=== PATIENT | female | born 1950 | race Caucasian/White ===

== ENCOUNTER 2018-05-20 07:05 | Inpatient (IN) | payer MEDICARE, BC ==
[2018-05-20] MEDS ORDERED: fentaNYL* 50 MCG/ML 2 ML VIAL (100 MCG VIAL) IV SLOW PU ONE (07:23)
[2018-05-20] MEDS ORDERED: fentaNYL* 50 MCG/ML 2 ML VIAL (100 MCG VIAL) ONE (07:25)
--- NOTE | 2018-05-20 07:26 | ED ---
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 20 minutes ago. Patient states that she was moving from her wheelchair to the toilet when her left leg crumbled under her and she fell down striking the right hip on her toilet. Patient states that she couldnt get up afterwards and whenever she exerted herself to lift her body, she could feel the bones crackle. Eventually, she felt her right hip shift and felt pain down to her knee. Currently, the pain is centered around her right hip, although her left hip is still weak and pt has pain in her left knee (which has a TKR) and her left lower leg (which has plate and screws). The pain is rated 10/10 in severity. Symptoms aggravated by nothing. Symptoms alleviated by nothing. The patient treated the pain with fentanyl 200mcg IV PRODUCT MANAGEMENT MANAGER by EMS. Patient additionally reports lower left extremity swelling. Pt is followed by Dr. Jennings for oncology, and Dr. Encarnacion for her chronic pain. Pt is a full code. Verbal order for additional fentanyl 200mcgs IV given to BROOKS Jeffrey, upon admission to ED, to address pt's severe pain, as I am called to the phone to speak with a physician from [facility] regarding another critical pt in the ED. BROOKS Jeffrey gave verbal confirmation of the order for fentanyl 200mcg IV and entered it as a verbal order from Dr. Mota and administered it after usual RN confirmations of narcotic medication. Pt's Dr. Conor Ramachandran, anesthesiologist, remains at patient's bedside continuously. Pt's home medications noted, including xarelto, medical marijuana, and high dose narcotics. Pt gives permission to access her port for all IV access. Pt and deny syncope or seizure as the cause of the fall and state it was true mechanical fall. Pt denies head or neck or back injury with the fall, and denies head, neck and back pain. Pt had bloodwork done yesterday by oncology. Pt has had a few day prodrome of not eating well. Home Medications Medication Instructions Recorded Confirmed Type ALPRAZolam TAB* [Xanax TAB*] 0.5 mg PO Q4HR PRN 03/21/12 12/21/17 History Nitroglycerin [Nitrostat] 0.4 mg SL SEE INSTRUCTIONS PRN 03/21/12 12/21/17 History levETIRAcetam TAB* [Keppra TAB*] 1,000 mg PO BEDTIME 03/21/12 12/21/17 History levETIRAcetam TAB* [Keppra TAB*] 500 mg PO QAM 03/21/12 12/21/17 History B-Complex Vitamins [Vitamin B 1 tab PO QAM 10/05/13 12/21/17 History Complex] Fluoxetine HCl [Prozac] 40 mg PO TID 10/05/13 12/21/17 History Melatonin 10 - 15 mg PO BEDTIME PRN 10/05/13 12/21/17 History Meloxicam [Mobic] 7.5 mg PO BID 10/05/13 12/21/17 History Esomeprazole Magnesium [Nexium] 40 mg PO QAM 11/05/13 12/21/17 History Dronabinol [Marinol] 5 tab PO TID 01/24/15 12/21/17 History Oxycodone HCl [Oxycontin 60 mg] 120 mg PO TID 01/24/15 12/21/17 History Tizanidine HCl 4 mg PO QPM 01/24/15 12/21/17 History Alpha Lipoic Acid 300 mg PO DAILY 12/20/17 12/21/17 History Denosumab* [Xgeva*] 120 mg SUBCUT SEE INSTRUCTIONS 12/20/17 12/21/17 History Furosemide TAB* [Lasix TAB*] 20 mg PO DAILY 12/20/17 12/21/17 History Medical Marijuana 0.5 ml PO TID 12/20/17 History Multivit with Calcium,Iron,Min 1 each PO DAILY 12/20/17 12/21/17 History [Multiple Vitamins For Women] Ondansetron HCl [Zofran] 8 mg PO DAILY 12/20/17 12/21/17 History Oxycodone HCl [Roxybond] 2 tab PO TID 12/20/17 12/21/17 History Oxyfast 2 ml PO DAILY 12/20/17 History Prochlorperazine TAB* [Compazine 10 mg PO Q6H PRN 12/20/17 12/21/17 History Tab*] Vitamin D TAB* 12,000 units PO DAILY 12/20/17 12/21/17 History l-Theanine 100 mg PO DAILY 12/20/17 12/21/17 History predniSONE TAB* [Deltasone 20 MG 20 mg PO DAILY PRN 12/20/17 12/21/17 History TAB*] - History of Current Complaint Chief Complaint: EDHipPelvisInjury Stated Complaint: FALL/HIP INJURY Time Seen by Provider: 05/20/18 07:10 Hx Obtained From: Patient, Family/Tortilla Maker - , anesthesiologist, EMS - EMS provider, Denisse, administered Fenanyl 200mcg IV enroute. I signed medical control for that narcotic. Mechanism Of Injury: Blunt Trauma, Fall From A Standing Position Onset of Pain: Immediate Onset/Duration: Minutes Severity Initially: Severe Severity Currently: Severe Pain Intensity: 10 Pain Scale Used: 0-10 Numeric Timing: Constant Location: Is Discrete @ - right hip and left hip and left lower extremity Character Of Pain: Sharp Associated Signs And Symptoms: Positive: Swelling - left lower extremity swelling, Knee Pain - left Aggravating Factor(s): Movement Alleviating Factor(s): Nothing - no relief with 200mcgs fentanyl IV enroute Able to Bear Weight: No - Allergies/Home Medications Allergies/Adverse Reactions: Allergies Allergy/AdvReac Type Severity Reaction Status Date / Time iodine Allergy Mild Rash Verified 05/20/18 12:30 Adhesive Tape Allergy Unknown Verified 05/20/18 12:30 Reaction Details ampicillin Allergy Unknown Verified 05/20/18 12:30 Reaction Details azithromycin Allergy Unknown Verified 05/20/18 12:30 Reaction Details carbamazepine [From Tegretol] Allergy Unknown Verified 05/20/18 12:30 Reaction Details cefuroxime [From Ceftin] Allergy Unknown Verified 05/20/18 12:30 Reaction Details celecoxib [From Celebrex] Allergy Unknown Verified 05/20/18 12:30 Reaction Details cisapride Allergy Headache Verified 05/20/18 12:30 cyclobenzaprine Allergy Shakes Verified 05/20/18 12:30 divalproex sodium Allergy Altered Verified 05/20/18 12:30 [From Depakote] Mental Status egg Allergy Rash Verified 05/20/18 12:30 Egg Derived Allergy Rash Verified 05/20/18 12:30 estrogens, conjugated Allergy Unknown Verified 05/20/18 12:30 [From Premarin] Reaction Details gabapentin Allergy Altered Verified 05/20/18 12:30 Mental Status Gadolinium-Containing Allergy Hives Verified 05/20/18 12:30 Contrast Medi hydromorphone Allergy Hallucinati Verified 05/20/18 12:30 ons latex Allergy Blisters Verified 05/20/18 12:30 meperidine Allergy Hallucinati Verified 05/20/18 12:30 ons metronidazole Allergy Unknown Verified 05/20/18 12:30 Reaction Details NSAIDS (Non-Steroidal Allergy Rash Verified 05/20/18 12:30 Anti-Inflamma ofloxacin [From Floxin] Allergy Unknown Verified 05/20/18 12:30 Reaction Details propoxyphene Allergy Rash And Verified 05/20/18 12:30 Itching valproic acid Allergy Altered Verified 05/20/18 12:30 Mental Status warfarin Allergy Unknown Verified 05/20/18 12:30 Reaction Details FEMARA Allergy Severe Hives Uncoded 05/20/18 12:31 ISOTOPE FOR PET SCAN Allergy Severe LIPS Uncoded 05/20/18 12:31 SWELLED PHENOBARBITAL Allergy Severe N/V/D Uncoded 05/20/18 12:31 Bee Venom Allergy Swelling Uncoded 05/20/18 12:31 Of Face,Lips,& Throat chicken allergy Allergy Rash Uncoded 05/20/18 12:31 Demerol HCL Allergy Hallucinati Uncoded 05/20/18 12:31 ons DUST Allergy Difficulty Uncoded 05/20/18 12:31 Breathing/Wheezing feathers Allergy asthma Uncoded 05/20/18 12:31 attack Sulfa Antibiotics Allergy Swelling Uncoded 05/20/18 12:31 Of Face,Lips,& Throat Home Medications: Home Medications Oxycodone HCl [Oxycontin] 120 mg PO TID 05/20/18 [History Confirmed 05/20/18] Xarelto 10 mg PO DAILY 05/20/18 [History Confirmed 05/20/18] PMH/Surg Hx/FS Hx/Imm Hx Previously Healthy: No - chronic pain due to Stage IV metastatic breast CA Endocrine/Hematology History: Reports: Hx Thyroid Disease - MULTI NODULAR GOITER Denies: Hx Diabetes Cardiovascular History: Reports: Hx Angina, Hx Deep Vein Thrombosis, Hx Syncope , Other Cardiovascular Problems/Disorders Denies: Hx Hypertension, Hx Pacemaker/ICD, Hx Rheumatic Fever, Hx Valvular Heart Disease Respiratory History: Reports: Hx Asthma, Hx Sleep Apnea - NO CPAP, on O2 2L at night Denies: Hx Pulmonary Embolism GI History: Reports: Hx Gastroesophageal Reflux Disease, Hx Hiatal Hernia, Hx Ulcer History: Denies: Hx Renal Disease Musculoskeletal History: Reports: Hx Arthritis, Hx Bursitis - WRIST HIP SHOULDER , Hx Scoliosis, Other Musculoskeletal History - Breast CA, metastatic to bone; FIBROMYALGIA; LEFT ARM AND LEG LYMPHEDEMA Sensory History: Reports: Hx Cataracts - BILAT, Hx Contacts or Glasses, Hx Glaucoma - LEFT Denies: Hx Hearing Aid, Hx Hearing Problem Opthamlomology History: Reports: Hx Cataracts - BILAT, Hx Contacts or Glasses, Hx Glaucoma - LEFT Neurological History: Reports: Hx Headaches, Hx Nerve Disease - NEUROPATHY, Hx Seizures, Other Neuro Impairments/Disorders - [employer] shunt Psychiatric History: Reports: Hx Anxiety, Hx Depression Denies: Hx Panic Disorder - Cancer History Cancer Type, Location and Year: BREAST CA AND SECONDARY MALIGNANT NEOPLASM OF BONE Hx Chemotherapy: Yes Hx Radiation Therapy: Yes - Surgical History Surgery Procedure, Year, and Place: MULTIPLE SHUNTS- PROGRAMMABLE ( DO AT HOSP..HAS TO BE CHECK PRE & POST MRI UNDER ARTEMIO W/ DR ENGEL) , NECK FUSION, LEFT KNEE REPLACEMENT , RIGHT HIP REPLACEMENT. LT LEG- FX REPAIR- W/ PLATE. THUMB - FX - SCREW. POWER PORT Hx Anesthesia Reactions: No Infectious Disease History: Yes Infectious Disease History: Reports: Hx of Known/Suspected MRSA - in port, Hx Shingles Denies: Hx Hepatitis, Hx Known/Suspected VRE, Traveled Outside the [place] in Last 30 Days - Family History Known Family History: Positive: Cardiac Disease, Other - Father - prostate cancer - Social History Lives: With Family Alcohol Use: None Hx Substance Use: Yes Substance Use Type: Reports: Marijuana - medical, Prescribed Hx Tobacco Use: No Smoking Status (MU): Never Smoked Tobacco Review of Systems Negative: Fever Cardiovascular: Negative Respiratory: Negative Gastrointestinal: Negative Positive: frequency Positive: Other - right hip pain, left lower extremity pain swelling Positive: Other - redness and shiny skin left lower leg greater than right, no open lesions Neurological: Other - severe pain Psychological: Normal All Other Systems Reviewed And Are Negative: Yes Physical Exam - Summary Physical Exam Summary: Appearance: Chronically ill-appearing, severe pain distress, well-nourished, pt has legs curled in position, and cries out in pain whenever touched Skin: Warm, color reflects adequate perfusion, dry Head: Normal Head/Face inspection, atraumatic Eyes: Conjunctiva clear ENT: Normal inspection Neck: Supple, no nodes, no JVD, no bony tenderness Respiratory: Lungs clear, normal breath sounds, no respiratory distress, no chest wall pain or ecchymosis Cardio: RRR, No murmur, pulses normal, brisk capillary refill Abdomen: Soft, nontender, nondistended Bowel sounds: Present Musculoskeletal: Left lower extremity edema, unable to move lower extremities due to severe pain, tenderness left lower leg and foot, right hip, bilateral knee replacement scars Psychological: Normal, cries out in severe pain with any touch or movement Neuro: Alert O x 3, muscle tone normal, no focal deficit noted, speech clear and coherent, facial symmetry. Triage Information Reviewed: Yes Vital Signs On Initial Exam: Initial Vitals Temp Pulse Resp BP Pulse Ox 99.5 F 76 36 141/84 99 05/20/18 07:16 05/20/18 07:16 05/20/18 07:16 05/20/18 07:16 05/20/18 07:16 Vital Signs Reviewed: Yes Diagnostics - Vital Signs Vital Signs Temp Pulse Resp BP Pulse Ox 05/20/18 07:16 99.5 F 76 36 141/84 99 - Laboratory Result Diagrams: 05/21/18 05:30 05/21/18 05:30 Lab Statement: Any lab studies that have been ordered have been reviewed, and results considered in the medical decision making process. - Radiology Knee XR Radiology Interpretation Completed By: Radiologist Summary of Radiographic Findings: Knee XR reveals, per radiologist, IMPRESSION: No fracture of the left knee is noted. ED physician has reviewed this radiology report. Hip XR Radiology Interpretation Completed By: Radiologist Summary of Radiographic Findings: Hip XR reveals, per radiologist, IMPRESSION: Right hip replacement in satisfactory position. Lytic lesion in the proximal lesser trochanter is unchanged. No fracture is identified. ED physician has reviewed this radiology report. Lower Extremity XR Radiology Interpretation Completed By: Radiologist Summary of Radiographic Findings: Lower Extremity XR reveals, per radiologist, IMPRESSION: Moderately comminuted Fracture of the midshaft of the tibia and proximal fibula at the superior margin of the sideplate. This is consistent with a stress riser fracture with medial and posterior displacement. ED physician has reviewed this radiology report. Ankle XR Radiology Interpretation Completed By: Radiologist Summary of Radiographic Findings: Ankle XR reveals, per radiologist, IMPRESSION : Prior internal fixation without recent fracture although soft tissue swelling is noted. ED physician has reviewed this radiology report. Foot XR Radiology Interpretation Completed By: Radiologist Summary of Radiographic Findings: Foot XR reveals, per radiologist, IMPRESSION: No fracture of the left foot is noted. ED physician has reviewed this radiology report. - CT CT Lower Extremity CT Interpretation Completed By: Radiologist Summary of CT Findings: Lower Extremity CT reveals, per radiologist, IMPRESSION : Fracture of the tibia just superior to the existing plate and screws of the tibia. There is lateral displacement approximately 1 shafts width. The fracture is mildly comminuted. Fracture of the proximal fibula with lateral displacement approximately 1 shafts width is also present. ED physician has reviewed this radiology report and has reviewed it in person and discussed it with Dr. Miller. No talus fracture noted by Dr. Miller. - EKG 1112 Cardiac Rate: Bradycardia EKG Rhythm: Sinus Bradycardia - 55 ST Segment: Non-Specific Ectopy: None EKG Comparison: No Significant Change Summary of EKG Findings: An EKG, taken 1112, reveals Sinus Bradycardia (55 BPM) , normal LUIS E CT, normal QTC, left axis, nonspecific ST changes, no ectopy, no significant change since 05/09/15 Re-Evaluation - Re-Evaluation First Eval Re-Evaluation Time: 08:53 Change: Unchanged Comment: Patient continues to have pain and more morphine has been given. Second Eval Re-Evaluation Time: 10:35 Change: Improved Comment: Midazolam was given to pt for muscle relaxant, in doses equivalent to her usual daily xanax at home. Discussion with Dr. Singh prior to administration of benzodiazepine, who agrees that this is not moderate or deep sedation for this patient, as she is on these medications chronically and doses are consistent with her usual medication. , anesthesiologist also remains at bedside. O2 is in place and pt is monitored. Nurse Wojciech RN and I am present with Dr. Ferris at the bedside to assist in monitoring the pt during reduction of the fracture and application of the knee immobilizer and boot, which are chosen rather than posterior splint to allow for frequent skin checks. Skin remains intact. Pain is improved but still severe after reduction by Dr. Ferris. Left dorsalis pedis pulse remains intact and is marked with an "x ". 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 Bloodwork Obtained. Urinalysis Obtained. In the ED course the patient was given fentanyl 200mcg, morphine, Zofran, midazolam. Pt was in severe pain, and Dr. Singh was consulted by phone regarding narcotic and benzodiazepine administration to address pt's severe pain. Pt had plain films showing fractures in left lower leg between the TKR and the tibial plate and possible talus fracture of the foot. No hip or pelvis fractures were identifed on plain films. Pt was not able to localize pain will due to severe pain. CT of pt's lower extremity confirmed the fractures in the left lower leg , and CT reviewed in person with Dr. Miller did not confirm a fracture in the talus, although he could see the lucency on the plain radiograph. The left lower leg fracture was reduced by Dr. Ferris with me at the bedside and assisting in addition to RN, Wojciech, and placed in knee immobilizer and boot. The pt is hemodynamically stable, alert and oriented x3. We had discussed patient care with Dr. Ferris, who knows patient personally and recently saw pt in the office, and she agreed to come see patient in the ED, as Dr. Chatterjee was in the OR (implementation project manager). We discussed patient care with [place] and Dr. Jennings (oncology), and oncology accepted pt on their service with orthopedics consulting. Pt's pain, breast cancer will need to be managed and xarelto DC'd prior to definitive orthopedica management. , anesthesiologist, remained at pt's bedside during ED care. The patient is agreeable with this plan. - Diagnoses Differential Diagnosis/HQI/PQRI: Positive: Dislocation, Fracture (Closed) Provider Diagnoses: Fractured tibia and fibula, Metastatic breast cancer, Anticoagulant long-term use - Physician Notifications Discussed Care Of Patient With: Lita Ferris Time Discussed With Above Provider: 09:32 - Dr. Ferris agrees to see pt,known to her. Dr. Chatterjee, implementation project manager, is in the OR. Instructed by Provider To: Admit As Inpatient - We discussed patient care with Dr. Jennings and [place] [facility] (oncology) at 1030, they accepted pt on the oncology service with orthopedics consulting. The patient is agreeable with this plan. Discharge - Sign-Out/Discharge Documenting (check all that apply): Patient Departure - Discharge Plan Condition: Stable Disposition: ADMITTED TO [facility] - Billing Disposition and Condition Condition: STABLE Disposition: Admitted to [facility] - Attestation Statements Document Initiated by Smileyibe: Yes Documenting Scribe: Fabian Canas Provider For Whom Aleida is Documenting (Include Credential): [place] Mota MD Scribe Attestation: Fabian Simms, scribed for [place] Mota MD on 05/21/18 at 1405. Scribe Documentation Reviewed: Yes Provider Attestation: The documentation as recorded by the Fabian pettit accurately reflects the service I personally performed and the decisions made by , [place] Mota MD Status of Scribe Document: Viewed Consult Consult: [id number] Singh, anesthesia implementation project manager, who knows pt. Discussed dosing of pain medications. OK'd for additional pain meds after fentanyl 200mcg x1 in EMS and fentanyl 200mcg on arrival, and versed 1mg IV. Dr. Singh states that this pt will not go into deep sedation with additional narcotic or benzodiazepine medications. Will give morphine 4mg now and medicate according to patient's pain scale and need for procedures.
[2018-05-20] MEDS ORDERED: Midazolam* 1 MG/ML 2 ML VIAL (2 MG) IV SLOW PU ONE (07:33)
[2018-05-20] MEDS ORDERED: Morphine VIAL* 4 MG/ML VIAL (1 ml vial) IV ONE ×4 (08:02→12:21)
--- OUTSIDE RECORDS SUMMARY | 2018-05-20 08:04 | XMS REPORT | Continuity of Care Document ---
:1950 External Reference #:[id number] Author Name Ravi Encarnacion DO, MPH Address [address] [place] [address], [address] [place] [address] Care Team Providers Name Role Phone Isak Jennings M.D. Care Team Information Supervisor Shipping Unavailable Bhaskar Mathur M.D. Primary Care Physician Unavailable Payers Type Date Identification Numbers Payment Provider Subscriber Effective: 2018 Policy Number: [id number] [place]ran PayID: [id number] [address] [place] [address] Expires: 2018 Policy Number: [id number] [place] Ramachandran PayID: [id number] 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 Tobacco Use Start: Unknown Never Smoked Cigarettes ETOH Use Denies alcohol use Tobacco Use Start: Unknown Patient has never smoked Smoking Status Reviewed: 05/10/18 Patient has never smoked Allergies, Adverse Reactions, Alerts Date Description Reaction Status Severity Comments 01/02/2014 Warfarin Active 01/02/2014 Coumadin Active 01/02/2014 Premarin Active 01/02/2014 Depakote Active 01/02/2014 Darvon Active 01/02/2014 Neurontin Active 01/02/2014 Demerol Active 01/02/2014 Ampicillin Active 01/02/2014 Celebrex Active 01/02/2014 Azithromycin Active 01/02/2014 Floxin Active 01/02/2014 Tegretol Active 01/02/2014 Ceftin Active 01/02/2014 Metronidazole Active 01/02/2014 Elavil Active 01/02/2014 Phenobarbital Active Medications Medication Date Status Form Strength Qnty SIG Indications Ordering Provider Xanax 03/18 Active Tablets 0.5mg 120ta si by Encarnacion bs mouth Ravi, every 6 DO, MPH hours as directed fill generic please. Oxycontin 01/20 Active Tab ER 12H 60mg 180ta take 1-2 Abuse-Det bs tablet by Ravi, mouth DO, MPH every 8-12 hours. as directed chronic pain. fill generic if available please. Oxycodone HCL 07/30 Active Tablets 15mg 240ta si-2 by bs mouth Ravi, every 4 to DO, MPH 6 hours as directed chronic pain patient. fill generic please Zanaflex 04/30 Active Tablets 4mg 30tab si/2-1 s by mouth Ravi, every DO, MPH night as directed chronic pain patient Ritalin 01/15 Active Tablets 5mg 30tab si by s mouth Ravi, daily as DO, MPH directed fill generic please. Oxycodone HCL 01/02 Active Concentrate 100mg/5ML 60ml sig: 1/4-1/2ml Ravi, sl by DO, MPH mouth every 4 to 6 hours as directed chronic pain patient fill generic Multi Active Tablets Unknown Vitamin/Minerals /0000 Full Spectrum Melatonin CR Active Tablets ER 10mg 1 PO Daily Unknown /0000 B Complex Active Tablets 60tab si po Unknown /0000 s qd ud medically necessary Vitamin D Active Capsules 2000Unit Unknown /0000 Zinc Active Tablets 100mg Unknown /0000 Iron Active Tablets 325(65Fe) 2 PO Daily Unknown /0000 mg Move Free Active Capsules 400-60-2. Unknown /0000 5mg Keppra Active Tablets 500mg 3 po daily Unknown / Meloxicam Active Tablets 15mg 120ta 2 by mouth Unknown /0000 bs every day as directed Prozac Active Capsules 40mg 60cap si po Unknown /0000 s qday Nexium Active Capsules DR 40mg 30cap si po Unknown /0000 s qd ud Trazodone HCL Active Tablets 150mg 15tab si po q Unknown /0000 s pm ud Ondansetron HCL Active Tablets 4mg 1-2 q 4-6 Unknown /0000 hrs prn Dulera Active Aerosol 200-5mcg/ Unknown /0000 Act Emetrol Active Solution 1.87-1.87 Unknown /0000 -21.5 Ventolin HFA Active Aerosol 108(90Bas e) mcg/Act Levocetirizine Active Tablets 5mg 30tab sig: take Unknown Dihydrochloride / s 1 po daily Lasix Active Tablets 20mg 1 by mouth Unknown 0000 every morning every day or every other day will confimr. Xarelto Active Tablets 10mg 1 by mouth Unknown /0000 daily Lyrica 09/01 Hx Capsules 25mg 30cap si by Encarnacion s mouth Ravi, - every day DO, MPH 09/01 directed chronic pain patient. dose decrease. Lyrica 08/05 Hx Capsules 25mg 60cap si by Encarnacion s mouth Ravi, - every 8 to DO, MPH 11 12 hours as directed chronic pain patient. fill generic Prednisone 03/16 Hx Tablets 20mg 10tab take one Encarnacion s by mouth Ravi, - every 12 DO, MPH 10/19 hours for five days Ud chronic pain patient. Lyrica 06/26 Hx Capsules 25mg 90cap si by Encarnacion s mouth Ravi, - every 8 DO, MPH 04/13 hours as directed chronic pain patient Xanax 07/30 Hx Tablets 0.5mg 180ta si by Shashank, bs mouth Ravi, - every 4-6 DO, MPH 11/24 hours by mouth every day as directed dosage change Oxycontin 01/02 Hx T12a 80mg 180un si-2 by Shashank, its mouth Ravi, - q4-6hrs as DO, MPH 01/20 directed chronic pain patient Oxycodone HCL 01/02 Hx Tablets 15mg 360ta si-2 by Shashank, /2013 gema mouth Ravi, - every 6 to DO, MPH 07/30 8 hours directed as needed chronic pain patient code d two month scripts Ritalin Hx Tablets 5mg 90tab si-2 Unknown /0000 s po - 01/15 Levothyroxine Hx Tablets 25mcg 1 po qd Unknown Sodium /0000 - 05/10 Arimidex Hx Tablets 1mg 1 po daily Unknown /0000 - 05/10 Marinol Hx Capsules 5mg 1 po q Unknown /0000 6hrs prn - 05/10 Flexeril Hx Tablets 10mg 30tab si po Unknown /0000 s qid ud - 05/10 chronic pain patient Lunesta Hx Tablets 3mg 30tab si po Unknown /0000 s qhs ud - 05/10 chronic pain patient Fondaparinux Hx Solution 7.5mg/0.6 1 Unknown Sodium /0000 ML Injection - Every Day 08/05 Ibrance Hx Capsules 125mg Qday Unknown /0000 - 08/05 Abraxane Hx Suspension 100mg Unknown /0000 Rec - 05/10 Xeloda Hx Tablets 500mg 2 PO Q12H Unknown /0000 - 11/16 Immunizations Description No Information Available Vital Signs Date Vital Result Comment 05/10/2018 11:39am BP Systolic 122 mmHg BP Diastolic 74 mmHg Heart Rate 76 /min Respiratory Rate 20 /min Height 70 inches 5'10" Weight 168.00 lb Pain Level 8 Pain at this time. Pain Level With Medicine 7 on average with meds Pain Level Without Medicine 10 02/01 without meds BMI (Body Mass Index) 24.1 kg/m2 04/13/2018 10:47am BP Systolic 124 mmHg BP Diastolic 74 mmHg Heart Rate 72 /min Respiratory Rate 20 /min Height 70 inches 5'10" Weight 168.00 lb Pain Level 7 Pain at this time. Pain Level With Medicine 6 on average with meds Pain Level Without Medicine 10 02/01 without meds BMI (Body Mass Index) 24.1 kg/m2 03/14/2018 11:25am BP Systolic 116 mmHg BP Diastolic 70 mmHg Heart Rate 68 /min Respiratory Rate 18 /min Height 70 inches 5'10" Weight 168.00 lb Pain Level 8 Pain at this time. Pain Level With Medicine 7 on average with meds Pain Level Without Medicine 10 02/01 without meds BMI (Body Mass Index) 24.1 kg/m2 02/10/2018 11:21am BP Systolic 116 mmHg BP Diastolic 70 mmHg Heart Rate 76 /min Respiratory Rate 20 /min Height 70 inches 5'10" Weight 165.00 lb Pain Level 8 Pain at this time. Pain Level With Medicine 7 on average with meds Pain Level Without Medicine 10 02/01 without meds BMI (Body Mass Index) 23.7 kg/m2 01/11/2018 10:58am BP Systolic 136 mmHg BP Diastolic 86 mmHg Heart Rate 88 /min Respiratory Rate 20 /min doing well today Height 70 inches 5'10" Weight 168.00 lb Pain Level 9 Pain at this time. Pain Level With Medicine 8 on average with meds Pain Level Without Medicine 10 02/01 without meds BMI (Body Mass Index) 24.1 kg/m2 12/13/2017 10:51am BP Systolic 118 mmHg BP Diastolic 74 mmHg Heart Rate 72 /min Respiratory Rate 20 /min Height 70 inches 5'10" Weight 169.00 lb Pain Level 8 Pain at this time. Pain Level With Medicine 7 on average with meds Pain Level Without Medicine 10 02/01 without meds BMI (Body Mass Index) 24.2 kg/m2 11/16/2017 11:43am BP Systolic 120 mmHg BP Diastolic 70 mmHg Heart Rate 74 /min Respiratory Rate 20 /min Height 70 inches 5'10" Weight 160.00 lb Pain Level 7 Pain at this time. Pain Level With Medicine 6 on average with meds Pain Level Without Medicine 10 02/01 without meds BMI (Body Mass Index) 23.0 kg/m2 10/17/2017 11:41am BP Systolic 120 mmHg BP Diastolic 74 mmHg Heart Rate 76 /min Respiratory Rate 20 /min Height 70 inches 5'10" Weight 150.00 lb Pain Level 8 Pain at this time. Pain Level With Medicine 7 on average with meds Pain Level Without Medicine 10 02/01 without meds BMI (Body Mass Index) 21.5 kg/m2 09/15/2017 10:33am BP Systolic 120 mmHg BP Diastolic 74 mmHg Heart Rate 76 /min Respiratory Rate 20 /min Height 70 inches 5'10" Weight 150.00 lb Pain Level 8 Pain at this time. Pain Level With Medicine 7 on average with meds Pain Level Without Medicine 10 02/01 without meds BMI (Body Mass Index) 21.5 kg/m2 08/17/2017 11:22am BP Systolic 128 mmHg BP Diastolic 86 mmHg Heart Rate 84 /min Respiratory Rate 20 /min Height 70 inches 5'10" Weight 150.00 lb Pain Level 9 Pain at this time. Pain Level With Medicine 8 on average with meds Pain Level Without Medicine 10 02/01 without meds BMI (Body Mass Index) 21.5 kg/m2 07/19/2017 10:18am BP Systolic 118 mmHg BP Diastolic 72 mmHg Heart Rate 74 /min Respiratory Rate 20 /min Height 70 inches 5'10" Weight 153.00 lb Pain Level 5 Pain at this time. Pain Level With Medicine 5 on average with meds Pain Level Without Medicine 10 02/01 without meds BMI (Body Mass Index) 22.0 kg/m2 06/15/2017 11:00am BP Systolic 120 mmHg BP Diastolic 74 mmHg Heart Rate 72 /min Respiratory Rate 20 /min Height 70 inches 5'10" Weight 155.00 lb Pain Level 7 Pain at this time. Pain Level With Medicine 5 on average with meds Pain Level Without Medicine 10 02/01 without meds BMI (Body Mass Index) 22.2 kg/m2 05/17/2017 10:55am BP Systolic 118 mmHg BP Diastolic 68 mmHg Heart Rate 72 /min Respiratory Rate 20 /min Height 70 inches 5'10" Weight 153.00 lb Pain Level 8 Pain at this time. Pain Level With Medicine 7 on average with meds Pain Level Without Medicine 10 02/01 without meds BMI (Body Mass Index) 22.0 kg/m2 04/12/2017 11:34am BP Systolic 128 mmHg BP Diastolic 76 mmHg Heart Rate 74 /min Respiratory Rate 20 /min Height 70 inches 5'10" Weight 167.00 lb Pain Level 7 Pain at this time. Pain Level With Medicine 6 on average with meds Pain Level Without Medicine 10 02/01 without meds BMI (Body Mass Index) 24.0 kg/m2 03/16/2017 11:18am BP Systolic 120 mmHg BP Diastolic 72 mmHg Heart Rate 74 /min Respiratory Rate 20 /min Height 70 inches 5'10" Weight 166.00 lb Pain Level 7 Pain at this time. Pain Level With Medicine 7 on average with meds Pain Level Without Medicine 10 02/01 without meds BMI (Body Mass Index) 23.8 kg/m2 02/14/2017 11:18am BP Systolic 122 mmHg BP Diastolic 74 mmHg Heart Rate 76 /min Respiratory Rate 20 /min Height 70 inches 5'10" Weight 168.00 lb Pain Level 8 Pain at this time. Pain Level With Medicine 7 on average with meds Pain Level Without Medicine 10 02/01 without meds BMI (Body Mass Index) 24.1 kg/m2 01/13/2017 11:21am BP Systolic 120 mmHg BP Diastolic 70 mmHg Heart Rate 68 /min Respiratory Rate 20 /min Height 70 inches 5'10" Weight 171.00 lb Pain Level 9 Pain at this time. Pain Level With Medicine 8 on average with meds Pain Level Without Medicine 10 02/01 without meds BMI (Body Mass Index) 24.5 kg/m2 12/16/2016 11:33am BP Systolic 120 mmHg BP Diastolic 76 mmHg Heart Rate 74 /min Respiratory Rate 18 /min Height 70 inches 5'10" Weight 172.00 lb Pain Level 8 Pain at this time. Pain Level With Medicine 7 on average with meds Pain Level Without Medicine 10 02/01 without meds BMI (Body Mass Index) 24.7 kg/m2 11/17/2016 11:20am BP Systolic 118 mmHg BP Diastolic 80 mmHg Heart Rate 76 /min Respiratory Rate 16 /min Height 70 inches 5'10" Pain Level 9 9/10, Pain at this time. Pain Level With Medicine 9 9, on average with meds Pain Level Without Medicine 10 02/01 without meds 11/01/2016 11:45am BP Systolic 126 mmHg BP Diastolic 78 mmHg Heart Rate 74 /min Respiratory Rate 20 /min Height 70 inches 5'10" Weight 175.00 lb Pain Level 9 Pain at this time. Pain Level With Medicine 8 on average with meds Pain Level Without Medicine 10 02/01 without meds BMI (Body Mass Index) 25.1 kg/m2 09/28/2016 11:39am BP Systolic 128 mmHg BP Diastolic 78 mmHg Heart Rate 72 /min Respiratory Rate 16 /min Height 70 inches 5'10" Pain Level 8 8/10, Pain at this time. Pain Level With Medicine 6 6/10, on average with meds Pain Level Without Medicine 10 10 without meds 09/01/2016 10:58am BP Systolic 120 mmHg BP Diastolic 74 mmHg Heart Rate 68 /min Respiratory Rate 20 /min Height 70 inches 5'10" Weight 172.00 lb Pain Level 9 Pain at this time. Pain Level With Medicine 8 on average with meds Pain Level Without Medicine 10 02/01 without meds BMI (Body Mass Index) 24.7 kg/m2 08/05/2016 11:42am BP Systolic 122 mmHg BP Diastolic 76 mmHg Heart Rate 70 /min Respiratory Rate 16 /min Height 70 inches 5'10" Weight 175.00 lb Pain Level 9 9/10, Pain at this time. Pain Level With Medicine 6 6/10, on average with meds Pain Level Without Medicine 10 02/01 without meds BMI (Body Mass Index) 25.1 kg/m2 07/14/2016 11:25am BP Systolic 118 mmHg BP Diastolic 72 mmHg Heart Rate 76 /min Respiratory Rate 16 /min Height 70 inches 5'10" Pain Level 6 6/10, Pain at this time. Pain Level With Medicine 6 6/10, on average with meds Pain Level Without Medicine 10 02/01 without meds 06/14/2016 11:28am BP Systolic 116 mmHg BP Diastolic 74 mmHg Heart Rate 76 /min Respiratory Rate 20 /min Height 70 inches 5'10" Weight 174.00 lb Pain Level 7 Pain at this time. Pain Level With Medicine 7 on average with meds Pain Level Without Medicine 10 02/01 without meds BMI (Body Mass Index) 25.0 kg/m2 05/13/2016 11:30am BP Systolic 122 mmHg BP Diastolic 78 mmHg Heart Rate 80 /min Respiratory Rate 20 /min Height 70 inches 5'10" Weight 174.00 lb Pain Level 9 Pain at this time. Pain Level With Medicine 7 on average with meds Pain Level Without Medicine 10 02/01 without meds BMI (Body Mass Index) 25.0 kg/m2 04/15/2016 11:41am BP Systolic 116 mmHg BP Diastolic 72 mmHg Heart Rate 72 /min Respiratory Rate 20 /min Height 70 inches 5'10" Weight 173.00 lb Pain Level 9 9/10, Pain at this time. Pain Level With Medicine 7 7/10, on average with meds Pain Level Without Medicine 10 02/01 without meds BMI (Body Mass Index) 24.8 kg/m2 03/16/2016 11:43am BP Systolic 128 mmHg BP Diastolic 80 mmHg Heart Rate 72 /min Respiratory Rate 18 /min Height 70 inches 5'10" Weight 166.00 lb Pain Level 9 01/02, Pain at this time. Pain Level With Medicine 8 8, on average with meds Pain Level Without Medicine 10 02/01 without meds BMI (Body Mass Index) 23.8 kg/m2 02/16/2016 11:26am BP Systolic 132 mmHg BP Diastolic 80 mmHg Heart Rate 70 /min Respiratory Rate 18 /min Height 70 inches 5'10" Weight 166.00 lb Pain Level 9 01/02, Pain at this time. Pain Level With Medicine 8 12/02, on average with meds Pain Level Without Medicine 10 02/01 without meds BMI (Body Mass Index) 23.8 kg/m2 12/24/2015 10:55am BP Systolic 128 mmHg BP Diastolic 76 mmHg Heart Rate 74 /min Respiratory Rate 20 /min Height 70 inches 5'10" Weight 166.00 lb Pain Level 8 Pain at this time. Pain Level With Medicine 7 on average with meds Pain Level Without Medicine 10 02/01 without meds BMI (Body Mass Index) 23.8 kg/m2 11/24/2015 10:49am BP Systolic 130 mmHg BP Diastolic 76 mmHg Heart Rate 74 /min Respiratory Rate 18 /min Height 70 inches 5'10" Weight 166.00 lb Pain Level 9 Pain at this time. Pain Level With Medicine 7 on average with meds Pain Level Without Medicine 10 02/01 without meds BMI (Body Mass Index) 23.8 kg/m2 10/24/2015 11:37am BP Systolic 128 mmHg BP Diastolic 76 mmHg Heart Rate 74 /min Respiratory Rate 18 /min Height 70 inches 5'10" Weight 166.00 lb Pain Level 8 Pain at this time. Pain Level With Medicine 6 on average with meds Pain Level Without Medicine 10 02/01 without meds BMI (Body Mass Index) 23.8 kg/m2 09/24/2015 11:15am BP Systolic 120 mmHg BP Diastolic 76 mmHg Heart Rate 74 /min Respiratory Rate 18 /min Height 70 inches 5'10" Weight 166.00 lb Pain Level 7 Pain at this time. Pain Level With Medicine 6 on average with meds Pain Level Without Medicine 10 02/01 without meds BMI (Body Mass Index) 23.8 kg/m2 08/27/2015 11:26am BP Systolic 128 mmHg BP Diastolic 76 mmHg Heart Rate 74 /min Respiratory Rate 20 /min Height 70 inches 5'10" Weight 166.00 lb Pain Level 8 Pain at this time. Pain Level With Medicine 7 on average with meds Pain Level Without Medicine 10 02/01 without meds BMI (Body Mass Index) 23.8 kg/m2 07/23/2015 11:25am BP Systolic 118 mmHg BP Diastolic 74 mmHg Heart Rate 76 /min Respiratory Rate 18 /min Height 70 inches 5'10" Weight 162.00 lb Pain Level 9 Pain at this time. Pain Level With Medicine 8 on average with meds Pain Level Without Medicine 10 02/01 without meds BMI (Body Mass Index) 23.2 kg/m2 06/27/2015 11:23am BP Systolic 142 mmHg BP Diastolic 86 mmHg Heart Rate 80 /min Respiratory Rate 20 /min Height 70 inches 5'10" Weight 162.00 lb Pain Level 9 Pain at this time. Pain Level With Medicine 9 on average with meds Pain Level Without Medicine 10 02/01 without meds BMI (Body Mass Index) 23.2 kg/m2 05/28/2015 11:45am BP Systolic 120 mmHg BP Diastolic 72 mmHg Heart Rate 68 /min Respiratory Rate 18 /min Height 70 inches 5'10" Weight 168.00 lb Pain Level 9 9/10, Pain at this time. Pain Level With Medicine 8 8/10, on average with meds Pain Level Without Medicine 10 02/01 without meds BMI (Body Mass Index) 24.1 kg/m2 04/15/2015 11:18am BP Systolic 124 mmHg BP Diastolic 78 mmHg Heart Rate 74 /min Respiratory Rate 20 /min Height 70 inches 5'10" Weight 184.00 lb Pain Level 8 Pain at this time. Pain Level With Medicine 7 on average with meds Pain Level Without Medicine 10 02/01 without meds BMI (Body Mass Index) 26.4 kg/m2 03/18/2015 11:24am BP Systolic 122 mmHg BP Diastolic 74 mmHg Heart Rate 72 /min Respiratory Rate 2018 /min Height 70 inches 5'10" Weight 184.00 lb Pain Level 7 Pain at this time. Pain Level With Medicine 6 on average with meds Pain Level Without Medicine 10 02/01 without meds BMI (Body Mass Index) 26.4 kg/m2 02/19/2015 11:13am BP Systolic 126 mmHg BP Diastolic 74 mmHg Heart Rate 80 /min Respiratory Rate 20 /min Height 70 inches 5'10" Weight 184.00 lb Pain Level 5 Pain at this time. Pain Level With Medicine 5 on average with meds Pain Level Without Medicine 10 02/01 without meds BMI (Body Mass Index) 26.4 kg/m2 01/20/2015 11:38am BP Systolic 128 mmHg BP Diastolic 72 mmHg Heart Rate 70 /min Respiratory Rate 18 /min Height 70 inches 5'10" Weight 182.00 lb Pain Level 9 01/02, Pain at this time. Pain Level With Medicine 2 10, on average with meds Pain Level Without Medicine 10 02/01 without meds BMI (Body Mass Index) 26.1 kg/m2 12/20/2014 10:32am BP Systolic 138 mmHg BP Diastolic 86 mmHg Heart Rate 80 /min Respiratory Rate 18 /min Height 70 inches 5'10" Weight 182.00 lb Pain Level 9 01/02, Pain at this time. Pain Level With Medicine 9 01/02, on average with meds Pain Level Without Medicine 10 02/01 without meds BMI (Body Mass Index) 26.1 kg/m2 11/15/2014 11:10am BP Systolic 128 mmHg BP Diastolic 76 mmHg Heart Rate 74 /min Respiratory Rate 20 /min Height 70 inches 5'10" Weight 182.00 lb Pain Level 9 Pain at this time. Pain Level With Medicine 8 on average with meds Pain Level Without Medicine 10 02/01 without meds BMI (Body Mass Index) 26.1 kg/m2 10/23/2014 11:10am BP Systolic 118 mmHg BP Diastolic 74 mmHg Heart Rate 76 /min Respiratory Rate 18 /min Height 70 inches 5'10" Weight 178.00 lb Pain Level 10 Pain at this time. Pain Level With Medicine 9 on average with meds Pain Level Without Medicine 10 02/01 without meds BMI (Body Mass Index) 25.5 kg/m2 09/25/2014 11:01am BP Systolic 128 mmHg BP Diastolic 84 mmHg Heart Rate 76 /min Respiratory Rate 18 /min Height 70 inches 5'10" Weight 171.00 lb Pain Level 7 Pain at this time. Pain Level With Medicine 6 on average with meds Pain Level Without Medicine 10 02/01 without meds BMI (Body Mass Index) 24.5 kg/m2 08/14/2014 11:31am BP Systolic 138 mmHg BP Diastolic 84 mmHg Heart Rate 80 /min Respiratory Rate 20 /min Height 70 inches 5'10" Weight 172.00 lb Pain Level 9 Pain at this time. Pain Level With Medicine 9 on average with meds Pain Level Without Medicine 10 02/01 without meds BMI (Body Mass Index) 24.7 kg/m2 07/30/2014 10:59am BP Systolic 132 mmHg BP Diastolic 80 mmHg Heart Rate 84 /min Respiratory Rate 20 /min Height 70 inches 5'10" Weight 173.00 lb Pain Level 8 Pain at this time. Pain Level With Medicine 6 on average with meds Pain Level Without Medicine 10 02/01 without meds BMI (Body Mass Index) 24.8 kg/m2 05/28/2014 10:42am BP Systolic 122 mmHg BP Diastolic 76 mmHg Heart Rate 74 /min Respiratory Rate 20 /min Height 70 inches 5'10" Weight 172.00 lb Pain Level 9 Pain at this time. Pain Level With Medicine 8 on average with meds Pain Level Without Medicine 10 02/01 without meds BMI (Body Mass Index) 24.7 kg/m2 04/30/2014 10:43am BP Systolic 128 mmHg BP Diastolic 78 mmHg Heart Rate 74 /min Respiratory Rate 18 /min Height 70 inches 5'10" Weight 175.00 lb Pain Level 7 Pain at this time. Pain Level With Medicine 6 on average with meds Pain Level Without Medicine 10 02/01 without meds BMI (Body Mass Index) 25.1 kg/m2 04/02/2014 10:17am BP Systolic 128 mmHg BP Diastolic 74 mmHg Heart Rate 76 /min Respiratory Rate 20 /min Height 70 inches 5'10" Weight 173.00 lb Pain Level 9+ Pain at this time. Pain Level With Medicine 8 on average with meds Pain Level Without Medicine 10 02/01 without meds BMI (Body Mass Index) 24.8 kg/m2 02/28/2014 11:18am BP Systolic 120 mmHg BP Diastolic 74 mmHg Heart Rate 80 /min Respiratory Rate 18 /min Height 70 inches 5'10" Weight 175.00 lb Pain Level 8 8/, Pain at this time. Pain Level With Medicine 5 5-12/02, on average with meds Pain Level Without Medicine 10 02/01 without meds BMI (Body Mass Index) 25.1 kg/m2 01/29/2014 10:17am BP Systolic 122 mmHg BP Diastolic 76 mmHg Heart Rate 80 /min Respiratory Rate 18 /min Height 70 inches 5'10" Weight 170.00 lb Pain Level 9 9/10, Pain at this time. Pain Level With Medicine 5 5/10, on average with meds Pain Level Without Medicine 10 02/01 without meds BMI (Body Mass Index) 24.4 kg/m2 01/02/2014 9:45am BP Systolic 112 mmHg BP Diastolic 70 mmHg Heart Rate 64 /min Respiratory Rate 18 /min Height 70 inches 5'10" Weight 172.00 lb Pain Level 8 12/02, Pain at this time. Pain Level Without Medicine 10 10, 02/01 without meds BMI (Body Mass Index) 24.7 kg/m2 Results Test Date Facility Test Result H/L Range Note Laboratory test 02/17/2016 [facility] Point of Care 132 mg/dL High 74-106 [address] [address] [phone] 1 Historiography Teacher: [id number] WONG PARRISH Procedures Date Code Description Status 02/10/2018 81195 Therapeutic, Prophylactic Or Diagnostic Injection Subq/Im Completed 01/11/2018 72855 Therapeutic, Prophylactic Or Diagnostic Injection Subq/Im Completed 12/13/2017 63082 Therapeutic, Prophylactic Or Diagnostic Injection Subq/Im Completed 11/16/2017 90623 Therapeutic, Prophylactic Or Diagnostic Injection Subq/Im Completed 10/17/2017 [id number] Therapeutic, Prophylactic Or Diagnostic Injection Subq/Im Completed 04/12/2017 21797 Therapeutic, Prophylactic Or Diagnostic Injection Subq/Im Completed 02/14/2017 06828 Therapeutic, Prophylactic Or Diagnostic Injection Subq/Im Completed 12/16/2016 61389 Therapeutic, Prophylactic Or Diagnostic Injection Subq/Im Completed 11/17/2016 [id number] Therapeutic, Prophylactic Or Diagnostic Injection Subq/Im Completed 09/28/2016 29029 Therapeutic, Prophylactic Or Diagnostic Injection Subq/Im Completed 09/01/2016 [id number] Therapeutic, Prophylactic Or Diagnostic Injection Subq/Im Completed 07/14/2016 02377 Therapeutic, Prophylactic Or Diagnostic Injection Subq/Im Completed 06/14/2016 13550 Therapeutic, Prophylactic Or Diagnostic Injection Subq/Im Completed 04/15/2016 87050 Therapeutic, Prophylactic Or Diagnostic Injection Subq/Im Completed 03/16/2016 01526 Therapeutic, Prophylactic Or Diagnostic Injection Subq/Im Completed 02/16/2016 21668 Therapeutic, Prophylactic Or Diagnostic Injection Subq/Im Completed 12/24/2015 61276 Therapeutic, Prophylactic Or Diagnostic Injection Subq/Im Completed 11/24/2015 84435 Therapeutic, Prophylactic Or Diagnostic Injection Subq/Im Completed 06/27/2015 52496 Therapeutic, Prophylactic Or Diagnostic Injection Subq/Im Completed 05/28/2015 33988 Therapeutic, Prophylactic Or Diagnostic Injection Subq/Im Completed 04/15/2015 35198 Therapeutic, Prophylactic Or Diagnostic Injection Subq/Im Completed 03/18/2015 37472 Therapeutic, Prophylactic Or Diagnostic Injection Subq/Im Completed 02/19/2015 04751 Therapeutic, Prophylactic Or Diagnostic Injection Subq/Im Completed 10/23/2014 21447 Test Autonomic Nervous System, Sudomotor Completed Encounters Type Date Location Provider Dx Diagnosis Office Visit 04/13/2018 Main Office as Of Ravi Encarnacion DO 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 11:15a 05/26/13 MPH pain (acute) (chronic) M25.551 Pain in right hip M25.552 Pain in left hip M79.18 Myalgia, other site Z71.89 Other specified counseling 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 Office Visit 03/14/2018 10:45a Main Office as Ravi Encarnacion 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 Of 05/26/13 DO, MPH pain (acute) (chronic) M25.551 Pain in right hip M25.552 Pain in left hip M79.18 Myalgia, other site 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 Z71.89 Other specified counseling Office Visit 02/10/2018 11:15a Main Office as Ravi Encarnacion 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 Of 05/26/13 DO, MPH pain (acute) (chronic) M25.551 Pain in right hip M25.552 Pain in left hip M79.18 Myalgia, other site Z71.89 Other specified counseling 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 R53.83 Other fatigue Office Visit 01/11/2018 11:00a Main Office as Ravi Encarnacion 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 Of 05/26/13 DO, MPH pain (acute) (chronic) M25.551 Pain in right hip M25.552 Pain in left hip M79.605 Pain in left leg M79.1 Myalgia R53.83 Other fatigue Z71.89 Other specified counseling 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 Office Visit 12/13/2017 10:45a Main Office as Ravi Encarnacion 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 Of 05/26/13 DO, MPH pain (acute) (chronic) M79.605 Pain in left leg M25.552 Pain in left hip M25.551 Pain in right hip M79.1 Myalgia R53.83 Other fatigue Z79.891 senior care (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 Office Visit 11/16/2017 11:45a Main Office as Ravi Encarnacion 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 Of 05/26/13 DO, MPH pain (acute) (chronic) M79.604 Pain in right leg M79.605 Pain in left leg M25.552 Pain in left hip M25.551 Pain in right hip R53.83 Other fatigue Z71.89 Other specified counseling Z79.891 senior care (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 Office Visit 10/17/2017 11:30a Main Office as Ravi Encarnacion 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 Of 05/26/13 DO, MPH pain (acute) (chronic) M25.551 Pain in right hip M25.552 Pain in left hip M79.605 Pain in left leg M79.604 Pain in right leg M79.1 Myalgia R53.83 Other fatigue Z79.891 senior care (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 Office Visit 09/15/2017 10:45a Main Office as Ravi Encarnacion 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 Of 05/26/13 DO, MPH pain (acute) (chronic) M25.561 Pain in right knee M25.562 Pain in left knee M25.551 Pain in right hip M25.552 Pain in left hip M79.605 Pain in left leg M79.604 Pain in right leg M79.1 Myalgia 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 Office Visit 08/17/2017 11:15a Main Office as Ravi Encarnacion G89.Xiao Neoplasm related Of 05/26/13 DO, MPH pain (acute) (chronic) M79.604 Pain in right leg M79.605 Pain in left leg M25.552 Pain in left hip M25.551 Pain in right hip M25.562 Pain in left knee M25.561 Pain in right knee M79.1 Myalgia Z79.891 senior care (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 Office Visit 07/19/2017 10:15a Main Office as Ravi Encarnacion G89.Xiao Neoplasm related Of 05/26/13 DO, MPH pain (acute) (chronic) M79.1 Myalgia M25.561 Pain in right knee M25.562 Pain in left knee M25.551 Pain in right hip M25.552 Pain in left hip M79.605 Pain in left leg M79.604 Pain in right leg Office Visit 06/15/2017 10:45a Main Office as Ravi Encarnacion G89.Xiao Neoplasm related Of 05/26/13 DO, MPH pain (acute) (chronic) M79.1 Myalgia M25.552 Pain in left hip M25.551 Pain in right hip M25.562 Pain in left knee M25.561 Pain in right knee Z79.891 senior care (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 Office Visit 05/17/2017 11:00a Main Office as Ravi Encarnacion G89.Xiao Neoplasm related Of 05/26/13 DO, MPH pain (acute) (chronic) M79.1 Myalgia M25.551 Pain in right hip M25.552 Pain in left hip 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 M25.561 Pain in right knee M25.562 Pain in left knee Office Visit 04/12/2017 11:15a Main Office as Ravi Encarnacion G89.Xiao Neoplasm related Of 05/26/13 DO, MPH pain (acute) (chronic) M79.1 Myalgia M79.604 Pain in right leg M79.605 Pain in left leg M25.561 Pain in right knee M25.551 Pain in right hip M25.552 Pain in left hip R53.83 Other fatigue Z79.891 senior care (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 Office Visit 03/16/2017 11:15a Main Office as Ravi Encarnacion 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 Of 05/26/13 DO, MPH pain (acute) (chronic) M79.1 Myalgia M25.551 Pain in right hip M25.552 Pain in left hip M25.561 Pain in right knee M79.605 Pain in left leg M79.604 Pain in right leg R00.0 Tachycardia, unspecified 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561 Pain in right knee M79.605 Pain in left leg Z79.891 senior care (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 Office Visit 12/16/2016 11:30a Main Office as Ravi Encarnacion 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 Of 05/26/13 DO, MPH pain (acute) (chronic) M25.552 Pain in left hip M25.551 Pain in right hip M25.561 Pain in right knee M79.604 Pain in right leg M79.605 Pain in left leg M79.1 Myalgia R53.83 Other fatigue 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 Office Visit 11/17/2016 11:15a Main Office as Manasa Lindo 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 Of 2/05/08 MFT pain (acute) (chronic) M25.551 Pain in right hip M25.552 Pain in left hip M25.561 Pain in right knee M25.50 Pain in unspecified joint M79.605 Pain in left leg M79.604 Pain in right leg F41.9 Anxiety disorder, unspecified G47.8 Other sleep disorders Z71.89 Other specified counseling R53.83 Other fatigue 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 Office Visit 11/01/2016 11:30a Main Office as Manasa Lindo 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 Of 05/26/13 MFT pain (acute) (chronic) M25.50 Pain in unspecified joint M25.552 Pain in left hip M25.551 Pain in right hip 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 Office Visit 09/28/2016 11:45a Main Office as Manasa Lindo G89.Xiao Neoplasm related Of 05/26/13 MFT pain (acute) (chronic) M25.50 Pain in unspecified joint F41.9 Anxiety disorder, unspecified R53.83 Other fatigue Z71.89 Other specified counseling M25.551 Pain in right hip M25.552 Pain in left hip Office Visit 09/01/2016 11:15a Main Office as Manasa Lindo G89.Xiao Neoplasm related Of 2/05/08 MFT pain (acute) (chronic) M25.50 Pain in unspecified joint F41.9 Anxiety disorder, unspecified Z71.89 Other specified counseling R53.83 Other fatigue Office Visit 08/05/2016 11:30a Main Office as Manasa Lindo G89.Xiao Neoplasm related Of 2/05/08 MFT pain (acute) (chronic) F41.9 Anxiety disorder, unspecified M25.50 Pain in unspecified joint Z71.89 Other specified counseling Z79.891 senior care (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 Office Visit 07/14/2016 11:45a Main Office as Manasa Lindo 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 Of 05/26/13 MFT pain (acute) (chronic) M25.50 Pain in unspecified joint F41.9 Anxiety disorder, unspecified R53.83 Other fatigue Z71.89 Other specified counseling M79.1 Myalgia 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 Office Visit 06/14/2016 11:15a Main Office as Ravi Encarnacion G89.Xiao Neoplasm related Of 05/26/13 DO, MPH pain (acute) (chronic) F41.9 Anxiety disorder, unspecified M25.50 Pain in unspecified joint R53.83 Other fatigue G47.8 Other sleep disorders M79.1 Myalgia R29.6 Repeated falls Z79.891 senior care (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 Office Visit 05/13/2016 11:30a Main Office as Manasa Lindo G89.Xiao Neoplasm related Of 05/26/13 MFT pain (acute) (chronic) F41.9 Anxiety disorder, unspecified M25.50 Pain in unspecified joint Z71.89 Other specified counseling Office Visit 04/15/2016 11:30a Main Office as Manasa Lindo G89.Xiao Neoplasm related Of 05/26/13 MFT pain (acute) (chronic) M25.50 Pain in unspecified joint F41.9 Anxiety disorder, unspecified R53.83 Other fatigue Z79.891 senior care (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 Office Visit 03/16/2016 11:15a Main Office as Manasa Lindo G89.Xiao Neoplasm related Of 05/26/13 MFT pain (acute) (chronic) M79.604 Pain in right leg M25.50 Pain in unspecified joint F41.9 Anxiety disorder, unspecified R53.83 Other fatigue Z71.89 Other specified counseling Office Visit 02/16/2016 11:45a Main Office as Manasa Lindo G89.Xiao Neoplasm related Of 05/26/13 MFT pain (acute) (chronic) F41.9 Anxiety disorder, unspecified G47.8 Other sleep disorders M79.604 Pain in right leg M25.50 Pain in unspecified joint R53.83 Other fatigue Z71.89 Other specified counseling 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 Office Visit 12/24/2015 11:00a Main Office as Ravi Encarnacion 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 Of 05/26/13 DO, MPH pain (acute) (chronic) M79.604 Pain in right leg M25.50 Pain in unspecified joint G47.8 Other sleep disorders F41.9 Anxiety disorder, unspecified R53.83 Other fatigue Office Visit 11/24/2015 10:30a Main Office as Ravi Enacrnacion 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 Of 05/26/13 DO, MPH pain (acute) (chronic) M79.604 Pain in right leg M25.50 Pain in unspecified joint M79.1 Myalgia R29.6 Repeated falls F41.9 Anxiety disorder, unspecified G47.8 Other sleep disorders R53.83 Other fatigue 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.891 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 care (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 Office Visit 10/24/2015 11:15a Main Office as Ravi Encarnacion 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 Of 05/26/13 DO, MPH pain (acute) (chronic) M79.1 Myalgia M79.604 Pain in right leg F41.9 Anxiety disorder, unspecified M25.50 Pain in unspecified joint G47.8 Other sleep disorders R29.6 Repeated falls Z79.891 senior care (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 Office Visit 09/24/2015 11:00a Main Office as Ravi Encarnacion Z79.891 senior care Of 05/26/13 DO, MPH (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) M79.1 Myalgia M79.604 Pain in right leg F41.9 Anxiety disorder, unspecified M25.50 Pain in unspecified joint G47.8 Other sleep disorders R29.6 Repeated falls 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 Office Visit 08/27/2015 11:15a Main Office as Ravi Encarnacion Z79.891 senior care Of 05/26/13 DO, MPH (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) M79.1 Myalgia M79.604 Pain in right leg F41.9 Anxiety disorder, unspecified 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 Office Visit 07/23/2015 11:15a Main Office as Ravi Encarnacion 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 Of 05/26/13 DO, MPH (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) M79.1 Myalgia M79.604 Pain in right leg F41.9 Anxiety disorder, unspecified M25.50 Pain in unspecified joint 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 Office Visit 06/27/2015 11:15a Main Office as Ravi Encarnacion Z79.891 senior care Of 05/26/13 DO, MPH (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) M79.1 Myalgia M79.604 Pain in right leg Z79.891 senior care (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 R53.83 Other fatigue Office Visit 05/28/2015 11:15a Main Office as Ravi Encarnacion 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 Of 05/26/13 DO, MPH pain (acute) (chronic) M79.1 Myalgia M79.604 Pain in right leg F41.9 Anxiety disorder, unspecified R53.83 Other fatigue Z13.89 Encounter for screening for other disorder Office Visit 04/15/2015 11:00a Main Office as Ravi Encarnacion 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 Of 05/26/13 DO, MPH pain (acute) (chronic) M79.1 Myalgia M79.604 Pain in right leg F41.9 Anxiety disorder, unspecified R53.83 Other fatigue Office Visit 03/18/2015 11:15a Main Office as Ravi Encarnacion 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 Of 05/26/13 DO, MPH pain (acute) (chronic) M79.1 Myalgia F41.9 Anxiety disorder, unspecified G47.8 Other sleep disorders M79.604 Pain in right leg R53.83 Other fatigue Office Visit 02/19/2015 11:15a Main Office as Ravi Encarnacion 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 Of 05/26/13 DO, MPH (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) M79.1 Myalgia F41.9 Anxiety disorder, unspecified G47.8 Other sleep disorders M79.604 Pain in right leg R53.83 Other fatigue 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 Office Visit 01/20/2015 11:15a Main Office as Ravi Encarnacion, 338.3 Neoplasm Related Of 05/26/13 DO, MPH Pain (Acute) (Chronic) 719.49 Pain Joint Multiple Sites 729.1 Myalgia & Myositis Unspec 300.00 Anxiety State Unspec V65.42 Counseling On Substance Use & Abuse Office Visit 12/20/2014 10:30a Main Office as Ravi Encarnacion, 338.3 Neoplasm Related Of 05/26/13 DO, MPH Pain (Acute) (Chronic) 719.49 Pain Joint Multiple Sites 729.1 Myalgia & Myositis Unspec 300.00 Anxiety State Unspec 780.59 Sleep Disturbances Other 729.5 Pain In Limb V65.43 Counseling On Injury Prevention V58.69 Medications Director Hris (Current) Use Encounter Office Visit 11/15/2014 11:00a Main Office as Ravi Encarnacion, 338.3 Neoplasm Related Of 05/26/13 DO, MPH Pain (Acute) (Chronic) 719.49 Pain Joint Multiple Sites 729.1 Myalgia & Myositis Unspec 300.00 Anxiety State Unspec 780.59 Sleep Disturbances Other 719.45 Pain Joint Pelvic Region & Thigh 729.5 Pain In Limb Office Visit 10/23/2014 11:00a Main Office as Ravi Encarnacion, 338.3 Neoplasm Related Of 05/26/13 DO, MPH Pain (Acute) (Chronic) 719.49 Pain Joint Multiple Sites 729.1 Myalgia & Myositis Unspec 337.9 Autonomic Nervous System Disorder Unspec Office Visit 09/25/2014 11:00a Main Office as Ravi Encarnacion, 338.3 Neoplasm Related Of 05/26/13 DO, MPH Pain (Acute) (Chronic) 729.1 Myalgia & Myositis Unspec 719.49 Pain Joint Multiple Sites 300.00 Anxiety State Unspec 780.59 Sleep Disturbances Other 719.45 Pain Joint Pelvic Region & Thigh V65.43 Counseling On Injury Prevention Office Visit 08/14/2014 11:15a Main Office as Ravi Encarnacion, 338.3 Neoplasm Related Of 05/26/13 DO, MPH Pain (Acute) (Chronic) 719.49 Pain Joint Multiple Sites 729.1 Myalgia & Myositis Unspec 300.00 Anxiety State Unspec 780.59 Sleep Disturbances Other Office Visit 07/30/2014 10:30a Main Office as Ravi Encarnacion, 338.3 Neoplasm Related Of 05/26/13 DO, MPH Pain (Acute) (Chronic) 719.49 Pain Joint Multiple Sites 729.1 Myalgia & Myositis Unspec 780.59 Sleep Disturbances Other 300.00 Anxiety State Unspec 719.45 Pain Joint Pelvic Region & Thigh V65.43 Counseling On Injury Prevention V65.3 Dietary Surveillance & Counseling Office Visit 05/28/2014 10:30a Main Office as Ravi Encarnacion, 338.3 Neoplasm Related Of 05/26/13 DO, MPH Pain (Acute) (Chronic) 719.49 Pain Joint Multiple Sites 729.1 Myalgia & Myositis Unspec 780.59 Sleep Disturbances Other 300.00 Anxiety State Unspec Office Visit 04/30/2014 10:30a Main Office as Ravi Encarnacion, 338.3 Neoplasm Related Of 05/26/13 DO, MPH Pain (Acute) (Chronic) 729.1 Myalgia & Myositis Unspec 719.49 Pain Joint Multiple Sites 780.59 Sleep Disturbances Other 300.00 Anxiety State Unspec Office Visit 04/02/2014 10:00a Main Office as Ravi Encarnacion, 338.3 Neoplasm Related Of 05/26/13 DO, MPH Pain (Acute) (Chronic) 729.1 Myalgia & Myositis Unspec 719.49 Pain Joint Multiple Sites 780.59 Sleep Disturbances Other 300.00 Anxiety State Unspec Office Visit 02/28/2014 10:30a Main Office as Ravi Encarnacion, 338.3 Neoplasm Related Of 05/26/13 DO, MPH Pain (Acute) (Chronic) 729.1 Myalgia & Myositis Unspec 719.49 Pain Joint Multiple Sites 780.59 Sleep Disturbances Other Office Visit 01/29/2014 10:00a Main Office as Ravi Encarnacion, 338.3 Neoplasm Related Of 05/26/13 DO, MPH Pain (Acute) (Chronic) 729.1 Myalgia & Myositis Unspec 719.49 Pain Joint Multiple Sites V65.3 Dietary Surveillance & Counseling Office Visit 01/15/2014 9:45a Main Office as Ravi Encarnacion, 338.3 Neoplasm Related Of 05/26/13 DO, MPH Pain (Acute) (Chronic) 729.1 Myalgia & Myositis Unspec 719.49 Pain Joint Multiple Sites V65.43 Counseling On Injury Prevention Office Visit 01/02/2014 9:00a Main Office as Ravi Encarnacion, 338.3 Neoplasm Related Of 05/26/13 DO, MPH Pain (Acute) (Chronic) 729.1 Myalgia & Myositis Unspec 719.49 Pain Joint Multiple Sites 719.45 Pain Joint Pelvic Region & Thigh V65.3 Dietary Surveillance & Counseling V58.83 Encounter For Therapeutic Drug Monitoring Plan of Treatment Future Appointment(s):06/13/2018 10:45 am - Ravi Encarnacion DO MPH at Main Office as Of 05/26/1400 - Ravi Encarnacion DO, MPH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)Comments:Chronic. Symptoms and complaints discussed and reviewed today. No significant changes in physical findings. Continue current medical pain management.M25.551 Pain in right hipComments:Chronic. Symptoms and complaints discussed and reviewed today. No significant changes in physical findings. Continue current medical pain management.M25.552 Pain in left hipComments:Chronic. Symptoms and complaints discussed and reviewed today. No significant changes in physical findings. Continue current medical pain management.M79.18 Myalgia, other siteComments:Chronic. Symptoms and complaints discussed and reviewed today.No changes in physical findings. Patient is stable and comfortable when current medical therapy is rendered.Z79.891 senior care ( 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New Labs:Urine Drug Screen, Ordered: Comments:Urine drug screen sample taken today to monitor opiate use and to monitor use of illicit substances.Will discuss results at next appointment.The following tests were ordered:6 AM, AMPH, MARY ELLEN, LELA, BUP, CARIS, COCM, COT, ETG , FENT, MCSHSG, OPI, OXY, PCP, TAPEN, XTSY, ZOLP. ~I_A urine drug test ( UDT) was ordered for this patient and collected on site today. Creatinine has been ordered as well for specimen validity, not for kidney function. Preliminary UDT results are not final and should not be used to determine patient care or plan of treatment. Initially a qualitative immunoassay screen will be done. Any inconsistent or positive findings will be further tested with a more comprehensive quantitative confirmation LCMS study. It is part of the treatment process of prescribing controlled substances and is considered standard of care.~i_AllComments:All above symptoms and complaints discussed as well as diagnoses reviewed.Continue trial of opioid pain management - note changes below; injection therapy, osteopathic manipulation (OMT), PT / modalities, and consults as needed to manage chronic pain.Side effects discussed ; anticipatory guidance given. Patient clearly understands and agrees with all medical treatments and suggestions. 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 Activity as toleratedContinue with PCP
--- OUTSIDE RECORDS SUMMARY | 2018-05-20 08:04 | XMS REPORT | Continuity of Care Document ---
:1950 External Reference #:[id number] Author Name Yocasta Calvert Care Team Providers Name Role Phone Bhaskar Mathur MD Primary Care Physician Unavailable Payers Type Date Identification Numbers Payment Provider Subscriber Policy Number: [id number] Medicare Maria Killian PayID: [id number] [address] [place] [address] Effective: 2013 Policy Number: [id number] [employer] Conor Mabry PayID: [id number] [address] [address] Effective: 2012 Policy Number: [id number] [employer] Maria Killian Expires: 2013 PayID: [id number] [address] [address] Effective: 2005 Policy Number: [id number] [employer] [place] Conor Mabry Expires: 2012 Group Name: [facility] [address] PayID: [id number] [address] Advance Directives Description No Information Available Problems Date Description Provider Status Onset: 10/15/2014 Disorder of bursa of shoulder Steven Costello M.D. Active region Onset: 11/12/2014 Arthralgia of the lower leg Steven Costello M.D. Active Onset: 01/06/2015 Enthesopathy of hip region Lita Ferris M.D. Active Onset: 01/06/2015 C/O - a back symptom Lita Ferris M.D. Active Onset: 01/29/2015 Arthralgia of the pelvic region Lita Ferris M.D. Active and thigh Onset: 03/31/2015 Trochanteric bursitis Lita Ferris M.D. Active Onset: 07/07/2015 Localized, primary osteoarthritis Lita eFrris M.D. Active Onset: 10/07/2015 Disturbance in sleep behavior Bel Zaidi MD Active Onset: 10/07/2015 Malignant neoplasm of female Bel Zaidi MD Active breast Onset: 10/28/2015 Obstructive sleep apnea syndrome Bel Zaidi MD Active Onset: 06/09/2016 Central sleep apnea syndrome Aida Powell DNP, RN, Active [employer] Family History Date Family Member(s) Problem(s) Comments General breast cancer General thrombophlebitis General alzheimers General heart disease Father Prostate Cancer Father due to Prostate Cancer () Father Heart Disease Father Clotting Disorder Mother Alive And Well Siblings 2 Siblings 2 1-[place] Social History Type Date Description Comments Sex Unknown Marital Status Lives With Occupation Disabled Tobacco Use Start: Unknown Never Smoked Cigarettes Smoking Status Reviewed: 05/01/18 Never Smoked Cigarettes ETOH Use Denies alcohol use Tobacco Use Start: Unknown Patient has never smoked Recreational Drug Use Denies Drug Use Recreational Drug Use Denies Drug Use Medical marijuana Exercise Type/Frequency Does not exercise Unable to exercise due to health condition Allergies, Adverse Reactions, Alerts Date Description Reaction Status Severity Comments 08/02/2013 Multiple NSAIDS Active 08/02/2013 Warfarin Active 08/02/2013 Premarin Active 08/02/2013 Depakote Active 08/02/2013 Darvon Active 08/02/2013 Neurontin Active 08/02/2013 Demerol Active 08/02/2013 Ampicillin Active 08/02/2013 Celebrex Active 08/02/2013 Celebrex Active 08/02/2013 Azithromycin Active 08/02/2013 Floxin Active 08/02/2013 Floxin Active 08/02/2013 Tegretol Active 08/02/2013 Ceftin Active 08/02/2013 Metronidazole Active 08/02/2013 Phenobarbital Active 02/01/2017 Bee Pollen Active 02/01/2017 Honey Bee Active Venom Protein 02/01/2017 Bee Products Contact dermatitis Active 02/01/2017 Chicken Allergenic Urticaria, Joint Active Any chicken Extract pain, diarrhaea products 02/01/2017 Eggs Or Egg-Derived Urticaria Active Mild Products 08/26/2017 Adhesive Active 12/09/2017 Latex skin irritation Active Medications Medication Date Status Form Strength Qnty SIG Indications Ordering Provider Xarelto 03/02 Active Tablets 20mg 30tab 1 by mouth Qutayb s every day Bill Penny M.D. Nitrostat 12/09 Active Tablets Sub 0.4mg 25tab one sl q5min yb s up to 3 S. doses as kathryn Penny M.D. Mobic 06/22 Active Tablets 7.5mg 60tab 1 po bid billy Curry M.D. Vitamin B Active 1 by mouth Unknown Complex /0000 daily Keppra Active Tablets As directed Unknown /0000 500 MG Am, 1,000 MG PM Marinol Active 5mg As Directed Unknown /0000 3x per day Melatonin Active Tablets 10-15 MG po Unknown /0000 once daily hs Multi-Vitamins Active 1 by mouth Unknown /Iron /0000 daily Oxycodone HCL Active Tablet 15mg 2 tablets by Unknown /0000 mouth 3 times a day Prozac Active 40mg 1 by mouth Unknown /0000 tid Vitamin D High Active [id number] by mouth Unknown Potency /0000 s daily Xgeva Active every 8-12 Unknown /0000 weeks injection Oxycontin Active Tab ER 12H 60mg 2 tablet by Unknown /0000 Abuse-Det mouth t.i.d Nexium Active Capsules DR 40mg 30cap 1 by mouth Unknown /0000 s every day Xanax Active Tablets 0.5mg 4 tablets Unknown /0000 prn Oxyfast Active 2 ml daily Unknown /0000 Prednisone Active Tablets 20mg prn Unknown /0000 Medical Active Liquid 0.5 ml four Unknown Marijuana /0000 times daily Furosemide Active Tablets 20mg 1 by mouth Unknown /0000 every day prn Alpha Lipoic Active Capsules 300mg daily Unknown Acid /0000 L-Theanine Active Capsules 100mg one po daily Unknown /0000 Tizanidine HCL 00 Active Capsules 4mg 1 tab daily Unknown / Compazine 0000 Active Tablets 10mg 1 tab by Unknown /0000 mouth every 6 hours as needed for nausea Zofran 00 Active Tablets 8mg take 1 by Unknown /0000 mouth every 6 hours as needed for nausea Capecitabine Active Tablets 150mg Unknown / Eliquis 12/09 Hx Tablets 5mg 42tab 1 by mouth Qutaybeh s twice a day Bill Penny, 03/02 M.D. 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 Brace /2015 s ambulation Nathan Ferris Knee - prn M.Venkat 12/08 Augmentin 03/18 Hx Tablets 875-125mg 20tab one by mouth Yvonne /2014 s every 12 Rodriguez-You - hours for Melissa campos 09/16 ten Anastrozole / Hx 1mg Unknown / - 09/21 Aspirin 0000 Hx 325mg 1 tab po Unknown /0000 daily - 12/08 Coq10 00/00 Hx Unknown / - 11/30 Flexeril 00 Hx 10mg as needed - 02/01 Nitroglycerin Hx 30 as needed / - 12/09 Omeprazole 00 Hx 20mg Unknown / - 11/30 Oxycodone HCL 00/ Hx 15mg Unknown / - 11/30 Ritalin 00/00 Hx 5mg 1 tablet by Unknown /0000 mouth daily - 12/08 Xanax 00/00 Hx 2mg Unknown / - 02/06 Trazodone HCL 0000 Hx Tablets 150mg 30tab 1 by mouth Unknown /0000 s every night - at bedtime 02/06 Zofran Hx Tablets 4mg 60tab 1 every 6 Unknown /0000 s hours as - needed 02/06 Augmentin 00/00 Hx 875 Unknown / - 02/26 Zithromax Hx Unknown - 02/26 Lyrica Hx Capsule 10mg 1 or 2 capsules by - mouth daily 12/08 Meloxicam Hx Tablets 15mg once daily Unknown with food - 02/01 Abraxane Hx Suspension 100mg daily for 3 Rec weeks and 1 - week off 02/01 Xeloda Hx Tablets 2 per day - 12/08 Medications Administered in Office Medication Date Status Form Strength Qnty SIG Indications Ordering Provider Depomedrol Administered Injection Lita 40MG 019 Melissa Ferris Depomedrol Administered Injection Lita 40MG 016 Melissa Ferris Depomedrol Administered Injection Lita 80MG 015 Melissa Ferris Depomedrol Administered Injection Lita 80MG 015 Melissa Ferris Depomedrol Administered Injection Steven Young, 80MG 015 Oswlad.DMargareth Depomedrol Administered Injection Steven Young, 80MG 015 MtDMargareth Depomedrol Administered Injection Steven Young, 80MG 015 MtDMragareth Depomedrol Administered Injection Yessy 80MG 014 ELIZABETH Osman Depomedrol Administered Injection Conor 80MG 014 Melissa Terrazas Depomedrol Administered Injection Ayana 80MG 013 Melissa Curry Immunizations Description No Information Available Vital Signs Date Vital Result Comment 05/01/2018 8:34am Height 73 inches 6'1" Weight 174.00 lb BP Systolic 119 mmHg BP Diastolic 72 mmHg Respiratory Rate 17 /min Pain Level 9 BMI (Body Mass Index) 23.0 kg/m2 03/02/2018 12:59pm Height 73 inches 6'1" Heart Rate 62 /min BP Systolic Sitting 112 mmHg rue lg cuff BP Diastolic Sitting 62 mmHg rue lg cuff Respiratory Rate 16 /min Ejection Fraction 50% 01/09/2018 echo 12/09/2017 10:31am Height 73 inches 6'1" Weight 169.00 lb Patient Reports Heart Rate 78 /min BP Systolic Sitting 124 mmHg Rue Reg Cuff BP Diastolic Sitting 68 mmHg Rue Reg Cuff BMI (Body Mass Index) 22.3 kg/m2 Ejection Fraction 50-55% ECHO 05/15/15 08/26/2017 11:15am Height 73 inches 6'1" Weight 150.00 lb Heart Rate 64 /min BP Systolic Sitting 102 mmHg BP Diastolic Sitting 64 mmHg Respiratory Rate 14 /min O2 % BldC Oximetry 98 % BMI (Body Mass Index) 19.8 kg/m2 04/01/2017 10:45am Height 73 inches 6'1" Weight 168.00 lb no shoes or clothes per pt Heart Rate 60 /min BP Systolic Sitting 118 mmHg Rue reg cuff BP Diastolic Sitting 62 mmHg Rue reg cuff Respiratory Rate 16 /min O2 % BldC Oximetry 97 % BMI (Body Mass Index) 22.2 kg/m2 02/01/2017 11:09am Height 73 inches 6'1" Weight 163.00 lb per pt Heart Rate 62 /min BP Systolic Sitting 110 mmHg Rue reg cuff BP Diastolic Sitting 68 mmHg Rue reg cuff Respiratory Rate 18 /min O2 % BldC Oximetry 96 % On Ra BMI (Body Mass Index) 21.5 kg/m2 12/14/2016 11:27am Height 73 inches 6'1" Weight 161.00 lb per pt Heart Rate 80 /min BP Systolic Sitting 88 mmHg Ra reg cuff BP Diastolic Sitting 46 mmHg Ra reg cuff O2 % BldC Oximetry 97 % room air BMI (Body Mass Index) 21.2 kg/m2 09/22/2016 1:36pm Height 73 inches 6'1" Weight 176.00 lb per pt Heart Rate 69 /min BP Systolic Sitting 128 mmHg Ra reg cuff BP Diastolic Sitting 80 mmHg Ra reg cuff O2 % BldC Oximetry 94 % room air BMI (Body Mass Index) 23.2 kg/m2 08/11/2016 1:52pm Height 73 inches 6'1" Weight 175.00 lb Heart Rate 76 /min BP Systolic Sitting 108 mmHg BP Diastolic Sitting 72 mmHg Respiratory Rate 16 /min Pain Level 8 O2 % BldC Oximetry 96 % BMI (Body Mass Index) 23.1 kg/m2 06/09/2016 11:40am Height 74 inches 6'2" Weight 172.00 lb Heart Rate 70 /min BP Systolic 114 mmHg BP Diastolic 72 mmHg Respiratory Rate 14 /min O2 % BldC Oximetry 92 % BMI (Body Mass Index) 22.1 kg/m2 04/07/2016 11:17am Weight 174.00 lb Heart Rate 92 /min BP Systolic 130 mmHg BP Diastolic 70 mmHg Respiratory Rate 14 /min O2 % BldC Oximetry 95 % 02/18/2016 11:57am Heart Rate 84 /min BP Systolic 132 mmHg BP Diastolic 80 mmHg Respiratory Rate 14 /min O2 % BldC Oximetry 98 % 02/02/2016 1:04pm Heart Rate 74 /min BP Systolic 137 mmHg BP Diastolic 82 mmHg Pain Level 9 01/30/2016 12:03pm Height 73 inches 6'1" Heart Rate 88 /min Respiratory Rate 20 /min 01/07/2016 12:54pm Heart Rate 76 /min BP Systolic Sitting 126 mmHg BP Diastolic Sitting 82 mmHg Respiratory Rate 16 /min O2 % BldC Oximetry 97 % 12/03/2015 11:50am Heart Rate 74 /min BP Systolic 122 mmHg BP Diastolic 84 mmHg Respiratory Rate 14 /min O2 % BldC Oximetry 95 % 10/28/2015 11:53am Heart Rate 83 /min BP Systolic Sitting 122 mmHg BP Diastolic Sitting 72 mmHg Respiratory Rate 18 /min O2 % BldC Oximetry 97 % 10/07/2015 11:47am Height 73 inches 6'1" Weight 165.00 lb Heart Rate 95 /min BP Systolic 118 mmHg BP Diastolic 72 mmHg Respiratory Rate 14 /min O2 % BldC Oximetry 95 % BMI (Body Mass Index) 21.8 kg/m2 Neck Circumference in inches 14 10/06/2015 11:36am Height 73 inches 6'1" Weight 165.00 lb Pain Level 10 BMI (Body Mass Index) 21.8 kg/m2 07/07/2015 12:59pm Height 73 inches 6'1" Weight 165.00 lb Pain Level 10 BMI (Body Mass Index) 21.8 kg/m2 05/09/2015 2:16pm Height 73 inches 6'1" Weight 167.00 lb Pain Level 10 BMI (Body Mass Index) 22.0 kg/m2 03/31/2015 11:43am Height 73 inches 6'1" Weight 167.00 lb Pain Level 10 BMI (Body Mass Index) 22.0 kg/m2 01/29/2015 3:17pm Height 73 inches 6'1" Weight 167.00 lb Pain Level 9 BMI (Body Mass Index) 22.0 kg/m2 01/06/2015 9:45am Height 73 inches 6'1" Weight 167.00 lb Heart Rate 80 /min BP Systolic Sitting 118 mmHg BP Diastolic Sitting 81 mmHg Pain Level 7 BMI (Body Mass Index) 22.0 kg/m2 11/12/2014 1:19pm Height 73 inches 6'1" Weight 167.00 lb Pain Level 5 up to a 10 at times BMI (Body Mass Index) 22.0 kg/m2 10/21/2014 8:10am Height 73 inches 6'1" Weight 167.00 lb Pain Level 9 BMI (Body Mass Index) 22.0 kg/m2 10/15/2014 2:23pm Height 73 inches 6'1" Weight 167.00 lb Pain Level 10 BMI (Body Mass Index) 22.0 kg/m2 09/19/2014 3:28pm Height 73 inches 6'1" Weight 167.00 lb Pain Level 7 various 5-8 BMI (Body Mass Index) 22.0 kg/m2 09/05/2014 1:14pm Height 73 inches 6'1" Weight 175.00 lb Pain Level 10 BMI (Body Mass Index) 23.1 kg/m2 06/27/2014 11:03am Height 73 inches 6'1" Weight 175.00 lb Pain Level 10 BMI (Body Mass Index) 23.1 kg/m2 05/16/2014 10:42am Height 73 inches 6'1" Weight 175.00 lb Pain Level 10 BMI (Body Mass Index) 23.1 kg/m2 03/20/2014 9:51am Height 73 inches 6'1" Heart Rate 104 /min BP Systolic 135 mmHg BP Diastolic 103 mmHg 03/18/2014 11:41am Height 73 inches 6'1" Heart Rate 88 /min BP Systolic 128 mmHg BP Diastolic 82 mmHg 03/14/2014 1:37pm Height 73 inches 6'1" Heart Rate 83 /min BP Systolic 126 mmHg BP Diastolic 80 mmHg 02/27/2014 1:55pm Height 73 inches 6'1" Weight 175.00 lb Heart Rate 85 /min BP Systolic 126 mmHg BP Diastolic 73 mmHg BMI (Body Mass Index) 23.1 kg/m2 02/18/2014 9:51am Height 72 inches 6'0" Heart Rate 76 /min BP Systolic 122 mmHg BP Systolic Sitting 75 mmHg 02/07/2014 11:34am Height 72 inches 6'0" Heart Rate 78 /min BP Systolic 114 mmHg BP Diastolic 70 mmHg 12/20/2013 10:42am Height 72 inches 6'0" Heart Rate 75 /min BP Systolic 114 mmHg BP Diastolic 66 mmHg 12/12/2013 1:55pm Height 72 inches 6'0" Heart Rate 79 /min BP Systolic 137 mmHg BP Diastolic 73 mmHg 11/30/2013 11:28am Height 72 inches 6'0" Weight 171.00 lb Heart Rate 64 /min BP Systolic Sitting 122 mmHg BP Diastolic Sitting 70 mmHg Pain Level 10 head BMI (Body Mass Index) 23.2 kg/m2 11/06/2013 11:26am Height 72 inches 6'0" Heart Rate 86 /min BP Systolic 106 mmHg BP Diastolic 75 mmHg 10/16/2013 1:55pm Height 72 inches 6'0" Weight 183.00 lb Heart Rate 80 /min BMI (Body Mass Index) 24.8 kg/m2 10/02/2013 11:23am Height 72 inches 6'0" Weight 183.00 lb Heart Rate 92 /min BMI (Body Mass Index) 24.8 kg/m2 09/21/2013 1:40pm Height 72 inches 6'0" Weight 183.00 lb Body Temperature 98.4 F BMI (Body Mass Index) 24.8 kg/m2 09/20/2013 1:39pm Height 72 inches 6'0" Weight 183.00 lb BMI (Body Mass Index) 24.8 kg/m2 09/13/2013 2:02pm Height 72 inches 6'0" Weight 183.00 lb Body Temperature 98.1 F Pain Level 8 BMI (Body Mass Index) 24.8 kg/m2 08/28/2013 11:27am Height 72 inches 6'0" Weight 183.00 lb Heart Rate 72 /min BMI (Body Mass Index) 24.8 kg/m2 08/02/2013 2:37pm Height 72 inches 6'0" Weight 183.00 lb Heart Rate 68 /min BP Systolic 131 mmHg BP Diastolic 78 mmHg BMI (Body Mass Index) 24.8 kg/m2 07/13/2013 9:19am Height 72 inches 6'0" Weight 183.00 lb Heart Rate 90 /min BP Systolic 103 mmHg BP Diastolic 67 mmHg BMI (Body Mass Index) 24.8 kg/m2 Results Test Date Facility Test Result H/L Range Note Order 01/03/2018 [facility] 24 hour <pending> [address] [place] [address] [place] [address] monitor [phone] Surgical 03/01/2014 [facility] S RUN DATE: [address] <[place] [address] NOTE> [phone] Laboratory test 12/20/2013 [facility] C Reactive 1.61 mg/L N < 5.00 [address] [place] [address] [phone] Oncology CBC 12/20/2013 [facility] White Blood 4.9 10^3/uL N 4.8-10.8 Auto Diff [address] [place] [address] [phone] Red Blood Count 4.64 10^6/uL N 4.0-5.4 Hemoglobin 13.3 g/dL N 12.0-16.0 Hematocrit 42 % N 35-47 Mean Corpuscular Volume 91 fL N 80-97 Mean Corpuscular Hemoglobin 29 pg N 27-31 Mean Corpuscular HGB Conc 32 g/dL N 31-36 Red Cell Distribution Width 14 % N 10.5-15 Platelet Count 185 10^3/uL N 150-450 Mean Platelet Volume 7 um3 Low 7.4-10.4 Abs Neutrophils 3.4 10^3/uL N 1.5-7.7 Abs Lymphocytes 1.0 10^3/uL N 1.0-4.8 Abs Monocytes 0.3 10^3/uL N 0-0.8 Abs Eosinophils 0.1 10^3/uL N 0-0.6 Abs Basophils 0.1 10^3/uL N 0-0.2 Granulocyte % 68.7 % N 38-83 Lymphocyte % 20.7 % Low 25-47 Monocyte % 6.9 % N 1-9 Eosinophil % 2.2 % N 0-6 Basophil % 1.5 % N 0-2 Laboratory test 12/20/2013 [facility] Erythrocyte Sed 15 mm/Hr N 0-[address] [place] [address] [phone] CBC With 03/08/2009 [facility] White Blood 5.7 CUMM 4.8-10.8 Electronic Diff [address] [place] [address] [phone] Red Cell Count 3.74 CUMM Low 4.2-5.4 Hemoglobin 11.9 g/dL Low 12.0-16.0 Hematocrit 36 % 35-47 Mean Corpuscular Volume 95 um3 79-97 Mean Corpuscular Hemoglob 32 pg High 27-31 Mean Corpuscular HGB Cone 33 g/dL 32-36 Redcell Distribution WDTH 13 % 10.5-15 Platelet Count 142 CUMM Low 150-450 Mean Platelet Volume 8.1 um3 7.4-10.4 Gran % 65.4 % 38-83 Lymph % 22.7 % Low 25-47 Mononuclear % 11.3 % High 1-9 Eosinophil % 0.1 % 0-6 Basophil % 0.5 % 0-2 Abs Lymphs 1.3 1.0-4.8 Abs Mononuclear 0.6 0-0.8 Absolute Neutrophil Count 3.8 1.5-7.7 Abs Eosinophils 0 0-0.6 Abs Basophils 0 0-0.2 Basic Metabolic Panel 03/08/2009 [facility] Sodium 141 mmol/L 135-[address] [place] [address] [phone] Potassium 4.2 mmol/L 3.5-5.0 Chloride 103 mmol/L 101-111 Co2 (Carbon Dioxide) 32.0 mmol/L 22-32 Anion Gap 6.0 mmol/L 2-11 3 Glucose 101 mg/dL High 70-100 4 BUN 9 mg/dL 6-24 Creatinine 0.60 mg/dL 0.50-1.40 One Over Creatinine 1.60 BUN/Creatinine Ratio 15.0 8-20 Calcium 8.3 mg/dL 8.1-9.9 5 eGFR Non- 109.5 > 60 eGFR 132.5 > 60 6 Surgical 03/07/2009 [facility] Surgical [address] Pathology <SEE NOTE> [place] [address] [phone] CBC With 02/27/2009 [facility] White Blood 5.0 CUMM 4.8- 8 Electronic Diff [address] Count 10.8 [place] [address] [phone] Red Cell Count 4.35 CUMM 4.2-5.4 Hemoglobin 13.8 g/dL 12.0-16.0 Hematocrit 41 % 35-47 Mean Corpuscular Volume 94 um3 79-97 Mean Corpuscular Hemoglob 32 pg High 27-31 Mean Corpuscular HGB Cone 34 g/dL 32-36 Redcell Distribution WDTH 13 % 10.5-15 Platelet Count 178 CUMM 150-450 Mean Platelet Volume 7.6 um3 7.4-10.4 Gran % 68.9 % 38-83 Lymph % 24.7 % Low 25-47 Mononuclear % 5.5 % 1-9 Eosinophil % 0.4 % 0-6 Basophil % 0.5 % 0-2 Abs Lymphs 1.2 1.0-4.8 Abs Mononuclear 0.3 0-0.8 Absolute Neutrophil Count 3.4 1.5-7.7 Abs Eosinophils 0 0-0.6 Abs Basophils 0 0-0.2 Type And Screen 02/27/2009 [facility] Patient Blood Type A NEGATIVE [address] [place] [address] [phone] Antibody Screen NEGATIVE Specimen Discard Date 03/19/09 9 Comp Metabolic Panel 02/27/2009 [facility] Sodium 139 mmol/L 135-145 [address] [place] [address] [phone] Potassium 4.4 mmol/L 3.5-5.0 Chloride 105 mmol/L 101-111 Co2 (Carbon Dioxide) 28.0 mmol/L 22-32 Anion Gap 6.0 mmol/L 2-11 10 Glucose 95 mg/dL 70-100 11 BUN 16 mg/dL 6-24 Creatinine 0.60 mg/dL 0.50-1.40 One Over Creatinine 1.60 BUN/Creatinine Ratio 26.7 High 8-20 Calcium 8.9 mg/dL 8.1-9.9 12 Total Protein 6.5 GM/DL 6.2-8.1 Albumin 3.8 GM/DL 3.6-5.4 Globulin 2.7 GM/DL 2-4 Albumin/Globulin Ratio 1.4 1-3 Bilirubin Total 0.7 mg/dL 0.4-1.5 13 Alkaline Phosphatase 56 U/L 30-110 Alt (SGPT) 17 U/L 14-54 Ast (Sgot) 21 U/L 12-42 eGFR Non- 109.5 > 60 eGFR 132.5 > 60 14 Laboratory test 02/27/2009 [facility] TSH 0.42 MIU/ML 0.34- 5.60 finding [address] [place] [address] [phone] Comp Metabolic 02/03/2009 [facility] Sodium 139 mmol/L 135- 145 15 Panel [address] [place] [address] [phone] Potassium 3.9 mmol/L 3.5-5.0 Chloride 99 mmol/L Low 101-111 Co2 (Carbon Dioxide) 29.0 mmol/L 22-32 Anion Gap 11.0 mmol/L 2-11 16 Glucose 99 mg/dL 70-100 17 BUN 13 mg/dL 6-24 Creatinine 0.70 mg/dL 0.50-1.40 One Over Creatinine 1.40 BUN/Creatinine Ratio 18.6 8-20 Calcium 9.1 mg/dL 8.1-9.9 18 Total Protein 6.5 GM/DL 6.2-8.1 Albumin 4.3 GM/DL 3.6-5.4 Globulin 2.2 GM/DL 2-4 Albumin/Globulin Ratio 2.0 1-3 Bilirubin Total 0.5 mg/dL 0.4-1.5 19 Alkaline Phosphatase 58 U/L 30-110 Alt (SGPT) 19 U/L 14-54 Ast (Sgot) 20 U/L 12-42 eGFR Non- 91.7 > 60 eGFR 110.9 > 60 20 Laboratory test 02/03/2009 [facility] TSH 0.30 MIU/ML Low 0.34 -5.60 finding [address] [place] [address] [phone] CBC With 01/25/2009 [facility] White 6.2 CUMM 4.8-10.8 21 Electronic Diff [address] [facility] [place] [address] Count [phone] Red Cell Count 4.52 CUMM 4.2-5.4 Hemoglobin 14.1 g/dL 12.0-16.0 Hematocrit 43 % 35-47 Mean Corpuscular Volume 95 um3 79-97 Mean Corpuscular Hemoglob 31 pg 27-31 Mean Corpuscular HGB Cone 33 g/dL 32-36 Redcell Distribution WDTH 13 % 10.5-15 Platelet Count 183 CUMM 150-450 Mean Platelet Volume 7.7 um3 7.4-10.4 Gran % 69.8 % 38-83 Lymph % 23.3 % Low 25-47 Mononuclear % 5.6 % 1-9 Eosinophil % 1.0 % 0-6 Basophil % 0.3 % 0-2 Abs Lymphs 1.4 1.0-4.8 Abs Mononuclear 0.3 0-0.8 Absolute Neutrophil Count 4.3 1.5-7.7 Abs Eosinophils 0.1 0-0.6 Abs Basophils 0 0-0.2 Comp Metabolic Panel 01/25/2009 [facility] Sodium 142 mmol/L 135-[address] [place] [address] [phone] Potassium 3.9 mmol/L 3.5-5.0 Chloride 105 mmol/L 101-111 Co2 (Carbon Dioxide) 30.0 mmol/L 22-32 Anion Gap 7.0 mmol/L 2-11 22 Glucose 89 mg/dL 70-100 23 BUN 18 mg/dL 6-24 Creatinine 0.80 mg/dL 0.50-1.40 One Over Creatinine 1.20 BUN/Creatinine Ratio 22.5 High 8-20 Calcium 9.3 mg/dL 8.1-9.9 24 Total Protein 7.4 GM/DL 6.2-8.1 Albumin 4.3 GM/DL 3.6-5.4 Globulin 3.1 GM/DL 2-4 Albumin/Globulin Ratio 1.4 1-3 Bilirubin Total 0.6 mg/dL 0.4-1.5 25 Alkaline Phosphatase 70 U/L 30-110 Alt (SGPT) 17 U/L 14-54 Ast (Sgot) 19 U/L 12-42 eGFR Non- 78.6 > 60 eGFR 95.1 > 60 26 Laboratory test 01/25/2009 [facility] TSH 0.51 MIU/ML 0.34- 5.[address] [place] [address] [phone] Type And Screen 01/25/2009 [facility] Patient A NEGATIVE [address] [place] [address] [phone] Antibody Screen NEGATIVE Specimen Discard Date 02/08/0921 05 RUN DATE: 03/05/14 [facility] LAB LIVE PAGE 1 RUN TIME: [address] [place] [address], [place], [place] [address] Specimen Inquiry Name: MARIA MABRY : [address]: Ayana Curry MD Acct: [id number] Unit: [id number] AGE: 63 Location: OR Re03/01/14 SEX: F Status: REG SDC SPEC: [id number] ASHLEIGH: 03/01/14-[address]: Ayana Curry MD REQ: [id number] RECD: 03/01/14 STATUS: SOUT _ ORDERED: LEVEL I FINAL DIAGNOSIS Right thumb, hardware removal: Foreign body (orthopedic hardware) (Gross diagnosis). CLINICAL HISTORY No history given. GROSS DESCRIPTION The specimen is received fresh labeled Maria Gormanmoninathan, Hardware Right Thumb, and consists of a 3.0 x 0.2 cm. silver metallic partially threaded Belle headed screw. Per established hospital medical staff protocol no tissue is submitted. Gross only. Signed (signature on file) Rossy Rushing MD 03/08 0932 END OF REPORT * ML=Testing performed at Main Lab DEPARTMENT OF PATHOLOGY, [address] [place] [address] Mino Bejarano M.D. Director [facility] # [id number] 2 Acute inflammation: >10.00 3 Anion gap measurement may be of limited value in the presence of any alkalosis, especially in a combined acid base disorder. . 4 Note change in reference range as of 12/14/07. The change was based on recommendations from the [place] [employer]. 5 Please note change in reference range effective 07 . 6 Because ethnic data is not always readily available, this report includes an eGFR for both -Americans and non- Americans. The National Kidney Disease Education Program (NKDEP) does not endorse the use of the MDRD equation for patients that are not between the ages of 18 and 70, are , have extremes of body size, muscle mass, or nutritional status, or are non- or non-. According to the National Kidney Foundation, irrespective of diagnosis, the stage of the disease is based on the level of kidney function: Stage Description GFR(mL/min/1.73 m(2)) 1 Kidney damage with normal or decreased GFR 90 2 Kidney damage with mild decrease in GFR 60-89 3 Moderate decrease in GFR 30-59 4 Severe decrease in GFR 15-29 5 Kidney failure <15 (or dialysis) 7 --- RUN DATE: 03/14/09 [facility] NMI LIVE PAGE 1 RUN TIME: 154 Specimen Inquiry RUN USER: INTERFACE -- Name: MARIA MABRY Status: [facility] Re03/07/09 Age/Sex: 58/F Unit#: [id number] Location: [facility] : 52 -- Specimen: [id number] SOUT Spec Date: 03/07/[address]: Braeden sylvester MD Spec Type: SURGICAL P Received: 03/10/09-1205 Copies to: SPECIMEN C4-C5 LAMINA HISTORY PRE-OP DIAGNOSIS: Cervical myelopathy. GROSS DESCRIPTION Specimen received in formalin labelled Maria Mabry, C-4/C-5 Lamina and consists of multiple hemorrhagic brown-red and huertas-dillon bone and soft tissue fragments measuring 3.3 x 1.8 x 1.0 cm. Gas Station Manager sections submitted in one cassette after decal. DIAGNOSIS Spine, C4 C5, laminectomy: A) Bone with reactive changes. B) Normocellular bone marrow with mixed trilinear hematopoiesis. C) Unremarkable skeletal muscle. Signed Electronically by: JAIMEE ESCOBAR 03/14/09 1542 -- -- DEPARTMENT OF PATHOLOGY, [address] [place] [address] [facility] Permit #[id number] Mino Bejarano M.D. Director Jaimee Escobar M.D. Head Of Mathematics Dir spencer -- 03/07 9 PREADMISSION TESTING SAMPLES FOR BLOOD BANK WILL BE HELD FOR 14 DAYS FROM THE DATE OF COLLECTION *IF* THE FOLLOWING CRITERIA ARE MET: 1) THE PATIENT HAS *NOT* BEEN IN THE LAST 3 MONTHS. 2) THE PATIENT HAS *NOT* BEEN TRANSFUSED IN THE LAST 3 MONTHS. PREADMISSION TESTING SAMPLES WILL *NOT* BE HELD FOR 14 DAYS FROM PATIENTS WHO IN THE LAST 3 MONTHS: 1) HAVE BEEN 2) HAVE BEEN TRANSFUSED THESE PATIENTS *MUST* BE COLLECTED WITHIN 3 DAYS OF THE SURGERY DATE. 10 Anion gap measurement may be of limited value in the presence of any alkalosis, especially in a combined acid base disorder. . 11 Note change in reference range as of 12/14/07. The change was based on recommendations from the [place] [employer]. 12 Please note change in reference range effective 07 . 13 A metabolite of Naproxen, O-desmethylnaproxen, has been shown to interfere with the Jendrassik-Rashel method for measuring total bilirubin. Samples from patients who have taken Naproxen have shown spurious elevation in total bilirubin levels. 14 Because ethnic data is not always readily available, this report includes an eGFR for both -Americans and non- Americans. The National Kidney Disease Education Program (NKDEP) does not endorse the use of the MDRD equation for patients that are not between the ages of 18 and 70, are , have extremes of body size, muscle mass, or nutritional status, or are non- or non-. According to the National Kidney Foundation, irrespective of diagnosis, the stage of the disease is based on the level of kidney function: Stage Description GFR(mL/min/1.73 m(2)) 1 Kidney damage with normal or decreased GFR 90 2 Kidney damage with mild decrease in GFR 60-89 3 Moderate decrease in GFR 30-59 4 Severe decrease in GFR 15-29 5 Kidney failure <15 (or dialysis) 15 AA 02/06 16 Anion gap measurement may be of limited value in the presence of any alkalosis, especially in a combined acid base disorder. . 17 Note change in reference range as of 12/14/07. The change was based on recommendations from the [place] [employer]. 18 Please note change in reference range effective 07 . 19 A metabolite of Naproxen, O-desmethylnaproxen, has been shown to interfere with the Jendrassik-Rashel method for measuring total bilirubin. Samples from patients who have taken Naproxen have shown spurious elevation in total bilirubin levels. 20 Because ethnic data is not always readily available, this report includes an eGFR for both -Americans and non- Americans. The National Kidney Disease Education Program (NKDEP) does not endorse the use of the MDRD equation for patients that are not between the ages of 18 and 70, are , have extremes of body size, muscle mass, or nutritional status, or are non- or non-. According to the National Kidney Foundation, irrespective of diagnosis, the stage of the disease is based on the level of kidney function: Stage Description GFR(mL/min/1.73 m(2)) 1 Kidney damage with normal or decreased GFR 90 2 Kidney damage with mild decrease in GFR 60-89 3 Moderate decrease in GFR 30-59 4 Severe decrease in GFR 15-29 5 Kidney failure <15 (or dialysis) 21 SDS 02/06/09 0745 22 Anion gap measurement may be of limited value in the presence of any alkalosis, especially in a combined acid base disorder. . 23 Note change in reference range as of 12/14/07. The change was based on recommendations from the [place] [employer]. 24 Please note change in reference range effective 07 . 25 A metabolite of Naproxen, O-desmethylnaproxen, has been shown to interfere with the Jendrassik-[place] method for measuring total bilirubin. Samples from patients who have taken Naproxen have shown spurious elevation in total bilirubin levels. 26 Because ethnic data is not always readily available, this report includes an eGFR for both -Americans and non- Americans. The National Kidney Disease Education Program (NKDEP) does not endorse the use of the MDRD equation for patients that are not between the ages of 18 and 70, are , have extremes of body size, muscle mass, or nutritional status, or are non- or non-. According to the National Kidney Foundation, irrespective of diagnosis, the stage of the disease is based on the level of kidney function: Stage Description GFR(mL/min/1.73 m(2)) 1 Kidney damage with normal or decreased GFR 90 2 Kidney damage with mild decrease in GFR 60-89 3 Moderate decrease in GFR 30-59 4 Severe decrease in GFR 15-29 5 Kidney failure <15 (or dialysis) 27 PREADMISSION TESTING SAMPLES FOR BLOOD BANK WILL BE HELD FOR 14 DAYS FROM THE DATE OF COLLECTION *IF* THE FOLLOWING CRITERIA ARE MET: 1) THE PATIENT HAS *NOT* BEEN IN THE LAST 3 MONTHS. 2) THE PATIENT HAS *NOT* BEEN TRANSFUSED IN THE LAST 3 MONTHS. PREADMISSION TESTING SAMPLES WILL *NOT* BE HELD FOR 14 DAYS FROM PATIENTS WHO IN THE LAST 3 MONTHS: 1) HAVE BEEN 2) HAVE BEEN TRANSFUSED THESE PATIENTS *MUST* BE COLLECTED WITHIN 3 DAYS OF THE SURGERY DATE. Procedures Date Code Description Status 05/01/201885516 Inject/Drain Joint/Bursa Major W/O US Completed 01/09/2018 04201 ECHO Transthoracic, Real-Time 2D With Doppler And Color Completed Flow 01/07/2018 22073 Holter Monitor Review (24 hr)dr review & interp only Completed 01/03/2018 54809 ECG Monitor/Recording W/Visual Superimposition Scanning Completed 01/03/2018 91179 ECG Monitor/Recording W/Visual Superimposition Scanning Completed 12/21/2017 79696 Treadmill Interp/Report Only Completed 12/21/2017 87843 Stress Test Supervsn W/Out I/R Completed 12/09/2017 75315 EKG Tracing & Interpretation Completed 01/17/2017 65758 Polysomnography Sleep Staging 4+ Parameters W/Cpap Completed 08/03/2016 66993 Polysomnography Sleep Staging 4+ Parameters W/Cpap Completed 12/31/2015 76835 Polysomnography Sleep Staging 4+ Parameters W/Cpap Completed 10/22/2015 02735 Sleep Study Unattended,HRT Rate,Oxygen Sat,Resp Completed Effort/Airflow 07/07/2015 42181 Inject/Drain Joint/Bursa Major W/O US Completed 05/22/2015 87504 Reprogramming Of Programmable Cerebrospinal Shunt Completed 05/15/2015 30695 ECHO Transthorasic Realtime 2D W Doppler & Color Flow Hosp Completed 03/31/201567380 Inject/Drain Joint/Bursa Major W/O US Completed 03/27/2015 40898 Reprogramming Of Programmable Cerebrospinal Shunt Completed 01/06/2015 04749 Inject/Drain Joint/Bursa Major W/O US Completed 10/15/201427513 Inject/Drain Joint/Bursa Major W/O US Completed 09/26/2014 74497 Reprogramming Of Programmable Cerebrospinal Shunt Completed 06/27/201465614 Inject/Drain Joint/Bursa Major W/O US Completed 06/06/2014 69736 Reprogramming Of Programmable Cerebrospinal Shunt Completed 05/16/201447803 Inject/Drain Joint/Bursa Major W/O US Completed 03/20/2014 12208 Inject/Drain Joint/Bursa Major W/O US Completed 03/07/2014 33757 Reprogramming Of Programmable Cerebrospinal Shunt Completed 03/01/2014 61053 Carpal Tunnel Release Completed 03/01/2014 87874 Remove Implant From Finger/Hand Completed 03/01/2014 82201 Removal Implant Deep Wire,Screw Nail,Sudarshan Or Plate Completed 02/18/2014 88934 Rad Shoulder Comp, Min. 2 Views Completed 02/13/2014 75311 Rad Exam; Hip Unilat Completed 02/13/2014 80008 Rad Exam; Pelvis Completed 12/20/2013 10184 Rad Exam; Ankle Comp Completed 12/20/2013 88240 Xray Knee 3 Views Completed 12/12/201357017 Inject/Drain Joint/Bursa Major W/O US Completed 12/06/2013 33623 Reprogramming Of Programmable Cerebrospinal Shunt Completed 11/06/2013 57624 Rad Exam; Tib-Fib Completed 10/02/2013 57757 Rad Exam; Tib-Fib Completed 10/02/2013 13369 Short Leg Cast Completed 09/21/2013 69579 Short Leg Cast Completed 09/20/2013 55324 Rad Exam; Tib-Fib Completed 09/20/2013 78399 Short Leg Cast Completed 09/13/2013 16676 Rad Exam; Tib-Fib Completed 09/13/2013 75463 Short Leg Cast Completed 08/28/2013 91989 Rad Exam; Tib-Fib Completed 08/28/2013 93660 Short Leg Cast Completed 08/07/2013 48764 Debridement, Subq ,Muscle Fascia, Muscle And Bone Completed 08/07/2013 88727 Open TX Tibial Shaft FX W/Plates & Screws W Or W/O Completed [place] 08/07/2013 03541 Open TX Tibial Shaft FX W/Plates & Screws W Or W/O Completed [place]clage 08/02/2013 87073 Rad Exam; Fingers Completed 07/13/2013 48055 Xray Knee 3 Views Completed 07/13/2013 47509 Xray Knee 3 Views Completed 07/13/2013 47711 Rad Exam; Knee, Ap&L Completed 07/13/2013 60178 Rad Exam; Knee, Ap&L Completed 03/15/2013 54080 Rad Exam; Fingers Completed 03/15/2013 39563 Rad Exam; Hand Comp Completed 03/15/2013 29703 Inject Tendon Sheath Or Ligament Aponeurosis Eg Plantar Completed Fascia 04/12/2012 86494 Short Leg Cast Completed 04/12/2012 13556 Walking Cast Completed 04/10/2012 44222 Walking Cast Completed 04/10/2012 54797 Short Leg Cast Completed 03/22/2012 77423 Rad Exam; Foot Comp Completed 03/22/2012 84908 Rad Exam; Foot Limited Completed 03/22/2012 89344 Rad Exam; Ankle Limited Completed 03/22/2012 54051 Walking Cast Completed 03/10/2012 03462 Rad Exam; Foot Comp Completed 09/13/2011 08180 Reprogramming Of Programmable Cerebrospinal Shunt Completed 08/10/2011 67878 Reprogramming Of Programmable Cerebrospinal Shunt Completed 08/25/2010 28256 Fluoroscopy/Up To One Hour Phys Time, Other Than 48884 Or Completed 64799 08/25/2010 49009 Reprogramming Of Programmable Cerebrospinal Shunt Completed 03/07/2009 12120 Morales/Facet/Foraminotomy;Ea Addl Segment; Cerv, Thora, Or Completed Lumbar 03/07/2009 01430 Morales/Facet/Forainotomy;Single Vertebral Segment; Cervical Completed 09/07/2007 92694 Reprogramming Of Programmable Cerebrospinal Shunt Completed 09/07/2007 01001 Reprogramming Of Programmable Cerebrospinal Shunt Completed 04/07/2007 75081 Fluoroscopy/Up To One Hour Phys Time, Other Than 30542 Or Completed 61278 04/07/2007 10665 Fluoroscopy/Up To One Hour Phys Time, Other Than 79429 Or Completed 04282 04/07/2007 26288 Reprogramming Of Programmable Cerebrospinal Shunt Completed Encounters Type Date Location Provider Dx Diagnosis Office Visit 03/02/2018 [facility] Keily Khan R00.2 Palpitations 1:20p Cassidy Penny M.D. I49.1 Atrial premature depolarization I34.0 Nonrheumatic mitral (valve) insufficiency I71.9 Aortic aneurysm of unspecified site, without rupture I35.1 Nonrheumatic aortic (valve) insufficiency Office Visit 12/09/2017 11:00a [facility] Keily Khan R00.2 Palpitations Melissa Penny R07.9 Chest pain, unspecified R00.0 Tachycardia, unspecified R94.31 Abnormal electrocardiogram [ECG] [EKG] Office Visit 08/26/2017 11:00a [facility] G47.37 Central sleep Sleep Services Of UNRULY Powell RN, apnea in [facility] [employer]ION SUPERVISOR-[employer] conditions classified elsewhere G47.33 Obstructive sleep apnea (adult) (pediatric) Office Visit 04/01/2017 [facility] G47.33 Obstructive sleep 10:30a [facility] UNRULY Powell RN, apnea (adult) [employer] SUPER[employer] (pediatric) G47.37 Central sleep apnea in conditions classified elsewhere G47.00 Insomnia, unspecified F43.12 Post-traumatic stress disorder, chronic Office Visit 02/01/2017 11:30a [facility] G47.37 Central sleep [facility] UNRULY Powell RN, apnea in [facility] [employer]ION SUPERVISOR[employer] conditions classified elsewhere G47.33 Obstructive sleep apnea (adult) (pediatric) Office Visit 12/14/2016 11:30a [facility] G47.37 Central sleep Sleep [facility] Of UNRULY Powell RN, apnea in [facility] [employer]ION SUPERVISOR[employer] conditions classified elsewhere G47.33 Obstructive sleep apnea (adult) (pediatric) Office Visit 09/22/2016 1:30p [facility] A[facility] G47.37 Central sleep Sleep [facility] Of UNRULY Powell RN, apnea in [facility] STEAM [employer]ION SUPERVISOR-BC conditions classified elsewhere G47.33 Obstructive sleep apnea (adult) (pediatric) F43.10 Post-traumatic stress disorder, unspecified Office Visit 08/11/2016 1:45p [facility] A[facility] G47.37 Central sleep [facility] Of UNRULY Powell RN, apnea in [facility] STE[employer] DIST[employer]ION SUPERVISOR-BC conditions classified elsewhere G47.33 Obstructive sleep apnea (adult) (pediatric) F43.10 Post-traumatic stress disorder, unspecified Office Visit 06/09/2016 11:30a [facility] And Aida G47.37 Central sleep [facility] Of UNRULY Powell RN, apnea in [facility] STEAM DIST[employer]ION SUPERVISOR-BC conditions classified elsewhere G47.33 Obstructive sleep apnea (adult) (pediatric) Office Visit 04/07/2016 11:15a Pulmonology And Aida G47.37 Central sleep [facility] Of UNRULY Powell RN, apnea in [facility] STEAM DIST[employer]ION SUPERVISOR-BC conditions classified elsewhere G47.33 Obstructive sleep apnea (adult) (pediatric) F43.10 Post-traumatic stress disorder, unspecified Office Visit 02/18/2016 [facility] G47.33 Obstructive sleep 11:45a Sleep Services Of UNRULY Powell RN, apnea (adult) [facility]- (pediatric) G47.37 Central sleep apnea in conditions classified elsewhere K21.9 Gastro-esophageal reflux disease without esophagitis Office Visit 02/02/2016 1:00p Orthopedic Services Lita Ferris, M25.552 Pain in left Of C.M.A. M.D. hip M16.12 Unilateral primary osteoarthritis, left hip W19.xxxD Unspecified fall, subsequent encounter M25.572 Pain in left ankle and joints of left foot Office Visit 01/30/2016 11:45a Orthopedic Services Lita Ferris, M25.552 Pain in left Of C.M.A. M.D. hip W19.xxxA Unspecified fall, initial encounter M25.572 Pain in left ankle and joints of left foot Office Visit 01/07/2016 Pulmonology And Aida G47.33 Obstructive sleep 1:00p Sleep Services Of UNRULY Powell RN, apnea (adult) [facility]- (pediatric) G47.37 Central sleep apnea in conditions classified elsewhere K21.9 Gastro-esophageal reflux disease without esophagitis F43.10 Post-traumatic stress disorder, unspecified Office Visit 12/03/2015 Pulmonology And Aida G47.33 Obstructive sleep 11:45a Sleep Services Of UNRULY Powell RN, apnea (adult) [facility]- (pediatric) K21.9 Gastro-esophageal reflux disease without esophagitis Office Visit 10/28/2015 11:45a Pulmonology And Bel G47.33 Obstructive sleep Sleep Services Of MD Dyan apnea (adult) [facility] (pediatric) Office Visit 10/07/2015 11:30a Pulmonology And Bel G47.9 Sleep disorder, Sleep Services Of MD 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 MJareth primary osteoarthritis, right knee M25.561 Pain in right knee M25.461 Effusion, right knee R29.6 Repeated falls Office Visit 07/07/2015 Orthopedic Lita M17.11 Unilateral primary 1:00p Services Of [place], M.D. osteoarthritis, right C.M.A. knee M25.561 Pain in right knee M25.461 Effusion, right knee Office Visit 05/09/2015 2:30p Orthopedic Services Lita Ferris, M25.562 Pain in left Of C.M.A. M.D. knee M25.462 Effusion, left knee M79.605 Pain in left leg Office Visit 01/29/2015 3:00p Orthopedic Lita Ferris M70.61 Trochanteric Services Of Melissa bursitis, right C.M.A. hip M25.551 Pain in right hip Office Visit 01/06/2015 9:30a Orthopedic Lita Ferris, 726.5 Enthesopathy Of Hip Services Of [place] C.M.AMargareth 715.16 Osteoarthrosis Localized Prim Lower Leg 719.45 Pain Joint Pelvic Region & Thigh 719.46 Pain Joint Lower Leg 724.8 Back Symptoms Other Office Visit 11/12/2014 1:00p Lian Costello 719.46 Pain Joint Lower Services Of C.M.A. M.DMargareth Leg Office Visit 10/21/2014 8:10a Lian Costello 719.46 Pain Joint Lower Services Of C.M.A. M.DMargareth Leg Office Visit 09/19/2014 2:40p Lian Costello 729.5 Pain In Limb Services Of C.M.A. M.D. Office Visit 09/05/2014 1:15p Lian Costello V67.4 Exam Follow Up Services Of C.M.AMargareth Torres Treatment Healed Fracture V15.51 Personal History Of Traumatic Fracture Office Visit 06/27/2014 11:00a Lian Costello 718.81 Derangement Joint Services Of M.D. Other Not C.M.A. Elsewhere Class Shoulder Office Visit 03/14/2014 1:30p Lian Costello 726.10 Bursae & Tendon Services Of M.DMargareth Disorders Shoulder C.M.A. Region Unspec Office Visit 02/18/2014 9:15a Lian Costello 719.91 Joint Disorder Services Of M.D. Unspec Shoulder C.M.A. 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 Localized Lower Leg 724.4 Neuritis Or Radiculitis Thoracic Or Lumbosacral Unspec Office Visit 11/30/2013 11:00a Neurosurgery Braeden Newsome 721.0 Spondylosis Services Of Cassidy Bill M.D. Cervical W/O Myelopathy 331.4 Hydrocephalus Obstructive Office Visit 11/06/2013 11:00a Orthopedic Steven Costello, v54.16 Aftercare For Services Of Shell Torres Healing Traumatic Fracture Of Lower Leg 823.92 FX Unspec Part Fibula W/ Tibia Open Office Visit 10/07/2013 10:37a [facility] Nora Brown, 276.51 Dehydration Assocgarcía M.D. Hospitalists 599.0 UTI Urinary Tract Infection Site Not Spec 787.02 Nausea Alone Office Visit 08/17/2013 [facility] Holland Robledo 041.10 Bacterial Infection 12:05p For Gutierrez Moreno M.D. Staphylococcus Diseases Unspec 999.33 Local Infection Due To Central [place] Catheter Office Visit 08/15/2013 [facility] Holland Robledo 041.10 Bacterial Infection 11:47a For Gutierrez Moreno M.D. Staphylococcus Diseases Unspec 999.33 Local Infection Due To Central [place] Catheter Office Visit 08/13/2013 4:25p [facility] Nora 345.10 Epilepsy Assocgarcía M.D. Convulsive W/O Hospitalists Intractable 174.8 Malignant Neoplasm Female Breast Other Spec Sites 311 Depressive Disorder Not Elsewhere Spec 823.92 FX Unspec Part Fibula W/ Tibia Open Office Visit 08/13/2013 10:53a [facility] Holland Robledo 780.60 Fever, For Infectious Melissa Moreno Unspecified Diseases 041.10 Bacterial Infection Staphylococcus Unspec 790.7 Bacteremia Office Visit 08/12/2013 4:25p [facility] Nora 345.10 Epilepsy Assoc,garcía Brown M.D. Convulsive W/O Hospitalists Intractable 174.8 Malignant Neoplasm Female Breast Other Spec Sites 311 Depressive Disorder Not Elsewhere Spec 823.92 FX Unspec Part Fibula W/ Tibia Open Office Visit 08/11/2013 4:24p [facility] Phoenix Prasad 345.10 Epilepsy Assoc,garcía Patel, Convulsive W/O Hospitalists Melissa Intractable 174.8 Malignant Neoplasm Female Breast Other Spec Sites 311 Depressive Disorder Not Elsewhere Spec 823.92 FX Unspec Part Fibula W/ Tibia Open Office Visit 08/10/2013 4:24p [facility] [place] Prasad 345.10 Epilepsy Assoc,garcía Patel Convulsive W/O Hospitalists MJareth Intractable 174.8 Malignant Neoplasm Female Breast Other Spec Sites 311 Depressive Disorder Not Elsewhere Spec 823.92 FX Unspec Part Fibula W/ Tibia Open Office Visit 08/09/2013 4:23p [facility] [place] Prasad 345.10 Epilepsy Assoc,garcía Patel, Convulsive W/O Hospitalists MJareth Intractable 174.8 Malignant Neoplasm Female Breast Other Spec Sites 311 Depressive Disorder Not Elsewhere Spec 823.92 FX Unspec Part Fibula W/ Tibia Open Office Visit 08/08/2013 4:23p [facility] [place] Prasad 345.10 Epilepsy Assoc,garcía Patel, Convulsive W/O Hospitalists MJareth Intractable 174.8 Malignant Neoplasm Female Breast Other Spec Sites 311 Depressive Disorder Not Elsewhere Spec 823.92 FX Unspec Part Fibula W/ Tibia Open Office Visit 08/07/2013 4:22p [facility] Delfino 345.10 Epilepsy Assoc,garcía Srinivasan N.P. Convulsive W/O Hospitalists Intractable 174.8 Malignant Neoplasm Female Breast Other Spec Sites 311 Depressive Disorder Not Elsewhere Spec 823.92 FX Unspec Part Fibula W/ Tibia Open Office Visit 07/13/2013 9:00a Orthopedic Services Conor Terrazas, 724.3 Sciatica Of Shell Torres 715.16 Osteoarthrosis Localized Prim Lower Leg V54.81 Aftercare Following Joint Replacement V43.65 Knee Replacement By Other Means Office Visit 04/26/2013 9:45a Orthopedic Ayana Curry, 354.0 Carpal Tunnel Services Of M.D. Syndrome C.M.A. 727.03 Trigger Finger Acquired 996.78 Complication Due To Internal Orthopedic Device Implant Other 716.94 Arthropathy Unspec Hand Office Visit 03/15/2013 8:45a Orthopedic Ayana Curry, 354.0 Carpal Tunnel Services Of M.D. Syndrome C.M.A. 716.94 Arthropathy Unspec Hand 727.03 Trigger Finger Acquired 996.78 Complication Due To Internal Orthopedic Device Implant Other Office Visit 08/02/2012 Neurosurgery Braeden Newsome 721.3 Spondylosis 2:00p Services Of Cassidy Bill M.D. Lumbar W/O Myelopathy Office Visit 06/07/2012 Lian Saleh 719.47 Pain Joint Ankle 1:15p Services Of Shell Pelayo M.D. & Foot Office Visit 05/01/2012 Lian Saleh 825.20 FX Foot Bones 2:15p Services Of Shell Pelayo M.D. (Except Toes) Unspec Closed Office Visit 04/12/2012 Orthopedic Delfino 825.20 FX Foot Bones 3:00p Services Of Shell Pelayo M.D. (Except Toes) Unspec Closed 733.95 Stress Fracture Of Other Bone Office Visit 04/10/2012 2:15p Orthopedic Services Delfino Pelayo 719.47 Pain Joint Of Shell Torres Ankle & Foot 733.95 Stress Fracture Of Other Bone Office Visit 03/22/2012 8:45a Orthopedic Delfino 733.95 Stress Fracture Services Of Shell Pelayo M.D. Of Other Bone Office Visit 03/10/2012 2:00p Orthopedic Delfino 825.20 FX Foot Bones Services Of Shell Pelayo M.D. (Except Toes) Unspec Closed 733.95 Stress Fracture Of Other Bone Office 08/31/2011 Neurosurgery Braeden Newsome 348.30 encephalopathy,unspecified Visit 10:40a Services Of Cassidy Bill M.D. 781.2 Gait Abnormality 723.0 Stenosis Spinal Cervical Region Office Visit 03/08/2009 2:00a [facility] Brennon Cano, 327.23 Obstructive Sleep Assoc,pc D.O. Apnea Adult & Hospitalists Pediatric 780.96 Generalized Pain Office Visit 03/07/2009 1:30a [facility] Brennon Cano, 327.23 Obstructive Sleep Assoc,pc D.O. Apnea Adult & Hospitalists Pediatric 493.90 Asthma Unspec W/O Status Asthmaticus 530.81 Esophageal Reflux 780.96 Generalized Pain Office Visit 01/17/2009 Neurosurgery Braeden Newsome 721.1 Spondylosis 1:00p Services Of Cassidy Bill M.D. Cervical W/ Myelopathy Office Visit 10/30/2008 Neurosurgery Braeden Newsome 331.3 Hydrocephalus 4:20p Services Of Cassidy Bill M.D. Communicating 784.0 Headache Office Visit 08/02/2008 Neurosurgery Braeden Newsome 331.3 Hydrocephalus 3:20p Services Of Cassidy Bill M.D. Communicating Office Visit 07/12/2008 Neurosurgery Braeden Newsome 331.3 Hydrocephalus 9:00a Services Of Cassidy Bill M.D. Communicating 784.0 Headache 782.0 Skin Sensation Disturbance Office Visit 09/26/2007 Neurosurgery Braeden Newsome 721.3 Spondylosis Lumbar 10:30a Services Of Cassidy Bill M.D. W/O Myelopathy Office Visit 01/27/2007 Neurosurgery Braeden Newsome 331.3 Hydrocephalus 2:00p Services Of Cassidy Bill M.D. Communicating Plan of Treatment Future Appointment(s):08/29/2018 11:15 am - Aida Powell DNP, RN, STE[employer] DISTRIBUTION SUPERVISOR-BC at [facility] Health05/01/2018 - Lita Ferris M.D.M25.561 Pain in right kneeFollow up:Follow up: As [id number] Effusion, right kneeM17.11 Unilateral primary osteoarthritis, right kneeZ96.641 Presence of right artificial hip cnmckX32.652 Presence of left artificial knee joint
[2018-05-20] MEDS ORDERED: Morphine VIAL* 10 MG/ML 1 ML VIAL ONE (08:23)
[2018-05-20] MEDS: Morphine VIAL* 10 MG/ML 1 ML VIAL IV ONE ×2 (08:27→08:50)
[2018-05-20] MEDS ORDERED: Ondansetron INJ* 2 MG/ML VIAL IV ONE ×2 (08:52→10:43)
[2018-05-20] MEDS ORDERED: Midazolam* 1 MG/ML 2 ML VIAL (2 MG) IV ONE (09:26)
[2018-05-20] MEDS ORDERED: Ondansetron INJ* 2 MG/ML VIAL ONE (10:42)
[2018-05-20 11:19] LABS: Urine Appearance Clear; Urine Bacteria Absent (Absent); Urine Bilirubin Negative (Negative); Urine Blood Negative (Negative); Urine Color Yellow; Urine Glucose Negative (Negative); Urine Ketones Negative (Negative); Urine Nitrite Negative (Negative); Urine Protein Negative (Negative); Urine Red Blood Cell 1+(3-5/hpf) (Absent); Urine Specific Gravity 1.008 (1.010-1.030); Urine Urobilinogen Negative (Negative); Urine White Blood Cell Trace(0-5/hpf) (Absent)
[2018-05-20 12:14] LABS: ABS Basophils 0 10^3/ul (0-0.2); ABS Eosinophils 0 10^3/ul (0-0.6); ABS Lymphocytes 0.6 10^3/ul (1.0-4.8); ABS Monocytes 0.9 10^3/ul (0-0.8); ABS Neutrophils 10.2 10^3/ul (1.5-7.7); ABS Nucleated RBC 0 10^3/ul; Eosinophil % 0 %; Hematocrit 37 % (35-47); Hemoglobin 12.2 g/dl (12.0-16.0); Lymphocyte % 4.8 %; Mean Corpuscular HGB Conc 33 g/dl (31-36); Mean Corpuscular Hemoglobin 31 pg (27-31); Mean Corpuscular Volume 94 fL (80-97); Mean Platelet Volume 7.9 fL (7.4-10.4); Nucleated Red Blood Cells % 0; Platelet Count 168 10^3/ul (150-450); Red Blood Count 3.91 10^6/ul (4.00-5.40); Red Cell Distribution Width 13 % (10.5-15); White Blood Count 11.7 10^3/ul (3.5-10.8)
[2018-05-20 12:28] LABS: Albumin 3.3 g/dL (3.2-5.2); Albumin/Globulin Ratio 1.4 (1-3); BUN/Creatinine Ratio 35.7 (8-20); Calcium 8.6 mg/dL (8.6-10.3); EGFR African American 131.1 (>60); EGFR Non-African American 108.3 (>60); Globulin 2.4 g/dL (2-4); Total Bilirubin 0.7 mg/dL (0.2-1.0); Total Protein 5.7 g/dL (6.4-8.9)
[2018-05-20] MEDS ORDERED: oxyCODONE SR TAB(*) 40 MG TAB.SR PO ONE (12:28)
[2018-05-20 12:37] LABS: Activated Partial Thrombo Time 22.3 seconds (26.0-36.3); INR 0.99 (0.77-1.02)
[2018-05-20 12:42] LABS: Troponin I 0.04 ng/mL (<0.04)
[2018-05-20] MEDS ORDERED: NS 0.9% 1000 ML** 1,000 ML IV SCH (13:00)
[2018-05-20] MEDS ORDERED: Morphine VIAL* 10 MG/ML 1 ML VIAL IV PRN (13:08)
[2018-05-20] MEDS ORDERED: Magnesium Sulfate 2 GM IV* 2 GM/50 ML BAG IVPB ONE (13:34)
--- NOTE | 2018-05-20 13:49 | CONS ---
ORTHOPEDIC CONSULT NOTE: DATE OF CONSULT: 05/20/18 ATTENDING SURGEON: Lita Ferris MD. CHIEF COMPLAINT: Bilateral lower extremity pain, status post fall. HISTORY OF PRESENT ILLNESS: Ms. Ramachandran is a 67-year-old female with metastatic breast cancer and multiple orthopedic problems. I do see her as an outpatient in clinic and recently saw her for knee pain. The patient had a mechanical fall transferring from her walker to the commode overnight early this morning. She reported bilateral lower extremity pain, pain with the right hip, pain in the entire left lower extremity. She was not localizing pain well and screaming in pain. When I see her at the bedside in the emergency room, she is screaming in pain and cannot localize her pain. She was brought to the emergency room by ambulance. Her was at the bedside. She was communicating 10/10 pain in her left lower extremity and right lower extremity. She cannot be moved or move without severe pain. PAST MEDICAL HISTORY: Metastatic breast cancer, hydrocephalus with BAG PRESSER shunt, history of left open tib-fib fracture, multinodular goiter, osteoporosis. PAST SURGICAL HISTORY: Multiple BAG PRESSER shunt surgeries, right total hip arthroplasty, abdominal hysterectomy, mastectomy, left total knee arthroplasty, ORIF of left open tib-fib fracture. FAMILY HISTORY: None. SOCIAL HISTORY: The patient lives with her . She ambulates with a walker and is minimally active at this time. She is mainly ambulating for transfers only, largely in a wheelchair. No tobacco, alcohol, or recreational drug use. REVIEW OF SYSTEMS: Fourteen systems reviewed with the patient today, positive for right hip pain, right leg pain, right ankle pain, right foot pain, left hip pain, left leg pain, left ankle pain, left foot pain. She denies upper extremity pain. Recent fall, positive for weakness. Negative for fevers, chills , chest pain, shortness of breath. Otherwise, the patient reports review of systems is negative or not relevant. PHYSICAL EXAM: General: The patient is a well-nourished female, in obvious distress, she is screaming out in pain. is at the bedside. She is alert and oriented x3. HEENT: Atraumatic, normocephalic. Pupils equal and reactive to light. Chest: Unlabored breathing. Abdomen: Nontender, nondistended. Bilateral upper extremities: She can move at the shoulders, but she does report pain. I have no bony tenderness to palpation, no obvious angular deformity of the upper extremities. Right lower extremity: The patient 's hip is internally rotated and she is holding it there. I do externally rotate it and she has pain. There is no bony instability of the femur or knee. No palpable bony crepitus. Distally, 2+ palpable DP pulse. She reports sensation is decreased distally. Left lower extremity: The patient has no ability to move the lower extremity. She has abnormal shape at the tibia. Skin is intact. She has baseline lymphedema distally. There is a palpable DP pulse. She reports decreased sensation distally, has extreme tenderness to palpation along the heel and foot. DIAGNOSTIC STUDIES/LAB DATA: Radiographs: Multiple radiographs are reviewed of the patient's right and left lower extremity. I see no obvious fracture around the hip prosthesis on the right. The femoral head appears to be reduced in the acetabulum. I see no obvious pelvic fracture. On the left, I see a comminuted displaced fracture of the tibia and fibula just superior to her prior tibial plate. I also see a likely fracture of the talus. On CT, the talus fracture is not evident. ASSESSMENT AND PLAN: Ms. Ramachandran is a 67-year-old female, status post fall with bilateral lower extremity pain. At this point, I am unaware of any right lower extremity fracture. The patient has a left tibia-fibula fracture with displacement and angulation. This needs to be reduced and immobilized. The patient, her , and I discussed that Xarelto needs to be stopped immediately. She will need operative fixation of the tib-fib fracture. This will likely involve plating and multiple screws. The earliest we could do surgery would be Tuesday or Tuesday. I will contact our foot and ankle specialists, Dr. Pelayo and Dr. Parrish, who will likely be involved in the surgical fixation of this fracture. For now, the patient's fracture needs to be reduced to restore normal vascular return to that leg and to immobilize it. I discussed with the patient and her that we may find additional fractures as the days go on. At this point , she is poorly localizing any pain. It is possible that she has an upper extremity or right lower extremity fracture that we have not yet identified. Orthopedics will monitor her closely. The patient's left lower extremity will need to be reduced, immobilized, elevated. She will need q. shift neurovascular checks and we will need to monitor her for compartment syndrome. PROCEDURE NOTE: The patient and her consented to a reduction procedure of the left displaced tibia/fibula fractures. The patient was given Versed for anesthesia by Dr. Mota of the ED department. I performed a reduction maneuver on the left lower extremity to reduce the fracture. The fracture was then immobilized with a knee immobilizer as well as a fracture boot posteriorly. These immobilizers were chosen specifically in order to allow frequent skin and neurovascular checks. The patient's pain did improve after the reduction maneuver. The patient will be taken to the CT scan for a CT of that lower extremity from the knee distally to evaluate the tib-fib fracture as well as the foot for possible talus fracture. [id number]/[facility] #: [id number]
[2018-05-20 13:55] LABS: Magnesium 1.7 mg/dL (1.9-2.7)
[2018-05-20] MEDS: oxyCODONE SR TAB(*) 40 MG TAB.SR PO SCH ×2 (14:10→21:47)
[2018-05-20] MEDS: ALPRAZolam TAB* 0.5 MG PO SCH ×3 (14:48→22:38)
[2018-05-20] MEDS: NS 0.9% w/ 40 Meq KCL 1000 ML* 1,000 ML IV SCH (16:24)
[2018-05-20] MEDS: tiZANidine TAB* 2 MG PO SCH (18:02)
[2018-05-20] MEDS: oxyCODONE TAB* 5 MG TAB PO SCH ×2 (18:03→22:38)
[2018-05-20] MEDS: Dronabinol CAP* 2.5 MG PO SCH ×2 (18:04→22:38)
--- NOTE | 2018-05-20 18:34 | HP ---
CC: Dr. Mathur; Dr. Isak Jennings * ADMISSION HISTORY AND PHYSICAL: DATE OF ADMISSION: 05/20/18 PRIMARY CARE PROVIDER: Dr. Mathur. PRIMARY ONCOLOGIST: Dr. Jennings. ATTENDING PHYSICIAN: Dr. Blackburn.* (DICTATED BY MATTHIEU SOL) ADMITTING PROVIDER: MATTHIEU Sol CHIEF COMPLAINT: Left leg pain after a fall. HISTORY OF PRESENT ILLNESS: The patient is unable to provide full history at the time of evaluation as she is sedated following reduction of her fracture. History is obtained from emergency department provider and nursing notes. The patient sustained a mechanical fall in the overnight hours last night and reported to the emergency department with complaints of left leg pain. The patient has had a prior knee replacement on that side and a prior fracture with hardware in place. The patient has a significant history of chronic pain and is on high doses of opioids. She was in severe amount of pain when she reached the emergency department and multiple doses of opioids were required in order to obtain imaging. Imaging confirmed an angulated tibia and fibula fracture, which was reduced by orthopedic surgeon, Dr. Venkat Ferris. The patient requires further surgical intervention, but is currently anticoagulated. The patient was seen by oncologist, Dr. Jennings earlier this week after recently starting Xeloda for her breast cancer. She has not tolerated her first cycle of Xeloda well reporting increased bony pain as well as frequent episodes of diarrhea. Recommendations at the time of that visit were for a dose reduction going into cycle 2, which she is scheduled to start on 05/22/18. PAST MEDICAL HISTORY: 1. Metastatic breast cancer - followed by Dr. Jennings and currently treated with Xeloda. 2. Chronic pain - followed by pain management. 3. GERD. 4. Hyperlipidemia. 5. Obstructive sleep apnea. 6. Osteoarthritis. 7. Osteoporosis with multiple prior fractures. 8. Depression. 9. Seizure disorder - stable on Keppra. 10. DVT - 2016. PAST SURGICAL HISTORY: 1. . 2. Left lower leg ORIF - 2013. 3. Carpal tunnel release x2 - 2011. 4. Cervical spine decompression in 2008. 5. Left total knee replacement - 2007. 6. Total hip - 2004. 7. Mastectomy - 2000. 8. Hysterectomy - 2000. 9. Gallbladder - 1997. 10. Left hip fixation - 1997. 11. Lumbar spine laminectomy - 1996. 12. DIRECTOR OF FIRST IMPRESSIONS shunt in childhood. HOME MEDICATIONS: 1. Alprazolam 0.5 mg p.o. q.4 hours p.r.n. anxiety. 2. Vitamin B complex 1 capsule p.o. daily. 3. Vitamin D 2000 units p.o. daily. 4. Dulera inhaled daily. 5. Nexium 40 mg p.o. daily. 6. Lasix 20 mg p.o. daily. 7. Keppra 1000 mg in the morning and 500 mg at bedtime. 8. Medical marijuana 4 drops p.o. daily. 9. Melatonin 10 mg p.o. at bedtime as needed for insomnia. 10. Mobic 7.5 mg p.o. twice daily. 11. Multivitamin with iron 2 tablets p.o. daily. 12. Nitroglycerin sublingual p.r.n. chest pain. 13. Ondansetron 1 tablet p.o. 4 times daily as needed for nausea and vomiting. 14. Oxycodone 15 to 30 mg p.o. 3 times daily as needed for pain. 15. OxyContin 120 mg p.o. 3 times daily. 16. Prozac 60 mg p.o. daily. 17. Tizanidine 2 to 4 mg p.o. at bedtime as needed for muscle spasms. 18. Ventolin inhaled q.4 hours as needed for shortness of breath. 19. Xgeva 120 mg q.8 weeks. 20. Xeloda 650 mg p.o. twice daily for 14 days of a 21-day cycle. REVIEW OF SYSTEMS: Unable to obtain full review of systems due to the patient' s level of lethargy, but she is complaining of left leg pain when asked. PHYSICAL EXAMINATION GENERAL: This is extremely lethargic, chronically ill-appearing 67-year-old female who is arousable to touch and voice, but is otherwise snoring loudly upon entering the room. INITIAL VITAL SIGNS: Temperature 99.5 degrees Fahrenheit, pulse 76 beats per minute, respiratory rate 21, oxygen saturation 99% on room air, blood pressure 141/84 mmHg. HEENT: Head is normocephalic, atraumatic. Mucous membranes are mildly dry. NECK: Supple, free of lymphadenopathy. RESPIRATORY: Lungs are clear to auscultation without wheezes, crackles, or rhonchi. CARDIOVASCULAR: Heart has a regular rate and rhythm without murmurs, rubs, or gallops. ABDOMEN: Soft and nontender to palpation. EXTREMITIES: Left lower extremity is immobilized with a knee immobilizer and a walking boot. MUSCULOSKELETAL: Full musculoskeletal exam is not performed. SKIN: No concerning rashes or lesions. DIAGNOSTIC STUDIES/LAB DATA: CBC shows a white blood cell count of 11,700, hemoglobin of 12.2 g/dL, and a platelet count of 168,000. INR of 0.99. Chemistries: Sodium of 142 mmol/L, potassium of 3.0, BUN 20, creatinine 0.56, glucose 158. Total bilirubin and transaminases within normal limits. Troponin of 0.04. Urinalysis is unremarkable. Imaging: Hip x-ray demonstrates right hip replacement in satisfactory position , a lytic lesion in the proximal lesser trochanter, which is unchanged and no fracture identified. Knee x-ray demonstrates no fracture of the left knee. Lower extremity x-ray of the left lower leg demonstrates a moderately comminuted fracture of the midshaft of the tibia and proximal fibula at the superior margin of the sideplate consistent with stress-riser fracture with medial and posterior displacement. Ankle x-ray demonstrates prior ORIF without recent fracture, though soft tissue swelling is noted. Foot x-ray shows no fracture of the left foot. Chest x-ray is pending Radiology read and somewhat of poor quality, but per personal review, shows no acute disease. CT of the lower extremity demonstrates fracture of the tibia just superior to existing plate and screws of the tibia, there is lateral displacement approximately 1 shaft width, the fracture is mildly comminuted and fracture of the proximal fibula with lateral displacement approximately 1 shaft width is also present. EKG demonstrates a sinus rhythm, which demonstrates no acute ischemic process. ASSESSMENT AND PLAN: This is a 67-year-old female with metastatic breast cancer under the care of Dr. Jennings who experienced a fall at home and unfortunately now has a complicated fracture of her left tibia and fibula, which require surgical fixation. She had a reduction in the emergency department and is currently immobilized. Complicating factors include anticoagulation with Xarelto and her extremely high opioid tolerance. She is currently sedated but arousable in the emergency department requiring supplemental oxygen to maintain saturations, but upon arousal, is still complaining of severe pain. The patient will be admitted to oncology service with Orthopedics closely following with plans to proceed to the emergency department on Tuesday. 1. Left tibia and fibula fracture - Orthopedics plans to take the patient to the OR on Tuesday, which will be 3 days after holding Xarelto. Recommend immobilization and nonweightbearing. Orthopedic surgeon is concerned about potential for compartment syndrome and skin breakdown and is recommending q.4 hour pulse checks and skin checks. Pain management is going to be extremely challenging. We will plan to continue her usual oxycodone and supplement with p.r.n. IV morphine, may require a REED OR WIND INSTRUMENT TUNER. 2. Metastatic breast cancer - hold her Xeloda until she is recovered from surgery. 3. Hypokalemia - likely secondary to recent GI loss associated with her Xeloda use. We will replete via IV fluids and check a magnesium. 4. Chronic pain - this patient is very opioid tolerant. 5. Code status. The patient is full code. 6. DVT prophylaxis - currently hold Xarelto and will resume postoperatively. 7. Disposition: The patient is being admitted to inpatient status with anticipated length of stay to be greater than 2 midnights. MATTHIEU SOL [id number]/[facility] #: [id number] LINH
[2018-05-20] MEDS: Ondansetron INJ* 2 MG/ML VIAL IV PRN (21:46)
[2018-05-20] MEDS: levETIRAcetam TAB* 500 MG PO SCH (21:47)
[2018-05-21] MEDS: Morphine INJ* 2 MG/ML 1 ML SYRINGE (TWO MG - NEW SYRINGE VERSION) IV PRN ×2 (02:32→12:14)
[2018-05-21] MEDS ORDERED: Morphine INJ* 2 MG/ML 1 ML SYRINGE (TWO MG - NEW SYRINGE VERSION) IV ONE (03:25)
[2018-05-21] MEDS: oxyCODONE TAB* 5 MG TAB PO PRN ×3 (03:43→16:48)
[2018-05-21 05:44] LABS: ABS Basophils 0 10^3/ul (0-0.2); ABS Eosinophils 0 10^3/ul (0-0.6); ABS Lymphocytes 0.7 10^3/ul (1.0-4.8); ABS Monocytes 1.1 10^3/ul (0-0.8); ABS Neutrophils 5.6 10^3/ul (1.5-7.7); ABS Nucleated RBC 0 10^3/ul; Eosinophil % 0.3 %; Hematocrit 32 % (35-47); Hemoglobin 10.6 g/dl (12.0-16.0); Lymphocyte % 9.2 %; Mean Corpuscular HGB Conc 34 g/dl (31-36); Mean Corpuscular Hemoglobin 32 pg (27-31); Mean Corpuscular Volume 96 fL (80-97); Mean Platelet Volume 7.3 fL (7.4-10.4); Nucleated Red Blood Cells % 0.1; Platelet Count 140 10^3/ul (150-450); Red Blood Count 3.31 10^6/ul (4.00-5.40); Red Cell Distribution Width 14 % (10.5-15); White Blood Count 7.3 10^3/ul (3.5-10.8)
[2018-05-21 06:11] LABS: Albumin/Globulin Ratio 1.6 (1-3); BUN/Creatinine Ratio 27.9 (8-20); Calcium 7.2 mg/dL (8.6-10.3); EGFR African American 118.7 (>60); EGFR Non-African American 98.1 (>60); Globulin 1.9 g/dL (2-4); Potassium 3.8 mmol/L (3.5-5.0); Total Bilirubin 0.6 mg/dL (0.2-1.0); Total Protein 4.9 g/dL (6.4-8.9)
[2018-05-21] MEDS: oxyCODONE TAB* 5 MG TAB PO SCH (07:59)
[2018-05-21] MEDS: FLUoxetine CAP* 20 MG PO SCH (07:59)
[2018-05-21] MEDS: Pantoprazole TAB * 40 MG TAB PO SCH (07:59)
[2018-05-21] MEDS: Dronabinol CAP* 2.5 MG PO SCH ×3 (07:59→21:49)
[2018-05-21] MEDS: Furosemide TAB* 20 MG PO SCH (07:59)
[2018-05-21] MEDS: oxyCODONE SR TAB(*) 40 MG TAB.SR PO SCH ×3 (07:59→21:47)
[2018-05-21] MEDS: levETIRAcetam TAB* 500 MG PO SCH ×2 (08:00→21:48)
[2018-05-21] MEDS: ALPRAZolam TAB* 0.5 MG PO SCH ×4 (08:00→21:46)
[2018-05-21] MEDS: Ondansetron INJ* 2 MG/ML VIAL IV PRN ×2 (08:08→16:48)
[2018-05-21] MEDS: NS 0.9% w/ 40 Meq KCL 1000 ML* 1,000 ML IV SCH ×2 (08:08→21:45)
[2018-05-21 10:23] LABS: Magnesium 2.4 mg/dL (1.9-2.7)
[2018-05-21] MEDS ORDERED: oxyCODONE TAB* 5 MG TAB ONE (12:30)
--- NOTE | 2018-05-21 12:35 | PN ---
Progress Note - Progress Note Date of Service: 05/21/18 SOAP: Subjective: [Struggling with pain control. No additional complaints] Objective: [ Laboratory Results - last 24 hr 05/20/18 05/20/18 05/20/18 11:54 11:54 11:54 WBC RBC Hgb Hct MCV MCH MCHC RDW Plt Count MPV Neut % (Auto) Lymph % (Auto) [place] % (Auto) Eos % (Auto) Baso % (Auto) Absolute Neuts (auto) Absolute Lymphs (auto) Absolute Monos (auto) Absolute Eos (auto) Absolute Basos (auto) Absolute Nucleated RBC Nucleated RBC % INR (Anticoag Therapy) 0.99 APTT 22.3 L Sodium 142 Potassium 3.0 L Chloride 103 Carbon Dioxide 29 Anion Gap 10 BUN 20 Creatinine 0.56 Est GFR ( Amer) 131.1 Est GFR (Non-Af Amer) 108.3 BUN/Creatinine Ratio 35.7 H Glucose 158 H Calcium 8.6 Magnesium 1.7 L Total Bilirubin 0.70 AST 20 ALT 17 Alkaline Phosphatase 35 Troponin I 0.04 H* Total Protein 5.7 L Albumin 3.3 Globulin 2.4 Albumin/Globulin Ratio 1.4 Antibody Screen Negative 05/20/18 05/20/18 05/20/18 16:14 19:19 22:13 WBC RBC Hgb Hct MCV MCH MCHC RDW Plt Count MPV Neut % (Auto) Lymph % (Auto) [place] % (Auto) Eos % (Auto) Baso % (Auto) Absolute Neuts (auto) Absolute Lymphs (auto) Absolute Monos (auto) Absolute Eos (auto) Absolute Basos (auto) Absolute Nucleated RBC Nucleated RBC % INR (Anticoag Therapy) APTT Sodium Potassium Chloride Carbon Dioxide Anion Gap BUN Creatinine Est GFR ( Amer) Est GFR (Non-Af Amer) BUN/Creatinine Ratio Glucose Calcium Magnesium Total Bilirubin AST ALT Alkaline Phosphatase Troponin I 0.06 H* 0.07 H* 0.06 H* Total Protein Albumin Globulin Albumin/Globulin Ratio Antibody Screen 05/21/18 05/21/18 05/21/18 01:40 05:30 05:30 WBC 7.3 RBC 3.31 L Hgb 10.6 L Hct 32 L MCV 96 MCH 32 H MCHC 34 RDW 14 Plt Count 140 L MPV 7.3 L Neut % (Auto) 75.7 Lymph % (Auto) 9.2 [place] % (Auto) 14.6 Eos % (Auto) 0.3 Baso % (Auto) 0.2 Absolute Neuts (auto) 5.6 Absolute Lymphs (auto) 0.7 L Absolute Monos (auto) 1.1 H Absolute Eos (auto) 0 Absolute Basos (auto) 0 Absolute Nucleated RBC 0 Nucleated RBC % 0.1 INR (Anticoag Therapy) APTT Sodium 140 Potassium 3.8 Chloride 107 Carbon Dioxide 31 Anion Gap 2 BUN 17 Creatinine 0.61 Est GFR ( Amer) 118.7 Est GFR (Non-Af Amer) 98.1 BUN/Creatinine Ratio 27.9 H Glucose 125 H Calcium 7.2 L Magnesium 2.4 Total Bilirubin 0.60 AST 28 ALT 19 Alkaline Phosphatase 27 L Troponin I 0.05 H* Total Protein 4.9 L Albumin 3.0 L Globulin 1.9 L Albumin/Globulin Ratio 1.6 Antibody Screen Acetaminophen (Tylenol Tab*) 650 mg PO Q4H PRN PRN Reason: FEVER/PAIN Alprazolam (Xanax Tab*) 0.5 mg PO QID [facility] Last Admin: 05/21/18 08:00 Dose: 0.5 mg Dronabinol (Marinol Cap*) 5 mg PO TID [facility] Last Admin: 05/21/18 07:59 Dose: 5 mg Fluoxetine HCl (Prozac Cap*) 60 mg PO DAILY [facility] Last Admin: 05/21/18 07:59 Dose: 60 mg Furosemide (Lasix Tab*) 20 mg PO DAILY [facility] Last Admin: 05/21/18 07:59 Dose: 20 mg Potassium Chloride/Sodium Chloride (Ns 0.9% W/ 40 Meq Kcl 1000 Ml*) 1,000 mls @ 75 mls/hr IV PER RATE [facility] Last Admin: 05/21/18 08:08 Dose: 75 mls/hr Levetiracetam (Keppra Tab*) 500 mg PO QAM [facility] Last Admin: 05/21/18 08:00 Dose: 500 mg Levetiracetam (Keppra Tab*) 1,000 mg PO BEDTIME [facility] Last Admin: 05/20/18 21:47 Dose: 1,000 mg Morphine Sulfate (Morphine Inj ((Syringe))*) 10 mg IV Q2H PRN PRN Reason: PAIN Ondansetron HCl (Zofran Inj*) 4 mg IV Q4H PRN PRN Reason: NAUSEA/VOMITING Last Admin: 05/21/18 08:08 Dose: 4 mg Oxycodone HCl (Oxycontin(*)) 160 mg PO TID [facility] Oxycodone HCl (Roxycodone Tab*) 30 mg PO Q4H PRN PRN Reason: PAIN Pantoprazole Sodium (Protonix Tab*) 40 mg PO QAM [facility] Last Admin: 05/21/18 07:59 Dose: 40 mg Tizanidine HCl (Zanaflex Tab*) 4 mg PO QPM [facility] Last Admin: 05/20/18 18:02 Dose: 4 mg Vital Signs: Temp Pulse Resp BP Pulse Ox 98.1 F 74 18 108/56 100 05/21/18 07:43 05/21/18 07:43 05/21/18 12:14 05/21/18 07:43 05/21/18 07:43 Exam: Gen: Chronically ill appearing 67 yo female in NAD HEENT: MMM, no thrush CV: RRR, no m/r/g Resp: lungs CTA, no w/c/r Abd: soft, nonTTP Ext: LLE immobilized, edematous, ecchymosis, pulse intact] Assessment: [67 yo female with metastatic breast CA and chronic pain with significant opiate tolerance who sustained a fall at home resulting in a L tib/fib fracture. She is chronically anticoagulated with Xarelto for prior DVT in 2016 which has been held in preparation for surgical fixation of the fracture] Plan: [1. L tib/fib fracture - displaced - requires surgical fixation, plan to go to OR Tuesday - orthopedics to re-evaluate tomorrow - pain control is challenging due to her high tolerance and baseline chronic pain - will increase oxycontin to 160 mg tid (from 120 mg tid), increase oxycodone to 30 mg q 4h and increase prn IV morphine to 10mg - spoke with nurse about being more aggressive with prn medications, it looks like she has received very little of her prn medications since admission yesterday 2. Metastatic breast CA - followed by Dr Jennings - recently started on Xeloda after progression on prior agent - tolerated C1 poorly with plan for dose reduction for C2 - Xeloda will be held until she appears to be well recovered from surgery 3. Chronic pain - followed by Dr Encarnacion - see discussion above 4. H/o DVT 2016 - hold Xarelto (last dose 05/19/18) Dispo: cont inpatient care
[2018-05-21] MEDS ORDERED: LORazepam INJ* 2 MG/ML 1 ML VIAL IV PUSH ONE (13:00)
[2018-05-21] MEDS ORDERED: Morphine VIAL* 10 MG/ML 1 ML VIAL IV ONE ×2 (13:00→15:30)
[2018-05-21] MEDS ORDERED: MEDICAL MARIJUANA PO SCH (14:00)
[2018-05-21] MEDS: Morphine VIAL* 10 MG/ML 1 ML VIAL IV PRN ×2 (14:44→16:48)
[2018-05-21] MEDS ORDERED: Morphine VIAL* 10 MG/ML 1 ML VIAL ONE (15:20)
[2018-05-21] MEDS ORDERED: tiZANidine TAB* 2 MG PO ONE (15:30)
[2018-05-21] MEDS: MEDICAL MARIJUANA PO SCH ×2 (16:51→21:55)
[2018-05-21] MEDS: tiZANidine TAB* 2 MG PO SCH (19:24)
[2018-05-22] MEDS: Morphine VIAL* 10 MG/ML 1 ML VIAL IV PRN ×5 (03:20→21:49)
[2018-05-22] MEDS: oxyCODONE TAB* 5 MG TAB PO PRN ×2 (03:30→07:40)
[2018-05-22] MEDS: tiZANidine TAB* 2 MG PO SCH ×2 (03:31→23:07)
[2018-05-22] MEDS ORDERED: LORazepam INJ* 2 MG/ML 1 ML VIAL IV PUSH ONE (03:55)
[2018-05-22] MEDS: MEDICAL MARIJUANA PO SCH ×5 (03:58→23:19)
[2018-05-22] MEDS ORDERED: LORazepam INJ* 2 MG/ML 1 ML VIAL ONE (04:04)
[2018-05-22] MEDS: ALPRAZolam TAB* 0.5 MG PO SCH ×4 (07:41→23:18)
--- NOTE | 2018-05-22 09:41 | PN ---
Progress Note - Progress Note Date of Service: 05/22/18 SOAP: Subjective: []Sleeping with even non-labored respirations upon entry into the room. Aroused easily and conversing with calm voice, however when discussing pain control becomes exasperated, "no one understands pain here." Complains of most pain to hip noting her new fracture (at the tib-fib) and then points to right hip. Falls asleep during conversation and then perks up easily with discussion regarding plan. 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 Encarnacion ([phone]), who agrees with current narcotic dosing and potential TMH TEACHER post-op. Recommends calm and supportive environment to support pain control. Medication: Acetaminophen (Tylenol Tab*) 650 mg PO Q4H PRN PRN Reason: FEVER/PAIN Alprazolam (Xanax Tab*) 0.5 mg PO QID [facility] Last Admin: 05/22/18 07:41 Dose: 0.5 mg Dronabinol (Marinol Cap*) 5 mg PO TID [facility] Last Admin: 05/21/18 21:49 Dose: 5 mg Fluoxetine HCl (Prozac Cap*) 60 mg PO DAILY [facility] Last Admin: 05/21/18 07:59 Dose: 60 mg Furosemide (Lasix Tab*) 20 mg PO DAILY [facility] Last Admin: 05/21/18 07:59 Dose: 20 mg Potassium Chloride/Sodium Chloride (Ns 0.9% W/ 40 Meq Kcl 1000 Ml*) 1,000 mls @ 75 mls/hr IV PER RATE [facility] Last Admin: 05/21/18 21:45 Dose: 75 mls/hr Levetiracetam (Keppra Tab*) 500 mg PO QAM [facility] Last Admin: 05/21/18 08:00 Dose: 500 mg Levetiracetam (Keppra Tab*) 1,000 mg PO BEDTIME [facility] Last Admin: 05/21/18 21:48 Dose: 1,000 mg Morphine Sulfate (Morphine Vial*) 10 mg IV Q2H PRN PRN Reason: PAIN Last Admin: 05/22/18 07:41 Dose: 10 mg Pto - Medical (Marijuana 1 Ml) 1 ml PO QID [facility] Last Admin: 05/22/18 08:11 Dose: 1 ml Ondansetron HCl (Zofran Inj*) 4 mg IV Q4H PRN PRN Reason: NAUSEA/VOMITING Last Admin: 05/21/18 16:48 Dose: 4 mg Oxycodone HCl (Oxycontin(*)) 160 mg PO TID [facility] Last Admin: 05/21/18 21:47 Dose: 160 mg Oxycodone HCl (Roxycodone Tab*) 30 mg PO Q4H PRN PRN Reason: PAIN Last Admin: 05/22/18 07:40 Dose: 30 mg Pantoprazole Sodium (Protonix Tab*) 40 mg PO QAM [facility] Last Admin: 05/21/18 07:59 Dose: 40 mg Tizanidine HCl (Zanaflex Tab*) 4 mg PO QPM [facility] Last Admin: 05/22/18 03:31 Dose: 4 mg Objective: [] Vital Signs Temp Pulse Resp BP Pulse Ox 97.3 F 79 20 84/44 99 05/22/18 07:29 05/22/18 07:29 05/22/18 08:00 05/22/18 07:29 05/22/18 07:29 A&Ox3, EOMI, Conversing easily Pin point pupils, reactive HRR, II/ KAPIL noted LS clear, dim. bases, poor resp. effort Left leg immobilized, good cap refill, limited assessment d/t pain and ortho management Laboratory Results - last 24 hr 05/21/18 05:30 Sodium 140 Potassium 3.8 Chloride 107 Carbon Dioxide 31 Anion Gap 2 BUN 17 Creatinine 0.61 Est GFR ( Amer) 118.7 Est GFR (Non-Af Amer) 98.1 BUN/Creatinine Ratio 27.9 H Glucose 125 H Calcium 7.2 L Magnesium 2.4 Total Bilirubin 0.60 AST 28 ALT 19 Alkaline Phosphatase 27 L Total Protein 4.9 L Albumin 3.0 L Globulin 1.9 L Albumin/Globulin Ratio 1.6 Assessment: []67 yo female with metastatic breast CA recent started on Xeloda, s/p C1 with complicated course related to chronic pain with significant opiate tolerance admitted with a Left tib/fib fracture following a fall at home. She is scheduled for OR fixation today. Plan: []1. L tib/fib fracture - displaced - surgical fixation this afternoon per ortho - post op TMH TEACHER recommended - no change in narcotics at this time - will add additional BID PRN medical marijuana as this helps with anxiety as well which I believe will be very helpful - chronic mobility issues, will likely need rehab however does not want [facility] inpt. rehab unit for personal reasons 2. Metastatic breast CA: hold chemotherapy until recovered from acute injury - plan for dose reduction for C2, day 1 due today, however suspect will need at least 2 week delay - f/u as outpatient 3. Chronic pain: managed by Dr. 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 Chronic anticoagulation: h/o DVT 2016 managed with Xarelto at home - hold Xarelto, last dose 05/19/18 - will need post operative anti-coagulation Dispo: inpt. stay r/t surgical intervention, will likely need rehab at d/c
[2018-05-22] MEDS: Pantoprazole TAB * 40 MG TAB PO SCH (10:00)
[2018-05-22] MEDS: oxyCODONE SR TAB(*) 40 MG TAB.SR PO SCH ×3 (10:00→23:19)
[2018-05-22] MEDS: Dronabinol CAP* 2.5 MG PO SCH ×3 (10:00→23:18)
[2018-05-22] MEDS: Furosemide TAB* 20 MG PO SCH (10:00)
[2018-05-22] MEDS: FLUoxetine CAP* 20 MG PO SCH (10:00)
[2018-05-22] MEDS: levETIRAcetam TAB* 500 MG PO SCH ×2 (10:01→23:19)
[2018-05-22] MEDS: NS 0.9% w/ 40 Meq KCL 1000 ML* 1,000 ML IV SCH (11:29)
[2018-05-22] MEDS ORDERED: KETAMINE HCL* 50 MG/ML 10 ML VIAL ONE ×2 (15:23)
[2018-05-22] MEDS ORDERED: fentaNYL* 50 MCG/ML 5 ML VIAL (250 MCG VIAL) ONE (15:23)
[2018-05-22] MEDS ORDERED: Midazolam* 1 MG/ML 10 ML VIAL (10 MG) ONE (15:23)
[2018-05-22] MEDS ORDERED: Buffered Lidocaine 1% SYRIN* 1 ML/SYRINGE INTRADERM ONE (15:26)
[2018-05-22] MEDS ORDERED: ceFAZolin 2 GM PREMIX in ORs 2 GM/50 ML BAG IVPB ONE (16:18)
[2018-05-22] MEDS ORDERED: Atracurium* 10 MG/ML 10 ML VIAL ONE (16:32)
--- NOTE | 2018-05-22 17:26 | PN ---
Progress Note - Progress Note Date of Service: 05/21/18 SOAP: Subjective: Pt seen at bedside. Complains of pain in left leg. Denies CP, SOB. Vital Signs: Temp Pulse Resp BP Pulse Ox 98.6 F 79 16 88/55 100 05/22/18 16:07 05/22/18 16:07 05/22/18 16:07 05/22/18 16:07 05/22/18 16:07 Objective: CAM walker boot and knee immobilizer intact. Skin intact. Calves soft and nontender. Sensation intact to light touch distally. Wiggles toes. NVI. Assessment: 67 yo female left tib/fib periprosthetic fracture Plan: Plan is for OR on Tuesday or Tuesday [facility]
[2018-05-22] MEDS ORDERED: Naloxone* 0.4 MG/ML 1 ML VIAL IV PRN (18:54)
[2018-05-22] MEDS ORDERED: Morphine VIAL* 4 MG/ML VIAL (1 ml vial) IV PRN (18:54)
[2018-05-22] MEDS ORDERED: PROCHLORPERAZINE INJ 5 MG/ML 2 ML VIAL IV PRN (18:54)
[2018-05-22] MEDS ORDERED: ROPIVACAINE 5 MG/ML 30 ML BTL (0.5%) ONE (19:40)
[2018-05-22] MEDS ORDERED: Norepinephrine VIAL* 1 MG/ML 4 ML VIAL ONE (19:40)
[2018-05-22] MEDS ORDERED: Propofol* 10 MG/ML 20 ML BTL ONE (19:41)
[2018-05-22] MEDS ORDERED: Phenylephrine INJ* 10 MG/ML 1 ML VIAL (10 MG) ONE (19:41)
[2018-05-22] MEDS ORDERED: Lidocaine 2% PF * 5 ML VIAL ONE (19:41)
[2018-05-22] MEDS ORDERED: Morphine VIAL* 10 MG/ML 1 ML VIAL ONE ×4 (19:45→20:27)
[2018-05-22] MEDS ORDERED: PROCHLORPERAZINE INJ 5 MG/ML 2 ML VIAL ONE (21:07)
[2018-05-22] MEDS: Lactated Ringers 1000 ML Bag* 1,000 ML IV SCH (22:15)
[2018-05-23] MEDS: Morphine VIAL* 10 MG/ML 1 ML VIAL IV PRN ×6 (00:15→07:44)
[2018-05-23] MEDS ORDERED: levETIRAcetam IV* 1,000 MG in NS 100 mL IVPB ONE (00:30)
--- NOTE | 2018-05-23 01:45 | OP ---
DATE OF OPERATION: 05/21/18 - ROOM #ICU-04 DATE OF : 52 SURGEON: Delfino Pelayo MD MEDICAL EDUCATION MANAGER: Ankita Vicente PA-C PRE-OP DIAGNOSIS: Left tibia fracture, midshaft. POST-OP DIAGNOSES: Left tibia fracture and right femur fracture. OPERATIVE PROCEDURE: Internal fixation, left tibia and internal fixation, right femur. DESCRIPTION OF PROCEDURE: The patient was taken to the operating room where we prepped and prepared for the left tibia fracture. This was just above her previous plate that I put in, maybe 5 or 6 years ago. At the time of moving her to the bed and getting her ready for surgery, we realized that her right femur midshaft was grossly deformed and quite unstable, so we obtained a flat plain AP view of the right femur and noticed that she had a midshaft femur fracture, spiral and displaced. On review of some of the emergency room x-rays , it does appear that she had this when she presented to the emergency room, we can just see the fracture at the bottom of an AP of the right hip. So, at any rate, we notified her next of kin, it was her , who happened to be in the hospital, that we are going to have to go ahead and fix her right femur fracture as well. The patient was given a thigh tourniquet left side and we extended the anterior incision up to her knee. We stripped the medial periosteum to expose the proximal medial tibia and the medial aspect of her plate down to just a few finger-breadths above the ankle joint. We selected a medial tibial plate to fix this fracture. To help us reduce, we did apply the plate to the proximal tibia. We used a combination of locking and nonlocking screws. We then reduced the distal portion, holding it with a _verbrugge ____ clamp. There was a large butterfly fragment, which we brought anteriorly with a large crab claw clamp as well. The distal fixation was then performed with a combination of locking and nonlocking screws. An AP lateral view intraoperatively showed satisfactory position alignment of the plate. We irrigated thoroughly closing with 0 Vicryl sutures for the subcu, marshal for the skin. A compression dressing plaster splint was then applied. We then created a new prep and drape of the right thigh up to the iliac crest and made a 25-cm longitudinal incision just below the trochanter down to the lateral condyle of the femur in the supracondylar area. There was a large spiral fracture at this mid portion. Distally, we took the longest metaphyseal plate that we had in the hospital which was a 400-mm plate, 20-hole. It was slightly under bent at the distal aspect. We fixed the distal portion with a combination of locking and nonlocking screws to the straight lateral portion of the distal femur. This helped us to reduce the proximal portion, which was held with a __verbrugge___ clamp. We then continued the fixation proximally up to the periarticular area and several screws were placed periprosthetic. We brought the posterior butterfly fragment up into the fragment as well and this was captured by some of the screws. We then irrigated thoroughly closing the fascia evan with interrupted #[address] the way from the knee to the trochanteric area. Subcutaneous closure consisted of deep and superficial 2-0 Vicryl sutures and marshal for the skin. Blood loss for the femoral surgery was , I would say, approximately 250 cc. [id number]/[facility] #: [id number] LINH
[2018-05-23] MEDS: oxyCODONE SR TAB(*) 40 MG TAB.SR PO SCH ×3 (07:50→23:54)
[2018-05-23] MEDS: Dronabinol CAP* 2.5 MG PO SCH ×3 (07:52→23:54)
[2018-05-23] MEDS: ALPRAZolam TAB* 0.5 MG PO SCH (07:52)
[2018-05-23] MEDS: Pantoprazole TAB * 40 MG TAB PO SCH (07:53)
[2018-05-23] MEDS: FLUoxetine CAP* 20 MG PO SCH (07:53)
[2018-05-23] MEDS: Furosemide TAB* 20 MG PO SCH (07:53)
[2018-05-23] MEDS: levETIRAcetam TAB* 500 MG PO SCH ×2 (07:53→21:58)
[2018-05-23] MEDS ORDERED: LORazepam INJ* 2 MG/ML 1 ML VIAL ONE (08:07)
[2018-05-23] MEDS ORDERED: LORazepam INJ* 2 MG/ML 1 ML VIAL IV PUSH PRN (08:13)
--- NOTE | 2018-05-23 08:19 | PN ---
Progress Note - Progress Note Date of Service: 05/23/18 SOAP: Subjective: [Pt was seen this morning lying in bed. She states that she is in immense pain. She states that she has been having trouble with taking po medication at this time. She states that she has spasms that occur in her chest when she takes anything cold or warm. She states that she needs something more for pain at this point. ] Objective: [General: Pt is awake, she is moaning due to pain at this point. MSK, RLE: Inspection of the right leg reveals a dressing in place over the thigh. Dressing is c/d/i. Sensation is intact distal to the dressing. She is able to df/pf although ROM is decreased. Cap refill is less than 2 seconds distally. MSK, LLE: Inspection reveals dressing in place over the lower leg and foot. Dressing is c/d/i. Sensation is intact in the exposed toes. Cap refill is less than 2 seconds in each digit. ] Vital Signs Temp 100.6 F 05/23/18 06:46 Pulse 87 05/23/18 06:46 Resp 22 05/23/18 08:25 BP 85/61 05/23/18 06:46 Pulse Ox 100 05/23/18 06:46 Intake & Output 05/22/18 05/23/18 05/23/18 18:59 06:59 18:59 Intake Total 956 2417 Output Total 450 625 Balance 506 1792 Intake: IV Fluids 956 2297 LR 2297 NS (0.45%) 40 meq KCL 956 IVPB 120 LR 120 Output: Davila 450 625 Assessment: [POD 1 Right femur ORIF and left tibia ORIF ] Plan: [1. Plan for possible dressing change on Tuesday 2. Dr. Singh rounded on the pt this am. Will start CLINICAL LABORATORY SCIENCE PROFESSOR for better pain control. 3. CBC and CMP ordered. awaiting results 4. At the time of writing pt was able to start taking PO xanax. Will continue with po xanax for anxiety. . ]
[2018-05-23] MEDS ORDERED: Morphine VIAL* 10 MG/ML 1 ML VIAL ONE (08:21)
[2018-05-23] MEDS ORDERED: Naloxone* 0.4 MG/ML 1 ML VIAL IV PUSH PRN (08:28)
[2018-05-23 08:31] LABS: BUN/Creatinine Ratio 29.4 (8-20); EGFR Non-African American 120.7 (>60); Potassium 4.5 mmol/L (3.5-5.0)
[2018-05-23] MEDS ORDERED: ALPRAZolam TAB* 0.5 MG PO PRN ×2 (08:39→09:39)
[2018-05-23] MEDS: Lactated Ringers 1000 ML Bag* 1,000 ML IV SCH (08:59)
[2018-05-23] MEDS ORDERED: Morphine PCA* 150 MG in PREMIX PCA SCH (09:00)
[2018-05-23] MEDS: MEDICAL MARIJUANA PO SCH ×5 (09:36→22:22)
--- NOTE | 2018-05-23 09:39 | PN ---
Progress Note - Progress Note Date of Service: 05/23/18 SOAP: Subjective: []Events of last 24 hours reviewed. WELDING MACHINE OPERATOR started this AM and pt. now resting very comfortably with CPAP. Medications: Acetaminophen (Tylenol Tab*) 650 mg PO Q4H PRN PRN Reason: FEVER/PAIN Alprazolam (Xanax Tab*) 0.5 mg PO BID PRN PRN Reason: ANXIETY Dronabinol (Marinol Cap*) 5 mg PO TID [facility] Last Admin: 05/23/18 07:52 Dose: 5 mg Fluoxetine HCl (Prozac Cap*) 60 mg PO DAILY [facility] Last Admin: 05/23/18 07:53 Dose: 60 mg Furosemide (Lasix Tab*) 20 mg PO DAILY [facility] Last Admin: 05/23/18 07:53 Dose: 20 mg Potassium Chloride/Sodium Chloride (Ns 0.9% W/ 40 Meq Kcl 1000 Ml*) 1,000 mls @ 75 mls/hr IV PER RATE [facility] Last Admin: 05/22/18 11:29 Dose: 75 mls/hr Morphine Sulfate (Morphine Proc Tech Adult* 5 Mg/Ml) 30 mls @ 0 mls/hr WELDING MACHINE OPERATOR .Q24H [facility] ; Protocol Cefazolin Sodium 1 gm/ Sodium (Chloride) 50 mls @ 200 mls/hr IVPB Q8H [facility] Stop: 05/24/18 01:44 Levetiracetam (Keppra Tab*) 500 mg PO QAM [facility] Last Admin: 05/23/18 07:53 Dose: 500 mg Levetiracetam (Keppra Tab*) 1,000 mg PO BEDTIME [facility] Last Admin: 05/22/18 23:19 Dose: Not Given Morphine Sulfate (Morphine Vial*) 10 mg IV Q1H PRN PRN Reason: PAIN Last Admin: 05/23/18 07:44 Dose: 10 mg Naloxone HCl (Narcan*) 0.08 mg IV PUSH Q2M PRN PRN Reason: SEDATION Pto - Medical (Marijuana 1 Ml) 1 ml PO QID [facility] Last Admin: 05/23/18 09:36 Dose: Not Given Pto: Medical (Marijuana Oil) 0.5 admin PO BID PRN PRN Reason: PAIN Ondansetron HCl (Zofran Inj*) 4 mg IV Q4H PRN PRN Reason: NAUSEA/VOMITING Last Admin: 05/21/18 16:48 Dose: 4 mg Oxycodone HCl (Oxycontin(*)) 160 mg PO TID [facility] Last Admin: 05/23/18 07:50 Dose: 160 mg Oxycodone HCl (Roxycodone Tab*) 30 mg PO Q4H PRN PRN Reason: PAIN Last Admin: 05/22/18 07:40 Dose: 30 mg Pantoprazole Sodium (Protonix Tab*) 40 mg PO QAM [facility] Last Admin: 05/23/18 07:53 Dose: 40 mg Tizanidine HCl (Zanaflex Tab*) 4 mg PO QPM [facility] Last Admin: 05/22/18 23:07 Dose: Not Given Objective: [] Vital Signs Temp Pulse Resp BP Pulse Ox 100.6 F 87 22 85/61 100 05/23/18 06:46 05/23/18 06:46 05/23/18 08:25 05/23/18 06:46 05/23/18 06:46 Sleeping during exam, though easily roused, however minimal assessment due to severity of pain and issues with management prior to my assessment. HRR, SR on tele Resp. even and non-labored, CPAP in place Bilat. dressings in place per ortho. Good cap. refill bilat. toes. Right leg with large bruise. Laboratory Results - last 24 hr 05/20/18 05/23/18 05/23/18 11:54 08:02 08:02 WBC 11.3 H RBC 3.38 L Hgb 10.6 L Hct 32 L MCV 94 MCH 31 MCHC 34 RDW 15 Plt Count 87 L D MPV 8.8 Neut % (Auto) 79.6 Lymph % (Auto) 7.9 Nicholas % (Auto) 12.3 Eos % (Auto) 0.1 Baso % (Auto) 0.1 Absolute Neuts (auto) 9.0 H Absolute Lymphs (auto) 0.9 L Absolute Monos (auto) 1.4 H Absolute Eos (auto) 0 Absolute Basos (auto) 0 Absolute Nucleated RBC 0 Nucleated RBC % 0.1 Sodium 139 Potassium 4.5 Chloride 107 Carbon Dioxide 27 Anion Gap 5 BUN 15 Creatinine 0.51 Est GFR ( Amer) 146.0 Est GFR (Non-Af Amer) 120.7 BUN/Creatinine Ratio 29.4 H Glucose 123 H Calcium 7.0 L Blood Type A Negative Antibody Screen Negative Crossmatch See Detail Assessment: []67 yo female with metastatic breast cancer and severe osteoporosis with hx. multiple fractures admitted 05/20 following a fall with left tib/fib fracture found yesterday to have a right femoral spiral fracture now POD 1 bilat. ORIFs. Course complicated by significant narcotic tolerance and chronic pain. Plan: []1. POD 1 Left Tib/Fib ORIF, R femur ORIF - management per ortho - PT/OT ordered, will likely need some form of rehab on discharge - temp. this AM and given post op abx. 2. Pain: Acute pain related to fractures with chronic underlying, known tolerance - WELDING MACHINE OPERATOR as per anesthesiology, therefore recommend holding short acting oxycodone - d/c PRN IV morphine push as WELDING MACHINE OPERATOR in place - Resume home doses of long acting oxycodone - close monitoring of respiratory status with significant doses of narcotics, agree with IV monitoring for now - cont. xanax as there is a significant component of anxiety, enc. calm environment 3. Metastatic Breast Cancer: chemo on hold until complete recovery, suspect at least 2 weeks - f/u as outpatient 4. Hx. PE 2016: Xarelto on hold related to surgical fixation - plan to resume anticoagulation tomorrow as long as plt. >60K (s/p C1 Capecitabine, day 1 was 05/11/18) Dispo: ICU inpt. POD 1 with high acuity related to resp. status, potential rehab on d/c Case discussed with drew SOMMERS
[2018-05-23 09:52] LABS: ABS Basophils 0 10^3/ul (0-0.2); ABS Eosinophils 0 10^3/ul (0-0.6); ABS Lymphocytes 0.9 10^3/ul (1.0-4.8); ABS Monocytes 1.4 10^3/ul (0-0.8); ABS Nucleated RBC 0 10^3/ul; Eosinophil % 0.1 %; Hematocrit 32 % (35-47); Hemoglobin 10.6 g/dl (12.0-16.0); Lymphocyte % 7.9 %; Mean Corpuscular HGB Conc 34 g/dl (31-36); Mean Corpuscular Hemoglobin 31 pg (27-31); Mean Corpuscular Volume 94 fL (80-97); Nucleated Red Blood Cells % 0.1; Red Blood Count 3.38 10^6/ul (4.00-5.40); Red Cell Distribution Width 15 % (10.5-15); White Blood Count 11.3 10^3/ul (3.5-10.8)
[2018-05-23] MEDS: ceFAZolin 1 GM* X 3 DOSES POST-OP Q8H (AddVan) IVPB SCH ×4 (09:54→18:00)
[2018-05-23 10:09] LABS: Mean Platelet Volume 8.8 fL (7.4-10.4); Platelet Count 87 10^3/ul (150-450)
[2018-05-23] MEDS ORDERED: LORazepam INJ* 2 MG/ML 1 ML VIAL IV PUSH ONE (13:00)
[2018-05-23] MEDS: NS 0.9% 1000 ML** 1,000 ML IV SCH (13:05)
--- NOTE | 2018-05-23 14:54 | PN ---
Progress Note - Progress Note Date of Service: 05/23/18 Note: Anesthesia, I was called last PM by patient's ICU nurse asking for increase pain meds, and her inability to take her eppra pills. I ordered the keppra IV and to increase the morphine to 10 mg IV Q 1 hr prn. This AM she was in a lot of pain and again I was asked to change her meds. We started a TOOL CHASER with a basal rate of 5 mg/hr and 5 mg bolus dose q 15 minutes. When I called back later,the patient seemed better. She may benefit from a chronic pain medical management consult.
--- NOTE | 2018-05-23 15:28 | PN ---
PROGRESS NOTE: DATE OF SERVICE: 05/23/18 LOCATION: Ella is in the ICU. HISTORY OF PRESENT ILLNESS: Last night, we plated her right femur and her left tibia. She did require couple of units of transfusion intraoperatively. She has been in the intensive care unit and was noted by the nurse to be quite combative this morning complaining of severe pain. She has been moderately sedated since and is now on CPAP. Her hematology appears to be fairly stable in terms of her hematocrit. The examination of both dressings show them to be dry. She does have a fair amount of dependent edema which has been chronic and not particularly worrisome at this stage. Both feet are warm. She is not responsive to commands to move the feet. She will restart her Xarelto in another day or so. She has been on cefazolin for antibiotics. Nan will be a pain control issue and we might tend more towards angiolytics rather than narcotics. She will be nonweightbearing in both legs for the foreseeable future. So, transfers will be difficult for her. It is possible that she will be a full assist and require intensive nursing care for the next 4 to 6 six weeks until we see bone healing. We will follow along as needed. [id number]/[facility] #: [id number] LINH
[2018-05-23] MEDS: tiZANidine TAB* 2 MG PO SCH (17:58)
[2018-05-23] MEDS: Ondansetron INJ* 2 MG/ML VIAL IV PRN (19:15)
[2018-05-23] MEDS ORDERED: NS 0.9% 250 ML* 250 ML IV ONE (19:25)
[2018-05-23 20:59] LABS: Hematocrit 23 % (35-47); Hemoglobin 7.7 g/dl (12.0-16.0); Mean Corpuscular HGB Conc 34 g/dl (31-36); Mean Corpuscular Hemoglobin 32 pg (27-31); Mean Corpuscular Volume 95 fL (80-97); Red Blood Count 2.41 10^6/ul (4.00-5.40); Red Cell Distribution Width 15 % (10.5-15); White Blood Count 7.6 10^3/ul (3.5-10.8)
[2018-05-23 21:24] LABS: ABS Basophils 0 10^3/ul (0-0.2); ABS Eosinophils 0 10^3/ul (0-0.6); ABS Lymphocytes 0.5 10^3/ul (1.0-4.8); ABS Neutrophils 6.1 10^3/ul (1.5-7.7); ABS Nucleated RBC 0 10^3/ul; Eosinophil % 0.2 %; Lymphocyte % 6.5 %; Mean Platelet Volume 8.1 fL (7.4-10.4); Nucleated Red Blood Cells % 0; Platelet Count 58 10^3/ul (150-450)
[2018-05-23 21:25] LABS: Polychromasia 1+
[2018-05-24] MEDS: ceFAZolin 1 GM* X 3 DOSES POST-OP Q8H (AddVan) IVPB SCH ×2 (02:14)
[2018-05-24 04:29] LABS: ABS Basophils 0 10^3/ul (0-0.2); ABS Eosinophils 0 10^3/ul (0-0.6); ABS Lymphocytes 0.5 10^3/ul (1.0-4.8); ABS Monocytes 1.1 10^3/ul (0-0.8); ABS Neutrophils 6.1 10^3/ul (1.5-7.7); ABS Nucleated RBC 0 10^3/ul; Eosinophil % 0.6 %; Hematocrit 27 % (35-47); Lymphocyte % 6.1 %; Mean Corpuscular HGB Conc 34 g/dl (31-36); Mean Corpuscular Hemoglobin 32 pg (27-31); Mean Corpuscular Volume 94 fL (80-97); Mean Platelet Volume 8.3 fL (7.4-10.4); Nucleated Red Blood Cells % 0; Platelet Count 59 10^3/ul (150-450); Red Blood Count 2.86 10^6/ul (4.00-5.40); Red Cell Distribution Width 15 % (10.5-15); White Blood Count 7.8 10^3/ul (3.5-10.8)
[2018-05-24 04:46] LABS: BUN/Creatinine Ratio 28.6 (8-20); Blood Urea Nitrogen 14 mg/dL (6-24); CO2 Carbon Dioxide 31 mmol/L (22-32); Chloride 106 mmol/L (101-111); EGFR African American 152.9 (>60); EGFR Non-African American 126.4 (>60); Glucose 121 mg/dL (70-100); Potassium 3.9 mmol/L (3.5-5.0); Sodium 137 mmol/L (135-145)
[2018-05-24 04:47] LABS: Calcium 6.4 mg/dL (8.6-10.3)
[2018-05-24] MEDS: NS 0.9% 1000 ML** 1,000 ML IV SCH ×2 (05:03→17:42)
[2018-05-24] MEDS: [UNRECOGNIZED DRUG - OTHER] PO PRN ×2 (05:03→15:18)
[2018-05-24] MEDS: FLUoxetine CAP* 20 MG PO SCH (08:27)
[2018-05-24] MEDS: Dronabinol CAP* 2.5 MG PO SCH ×3 (08:27→21:53)
[2018-05-24] MEDS: levETIRAcetam TAB* 500 MG PO SCH ×2 (08:27→21:49)
[2018-05-24] MEDS: Furosemide TAB* 20 MG PO SCH (08:27)
[2018-05-24] MEDS: oxyCODONE SR TAB(*) 40 MG TAB.SR PO SCH ×3 (08:28→21:51)
[2018-05-24] MEDS: MEDICAL MARIJUANA PO SCH ×4 (08:31→21:55)
[2018-05-24] MEDS: Pantoprazole TAB * 40 MG TAB PO SCH (10:06)
[2018-05-24] MEDS ORDERED: oxyCODONE TAB* 5 MG TAB PO PRN (11:44)
--- NOTE | 2018-05-24 11:50 | PN ---
Progress Note - Progress Note Date of Service: 05/24/18 SOAP: Subjective: []POD 2, left tib/fib ORIF, right femur ORIF Significant hypotension overnight with MERCHANDISING MANAGER, held as of approx. 3 am and pt. has been resting comfortably, however since breakfast complaining of increased pain. Continues on high dose oxycontin. Pain in bilat. hips through legs, "and moving up." Is convinced that no one understands pain. Remains on bedrest and per ortho notes will be non-wt. bearing for up to 6 weeks. Open to skill nursing placement on d/c. Medications: Acetaminophen (Tylenol Tab*) 650 mg PO Q4H PRN PRN Reason: FEVER/PAIN Alprazolam (Xanax Tab*) 0.5 mg PO QID PRN PRN Reason: ANXIETY Dronabinol (Marinol Cap*) 5 mg PO TID [facility] Last Admin: 05/24/18 08:27 Dose: 5 mg Fluoxetine HCl (Prozac Cap*) 60 mg PO DAILY [facility] Last Admin: 05/24/18 08:27 Dose: 60 mg Furosemide (Lasix Tab*) 20 mg PO DAILY [facility] Last Admin: 05/24/18 08:27 Dose: 20 mg Sodium Chloride (Ns 0.9% 1000 Ml*) 1,000 mls @ 75 mls/hr IV PER RATE [facility] Last Admin: 05/24/18 05:03 Dose: 75 mls/hr Levetiracetam (Keppra Tab*) 500 mg PO QAM [facility] Last Admin: 05/24/18 08:27 Dose: 500 mg Levetiracetam (Keppra Tab*) 1,000 mg PO BEDTIME [facility] Last Admin: 05/23/18 21:58 Dose: 1,000 mg Naloxone HCl (Narcan*) 0.08 mg IV PUSH Q2M PRN PRN Reason: SEDATION Pto - Medical (Marijuana 1 Ml) 1 ml PO QID [facility] Last Admin: 05/24/18 08:31 Dose: 1 ml Pto: Medical (Marijuana Oil) 0.5 admin PO BID PRN PRN Reason: PAIN Last Admin: 05/24/18 05:03 Dose: 0.5 admin Ondansetron HCl (Zofran Inj*) 4 mg IV Q4H PRN PRN Reason: NAUSEA/VOMITING Last Admin: 05/23/18 19:15 Dose: 4 mg Oxycodone HCl (Oxycontin(*)) 120 mg PO TID [facility] Last Admin: 05/24/18 08:28 Dose: 120 mg Oxycodone HCl (Roxycodone Tab*) 10 mg PO Q4H PRN PRN Reason: PAIN Pantoprazole Sodium (Protonix Tab*) 40 mg PO QAM [facility] Last Admin: 05/24/18 10:06 Dose: 40 mg Tizanidine HCl (Zanaflex Tab*) 4 mg PO QPM [facility] Last Admin: 05/23/18 17:58 Dose: 4 mg Objective: [] Vital Signs Temp Pulse Resp BP Pulse Ox 99.5 F 77 16 86/46 99 05/24/18 11:00 05/24/18 11:00 05/24/18 11:00 05/24/18 11:00 05/24/18 11:00 Upon entry into the room sleeping with even and non-labored respirations, appears comfortable without scowl to face Arouses easily and responds with calm voice. A&Ox3, EOMI HRR, SR on tele LS dim. to bases Wiggling toes bilat. with good cap refill Right leg +2 edema, soft, warm without erythema or weeping, yellow bruising to lower thigh Bilat. dressings in place Laboratory Results - last 24 hr 05/23/18 05/23/18 05/24/18 20:46 20:46 04:12 WBC 7.6 7.8 RBC 2.41 L 2.86 L Hgb 7.7 L 9.0 L Hct 23 L 27 L MCV 95 94 MCH 32 H 32 H MCHC 34 34 RDW 15 15 Plt Count 58 L 59 L D MPV 8.1 8.3 Neut % (Auto) 79.4 78.6 Lymph % (Auto) 6.5 6.1 Bull[place] % (Auto) 13.8 14.6 Eos % (Auto) 0.2 0.6 Baso % (Auto) 0.1 0.1 Absolute Neuts (auto) 6.1 6.1 Absolute Lymphs (auto) 0.5 L 0.5 L Absolute Monos (auto) 1.0 H 1.1 H Absolute Eos (auto) 0 0 Absolute Basos (auto) 0 0 Absolute Nucleated RBC 0 0 Nucleated RBC % 0 0 Polychromasia 1+ Basophilic Stippling 1+ Anisocytosis 1+ Sodium Potassium Chloride Carbon Dioxide BUN Creatinine Est GFR ( Amer) Est GFR (Non-Af Amer) BUN/Creatinine Ratio Glucose Calcium Blood Type A Negative Antibody Screen Negative Crossmatch See Detail 05/24/18 04:12 WBC RBC Hgb Hct MCV MCH MCHC RDW Plt Count MPV Neut % (Auto) Lymph % (Auto) [place] % (Auto) Eos % (Auto) Baso % (Auto) Absolute Neuts (auto) Absolute Lymphs (auto) Absolute Monos (auto) Absolute Eos (auto) Absolute Basos (auto) Absolute Nucleated RBC Nucleated RBC % Polychromasia Basophilic Stippling Anisocytosis Sodium 137 Potassium 3.9 Chloride 106 Carbon Dioxide 31 BUN 14 Creatinine 0.49 L Est GFR ( Amer) 152.9 Est GFR (Non-Af Amer) 126.4 BUN/Creatinine Ratio 28.6 H Glucose 121 H Calcium 6.4 L* Blood Type Antibody Screen Crossmatch Assessment: []67 yo female with metastatic cancer and long standing history of severe osteoporosis presenting falling a fall with bilat. fractures now POD 2. Course complicated by chronic pain and high narcotic tolerance. Plan: []1. Hypotension with high dose narcotics: d/c MERCHANDISING MANAGER and resume short acting oxycodone, however d/t such significant sedation will be cautious and start with oxycodone 10 mg PO q4hrs (francisco j. as she has not had additional pain meds in the last 7 hours and doing OK right now). 2. Non-weight bearing: further mobility orders will need to be directed by PT - will need care home on d/c, pt. agreeable 3. Breast cancer: therapy on hold Full Code
--- NOTE | 2018-05-24 14:04 | PN ---
Progress Note - Progress Note Date of Service: 05/24/18 SOAP: Subjective: []Pt seen and examined at bedside. She is feeling better today, she continues to have diffuse pain of her lower extremities but pain is tolerable at this time. Reportedly she has decreased sensation BL feet at baseline, her LLE may have even further decrease in sensation than normal, though she does confirm sensation is intact and is not worsening. Her left shoulder is bothering her, it has bothered her long before this hospital stay without worsening and without decreased ROM. Objective: []General: NAD RLE: Dressing CDI over femur, thigh is compressible. Calf + dependent edema, no erythema or palpable cords. DF/PF intact, DP2+, toes are warm and capillary refill less than two seconds distally. Sensation intact to light touch distally LLE: Splint CDI, no erythema proximal or distal. Able to f/e MTPs. No pain with passive stretch of toes. Toes are warm with capillary refill less than two seconds. Sensation intact to light touch distally, though decreased from baseline. LUE: Skin envelope intact without erythema or warmth, no obvious monica deformity , able to forward flex shoulder to 110 degrees without pain, no point tenderness about the shoulder or humerus. Assessment: [] POD 2 Right femur ORIF and left tibia ORIF ] Plan: [NWB BL LE Plan for first dressing change of femur dressing on Tuesday Vital Signs Temp 99.5 F 05/24/18 12:01 Pulse 80 05/24/18 12:01 Resp 15 05/24/18 14:09 BP 97/53 05/24/18 12:00 Pulse Ox 99 05/24/18 12:01 Intake & Output 05/23/18 05/24/18 05/24/18 18:59 06:59 18:59 Intake Total 1750 1472 50 Output Total 755 800 350 Balance 995 672 -300 Intake: IV Fluids 1300 1084 CEFAZOLIN 120 LR 1000 NS (0.9%) 300 964 IVPB 50 CEFAZOLIN 50 Oral 400 75 50 Packed Cells 313 Output: Davila 755 800 350 Laboratory Last Values WBC 7.8 10^3/ul (3.5-10.8) 05/24/18 04:12 RBC 2.86 10^6/ul (4.00-5.40) L 05/24/18 04:12 Hgb 9.0 g/dl (12.0-16.0) L 05/24/18 04:12 Hct 27 % (35-47) L 05/24/18 04:12 MCV 94 fL (80-97) 05/24/18 04:12 MCH 32 pg (27-31) H 05/24/18 04:12 MCHC 34 g/dl (31-36) 05/24/18 04:12 RDW 15 % (10.5-15) 05/24/18 04:12 Plt Count 59 10^3/ul (150-450) L D 05/24/18 04:12 MPV 8.3 fL (7.4-10.4) 05/24/18 04:12 Neut % (Auto) 78.6 % 05/24/18 04:12 Lymph % (Auto) 6.1 % 05/24/18 04:12 [place] % (Auto) 14.6 % 05/24/18 04:12 Eos % (Auto) 0.6 % 05/24/18 04:12 Baso % (Auto) 0.1 % 05/24/18 04:12 Absolute Neuts (auto) 6.1 10^3/ul (1.5-7.7) 05/24/18 04:12 Absolute Lymphs (auto) 0.5 10^3/ul (1.0-4.8) L 05/24/18 04:12 Absolute Monos (auto) 1.1 10^3/ul (0-0.8) H 05/24/18 04:12 Absolute Eos (auto) 0 10^3/ul (0-0.6) 05/24/18 04:12 Absolute Basos (auto) 0 10^3/ul (0-0.2) 05/24/18 04:12 Absolute Nucleated RBC 0 10^3/ul 05/24/18 04:12 Nucleated RBC % 0 05/24/18 04:12 Polychromasia 1+ 05/23/18 20:46 Basophilic Stippling 1+ 05/23/18 20:46 Anisocytosis 1+ 05/23/18 20:46 INR (Anticoag Therapy) 0.99 (0.77-1.02) 05/20/18 11:54 APTT 22.3 seconds (26.0-36.3) L 05/20/18 11:54 Sodium 137 mmol/L (135-145) 05/24/18 04:12 Potassium 3.9 mmol/L (3.5-5.0) 05/24/18 04:12 Chloride 106 mmol/L (101-111) 05/24/18 04:12 Carbon Dioxide 31 mmol/L (22-32) 05/24/18 04:12 Anion Gap 5 mmol/L (2-11) 05/23/18 08:02 BUN 14 mg/dL (6-24) 05/24/18 04:12 Creatinine 0.49 mg/dL (0.51-0.95) L 05/24/18 04:12 Est GFR ( Amer) 152.9 (>60) 05/24/18 04:12 Est GFR (Non-Af Amer) 126.4 (>60) 05/24/18 04:12 BUN/Creatinine Ratio 28.6 (8-20) H 05/24/18 04:12 Glucose 121 mg/dL (70-100) H 05/24/18 04:12 Lactic Acid 1.1 mmol/L (0.5-2.0) 05/20/18 11:55 Calcium 6.4 mg/dL (8.6-10.3) L* 05/24/18 04:12 Magnesium 2.4 mg/dL (1.9-2.7) 05/21/18 05:30 Total Bilirubin 0.60 mg/dL (0.2-1.0) 05/21/18 05:30 AST 28 U/L (13-39) 05/21/18 05:30 ALT 19 U/L (7-52) 05/21/18 05:30 Alkaline Phosphatase 27 U/L (34-104) L 05/21/18 05:30 Troponin I 0.05 ng/mL (<0.04) H* 05/21/18 01:40 Total Protein 4.9 g/dL (6.4-8.9) L 05/21/18 05:30 Albumin 3.0 g/dL (3.2-5.2) L 05/21/18 05:30 Globulin 1.9 g/dL (2-4) L 05/21/18 05:30 Albumin/Globulin Ratio 1.6 (1-3) 05/21/18 05:30 Urine Color Yellow 05/20/18 10:50 Urine Appearance Clear 05/20/18 10:50 Urine pH 8.0 (5-9) 05/20/18 10:50 Ur Specific [place] 1.008 (1.010-1.030) L 05/20/18 10:50 Urine Protein Negative (Negative) 05/20/18 10:50 Urine Ketones Negative (Negative) 05/20/18 10:50 Urine Blood Negative (Negative) 05/20/18 10:50 Urine Nitrate Negative (Negative) 05/20/18 10:50 Urine Bilirubin Negative (Negative) 05/20/18 10:50 Urine Urobilinogen Negative (Negative) 05/20/18 10:50 Ur Leukocyte Esterase Trace (Negative) A 05/20/18 10:50 Urine WBC (Auto) Trace(0-5/hpf) (Absent) 05/20/18 10:50 Urine RBC (Auto) 1+(3-5/hpf) (Absent) A 05/20/18 10:50 Urine Bacteria Absent (Absent) 05/20/18 10:50 Urine Glucose Negative (Negative) 05/20/18 10:50 Blood Type A Negative 05/23/18 20:46 Antibody Screen Negative 05/23/18 20:46 Crossmatch See Detail 05/23/18 20:46
[2018-05-24] MEDS: tiZANidine TAB* 2 MG PO SCH (17:43)
[2018-05-24 20:01] LABS: Hematocrit 25 % (35-47); Hemoglobin 8.3 g/dl (12.0-16.0); Mean Corpuscular HGB Conc 34 g/dl (31-36); Mean Corpuscular Hemoglobin 31 pg (27-31); Mean Corpuscular Volume 94 fL (80-97); Mean Platelet Volume 8.4 fL (7.4-10.4); Platelet Count 64 10^3/ul (150-450); Red Blood Count 2.64 10^6/ul (4.00-5.40); Red Cell Distribution Width 15 % (10.5-15); White Blood Count 6.4 10^3/ul (3.5-10.8)
[2018-05-25 05:51] LABS: ABS Basophils 0 10^3/ul (0-0.2); ABS Eosinophils 0.1 10^3/ul (0-0.6); ABS Lymphocytes 0.5 10^3/ul (1.0-4.8); ABS Monocytes 0.7 10^3/ul (0-0.8); ABS Neutrophils 4.7 10^3/ul (1.5-7.7); ABS Nucleated RBC 0 10^3/ul; Eosinophil % 1.8 %; Hematocrit 24 % (35-47); Hemoglobin 8.1 g/dl (12.0-16.0); Lymphocyte % 7.8 %; Mean Corpuscular HGB Conc 34 g/dl (31-36); Mean Corpuscular Hemoglobin 32 pg (27-31); Mean Corpuscular Volume 93 fL (80-97); Mean Platelet Volume 8.1 fL (7.4-10.4); Nucleated Red Blood Cells % 0.1; Platelet Count 65 10^3/ul (150-450); Red Blood Count 2.55 10^6/ul (4.00-5.40); Red Cell Distribution Width 16 % (10.5-15)
[2018-05-25 06:06] LABS: BUN/Creatinine Ratio 19.1 (8-20); Blood Urea Nitrogen 9 mg/dL (6-24); CO2 Carbon Dioxide 32 mmol/L (22-32); Calcium 6.6 mg/dL (8.6-10.3); Chloride 109 mmol/L (101-111); EGFR African American 160.4 (>60); EGFR Non-African American 132.6 (>60); Glucose 111 mg/dL (70-100); Potassium 3.6 mmol/L (3.5-5.0); Sodium 141 mmol/L (135-145)
[2018-05-25] MEDS: oxyCODONE TAB* 5 MG TAB PO PRN ×2 (06:20→09:52)
[2018-05-25] MEDS: NS 0.9% 1000 ML** 1,000 ML IV SCH ×2 (06:28→22:13)
[2018-05-25] MEDS: Dronabinol CAP* 2.5 MG PO SCH ×3 (08:46→21:07)
[2018-05-25] MEDS: Pantoprazole TAB * 40 MG TAB PO SCH (08:47)
[2018-05-25] MEDS: MEDICAL MARIJUANA PO SCH ×4 (08:47→21:11)
[2018-05-25] MEDS: levETIRAcetam TAB* 500 MG PO SCH ×2 (08:47→21:07)
[2018-05-25] MEDS: oxyCODONE SR TAB(*) 40 MG TAB.SR PO SCH ×3 (08:47→21:07)
[2018-05-25] MEDS: FLUoxetine CAP* 20 MG PO SCH (08:47)
[2018-05-25] MEDS: [UNRECOGNIZED DRUG - OTHER] PO PRN (09:15)
[2018-05-25] MEDS: Ondansetron INJ* 2 MG/ML VIAL IV PRN (09:20)
[2018-05-25] MEDS: fentaNYL* 50 MCG/ML 2 ML VIAL (100 MCG VIAL) IV SLOW PU PRN ×3 (11:00→16:31)
[2018-05-25] MEDS: LORazepam INJ* 2 MG/ML 1 ML VIAL IV PUSH PRN (11:22)
--- NOTE | 2018-05-25 11:37 | PN ---
Progress Note - Progress Note Date of Service: 05/25/18 SOAP: Subjective: [Hypotensive overnight, pain medications held. She was able to rest in the overnight hours but reports severe pain by mid morning. Anxiety is high. No new complaints.] Objective: [ Laboratory Results - last 24 hr 05/23/18 05/24/18 05/25/18 20:46 19:37 05:35 WBC 6.4 6.0 RBC 2.64 L 2.55 L Hgb 8.3 L 8.1 L Hct 25 L 24 L MCV 94 93 MCH 31 32 H MCHC 34 34 RDW 15 16 H Plt Count 64 L 65 L MPV 8.4 8.1 Neut % (Auto) 79.2 Lymph % (Auto) 7.8 [place] % (Auto) 11.0 Eos % (Auto) 1.8 Baso % (Auto) 0.2 Absolute Neuts (auto) 4.7 Absolute Lymphs (auto) 0.5 L Absolute Monos (auto) 0.7 Absolute Eos (auto) 0.1 Absolute Basos (auto) 0 Absolute Nucleated RBC 0 Nucleated RBC % 0.1 Hem Pathologist Commnt Sodium Potassium Chloride Carbon Dioxide BUN Creatinine Est GFR ( Amer) Est GFR (Non-Af Amer) BUN/Creatinine Ratio Glucose Calcium 05/25/18 05:35 WBC RBC Hgb Hct MCV MCH MCHC RDW Plt Count MPV Neut % (Auto) Lymph % (Auto) [place] % (Auto) Eos % (Auto) Baso % (Auto) Absolute Neuts (auto) Absolute Lymphs (auto) Absolute Monos (auto) Absolute Eos (auto) Absolute Basos (auto) Absolute Nucleated RBC Nucleated RBC % Hem Pathologist Commnt Sodium 141 Potassium 3.6 Chloride 109 Carbon Dioxide 32 BUN 9 Creatinine 0.47 L Est GFR ( Amer) 160.4 Est GFR (Non-Af Amer) 132.6 BUN/Creatinine Ratio 19.1 Glucose 111 H Calcium 6.6 L Acetaminophen (Tylenol Tab*) 650 mg PO Q4H PRN PRN Reason: FEVER/PAIN Alprazolam (Xanax Tab*) 0.5 mg PO QID PRN PRN Reason: ANXIETY Dronabinol (Marinol Cap*) 5 mg PO TID [facility] Last Admin: 05/25/18 08:46 Dose: 5 mg Fentanyl Citrate (Fentanyl*) 100 mcg IV SLOW PU Q2H PRN PRN Reason: SEVERE PAIN Last Admin: 05/25/18 11:00 Dose: 100 mcg Fluoxetine HCl (Prozac Cap*) 60 mg PO DAILY [facility] Last Admin: 05/25/18 08:47 Dose: 60 mg Sodium Chloride (Ns 0.9% 1000 Ml*) 1,000 mls @ 75 mls/hr IV PER RATE [facility] Last Admin: 05/25/18 06:28 Dose: 75 mls/hr Levetiracetam (Keppra Tab*) 500 mg PO QAM [facility] Last Admin: 05/25/18 08:47 Dose: 500 mg Levetiracetam (Keppra Tab*) 1,000 mg PO BEDTIME [facility] Last Admin: 05/24/18 21:49 Dose: 1,000 mg Lorazepam (Ativan Inj*) 1 mg IV PUSH Q4H PRN PRN Reason: severe anxiety Last Admin: 05/25/18 11:22 Dose: 1 mg Naloxone HCl (Narcan*) 0.08 mg IV PUSH Q2M PRN PRN Reason: SEDATION Pto - Medical (Marijuana 1 Ml) 1 ml PO QID [facility] Last Admin: 05/25/18 08:47 Dose: 1 ml Pto: Medical (Marijuana Oil) 0.5 admin PO BID PRN PRN Reason: PAIN Last Admin: 05/25/18 09:15 Dose: 0.5 admin Ondansetron HCl (Zofran Inj*) 4 mg IV Q4H PRN PRN Reason: NAUSEA/VOMITING Last Admin: 05/25/18 09:20 Dose: 4 mg Oxycodone HCl (Oxycontin(*)) 120 mg PO TID [facility] Last Admin: 05/25/18 08:47 Dose: 120 mg Oxycodone HCl (Roxycodone Tab*) 10 mg PO Q3H PRN PRN Reason: PAIN Pantoprazole Sodium (Protonix Tab*) 40 mg PO QAM [facility] Last Admin: 05/25/18 08:47 Dose: 40 mg Tizanidine HCl (Zanaflex Tab*) 4 mg PO QPM [facility] Last Admin: 05/24/18 17:43 Dose: 4 mg Vital Signs: Temp Pulse Resp BP Pulse Ox 98.4 F 73 29 124/61 95 05/25/18 10:01 05/25/18 10:01 05/25/18 11:22 05/25/18 10:00 05/25/18 10:01 Exam: Gen: Chronically ill appearing 67 yo female in NAD HEENT: MMM, no thrush CV: RRR, no m/r/g Resp: lungs CTA, no w/c/r Abd: soft, nonTTP Ext: bilateral LE edema, extremities are warm, appropriate capillary refill Psych: somewhat tearful and anxious] Assessment: [67 yo female with metastatic breast CA and chronic pain with significant opiate tolerance who sustained a fall at home resulting in a L tib/fib fracture and R femur fracture now s/p ORIF. Plan: [1. L tib/fib and R femur fractures s/p ORIF - POD #3 - NWB both lower extremities - pain control remains the major concern, she has been hypotensive with morphine [employer] - cont oxycontin 120 mg tid and increase oxycodone 10 mg q 4h - utilize IV fentanyl for additional pain control which will limit associated hypotension - prn benzodiapzapines for spasm/anxiety management 2. Acute blood loss anemia - transfused 3U PRBCs postoperatively, Hgb now stable 3. UTI - asx - pansensitive EColi - receive Cefazolin perioperatively x 24h - hold on additional abx at this time unless symptoms develop 4. Metastatic breast CA - followed by Dr Jennings - recently started on Xeloda after progression on prior agent - tolerated C1 poorly with plan for dose reduction for C2 - Xeloda will be held until she appears to be well recovered from surgery 5. Chronic pain - followed by Dr Encarnacion - see discussion above 6. H/o DVT 2016 - Xarelto held for surgery and postoperatively due to thrombocytopenia, but Hgb now remains stable and will resume at prior dose as she is at high risk for thrombus Dispo: cont ICU care, transfer to [facility] when BP stable with eventual need for SNF
[2018-05-25] MEDS: Rivaroxaban TAB(*) 10 MG PO SCH (13:08)
--- NOTE | 2018-05-25 13:29 | PN ---
Progress Note - Progress Note Date of Service: 05/25/18 SOAP: Subjective: []Pt seen and examined at bedside in ICU. Pain control remains a concern, difficult balance between pain control and maintaining BP. She was hypotensive overnight with morphine SURG PHYSICIAN ASST. Oncology has adjusted her pain medication away from morphine SURG PHYSICIAN ASST to IV fentanyl. Pain is better controlled this morning though b/l LE remain bothersome. Objective: []General: NAD RLE: Dressing CDI over femur, thigh is compressible. Calf + edema, no erythema or palpable cords. DF/PF intact, DP2+, toes are warm and capillary refill less than two seconds distally. Sensation intact to light touch distally. LLE: Splint CDI, no erythema proximal or distal. Able to f/e MTPs. No pain with passive stretch of toes. Toes are warm with capillary refill less than two seconds. Sensation intact to light touch distally Assessment: [] POD 3 Right femur ORIF and left tibia ORIF ] Plan: [NWB BL LE Plan for first change of femur dressing on Tuesday Reports left shoulder is not a source of concern, sore as it often is but no severe pain or decreased ROM Vital Signs Temp 99.0 F 05/25/18 13:00 Pulse 73 05/25/18 13:00 Resp 19 05/25/18 13:08 BP 110/49 05/25/18 12:00 Pulse Ox 97 05/25/18 13:00 Intake & Output 05/24/18 05/25/18 05/25/18 18:59 06:59 18:59 Intake Total 939 1692 50 Output Total 1350 285 Balance -411 1407 50 Intake: IV Fluids 689 1192 LR 415 NS (0.9%) 689 777 Oral 250 500 50 Output: Davila 1350 285 Laboratory Last Values WBC 6.0 10^3/ul (3.5-10.8) 05/25/18 05:35 RBC 2.55 10^6/ul (4.00-5.40) L 05/25/18 05:35 Hgb 8.1 g/dl (12.0-16.0) L 05/25/18 05:35 Hct 24 % (35-47) L 05/25/18 05:35 MCV 93 fL (80-97) 05/25/18 05:35 MCH 32 pg (27-31) H 05/25/18 05:35 MCHC 34 g/dl (31-36) 05/25/18 05:35 RDW 16 % (10.5-15) H 05/25/18 05:35 Plt Count 65 10^3/ul (150-450) L 05/25/18 05:35 MPV 8.1 fL (7.4-10.4) 05/25/18 05:35 Neut % (Auto) 79.2 % 05/25/18 05:35 Lymph % (Auto) 7.8 % 05/25/18 05:35 [place] % (Auto) 11.0 % 05/25/18 05:35 Eos % (Auto) 1.8 % 05/25/18 05:35 Baso % (Auto) 0.2 % 05/25/18 05:35 Absolute Neuts (auto) 4.7 10^3/ul (1.5-7.7) 05/25/18 05:35 Absolute Lymphs (auto) 0.5 10^3/ul (1.0-4.8) L 05/25/18 05:35 Absolute Monos (auto) 0.7 10^3/ul (0-0.8) 05/25/18 05:35 Absolute Eos (auto) 0.1 10^3/ul (0-0.6) 05/25/18 05:35 Absolute Basos (auto) 0 10^3/ul (0-0.2) 05/25/18 05:35 Absolute Nucleated RBC 0 10^3/ul 05/25/18 05:35 Nucleated RBC % 0.1 05/25/18 05:35 Polychromasia 1+ 05/23/18 20:46 Basophilic Stippling 1+ 05/23/18 20:46 Anisocytosis 1+ 05/23/18 20:46 Hem Pathologist Commnt 05/23/18 20:46 INR (Anticoag Therapy) 0.99 (0.77-1.02) 05/20/18 11:54 APTT 22.3 seconds (26.0-36.3) L 05/20/18 11:54 Sodium 141 mmol/L (135-145) 05/25/18 05:35 Potassium 3.6 mmol/L (3.5-5.0) 05/25/18 05:35 Chloride 109 mmol/L (101-111) 05/25/18 05:35 Carbon Dioxide 32 mmol/L (22-32) 05/25/18 05:35 Anion Gap 5 mmol/L (2-11) 05/23/18 08:02 BUN 9 mg/dL (6-24) 05/25/18 05:35 Creatinine 0.47 mg/dL (0.51-0.95) L 05/25/18 05:35 Est GFR ( Amer) 160.4 (>60) 05/25/18 05:35 Est GFR (Non-Af Amer) 132.6 (>60) 05/25/18 05:35 BUN/Creatinine Ratio 19.1 (8-20) 05/25/18 05:35 Glucose 111 mg/dL (70-100) H 05/25/18 05:35 Lactic Acid 1.1 mmol/L (0.5-2.0) 05/20/18 11:55 Calcium 6.6 mg/dL (8.6-10.3) L 05/25/18 05:35 Magnesium 2.4 mg/dL (1.9-2.7) 05/21/18 05:30 Total Bilirubin 0.60 mg/dL (0.2-1.0) 05/21/18 05:30 AST 28 U/L (13-39) 05/21/18 05:30 ALT 19 U/L (7-52) 05/21/18 05:30 Alkaline Phosphatase 27 U/L (34-104) L 05/21/18 05:30 Troponin I 0.05 ng/mL (<0.04) H* 05/21/18 01:40 Total Protein 4.9 g/dL (6.4-8.9) L 05/21/18 05:30 Albumin 3.0 g/dL (3.2-5.2) L 05/21/18 05:30 Globulin 1.9 g/dL (2-4) L 05/21/18 05:30 Albumin/Globulin Ratio 1.6 (1-3) 05/21/18 05:30 Urine Color Yellow 05/20/18 10:50 Urine Appearance Clear 05/20/18 10:50 Urine pH 8.0 (5-9) 05/20/18 10:50 Ur Specific [place] 1.008 (1.010-1.030) L 05/20/18 10:50 Urine Protein Negative (Negative) 05/20/18 10:50 Urine Ketones Negative (Negative) 05/20/18 10:50 Urine Blood Negative (Negative) 05/20/18 10:50 Urine Nitrate Negative (Negative) 05/20/18 10:50 Urine Bilirubin Negative (Negative) 05/20/18 10:50 Urine Urobilinogen Negative (Negative) 05/20/18 10:50 Ur Leukocyte Esterase Trace (Negative) A 05/20/18 10:50 Urine WBC (Auto) Trace(0-5/hpf) (Absent) 05/20/18 10:50 Urine RBC (Auto) 1+(3-5/hpf) (Absent) A 05/20/18 10:50 Urine Bacteria Absent (Absent) 05/20/18 10:50 Urine Glucose Negative (Negative) 05/20/18 10:50 Blood Type A Negative 05/23/18 20:46 Antibody Screen Negative 05/23/18 20:46 Crossmatch See Detail 05/23/18 20:46
[2018-05-25] MEDS: tiZANidine TAB* 2 MG PO SCH (17:53)
[2018-05-25] MEDS ORDERED: NS 0.9% 1000 ML** 1,000 ML IV ONE (20:27)
[2018-05-26] MEDS: fentaNYL* 50 MCG/ML 2 ML VIAL (100 MCG VIAL) IV SLOW PU PRN ×7 (00:27→19:32)
[2018-05-26 05:32] LABS: ABS Basophils 0 10^3/ul (0-0.2); ABS Eosinophils 0.2 10^3/ul (0-0.6); ABS Lymphocytes 0.5 10^3/ul (1.0-4.8); ABS Monocytes 0.7 10^3/ul (0-0.8); ABS Neutrophils 6.1 10^3/ul (1.5-7.7); ABS Nucleated RBC 0 10^3/ul; Hematocrit 26 % (35-47); Hemoglobin 8.8 g/dl (12.0-16.0); Lymphocyte % 6.5 %; Mean Corpuscular HGB Conc 34 g/dl (31-36); Mean Corpuscular Hemoglobin 32 pg (27-31); Mean Corpuscular Volume 94 fL (80-97); Mean Platelet Volume 7.6 fL (7.4-10.4); Nucleated Red Blood Cells % 0; Platelet Count 84 10^3/ul (150-450); Red Blood Count 2.72 10^6/ul (4.00-5.40); Red Cell Distribution Width 15 % (10.5-15); White Blood Count 7.4 10^3/ul (3.5-10.8)
[2018-05-26 05:49] LABS: Calcium 7.3 mg/dL (8.6-10.3); EGFR African American 193.2 (>60); EGFR Non-African American 159.7 (>60); Potassium 3.5 mmol/L (3.5-5.0)
[2018-05-26] MEDS: [UNRECOGNIZED DRUG - OTHER] PO PRN ×2 (06:05→17:22)
--- NOTE | 2018-05-26 09:33 | PN ---
Progress Note - Progress Note Date of Service: 05/26/18 SOAP: Subjective: [No significant changes. Still complaining of pain. Hypotensive overnight.] Objective: [ Laboratory Results - last 24 hr 05/26/18 05/26/18 05:20 05:20 WBC 7.4 RBC 2.72 L Hgb 8.8 L Hct 26 L MCV 94 MCH 32 H MCHC 34 RDW 15 Plt Count 84 L MPV 7.6 Neut % (Auto) 81.8 Lymph % (Auto) 6.5 [place] % (Auto) 9.3 Eos % (Auto) 2.0 Baso % (Auto) 0.4 Absolute Neuts (auto) 6.1 Absolute Lymphs (auto) 0.5 L Absolute Monos (auto) 0.7 Absolute Eos (auto) 0.2 Absolute Basos (auto) 0 Absolute Nucleated RBC 0 Nucleated RBC % 0 Sodium 142 Potassium 3.5 Chloride 108 Carbon Dioxide 31 Anion Gap 3 BUN 12 Creatinine 0.40 L Est GFR ( Amer) 193.2 Est GFR (Non-Af Amer) 159.7 BUN/Creatinine Ratio 30.0 H Glucose 106 H Calcium 7.3 L Acetaminophen (Tylenol Tab*) 650 mg PO Q4H PRN PRN Reason: FEVER/PAIN Alprazolam (Xanax Tab*) 0.5 mg PO QID [facility] Dronabinol (Marinol Cap*) 5 mg PO TID [facility] Last Admin: 05/25/18 21:07 Dose: 5 mg Fentanyl Citrate (Fentanyl*) 100 mcg IV SLOW PU Q2H PRN PRN Reason: SEVERE PAIN Last Admin: 05/26/18 07:33 Dose: 100 mcg Fluoxetine HCl (Prozac Cap*) 60 mg PO DAILY [facility] Last Admin: 05/25/18 08:47 Dose: 60 mg Sodium Chloride (Ns 0.9% 1000 Ml*) 1,000 mls @ 75 mls/hr IV PER RATE [facility] Last Admin: 05/25/18 22:13 Dose: 75 mls/hr Levetiracetam (Keppra Tab*) 500 mg PO QAM [facility] Last Admin: 05/25/18 08:47 Dose: 500 mg Levetiracetam (Keppra Tab*) 1,000 mg PO BEDTIME [facility] Last Admin: 05/25/18 21:07 Dose: 1,000 mg Lorazepam (Ativan Inj*) 1 mg IV PUSH Q4H PRN PRN Reason: severe anxiety Last Admin: 05/25/18 11:22 Dose: 1 mg Naloxone HCl (Narcan*) 0.08 mg IV PUSH Q2M PRN PRN Reason: SEDATION Pto - Medical (Marijuana 1 Ml) 1 ml PO QID [facility] Last Admin: 05/25/18 21:11 Dose: 1 ml Pto: Medical (Marijuana Oil) 0.5 admin PO BID PRN PRN Reason: PAIN Last Admin: 05/26/18 06:05 Dose: 0.5 admin Ondansetron HCl (Zofran Inj*) 4 mg IV Q4H PRN PRN Reason: NAUSEA/VOMITING Last Admin: 05/25/18 09:20 Dose: 4 mg Oxycodone HCl (Oxycontin(*)) 120 mg PO TID [facility] Last Admin: 05/25/18 21:07 Dose: 120 mg Oxycodone HCl (Roxycodone Tab*) 10 mg PO Q3H PRN PRN Reason: PAIN Pantoprazole Sodium (Protonix Tab*) 40 mg PO QAM [facility] Last Admin: 05/25/18 08:47 Dose: 40 mg Rivaroxaban (Xarelto(*)) 10 mg PO DAILY [facility] Last Admin: 05/25/18 13:08 Dose: 10 mg Tizanidine HCl (Zanaflex Tab*) 2 mg PO TID [facility] Vital Signs: Temp Pulse Resp BP Pulse Ox 99.5 F 80 17 120/63 97 05/26/18 08:00 05/26/18 08:00 05/26/18 08:00 05/26/18 08:00 05/26/18 08:00 Exam: Gen: Chronically ill appearing 67 yo female who appears moderately uncomfortable HEENT: MMM, no thrush CV: RRR, no m/r/g Resp: lungs CTA, no w/c/r Abd: soft, nonTTP Ext: bilateral LE edema, extremities are warm, appropriate capillary refill Psych: somewhat anxious] Assessment: [67 yo female with metastatic breast CA and chronic pain with significant opiate tolerance who sustained a fall at home resulting in a L tib/fib fracture and R femur fracture now s/p ORIF. Plan: [1. L tib/fib and R femur fractures s/p ORIF - POD #4 - NWB both lower extremities - pain control remains the major concern - cont oxycontin 120 mg tid and oxycodone 10 mg q 3h prn - cont IV fentanyl prn, BP appears to tolerate this better - schedule po benzodiazapines and muscle relaxants to aid in pain control and anxiety management 2. Acute blood loss anemia - transfused 3U PRBCs postoperatively, Hgb now stable - cont to monitor 3. Thrombocytopenia - improving - may be related to chemotherapy induced bone marrow suppression and some consumptive effect due to perioperative bleeding 3. UTI - asx - pansensitive EColi - receive Cefazolin perioperatively x 24h - hold on additional abx at this time unless symptoms develop 4. Metastatic breast CA - followed by Dr Jennings - recently started on Xeloda after progression on prior agent - tolerated C1 poorly with plan for dose reduction for C2 - Xeloda will be held until she appears to be well recovered from surgery 5. Chronic pain - followed by Dr Encarnacion - see discussion above 6. H/o DVT 2015 - Xarelto held for surgery and postoperatively due to thrombocytopenia (now stable and improving) - Xarelto now resumed at prior home dose of 10mg daily Dispo: ok to transfer to [facility] today, will need LUIS MANUEL at SNF - likely early next week
[2018-05-26] MEDS: oxyCODONE SR TAB(*) 40 MG TAB.SR PO SCH ×3 (09:40→22:15)
[2018-05-26] MEDS: levETIRAcetam TAB* 500 MG PO SCH ×2 (09:40→21:40)
[2018-05-26] MEDS: Rivaroxaban TAB(*) 10 MG PO SCH (09:40)
[2018-05-26] MEDS: Dronabinol CAP* 2.5 MG PO SCH ×3 (09:40→22:16)
[2018-05-26] MEDS: FLUoxetine CAP* 20 MG PO SCH (09:40)
[2018-05-26] MEDS: Pantoprazole TAB * 40 MG TAB PO SCH (09:40)
[2018-05-26] MEDS: MEDICAL MARIJUANA PO SCH ×4 (09:46→22:20)
[2018-05-26] MEDS: oxyCODONE TAB* 5 MG TAB PO PRN ×2 (11:20→14:40)
[2018-05-26] MEDS: ALPRAZolam TAB* 0.5 MG PO SCH ×3 (13:20→21:42)
--- NOTE | 2018-05-26 13:31 | PN ---
Progress Note - Progress Note Date of Service: 05/26/18 SOAP: Subjective: []Patient seen at bedside with nursing present. She is resting comfortably. Discussed need for dressing change to the right thigh, agreeable to try if pain medications available prior. Objective: [] Vital Signs Temp 99.3 F 05/26/18 10:00 Pulse 74 05/26/18 10:00 Resp 20 05/26/18 13:20 BP 134/76 05/26/18 10:00 Pulse Ox 94 05/26/18 10:00 Intake & Output 05/25/18 05/26/18 05/26/18 18:59 06:59 18:59 Intake Total 1026 2123 Output Total 1325 875 350 Balance -299 1248 -350 Intake: IV Fluids 626 1883 NS (0.9%) 626 1883 Oral 400 240 Output: Davila 1325 875 350 Laboratory Results - last 24 hr 05/26/18 05/26/18 05:20 05:20 WBC 7.4 RBC 2.72 L Hgb 8.8 L Hct 26 L MCV 94 MCH 32 H MCHC 34 RDW 15 Plt Count 84 L MPV 7.6 Neut % (Auto) 81.8 Lymph % (Auto) 6.5 [place] % (Auto) 9.3 Eos % (Auto) 2.0 Baso % (Auto) 0.4 Absolute Neuts (auto) 6.1 Absolute Lymphs (auto) 0.5 L Absolute Monos (auto) 0.7 Absolute Eos (auto) 0.2 Absolute Basos (auto) 0 Absolute Nucleated RBC 0 Nucleated RBC % 0 Sodium 142 Potassium 3.5 Chloride 108 Carbon Dioxide 31 Anion Gap 3 BUN 12 Creatinine 0.40 L Est GFR ( Amer) 193.2 Est GFR (Non-Af Amer) 159.7 BUN/Creatinine Ratio 30.0 H Glucose 106 H Calcium 7.3 L Right thigh SALLY and dressings taken down, incision is benign with old dried bloody drainage on dressings, no active bleeding thigh and lower leg moderately swollen and slightly bruised, soft, propped up on several pillows sensation and circulation intact distally New 4x4 and Tegaderm dressings applied LLE ankle splint is dry and intact, + sensation and circulation toes Assessment: []s/p ORIF Right femur fracture ORIF left tibia fracture POD #4 Plan: []Pain management still a concern, needing high doses of narcotics, tolerated right thigh dressing change after Fentanyl NWB BLE Encourage ankle pumps RLE to help with edema H+H remains stable transfer to medical floor later today
[2018-05-26] MEDS: tiZANidine TAB* 2 MG PO SCH ×2 (13:58→21:42)
[2018-05-26] MEDS: Ondansetron INJ* 2 MG/ML VIAL IV PRN (13:59)
[2018-05-27 06:04] LABS: Hematocrit 25 % (35-47); Hemoglobin 8.4 g/dl (12.0-16.0); Mean Corpuscular HGB Conc 33 g/dl (31-36); Mean Corpuscular Hemoglobin 31 pg (27-31); Mean Corpuscular Volume 93 fL (80-97); Platelet Count 102 10^3/ul (150-450); Red Blood Count 2.71 10^6/ul (4.00-5.40); Red Cell Distribution Width 15 % (10.5-15); White Blood Count 5.4 10^3/ul (3.5-10.8)
[2018-05-27 06:19] LABS: BUN/Creatinine Ratio 29.3 (8-20); Calcium 7.4 mg/dL (8.6-10.3); EGFR African American 187.8 (>60); EGFR Non-African American 155.2 (>60); Potassium 3.6 mmol/L (3.5-5.0)
[2018-05-27 06:33] LABS: ABS Basophils 0 10^3/ul (0-0.2); ABS Eosinophils 0.2 10^3/ul (0-0.6); ABS Lymphocytes 0.6 10^3/ul (1.0-4.8); ABS Monocytes 0.6 10^3/ul (0-0.8); ABS Nucleated RBC 0 10^3/ul; Lymphocyte % 10.6 %; Nucleated Red Blood Cells % 0.1
[2018-05-27] MEDS: fentaNYL* 50 MCG/ML 2 ML VIAL (100 MCG VIAL) IV SLOW PU PRN ×2 (06:53→22:15)
[2018-05-27] MEDS: oxyCODONE SR TAB(*) 40 MG TAB.SR PO SCH ×3 (08:30→21:39)
[2018-05-27] MEDS: Rivaroxaban TAB(*) 10 MG PO SCH (08:31)
[2018-05-27] MEDS: FLUoxetine CAP* 20 MG PO SCH (08:31)
[2018-05-27] MEDS: tiZANidine TAB* 2 MG PO SCH ×3 (08:31→21:39)
[2018-05-27] MEDS: Pantoprazole TAB * 40 MG TAB PO SCH (08:31)
[2018-05-27] MEDS: ALPRAZolam TAB* 0.5 MG PO SCH ×4 (08:31→21:39)
[2018-05-27] MEDS: levETIRAcetam TAB* 500 MG PO SCH ×2 (08:32→21:39)
[2018-05-27] MEDS: Dronabinol CAP* 2.5 MG PO SCH (08:32)
[2018-05-27] MEDS: MEDICAL MARIJUANA PO SCH ×4 (08:33→21:40)
--- NOTE | 2018-05-27 10:13 | PN ---
Progress Note - Progress Note Date of Service: 05/27/18 SOAP: Subjective: POD #5 left tibia, right femur ORIF. Still c/o pain diffusely through b/l LE. Denies numbness to legs. Denies CP/SOB, f/c, n/v. Does c/o of headaches and double vision, but unsure if this is baseline Objective: Vitals: Temp Pulse Resp BP Pulse Ox 99.1 F 79 17 122/71 97 05/27/18 10:00 05/27/18 10:00 05/27/18 10:00 05/27/18 08:00 05/27/18 10:00 Gen: Arousable but somnolent, oriented x3 when prompted. Does not appear in distress while lying in bed LLE: Splint C/D/I. Able to f/e at MTPs RLE: Dressing D/I to right thigh, some dried blood present. 2+ pitting edema to lower leg. Able to f/e at ankle and MTPs. N/V intact Labs: Laboratory Results - last 24 hr 05/27/18 05/27/18 05:35 05:35 WBC 5.4 RBC 2.71 L Hgb 8.4 L Hct 25 L MCV 93 MCH 31 MCHC 33 RDW 15 Plt Count 102 L MPV 8.0 Neut % (Auto) 73.7 Lymph % (Auto) 10.6 [place] % (Auto) 12.0 Eos % (Auto) 3.0 Baso % (Auto) 0.7 Absolute Neuts (auto) 4.0 Absolute Lymphs (auto) 0.6 L Absolute Monos (auto) 0.6 Absolute Eos (auto) 0.2 Absolute Basos (auto) 0 Absolute Nucleated RBC 0 Nucleated RBC % 0.1 Sodium 142 Potassium 3.6 Chloride 105 Carbon Dioxide 35 H Anion Gap 2 BUN 12 Creatinine 0.41 L Est GFR ( Amer) 187.8 Est GFR (Non-Af Amer) 155.2 BUN/Creatinine Ratio 29.3 H Glucose 102 H Calcium 7.4 L Assessment: POD #5 Left tibia/right femur ORIF Plan: Pt continues to struggle with pain control, continue current medications as she appears comfortable at this point Cont NWB B/L LE Spoke with Dr. Jennings and made aware of headaches/vision changes who will evaluate pt today Cont Xarelto Will need LUIS MANUEL
--- NOTE | 2018-05-27 12:25 | PN ---
Progress Note - Progress Note Date of Service: 05/27/18 SOAP: Subjective: [] Extreme pain. She is really not moving at all. Pain medicines work partly above her to sleep. Per nursing report she sleeping most hours of the day. Eating very little but some. No bowel movement over past several days. Discussion today about long-term goals visit with physical therapy. I'll cancer therapy is on hold indefinitely. Acetaminophen (Tylenol Tab*) 650 mg PO Q4H PRN PRN Reason: FEVER/PAIN Alprazolam (Xanax Tab*) 0.5 mg PO QID [facility] Last Admin: 05/27/18 08:31 Dose: 0.5 mg Dronabinol (Marinol Cap*) 5 mg PO TID [facility] Last Admin: 05/27/18 08:32 Dose: 5 mg Fentanyl Citrate (Fentanyl*) 100 mcg IV SLOW PU Q2H PRN PRN Reason: SEVERE PAIN Last Admin: 05/27/18 06:53 Dose: 100 mcg Fluoxetine HCl (Prozac Cap*) 60 mg PO DAILY [facility] Last Admin: 05/27/18 08:31 Dose: 60 mg Levetiracetam (Keppra Tab*) 500 mg PO QAM [facility] Last Admin: 05/27/18 08:32 Dose: 500 mg Levetiracetam (Keppra Tab*) 1,000 mg PO BEDTIME [facility] Last Admin: 05/26/18 21:40 Dose: 1,000 mg Lorazepam (Ativan Inj*) 1 mg IV PUSH Q4H PRN PRN Reason: severe anxiety Last Admin: 05/25/18 11:22 Dose: 1 mg Naloxone HCl (Narcan*) 0.08 mg IV PUSH Q2M PRN PRN Reason: SEDATION Pto - Medical (Marijuana 1 Ml) 1 ml PO QID [facility] Last Admin: 05/27/18 08:33 Dose: 1 ml Pto: Medical (Marijuana Oil) 0.5 admin PO BID PRN PRN Reason: PAIN Last Admin: 05/26/18 17:22 Dose: 0.5 admin Ondansetron HCl (Zofran Inj*) 4 mg IV Q4H PRN PRN Reason: NAUSEA/VOMITING Last Admin: 05/26/18 13:59 Dose: 4 mg Oxycodone HCl (Oxycontin(*)) 120 mg PO TID [facility] Last Admin: 05/27/18 08:30 Dose: 120 mg Oxycodone HCl (Roxycodone Tab*) 10 mg PO Q3H PRN PRN Reason: PAIN Last Admin: 05/26/18 14:40 Dose: 10 mg Pantoprazole Sodium (Protonix Tab*) 40 mg PO QAM [facility] Last Admin: 05/27/18 08:31 Dose: 40 mg Rivaroxaban (Xarelto(*)) 10 mg PO DAILY [facility] Last Admin: 05/27/18 08:31 Dose: 10 mg Tizanidine HCl (Zanaflex Tab*) 2 mg PO TID [facility] Last Admin: 05/27/18 08:31 Dose: 2 mg Objective: [] Vital Signs Temp Pulse Resp BP Pulse Ox 99.1 F 79 17 122/71 97 05/27/18 10:00 05/27/18 10:00 05/27/18 10:00 05/27/18 08:00 05/27/18 10:00 Exam: Gen: Chronically ill appearing 67 yo female who appears moderately uncomfortable HEENT: OM dry, no soars, pale CV: RRR, no m/r/g Resp: lungs CTA, no w/c/r Abd: soft, nonTTP Ext: bilateral LE edema, R bandaged. Neuro: Normal affect, tearing, alert and oriented. Full exam deferred] Assessment: [67 yo female with metastatic breast CA and chronic pain with significant opiate tolerance who sustained a fall at home resulting in a L tib/fib fracture and R femur fracture now s/p ORIF. She had limited mobility prior to this event being primarily wheelchair bound. We'll now need 6 weeks of bed rest before she can be weightbearing. Plan: [1. L tib/fib and R femur fractures s/p ORIF - POD #5 - NWB both lower extremities - pain control remains the major concern - cont oxycontin 120 mg tid and oxycodone 10 mg q 3h prn - cont IV fentanyl prn, BP appears to tolerate this better - schedule po benzodiazapines and muscle relaxants to aid in pain control and anxiety management - will try ketamine 0.5 mg /kg while in ICU 30 mg IV over 6 hrs. Follow BP and HR. 2. Acute blood loss anemia - transfused 3U PRBCs postoperatively, Hgb now stable - cont to monitor 3. Thrombocytopenia is improving 3. UTI. re-cultur if symptoms or change in urine. 4. Metastatic breast CA. chemotherapy on hold indefinitely. This could be a terminal event. We'll need to discuss as her symptoms stabilized. We did not address CODE STATUS today but will discuss with her over the next one to 2 days. 5. Chronic pain - followed by Dr Encarnacion - Continue long-acting narcotics current dose. 6. H/o DVT 2015 - Xarelto 10 mg by mouth daily
[2018-05-27] MEDS: Acetaminophen TAB* 325 MG PO PRN (18:05)
[2018-05-27] MEDS: oxyCODONE TAB* 5 MG TAB PO PRN (18:05)
[2018-05-28] MEDS: Dronabinol CAP* 2.5 MG PO SCH ×4 (01:51→21:17)
[2018-05-28] MEDS: oxyCODONE TAB* 5 MG TAB PO PRN ×4 (03:24→16:41)
[2018-05-28] MEDS: [UNRECOGNIZED DRUG - OTHER] PO PRN (05:30)
[2018-05-28 05:51] LABS: Hematocrit 27 % (35-47); Hemoglobin 8.9 g/dl (12.0-16.0); Mean Corpuscular HGB Conc 33 g/dl (31-36); Mean Corpuscular Hemoglobin 31 pg (27-31); Mean Corpuscular Volume 94 fL (80-97); Mean Platelet Volume 7.4 fL (7.4-10.4); Platelet Count 132 10^3/ul (150-450); Red Blood Count 2.82 10^6/ul (4.00-5.40); Red Cell Distribution Width 15 % (10.5-15); White Blood Count 5.4 10^3/ul (3.5-10.8)
[2018-05-28] MEDS: fentaNYL* 50 MCG/ML 2 ML VIAL (100 MCG VIAL) IV SLOW PU PRN ×2 (06:08→10:23)
[2018-05-28 06:17] LABS: ABS Basophils 0 10^3/ul (0-0.2); ABS Eosinophils 0.2 10^3/ul (0-0.6); ABS Lymphocytes 0.6 10^3/ul (1.0-4.8); ABS Monocytes 0.6 10^3/ul (0-0.8); ABS Nucleated RBC 0 10^3/ul; Eosinophil % 2.9 %; Nucleated Red Blood Cells % 0.1
[2018-05-28 06:20] LABS: Albumin 2.3 g/dL (3.2-5.2); BUN/Creatinine Ratio 30.2 (8-20); Calcium 7.8 mg/dL (8.6-10.3); EGFR African American 177.8 (>60); EGFR Non-African American 146.9 (>60); Globulin 2.2 g/dL (2-4); Magnesium 1.8 mg/dL (1.9-2.7); Potassium 3.7 mmol/L (3.5-5.0); Total Bilirubin 0.6 mg/dL (0.2-1.0); Total Protein 4.5 g/dL (6.4-8.9)
[2018-05-28] MEDS: Rivaroxaban TAB(*) 10 MG PO SCH (07:44)
[2018-05-28] MEDS: FLUoxetine CAP* 20 MG PO SCH (07:44)
[2018-05-28] MEDS: levETIRAcetam TAB* 500 MG PO SCH ×2 (07:44→21:17)
[2018-05-28] MEDS: Pantoprazole TAB * 40 MG TAB PO SCH (07:44)
[2018-05-28] MEDS: tiZANidine TAB* 2 MG PO SCH ×3 (07:44→21:19)
[2018-05-28] MEDS: MEDICAL MARIJUANA PO SCH ×4 (07:45→23:00)
[2018-05-28] MEDS: oxyCODONE SR TAB(*) 40 MG TAB.SR PO SCH ×3 (08:15→21:17)
[2018-05-28] MEDS: ALPRAZolam TAB* 0.5 MG PO SCH ×4 (09:00→21:17)
--- NOTE | 2018-05-28 09:32 | PN ---
Progress Note - Progress Note Date of Service: 05/28/18 SOAP: Subjective: []Pain not controlled. acute on chronic. not moving. Acetaminophen (Tylenol Tab*) 650 mg PO Q4H PRN PRN Reason: FEVER/PAIN Last Admin: 05/27/18 18:05 Dose: 650 mg Alprazolam (Xanax Tab*) 0.5 mg PO QID [facility] Last Admin: 05/27/18 21:39 Dose: 0.5 mg Dronabinol (Marinol Cap*) 5 mg PO TID [facility] Last Admin: 05/28/18 07:45 Dose: 5 mg Fentanyl Citrate (Fentanyl*) 100 mcg IV SLOW PU Q2H PRN PRN Reason: SEVERE PAIN Last Admin: 05/28/18 06:08 Dose: 100 mcg Fluoxetine HCl (Prozac Cap*) 60 mg PO DAILY [facility] Last Admin: 05/28/18 07:44 Dose: 60 mg Levetiracetam (Keppra Tab*) 500 mg PO QAM [facility] Last Admin: 05/28/18 07:44 Dose: 500 mg Levetiracetam (Keppra Tab*) 1,000 mg PO BEDTIME [facility] Last Admin: 05/27/18 21:39 Dose: 1,000 mg Lorazepam (Ativan Inj*) 1 mg IV PUSH Q4H PRN PRN Reason: severe anxiety Last Admin: 05/25/18 11:22 Dose: 1 mg Naloxone HCl (Narcan*) 0.08 mg IV PUSH Q2M PRN PRN Reason: SEDATION Pto - Medical (Marijuana 1 Ml) 1 ml PO QID [facility] Last Admin: 05/28/18 07:45 Dose: 1 ml Pto: Medical (Marijuana Oil) 0.5 admin PO BID PRN PRN Reason: PAIN Last Admin: 05/28/18 05:30 Dose: 0.5 admin Ondansetron HCl (Zofran Inj*) 4 mg IV Q4H PRN PRN Reason: NAUSEA/VOMITING Last Admin: 05/26/18 13:59 Dose: 4 mg Oxycodone HCl (Oxycontin(*)) 120 mg PO TID [facility] Last Admin: 05/28/18 08:15 Dose: 120 mg Oxycodone HCl (Roxycodone Tab*) 10 mg PO Q3H PRN PRN Reason: PAIN Last Admin: 05/28/18 06:48 Dose: 10 mg Pantoprazole Sodium (Protonix Tab*) 40 mg PO QAM [facility] Last Admin: 05/28/18 07:44 Dose: 40 mg Rivaroxaban (Xarelto(*)) 10 mg PO DAILY [facility] Last Admin: 05/28/18 07:44 Dose: 10 mg Tizanidine HCl (Zanaflex Tab*) 2 mg PO TID [facility] Last Admin: 05/28/18 07:44 Dose: 2 mg Objective: [] Vital Signs Temp Pulse Resp BP Pulse Ox 100.0 F 83 20 124/58 97 05/28/18 09:00 05/28/18 09:00 05/28/18 09:00 05/28/18 08:01 05/28/18 09:00 Exam: Gen: Chronically ill appearing 67 yo female who appears moderately uncomfortable HEENT: OM dry, no soars, pale CV: RRR, no m/r/g Resp: lungs CTA, no w/c/r Abd: soft, nonTTP Ext: bilateral LE edema, R bandaged. Neuro: Normal affect, tearing, alert and oriented and thoughtfull. Assessment: [67 yo female with metastatic breast CA and chronic pain with significant opiate tolerance who sustained a fall at home resulting in a L tib/fib fracture and R femur fracture now s/p ORIF. She had limited mobility prior to this event being primarily wheelchair bound. We'll now need 6 weeks of bed rest before she can be weightbearing. Discussed prognosis from her cancer and that she cannot have additional therapy. We reviewed the role of hospice when she is discharged. She is in agreement and would like to talk to her family about " letting go". Plan: [1. L tib/fib and R femur fractures s/p ORIF - POD #5 - NWB both lower extremities - pain control remains the major concern - cont oxycontin 120 mg tid and oxycodone 10 mg q 3h prn - cont IV fentanyl prn, BP appears to tolerate this better - continue po benzodiazapines and muscle relaxants to aid in pain control and anxiety management - titrate to Methadone as replacement for other narcotics, start 10 mg po bid and will follow PRN needs. 2. Hematology,. Hgb and plts stable. 3. Metastatic breast CA. Discussed end of life. Cancer not treatable. Amenable to hospice and DNR but wants to talk to family. - Family meeting tomorrow 9 am - Palliative care consult. 4.. H/o DVT 2015 - Xarelto 10 mg by mouth daily
--- NOTE | 2018-05-28 11:53 | PN ---
Progress Note - Progress Note Date of Service: 05/28/18 SOAP: Subjective: POD #6 Right femur/left tibia ORIF. Pt more conversive today, states that pain is ok. Denies CP/SOB Objective: Vitals: Temp Pulse Resp BP Pulse Ox 100.0 F 83 27 124/58 97 02/03/ 09:00 02// 09:00 05/28/ 10:23 05/28/18 08:01 05/28/ 09:00 Gen: A&Ox3, NAD at rest laying in bed. Much more alert than yesterday RLE: Dressing with dried blood, D/I. +f/e at ankle and MTPs, N/V intact LLE: Splint C/D/I. +f/e at MTPs, N/V intact Assessment: POD #6 Right femur/left tibia ORIF Plan: NWB B/L LE x 6 weeks Cont Xarelto for DVT ppx
[2018-05-28] MEDS: Methadone TAB* 10 MG PO SCH ×2 (12:34→21:17)
[2018-05-29] MEDS: fentaNYL* 50 MCG/ML 2 ML VIAL (100 MCG VIAL) IV SLOW PU PRN ×5 (02:40→19:38)
[2018-05-29] MEDS: oxyCODONE TAB* 5 MG TAB PO PRN ×3 (03:44→18:26)
[2018-05-29] MEDS: [UNRECOGNIZED DRUG - OTHER] PO PRN (03:45)
[2018-05-29 06:41] LABS: BUN/Creatinine Ratio 32.6 (8-20); Calcium 7.9 mg/dL (8.6-10.3); EGFR African American 177.8 (>60); EGFR Non-African American 146.9 (>60); Potassium 3.5 mmol/L (3.5-5.0)
[2018-05-29 06:43] LABS: ABS Basophils 0 10^3/ul (0-0.2); ABS Eosinophils 0.1 10^3/ul (0-0.6); ABS Lymphocytes 0.5 10^3/ul (1.0-4.8); ABS Monocytes 0.6 10^3/ul (0-0.8); ABS Neutrophils 5.8 10^3/ul (1.5-7.7); ABS Nucleated RBC 0 10^3/ul; Eosinophil % 1.7 %; Hematocrit 28 % (35-47); Hemoglobin 9.2 g/dl (12.0-16.0); Lymphocyte % 7.1 %; Mean Corpuscular HGB Conc 33 g/dl (31-36); Mean Corpuscular Hemoglobin 31 pg (27-31); Mean Corpuscular Volume 94 fL (80-97); Mean Platelet Volume 7.6 fL (7.4-10.4); Nucleated Red Blood Cells % 0; Platelet Count 148 10^3/ul (150-450); Red Blood Count 2.96 10^6/ul (4.00-5.40); Red Cell Distribution Width 15 % (10.5-15); White Blood Count 7.1 10^3/ul (3.5-10.8)
[2018-05-29] MEDS: FLUoxetine CAP* 20 MG PO SCH (08:09)
[2018-05-29] MEDS: ALPRAZolam TAB* 0.5 MG PO SCH ×4 (08:09→20:56)
[2018-05-29] MEDS: oxyCODONE SR TAB(*) 40 MG TAB.SR PO SCH ×2 (08:10→15:01)
[2018-05-29] MEDS: Methadone TAB* 10 MG PO SCH (08:10)
[2018-05-29] MEDS: tiZANidine TAB* 2 MG PO SCH ×3 (08:10→20:54)
[2018-05-29] MEDS: levETIRAcetam TAB* 500 MG PO SCH ×2 (08:11→20:54)
[2018-05-29] MEDS: Dronabinol CAP* 2.5 MG PO SCH ×3 (08:11→20:54)
[2018-05-29] MEDS: Rivaroxaban TAB(*) 10 MG PO SCH (08:12)
[2018-05-29] MEDS: Pantoprazole TAB * 40 MG TAB PO SCH (08:12)
[2018-05-29] MEDS: MEDICAL MARIJUANA PO SCH ×3 (08:16→17:53)
--- NOTE | 2018-05-29 14:31 | CONSULT ---
Palliative / Hospice Consult Ordering Provider: Isak Jennings - Kareen-PCP - Subjective Code Status: Full Code Advance Directives Location: No Advance Directives MOLST Part A Completed: No MOLST Part E Completed:: No - History or Present Illness History or Present Illness: 67 yo female with metastatic breast cancer who presented to ER s/p fall with L tib/fib fx. 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 Encarnacion, seizure disorder on Keppra and DVT 2015. CXR no active disease, EKG ok, L ankle no new fx, L foot neg and R femur showed a lytic lesion. Pt had undergone a cycle of chemo but now is not eligible for more chemo. Dr Jennings has recommended hospice and has discussed code status. She is a non tob/etoh/drug user. Pt is aware that chemo has nothing to offer her now. Currently, managing her pain has been difficult. Her labs tprot 4.5, alb 2.3 anemia 8.9/27, BUN/CR 13/.43 egfr 146.9. Lab Values: Abnormal Lab Results 05/29/18 05/29/18 06:02 06:24 WBC 7.1 RBC 2.96 L Hgb 9.2 L Hct 28 L MCV 94 MCH 31 MCHC 33 RDW 15 Plt Count 148 L MPV 7.6 Neut % (Auto) 81.8 Lymph % (Auto) 7.1 Nicholas % (Auto) 8.9 Eos % (Auto) 1.7 Baso % (Auto) 0.5 Absolute Neuts (auto) 5.8 Absolute Lymphs (auto) 0.5 L Absolute Monos (auto) 0.6 Absolute Eos (auto) 0.1 Absolute Basos (auto) 0 Absolute Nucleated RBC 0 Nucleated RBC % 0 Sodium 141 Potassium 3.5 Chloride 102 Carbon Dioxide 33 H Anion Gap 6 BUN 14 Creatinine 0.43 L Est GFR ( Amer) 177.8 Est GFR (Non-Af Amer) 146.9 BUN/Creatinine Ratio 32.6 H Glucose 105 H Calcium 7.9 L Laboratory Last Values WBC 7.1 10^3/ul (3.5-10.8) 05/29/18 06:24 RBC 2.96 10^6/ul (4.00-5.40) L 05/29/18 06:24 Hgb 9.2 g/dl (12.0-16.0) L 05/29/18 06:24 Hct 28 % (35-47) L 05/29/18 06:24 MCV 94 fL (80-97) 05/29/18 06:24 MCH 31 pg (27-31) 05/29/18 06:24 MCHC 33 g/dl (31-36) 05/29/18 06:24 RDW 15 % (10.5-15) 05/29/18 06:24 Plt Count 148 10^3/ul (150-450) L 05/29/18 06:24 MPV 7.6 fL (7.4-10.4) 05/29/18 06:24 Neut % (Auto) 81.8 % 05/29/18 06:24 Lymph % (Auto) 7.1 % 05/29/18 06:24 Nicholas % (Auto) 8.9 % 05/29/18 06:24 Eos % (Auto) 1.7 % 05/29/18 06:24 Baso % (Auto) 0.5 % 05/29/18 06:24 Absolute Neuts (auto) 5.8 10^3/ul (1.5-7.7) 05/29/18 06:24 Absolute Lymphs (auto) 0.5 10^3/ul (1.0-4.8) L 05/29/18 06:24 Absolute Monos (auto) 0.6 10^3/ul (0-0.8) 05/29/18 06:24 Absolute Eos (auto) 0.1 10^3/ul (0-0.6) 05/29/18 06:24 Absolute Basos (auto) 0 10^3/ul (0-0.2) 05/29/18 06:24 Absolute Nucleated RBC 0 10^3/ul 05/29/18 06:24 Nucleated RBC % 0 05/29/18 06:24 Polychromasia 1+ 05/23/18 20:46 Basophilic Stippling 1+ 05/23/18 20:46 Anisocytosis 1+ 05/23/18 20:46 Hem Pathologist Commnt 05/23/18 20:46 INR (Anticoag Therapy) 0.99 (0.77-1.02) 05/20/18 11:54 APTT 22.3 seconds (26.0-36.3) L 05/20/18 11:54 Sodium 141 mmol/L (135-145) 05/29/18 06:02 Potassium 3.5 mmol/L (3.5-5.0) 05/29/18 06:02 Chloride 102 mmol/L (101-111) 05/29/18 06:02 Carbon Dioxide 33 mmol/L (22-32) H 05/29/18 06:02 Anion Gap 6 mmol/L (2-11) 05/29/18 06:02 BUN 14 mg/dL (6-24) 05/29/18 06:02 Creatinine 0.43 mg/dL (0.51-0.95) L 05/29/18 06:02 Est GFR ( Amer) 177.8 (>60) 05/29/18 06:02 Est GFR (Non-Af Amer) 146.9 (>60) 05/29/18 06:02 BUN/Creatinine Ratio 32.6 (8-20) H 05/29/18 06:02 Glucose 105 mg/dL (70-100) H 05/29/18 06:02 Lactic Acid 1.1 mmol/L (0.5-2.0) 05/20/18 11:55 Calcium 7.9 mg/dL (8.6-10.3) L 05/29/18 06:02 Magnesium 1.8 mg/dL (1.9-2.7) L 05/28/18 05:37 Total Bilirubin 0.60 mg/dL (0.2-1.0) 05/28/18 05:37 AST 15 U/L (13-39) 05/28/18 05:37 ALT 18 U/L (7-52) 05/28/18 05:37 Alkaline Phosphatase 46 U/L (34-104) 05/28/18 05:37 Troponin I 0.05 ng/mL (<0.04) H* 05/21/18 01:40 Total Protein 4.5 g/dL (6.4-8.9) L 05/28/18 05:37 Albumin 2.3 g/dL (3.2-5.2) L 05/28/18 05:37 Globulin 2.2 g/dL (2-4) 05/28/18 05:37 Albumin/Globulin Ratio 1.0 (1-3) 05/28/18 05:37 Urine Color Yellow 05/20/18 10:50 Urine Appearance Clear 05/20/18 10:50 Urine pH 8.0 (5-9) 05/20/18 10:50 Ur Specific [place] 1.008 (1.010-1.030) L 05/20/18 10:50 Urine Protein Negative (Negative) 05/20/18 10:50 Urine Ketones Negative (Negative) 05/20/18 10:50 Urine Blood Negative (Negative) 05/20/18 10:50 Urine Nitrate Negative (Negative) 05/20/18 10:50 Urine Bilirubin Negative (Negative) 05/20/18 10:50 Urine Urobilinogen Negative (Negative) 05/20/18 10:50 Ur Leukocyte Esterase Trace (Negative) A 05/20/18 10:50 Urine WBC (Auto) Trace(0-5/hpf) (Absent) 05/20/18 10:50 Urine RBC (Auto) 1+(3-5/hpf) (Absent) A 05/20/18 10:50 Urine Bacteria Absent (Absent) 05/20/18 10:50 Urine Glucose Negative (Negative) 05/20/18 10:50 Blood Type A Negative 05/23/18 20:46 Antibody Screen Negative 05/23/18 20:46 Crossmatch See Detail 05/23/18 20:46 - Objective Active Medications: Acetaminophen (Tylenol Tab*) 650 mg PO Q4H PRN PRN Reason: FEVER/PAIN Last Admin: 05/27/18 18:05 Dose: 650 mg Alprazolam (Xanax Tab*) 0.5 mg PO QID [facility] Last Admin: 05/29/18 12:27 Dose: Not Given Dronabinol (Marinol Cap*) 5 mg PO TID [facility] Last Admin: 05/29/18 08:11 Dose: 5 mg Fentanyl Citrate (Fentanyl*) 100 mcg IV SLOW PU Q1H PRN PRN Reason: SEVERE PAIN Last Admin: 05/29/18 10:57 Dose: 100 mcg Fluoxetine HCl (Prozac Cap*) 60 mg PO DAILY [facility] Last Admin: 05/29/18 08:09 Dose: 60 mg Levetiracetam (Keppra Tab*) 500 mg PO QAM [facility] Last Admin: 05/29/18 08:11 Dose: 500 mg Levetiracetam (Keppra Tab*) 1,000 mg PO BEDTIME [facility] Last Admin: 05/28/18 21:17 Dose: 1,000 mg Lorazepam (Ativan Inj*) 1 mg IV PUSH Q4H PRN PRN Reason: severe anxiety Last Admin: 05/25/18 11:22 Dose: 1 mg Naloxone HCl (Narcan*) 0.08 mg IV PUSH Q2M PRN PRN Reason: SEDATION Pto - Medical (Marijuana 1 Ml) 1 ml PO QID [facility] Last Admin: 05/29/18 12:30 Dose: 1 ml Pto: Medical (Marijuana Oil) 0.5 admin PO BID PRN PRN Reason: PAIN Last Admin: 05/29/18 03:45 Dose: 0.5 admin Ondansetron HCl (Zofran Inj*) 4 mg IV Q4H PRN PRN Reason: NAUSEA/VOMITING Last Admin: 05/26/18 13:59 Dose: 4 mg Oxycodone HCl (Oxycontin(*)) 120 mg PO TID [facility] Last Admin: 05/29/18 08:10 Dose: 120 mg Oxycodone HCl (Roxycodone Tab*) 10 mg PO Q3H PRN PRN Reason: PAIN Last Admin: 05/29/18 06:53 Dose: 10 mg Pantoprazole Sodium (Protonix Tab*) 40 mg PO QAM [facility] Last Admin: 05/29/18 08:12 Dose: 40 mg Rivaroxaban (Xarelto(*)) 10 mg PO DAILY [facility] Last Admin: 05/29/18 08:12 Dose: 10 mg Tizanidine HCl (Zanaflex Tab*) 2 mg PO TID [facility] Last Admin: 05/29/18 08:10 Dose: 2 mg Vital Signs: Vital Signs: Temp Pulse Resp BP Pulse Ox 100.6 F 76 23 104/67 95 05/29/18 12:01 05/29/18 10:00 05/29/18 12:01 05/29/18 12:00 05/29/18 10:00 Patient Weight: Weight 77.111 kg Intake and Output: Intake & Output 05/27/18 05/28/18 05/29/18 05/30/18 06:59 06:59 06:59 06:59 Intake Total 750 1284 618 50 Output Total 1750 2400 2950 800 Balance -1000 -1116 -2332 -750 Intake: IV Fluids 100 224 248 D5W NS (0.9%) 80 NS (0.9%) 100 224 168 Oral 650 1060 370 50 Output: Urine 800 Davila 1750 2400 2950 ADLs: Meal Record Start: 05/20/18 14: 05 Freq: Status: Complete Protocol: Created 05/20/18 14:05 System (Rec: 05/20/18 14:05 System SSU-C05) Document 05/21/18 18:46 [id number] (Rec: 05/21/18 18:46 [id number] SSU-M18) Document 05/22/18 08:44 [id number] (Rec: 05/22/18 08:44 [id number] SSU-L02) Document 05/22/18 12:57 [id number] (Rec: 05/22/18 12:57 [id number] SSU-L02) ADLs: Meal Record Start: 05/22/18 22: 18 Freq: 09,13,18 Status: Inactive Protocol: Created 05/22/18 22:17 [id number] (Rec: 05/22/18 22:17 [id number] ICU-M30) Document 05/23/18 09:00 YLU1565 (Rec: 05/23/18 12:59 [id number] ICU-C16) Document 05/23/18 13:00 CVI8428 (Rec: 05/23/18 16:39 [id number] ICU-C16) Document 05/23/18 18:00 PDH4255 (Rec: 05/23/18 18:50 [id number] ICU-C16) Document 05/24/18 09:00 ARS9655 (Rec: 05/24/18 09:53 DTO1141 ICU-L03) Document 05/24/18 13:00 [id number] (Rec: 05/24/18 14:22 VSD4075 ICU-C15) Document 05/24/18 18:00 SMD5147 (Rec: 05/24/18 18:54 SGG8930 ICU-C15) Document 05/25/18 09:00 KSO5335 (Rec: 05/25/18 10:25 QLO2070 ICU-C15) Document 05/25/18 13:00 JWS3848 (Rec: 05/25/18 15:30 [id number] ICU-C15) Document 05/25/18 22:00 XYH7629 (Rec: 05/25/18 22:36 [id number] ICU-C15) Document 05/26/18 09:30 AMM4117 (Rec: 05/26/18 10:57 BJX5570 ICU-C15) Document 05/26/18 13:00 HGI0377 (Rec: 05/26/18 16:40 RDE3909 ICU-C18) ADLs: Meal Record Start: 05/26/18 16: 47 Freq: DAILY@0900,1400,1800 Status: Active Protocol: Created 05/26/18 16:47 [id number] (Rec: 05/26/18 16:47 RRW0677 ICU-C12) Document 05/26/18 20:00 SJA0750 (Rec: 05/26/18 20:09 [id number] ICU-C12) Document 05/27/18 09:00 PYK6695 (Rec: 05/27/18 10:33 CZB8387 ICU-C14) Document 05/27/18 14:20 HTX1689 (Rec: 05/27/18 14:45 GPF6806 ICU-C12) Document 05/27/18 18:19 TUM9805 (Rec: 05/27/18 18:20 MND6830 ICU-C16) Document 05/28/18 09:00 FTG6171 (Rec: 05/28/18 09:56 SLW0778 ICU-C14) Document 05/28/18 18:00 ZSY6812 (Rec: 05/28/18 18:22 TXC6646 ICU-M22) Document 05/29/18 09:00 DVS7986 (Rec: 05/29/18 11:08 GLU7238 ICU-M30) Intake and Output Start: 05/20/18 07: 19 Freq: Status: Complete Protocol: Created 05/20/18 07:19 System (Rec: 05/20/18 07:19 System EDRM-C05) Intake and Output Start: 05/20/18 14: 05 Freq: DAILY@0600,1400,2200 Status: Complete Protocol: Created 05/20/18 14:05 System (Rec: 05/20/18 14:05 System SSU-C05) Document 05/20/18 22:35 GIS5195 (Rec: 05/20/18 22:35 RIA5919 SSU-C11) Document 05/21/18 07:09 URI3026 (Rec: 05/21/18 07:10 YRT5065 SSU-M17) Document 05/21/18 14:00 LPM1091 (Rec: 05/21/18 14:35 EJM2403 SSU-C11) Document 05/21/18 21:45 VMM5217 (Rec: 05/21/18 21:45 FJD4164 SSU-M14) Document 05/21/18 22:11 BHT7815 (Rec: 05/21/18 22:12 IAX8651 SSU-C19) Document 05/22/18 05:44 IPN4443 (Rec: 05/22/18 05:44 RJW2360 SSU-M14) Document 05/22/18 14:47 UFA2599 (Rec: 05/22/18 14:48 RAP6985 SSU-L02) Intake and Output Start: 05/22/18 22: 17 Freq: Q1HR Status: Complete Protocol: Created 05/22/18 22:17 GJS9081 (Rec: 05/22/18 22:17 CKW6528 ICU-M30) Intake and Output Start: 05/23/18 09: 32 Freq: 06,14,2200 Status: Active Protocol: Document 05/23/18 09:00 [id number] (Rec: 05/23/18 09:56 [id number] ICU-M30) Created 05/23/18 09:33 WSZ6243 (Rec: 05/23/18 09:33 BKG [place]-BG12) Document 05/23/18 13:08 VVE7150 (Rec: 05/23/18 13:08 QVX6438 ICU-M30) Document 05/23/18 14:39 BIG2669 (Rec: 05/23/18 14:39 DMW9786 ICU-M30) Document 05/23/18 16:55 PEL5765 (Rec: 05/23/18 16:55 DER5599 ICU-C16) Document 05/23/18 22:00 PXP5488 (Rec: 05/24/18 00:03 DYS1807 ICU-C15) Document 05/24/18 01:44 LYX5314 (Rec: 05/24/18 01:45 FNX5861 ICU-C15) Document 05/24/18 06:00 NHZ3413 (Rec: 05/24/18 07:04 MOM2984 ICU-C15) Document 05/24/18 08:04 SEU4296 (Rec: 05/24/18 08:04 ZGY3502 ICU-C15) Document 05/24/18 14:00 OWQ4807 (Rec: 05/24/18 14:19 TVW2645 ICU-C15) Document 05/24/18 19:09 VNK8540 (Rec: 05/24/18 19:09 YXD2275 ICU-C16) Document 05/24/18 23:57 EQS2951 (Rec: 05/24/18 23:57 GQX4994 ICU-C10) Document 05/25/18 06:00 TMC2577 (Rec: 05/25/18 06:14 GYS3602 ICU-C16) Document 05/25/18 14:00 RBD1302 (Rec: 05/25/18 14:49 TWS8837 ICU-C06) Document 05/25/18 20:00 CSW2809 (Rec: 05/25/18 20:00 TDZ3513 ICU-C15) Document 05/25/18 22:00 XUY7599 (Rec: 05/25/18 22:36 XSY4730 ICU-C15) Document 05/26/18 00:17 HMK0324 (Rec: 05/26/18 00:17 GNF3035 ICU-C15) Document 05/26/18 03:17 YHD4573 (Rec: 05/26/18 03:17 HVU5109 ICU-C12) Document 05/26/18 05:28 GTG3834 (Rec: 05/26/18 05:28 KLN0997 ICU-C15) Document 05/26/18 07:44 FGO2879 (Rec: 05/26/18 07:44 INF3325 ICU-M30) Document 05/26/18 22:00 NVA7714 (Rec: 05/26/18 22:00 YTA2850 ICU-C12) Document 05/27/18 05:57 MNB1298 (Rec: 05/27/18 05:57 QWK3823 ICU-M30) Document 05/27/18 12:00 CPG9532 (Rec: 05/27/18 13:31 FEN3015 ICU-M30) Document 05/27/18 14:00 SLP9220 (Rec: 05/27/18 14:11 VXN4700 ICU-M30) Document 05/27/18 22:00 GVW8178 (Rec: 05/27/18 22:43 JUO3075 ICU-C12) Document 05/28/18 05:49 PJC3535 (Rec: 05/28/18 05:49 IZR8528 ICU-C12) Document 05/28/18 12:11 NBX2930 (Rec: 05/28/18 12:11 FTL6110 ICU-M30) Document 05/28/18 14:00 XUH3031 (Rec: 05/28/18 14:06 JMT9605 ICU-M30) Document 05/28/18 18:20 EEW2585 (Rec: 05/28/18 18:20 ZOU9901 ICU-M22) Document 05/29/18 01:18 RFS6050 (Rec: 05/29/18 01:18 MJR5193 ICU-C15) Document 05/29/18 06:00 [id number] (Rec: 05/29/18 06:12 [id number] ICU-C12) Intake and Output Start: 05/26/18 16: 47 Freq: DAILY@0600,1400,2200 Status: Active Protocol: Created 05/26/18 16:47 [id number] (Rec: 05/26/18 16:47 [id number] ICU-C12) Document 05/26/18 22:00 [id number] (Rec: 05/26/18 22:00 [id number] ICU-C12) Document 05/27/18 05:57 [id number] (Rec: 05/27/18 05:57 [id number] ICU-M30) Head: Normal Eyes: No Scleral Icterus Ears/Nose/Mouth/Throat: NL Teeth, Lips, Gums Neck: NL Appearance and Movements; NL JVP Cardiovascular: NL Sounds; No Murmurs; No JVD, RRR Respiratory: Symmetrical Chest Expansion and Respiratory Effort - poor respiratory effort - Assessment Assessment: 67 yo female with metastatic breast cancer to bone with fx of L tib/fib s/p repair eligible for hospice - Plan Consult Plan (MU): Hospice Plan: Attended a family meeting with Dr Jennings, pt and her where Dr Jennings explained that chemo was no longer an option. He touched on hospice and rehab and code status. I spoke with and pt and then again with pt and Aria her home health aide of several years. Pt understands going home is not an option because it is hard to get 24hr coverage. The next option is SNF with rehab, if no rehab we can do hospice. I encouraged her to keep her aide at SNF. Pt is concerned about how much rehab she can tolerate because of the pain. She is still undecided about hospice-she is uncomfortable thinking that she has a limited life expectancy. At this time she doesn't want to sign the MOLST because her son is coming in 10 days and she wants to make sure she will "be here". We will revisit it after he comes. Son was on speaker phone during the morning meeting but I called him later to see if he had any questions since he is the HCP. He seemed to understand that she probably will need a SNF for rehab and after because he didn't think his dad was able to care for her at home. He also understood that she wouldn't be getting anymore chemo. Her pain is multifactorial when she gets anxious she wants pain meds. I have asked Suraj Horowitz , spiritual counselor to see her and she has agreed. She has seen him before. Will continue to follow to support pt in her decision making. - Time On Unit Date of Evaluation: 05/29/18 Hospice Consult Time in: 09:00 Hospice Consult Time Out: 10:30 Hospice Consult Time Total: 90 > 50% of Time Spend In Counseling or Coordinating Care: Yes
--- NOTE | 2018-05-29 15:06 | PN ---
PROGRESS NOTE: DATE OF SERVICE: 05/29/18 HISTORY OF PRESENT ILLNESS: Ms. Ramachandran is a week out from the ORIF of her right femur and left tibia. The patient is still in the ICU. Her medications are being rearranged with more aggressive DNR status. In the short-term, it does appear that her pain level is more tolerable. Neither of her legs are going to be weightbearing as tolerated for the foreseeable future. She had significant osteopenia and the fixation is somewhat tenuous in both left tibia and right femur. The examination of right femur today, we have taken off her Tegaderm dressing and the wound underneath is dry and clean. There is minimal swelling. No erythema. She could continue without a dressing on that thigh. The left tibia being just a week out from the internal fixation will stay in the splint for another 3 to 4 days and then our team will arrange a dressing change. [id number]/CPS #: [id number] MTDD
[2018-05-29] MEDS: Ondansetron INJ* 2 MG/ML VIAL IV PRN (15:23)
--- NOTE | 2018-05-29 19:18 | PN ---
Progress Note - Progress Note Date of Service: 05/29/18 SOAP: Subjective: [] Pain is poorly controlled. Severe, unbearable. She has paranoia, "I know how the game is played". Frustrated having to wait 2 hours between IV fentanyl doses. When she gets the IV fentanyl pain does improve. Acetaminophen (Tylenol Tab*) 650 mg PO Q4H PRN PRN Reason: FEVER/PAIN Last Admin: 05/27/18 18:05 Dose: 650 mg Alprazolam (Xanax Tab*) 0.5 mg PO QID [facility] Last Admin: 05/29/18 17:35 Dose: Not Given Dronabinol (Marinol Cap*) 5 mg PO TID [facility] Last Admin: 05/29/18 15:01 Dose: 5 mg Fentanyl Citrate (Fentanyl*) 100 mcg IV SLOW PU Q1H PRN PRN Reason: SEVERE PAIN Last Admin: 05/29/18 10:57 Dose: 100 mcg Fluoxetine HCl (Prozac Cap*) 60 mg PO DAILY [facility] Last Admin: 05/29/18 08:09 Dose: 60 mg Levetiracetam (Keppra Tab*) 500 mg PO QAM [facility] Last Admin: 05/29/18 08:11 Dose: 500 mg Levetiracetam (Keppra Tab*) 1,000 mg PO BEDTIME [facility] Last Admin: 05/28/18 21:17 Dose: 1,000 mg Lorazepam (Ativan Inj*) 1 mg IV PUSH Q4H PRN PRN Reason: severe anxiety Last Admin: 05/25/18 11:22 Dose: 1 mg Naloxone HCl (Narcan*) 0.08 mg IV PUSH Q2M PRN PRN Reason: SEDATION Pto - Medical (Marijuana 1 Ml) 1 ml PO QID [facility] Last Admin: 05/29/18 17:53 Dose: 1 ml Pto: Medical (Marijuana Oil) 0.5 admin PO BID PRN PRN Reason: PAIN Last Admin: 05/29/18 03:45 Dose: 0.5 admin Ondansetron HCl (Zofran Inj*) 4 mg IV Q4H PRN PRN Reason: NAUSEA/VOMITING Last Admin: 05/29/18 15:23 Dose: 4 mg Oxycodone HCl (Oxycontin(*)) 120 mg PO TID [facility] Last Admin: 05/29/18 15:01 Dose: 120 mg Oxycodone HCl (Roxycodone Tab*) 10 mg PO Q3H PRN PRN Reason: PAIN Last Admin: 05/29/18 18:26 Dose: 10 mg Pantoprazole Sodium (Protonix Tab*) 40 mg PO QAM [facility] Last Admin: 05/29/18 08:12 Dose: 40 mg Rivaroxaban (Xarelto(*)) 10 mg PO DAILY [facility] Last Admin: 05/29/18 08:12 Dose: 10 mg Tizanidine HCl (Zanaflex Tab*) 2 mg PO TID [facility] Last Admin: 05/29/18 15:01 Dose: 2 mg Exam: Vital Signs Temp Pulse Resp BP Pulse Ox 100.4 F 79 22 115/58 96 05/29/18 16:01 05/29/18 16:01 05/29/18 16:01 05/29/18 16:00 05/29/18 16:01 Gen: Chronically ill appearing 67 yo female who appears moderately uncomfortable HEENT: OM dry, no soars, pale CV: RRR, no m/r/g Resp: lungs CTA, no w/c/r Abd: soft, nonTTP Ext: bilateral LE edema, R bandaged. Neuro: Normal affect, tearing, alert and oriented and thoughtfull. Assessment: [67 yo female with metastatic breast CA and chronic pain with significant opiate tolerance who sustained a fall at home resulting in a L tib/fib fracture and R femur fracture now s/p ORIF. She had limited mobility prior to this event being primarily wheelchair bound. We'll now need 6 weeks of bed rest before she can be weight bearing. We had family meeting today with hospice, her , her son on the phone. Agreed that transition to hospice is appropriate. We will continue acute care until she improves from surgery. Will also consider senior living with rehabilitation prior to transition to formal hospice services. Plan: [1. L tib/fib and R femur fractures s/p ORIF - POD #5 - NWB both lower extremities - pain control remains the major concern - cont oxycontin 120 mg tid and oxycodone 10 mg q 3h prn -Increase frequency of IV fentanyl to 100 g every hour when necessary - continue po benzodiazapines and muscle relaxants to aid in pain control and anxiety management - Stop methadone, maybe causing paranoia. - We'll try and contact Dr. Encarnacion for additional input 2. Hematology,. Hgb and plts stable. 3. Metastatic breast CA. family meeting with palliative care, we'll transition of hospice is appropriate. 4.. H/o DVT 2016 - Xarelto 10 mg by mouth daily Time with patient and chart 50 minutes.
[2018-05-30] MEDS: Ondansetron INJ* 2 MG/ML VIAL IV PRN ×2 (01:45→07:34)
[2018-05-30] MEDS: oxyCODONE TAB* 5 MG TAB PO PRN (01:45)
[2018-05-30] MEDS: [UNRECOGNIZED DRUG - OTHER] PO PRN ×2 (02:01→07:41)
[2018-05-30] MEDS: fentaNYL* 50 MCG/ML 2 ML VIAL (100 MCG VIAL) IV SLOW PU PRN ×6 (02:18→13:56)
[2018-05-30] MEDS: oxyCODONE SR TAB(*) 40 MG TAB.SR PO SCH ×5 (04:29→20:29)
[2018-05-30 05:40] LABS: ABS Basophils 0 10^3/ul (0-0.2); ABS Eosinophils 0.1 10^3/ul (0-0.6); ABS Lymphocytes 0.6 10^3/ul (1.0-4.8); ABS Monocytes 0.5 10^3/ul (0-0.8); ABS Neutrophils 4.7 10^3/ul (1.5-7.7); ABS Nucleated RBC 0 10^3/ul; Eosinophil % 1.9 %; Hematocrit 28 % (35-47); Hemoglobin 9.4 g/dl (12.0-16.0); Lymphocyte % 9.3 %; Mean Corpuscular HGB Conc 33 g/dl (31-36); Mean Corpuscular Hemoglobin 31 pg (27-31); Mean Corpuscular Volume 94 fL (80-97); Mean Platelet Volume 7.4 fL (7.4-10.4); Nucleated Red Blood Cells % 0.1; Platelet Count 175 10^3/ul (150-450); Red Blood Count 3.01 10^6/ul (4.00-5.40); Red Cell Distribution Width 16 % (10.5-15)
[2018-05-30 05:56] LABS: BUN/Creatinine Ratio 34.9 (8-20); Calcium 7.9 mg/dL (8.6-10.3); EGFR African American 177.8 (>60); EGFR Non-African American 146.9 (>60); Potassium 3.4 mmol/L (3.5-5.0)
[2018-05-30] MEDS: FLUoxetine CAP* 20 MG PO SCH (08:11)
[2018-05-30] MEDS: levETIRAcetam TAB* 500 MG PO SCH ×2 (08:12→20:31)
[2018-05-30] MEDS: Dronabinol CAP* 2.5 MG PO SCH ×3 (08:12→20:31)
[2018-05-30] MEDS: Pantoprazole TAB * 40 MG TAB PO SCH (08:13)
[2018-05-30] MEDS: Polyethylene Glycol 3350* 17 GM PACKET PO SCH ×2 (08:13→20:32)
[2018-05-30] MEDS: tiZANidine TAB* 2 MG PO SCH ×3 (08:13→20:30)
[2018-05-30] MEDS: Rivaroxaban TAB(*) 10 MG PO SCH (08:13)
[2018-05-30] MEDS: ALPRAZolam TAB* 0.5 MG PO SCH ×4 (08:19→20:17)
[2018-05-30] MEDS ORDERED: Naloxone* 0.4 MG/ML 1 ML VIAL IV PUSH PRN (09:40)
[2018-05-30] MEDS: MEDICAL MARIJUANA PO SCH ×5 (10:01→20:44)
[2018-05-30] MEDS ORDERED: [UNRECOGNIZED DRUG - OTHER] PO PRN (10:50)
[2018-05-30] MEDS ORDERED: OXYCODONE PO PRN (10:50)
--- NOTE | 2018-05-30 10:58 | PN ---
Progress Note - Progress Note Date of Service: 05/30/18 SOAP: Subjective: []States today is the first day pain has been reasonably well controlled. Frustrated that people still aren't listening to what she wants, "I want to wait for my son." at bedside states son will be here at the end of next week Medications: Acetaminophen (Tylenol Tab*) 650 mg PO Q4H PRN PRN Reason: FEVER/PAIN Last Admin: 05/27/18 18:05 Dose: 650 mg Alprazolam (Xanax Tab*) 0.5 mg PO QID [facility] Last Admin: 05/30/18 08:19 Dose: Not Given Dronabinol (Marinol Cap*) 5 mg PO TID [facility] Last Admin: 05/30/18 08:12 Dose: 5 mg Fentanyl (Duragesic Patch 100 Mcg/Hr *) 100 mcg TRANSDERM Q72H [facility] Fentanyl Citrate (Fentanyl*) 100 mcg IV SLOW PU Q3H PRN PRN Reason: SEVERE PAIN Fluoxetine HCl (Prozac Cap*) 60 mg PO DAILY [facility] Last Admin: 05/30/18 08:11 Dose: 60 mg Levetiracetam (Keppra Tab*) 500 mg PO QAM [facility] Last Admin: 05/30/18 08:12 Dose: 500 mg Levetiracetam (Keppra Tab*) 1,000 mg PO BEDTIME [facility] Last Admin: 05/29/18 20:54 Dose: 1,000 mg Lorazepam (Ativan Inj*) 1 mg IV PUSH Q4H PRN PRN Reason: severe anxiety Last Admin: 05/25/18 11:22 Dose: 1 mg Naloxone HCl (Narcan*) 0 mg IV PUSH Q2M PRN PRN Reason: SEDATION Pto - Medical (Marijuana 1 Ml) 1 ml PO QID [facility] Last Admin: 05/30/18 10:01 Dose: 1 ml Pto: Medical (Marijuana Oil) 0.5 admin PO BID PRN PRN Reason: PAIN Last Admin: 05/30/18 07:41 Dose: 0.5 admin Ondansetron HCl (Zofran Inj*) 4 mg IV Q4H PRN PRN Reason: NAUSEA/VOMITING Last Admin: 05/30/18 07:34 Dose: 4 mg Oxycodone HCl (Oxycontin(*)) 120 mg PO TID [facility] Last Admin: 05/30/18 08:12 Dose: 120 mg Oxycodone HCl (Oxycodone Oral Syr*Concentrte*) 15 mg PO Q2HR PRN PRN Reason: PAIN Pantoprazole Sodium (Protonix Tab*) 40 mg PO QAM [facility] Last Admin: 05/30/18 08:13 Dose: 40 mg Pharmacy Profile Note (Fentanyl Patch Check Q Shift) 1 note N/A 0700,1900 [facility] Polyethylene Glycol/Electrolytes (Miralax*) 17 gm PO Q12HR [facility] Last Admin: 05/30/18 08:13 Dose: 17 gm Rivaroxaban (Xarelto(*)) 10 mg PO DAILY [facility] Last Admin: 05/30/18 08:13 Dose: 10 mg Tizanidine HCl (Zanaflex Tab*) 2 mg PO TID [facility] Last Admin: 05/30/18 08:13 Dose: 2 mg Objective: [] Vital Signs Temp Pulse Resp BP Pulse Ox 99.3 F 73 15 99/56 100 05/30/18 09:01 05/30/18 09:01 05/30/18 09:01 05/30/18 09:01 05/30/18 09:01 A&Ox3, pupils pin-point, occassional slurred speech Involved in plan of care and communicating needs clearly HRR, SR on tele Resp even and non-labored without audible wheeze or rhonchi Right femoral surgical site well approximated without erythema or exudate, mild swelling of leg, warm, good pulses Left with splint and dressing in place Laboratory Results - last 24 hr 05/30/18 05/30/18 05:20 05:20 WBC 6.0 RBC 3.01 L Hgb 9.4 L Hct 28 L MCV 94 MCH 31 MCHC 33 RDW 16 H Plt Count 175 MPV 7.4 Neut % (Auto) 79.1 Lymph % (Auto) 9.3 [place] % (Auto) 9.1 Eos % (Auto) 1.9 Baso % (Auto) 0.6 Absolute Neuts (auto) 4.7 Absolute Lymphs (auto) 0.6 L Absolute Monos (auto) 0.5 Absolute Eos (auto) 0.1 Absolute Basos (auto) 0 Absolute Nucleated RBC 0 Nucleated RBC % 0.1 Sodium 140 Potassium 3.4 L Chloride 103 Carbon Dioxide 30 Anion Gap 7 BUN 15 Creatinine 0.43 L Est GFR ( Amer) 177.8 Est GFR (Non-Af Amer) 146.9 BUN/Creatinine Ratio 34.9 H Glucose 103 H Calcium 7.9 L Assessment: []67 yo female with metastatic breast CA and chronic pain with significant opiate tolerance who sustained a fall at home resulting in a L tib/fib fracture and R femur fracture now s/p bilat. ORIF, POD 8. Course complicated by difficulty with pain control requiring ICU monitoring due to intensity of nursing and significant narcotic use. Long discussion with Maria and her today regarding concerns surrounding her narcotic use, sedation (risk of ) , and limited response (I suspect continued narcotic escalation will have limited affect), as well as the need to attempt managing pain without IV medications. Discussed considering addition of Fentanyl patch and liquid oxycodone, of which her is very interested in and Maria is agreeable to. In terms of her plan of care moving forward we discussed attempt at decreasing IV meds so that she might transition to the floor (out of the ICU) with eventual transition to subacute rehab and then hospice as necessary (which she appears more interested in today stating "I'm done with fighting."). Plan: []1. Bilat. ORIF: management per ortho - non-wt. bearing for at least another 5 weeks - right femoral site benign, swelling decreased - left splint and dressing in place, plan change 06/01 or 06/02 per ortho 2. Pain: acute on chronic, significant opioid tolerance and I suspect saturation of narcotic receptors - would consider Ketamine, however national shortage - for now cont. Oxycontin 120 mg PO TID and add Fentanyl 100 mcg patch - stop Oxycodone tabs and start oxycodone concentrate 15 mg PO q3hrs PRN, continue Fentanyl 100 mcg IV q3hrs PRN RESCUE (only required 8 doses over last 24 hours despite stating she needed it more frequently yesterday) - pain management discussed at length with nursing staff - Over the last 24 hours she has received over 80K mg of morphine equivalent with minimal response. As noted above I voice my concern to the patient and her regarding safety and utility of continued narcotics therefore I have requested a consult with Dr. Finn who specializes in pain management. We quickly discussed over the phone and at this time I do not think it appropriate to have palliative sedation as she is not actively dying (her prognosis is measured in months with minimal interventions), however we will need to address her pain moving forward. 3. Cancer: no role for further tx., will consider hospice in near future - discussing [facility] with today Dispo: remains in ICU due to excessive narcotics and required monitoring (full code), goal of transition to medical floor in near future, and then family current looking into subacute rehab options with potential transition to hospice as well >60 min spent with >50% face to face counseling with pt. and family
[2018-05-30] MEDS ORDERED: oxyCODONE ORAL.SOLN* 5 MG/5 ML UDC ONE (11:13)
[2018-05-30] MEDS ORDERED: fentaNYL PATCHs 100 MCG/HR ONE (11:13)
[2018-05-30] MEDS: fentaNYL PATCHs 100 MCG/HR TRANSDERM SCH (11:17)
[2018-05-30] MEDS: LORazepam INJ* 2 MG/ML 1 ML VIAL IV PUSH PRN (11:17)
[2018-05-30] MEDS: oxyCODONE ORAL.SOLN* 5 MG/5 ML UDC PO PRN ×2 (11:37→21:53)
[2018-05-30] MEDS: fentaNYL Patch Check Q Shift 1 NOTE SCH ×2 (15:30→18:59)
--- NOTE | 2018-05-30 16:38 | PN ---
Progress Note - Progress Note Date of Service: 05/30/18 SOAP: Subjective: []Pt seen and examined at bedside. Objective: [] Gen:NAD at rest laying in bed. RLE: Incision CDI. New dressing applied. +f/e at ankle and MTPs, N/V intact distally. LLE: Splint C/D/I. +f/e at MTPs, N/V intact distally. Assessment: POD #8 Right femur/left tibia ORIF Plan: NWB B/L LE x 6 weeks Cont Xarelto for DVT ppx
[2018-05-31] MEDS: oxyCODONE ORAL.SOLN* 5 MG/5 ML UDC PO PRN ×5 (03:59→18:38)
[2018-05-31] MEDS: fentaNYL* 50 MCG/ML 2 ML VIAL (100 MCG VIAL) IV SLOW PU PRN ×5 (04:29→21:37)
[2018-05-31] MEDS: fentaNYL Patch Check Q Shift 1 NOTE SCH ×2 (07:25→19:32)
[2018-05-31] MEDS: oxyCODONE SR TAB(*) 40 MG TAB.SR PO SCH ×3 (08:47→21:35)
[2018-05-31] MEDS: levETIRAcetam TAB* 500 MG PO SCH ×2 (08:47→21:34)
[2018-05-31] MEDS: Dronabinol CAP* 2.5 MG PO SCH ×3 (08:47→21:30)
[2018-05-31] MEDS: tiZANidine TAB* 2 MG PO SCH ×3 (08:48→22:14)
[2018-05-31] MEDS: FLUoxetine CAP* 20 MG PO SCH (08:48)
[2018-05-31] MEDS: Pantoprazole TAB * 40 MG TAB PO SCH (08:48)
[2018-05-31] MEDS: Rivaroxaban TAB(*) 10 MG PO SCH (08:48)
[2018-05-31] MEDS: Polyethylene Glycol 3350* 17 GM PACKET PO SCH ×2 (08:51→21:41)
[2018-05-31] MEDS: ALPRAZolam TAB* 0.5 MG PO SCH (08:51)
[2018-05-31 09:55] LABS: Magnesium 1.9 mg/dL (1.9-2.7)
[2018-05-31] MEDS: MEDICAL MARIJUANA PO SCH ×4 (10:12→22:16)
--- NOTE | 2018-05-31 10:35 | PN ---
Progress Note - Progress Note Date of Service: 05/31/18 SOAP: Subjective: [Reports that her night was relatively good. Hesitant to say that her pain control is improved. No new complaints. Feels like her anxiety is improving.] Objective: [ Vital Signs: Temp Pulse Resp BP Pulse Ox 99.1 F 76 13 100/60 100 05/31/18 10:11 05/31/18 10:11 05/31/18 10:11 05/31/18 10:11 05/31/18 10:11 Acetaminophen (Tylenol Tab*) 650 mg PO Q4H PRN PRN Reason: FEVER/PAIN Last Admin: 05/27/18 18:05 Dose: 650 mg Alprazolam (Xanax Tab*) 0.5 mg PO QID [facility] Last Admin: 05/31/18 08:51 Dose: Not Given Dronabinol (Marinol Cap*) 5 mg PO TID [facility] Last Admin: 05/31/18 08:47 Dose: 5 mg Fentanyl (Duragesic Patch 100 Mcg/Hr *) 100 mcg TRANSDERM Q72H [facility] Last Admin: 05/30/18 11:17 Dose: 100 mcg Fentanyl Citrate (Fentanyl*) 100 mcg IV SLOW PU Q3H PRN PRN Reason: SEVERE PAIN Last Admin: 05/31/18 07:10 Dose: 100 mcg Fluoxetine HCl (Prozac Cap*) 60 mg PO DAILY [facility] Last Admin: 05/31/18 08:48 Dose: 60 mg Levetiracetam (Keppra Tab*) 500 mg PO QAM [facility] Last Admin: 05/31/18 08:47 Dose: 500 mg Levetiracetam (Keppra Tab*) 1,000 mg PO BEDTIME [facility] Last Admin: 05/30/18 20:31 Dose: 1,000 mg Lorazepam (Ativan Inj*) 1 mg IV PUSH Q4H PRN PRN Reason: severe anxiety Last Admin: 05/30/18 11:17 Dose: 1 mg Naloxone HCl (Narcan*) 0 mg IV PUSH Q2M PRN PRN Reason: SEDATION Pto - Medical (Marijuana 1 Ml) 1 ml PO QID [facility] Last Admin: 05/31/18 10:12 Dose: 1 ml Pto: Medical (Marijuana Oil) 0.5 admin PO BID PRN PRN Reason: PAIN Last Admin: 05/30/18 07:41 Dose: 0.5 admin Ondansetron HCl (Zofran Inj*) 4 mg IV Q4H PRN PRN Reason: NAUSEA/VOMITING Last Admin: 05/30/18 07:34 Dose: 4 mg Oxycodone HCl (Oxycontin(*)) 120 mg PO TID [facility] Last Admin: 05/31/18 08:47 Dose: 120 mg Oxycodone HCl (Oxycodone Oral.Soln*) 15 mg PO Q2HR PRN PRN Reason: PAIN Last Admin: 05/31/18 03:59 Dose: 15 mg Pantoprazole Sodium (Protonix Tab*) 40 mg PO QAM [facility] Last Admin: 05/31/18 08:48 Dose: 40 mg Pharmacy Profile Note (Fentanyl Patch Check Q Shift) 1 note N/A 0700,1900 [facility] Last Admin: 05/31/18 07:25 Dose: 1 note Polyethylene Glycol/Electrolytes (Miralax*) 17 gm PO Q12HR [facility] Last Admin: 05/31/18 08:51 Dose: Not Given Rivaroxaban (Xarelto(*)) 10 mg PO DAILY [facility] Last Admin: 05/31/18 08:48 Dose: 10 mg Tizanidine HCl (Zanaflex Tab*) 2 mg PO TID [facility] Last Admin: 05/31/18 08:48 Dose: 2 mg Exam: Gen: Chronically ill appearing 67 yo female who appears to be in NAD HEENT: MMM, no thrush CV: RRR, no m/r/g Resp: lungs CTA, no w/c/r Abd: soft, nonTTP Ext: bilateral LE edema - improved, extremities are warm, appropriate capillary refill - LLE in posterior splint Psych: greatly improved affect, smiles occasionally and tells an occasional joke ] Assessment: [67 yo female with metastatic breast CA and chronic pain with significant opiate tolerance who sustained a fall at home resulting in a L tib/fib fracture and R femur fracture now s/p ORIF. Plan: [1. L tib/fib and R femur fractures s/p ORIF - POD #9 - NWB both lower extremities x 6 weeks - pain control remains the major concern - cont oxycontin 120 mg tid and oxycodone liquid 15 mg q 4h prn - cont IV fentanyl prn - fentanyl patch added yesterday (100 mcg) with improved pain control - cont scheduled muscle relaxants 2. Acute blood loss anemia - transfused 3U PRBCs postoperatively, Hgb now stable - cont to monitor 3. Thrombocytopenia - resolved 4. Metastatic breast CA - no plans for additional treatment 5. Chronic pain - followed by Dr Encarnacion - see discussion above 6. H/o DVT 2015 - cont Xarelto at prior home dose of 10mg daily 7. Code status - after extensive discussion yesterday she has signed a DNR order today 8. HCP - current HCP is listed as her son - she would like to switch this to her , she repeats this desire today outside the presence of her , but would like to wait to sign paperwork until her son is present Dispo: cont ICU management due to high opiate needs, if her reliance on IV narcotics continues to wane can transfer to medical floor and goal to [facility] with Hospice to follow
[2018-05-31] MEDS: ALPRAZolam TAB* 0.5 MG PO PRN ×2 (12:04→21:34)
[2018-05-31] MEDS: LORazepam INJ* 2 MG/ML 1 ML VIAL IV PUSH PRN ×2 (13:35→21:36)
[2018-06-01] MEDS: fentaNYL* 50 MCG/ML 2 ML VIAL (100 MCG VIAL) IV SLOW PU PRN (04:31)
[2018-06-01] MEDS: [UNRECOGNIZED DRUG - OTHER] PO PRN (04:33)
[2018-06-01] MEDS: oxyCODONE ORAL.SOLN* 5 MG/5 ML UDC PO PRN ×4 (05:48→18:43)
[2018-06-01] MEDS: ALPRAZolam TAB* 0.5 MG PO PRN ×2 (05:48→14:18)
[2018-06-01 05:52] LABS: ABS Basophils 0.1 10^3/ul (0-0.2); ABS Eosinophils 0.1 10^3/ul (0-0.6); ABS Lymphocytes 0.8 10^3/ul (1.0-4.8); ABS Monocytes 0.7 10^3/ul (0-0.8); ABS Neutrophils 4.4 10^3/ul (1.5-7.7); ABS Nucleated RBC 0 10^3/ul; Eosinophil % 1.6 %; Hematocrit 29 % (35-47); Hemoglobin 9.6 g/dl (12.0-16.0); Lymphocyte % 13.9 %; Mean Corpuscular HGB Conc 33 g/dl (31-36); Mean Corpuscular Hemoglobin 31 pg (27-31); Mean Corpuscular Volume 95 fL (80-97); Nucleated Red Blood Cells % 0; Platelet Count 244 10^3/ul (150-450); Red Cell Distribution Width 16 % (10.5-15); White Blood Count 6.1 10^3/ul (3.5-10.8)
[2018-06-01 06:09] LABS: BUN/Creatinine Ratio 33.9 (8-20); Calcium 7.8 mg/dL (8.6-10.3); EGFR African American 131.1 (>60); EGFR Non-African American 108.3 (>60); Magnesium 2.1 mg/dL (1.9-2.7); Potassium 3.7 mmol/L (3.5-5.0)
[2018-06-01] MEDS: fentaNYL Patch Check Q Shift 1 NOTE SCH ×2 (07:21→19:16)
[2018-06-01] MEDS: Pantoprazole TAB * 40 MG TAB PO SCH (08:58)
[2018-06-01] MEDS: FLUoxetine CAP* 20 MG PO SCH (08:58)
[2018-06-01] MEDS: Polyethylene Glycol 3350* 17 GM PACKET PO SCH ×3 (08:58→20:33)
[2018-06-01] MEDS: oxyCODONE SR TAB(*) 40 MG TAB.SR PO SCH ×3 (08:58→20:39)
[2018-06-01] MEDS: Dronabinol CAP* 2.5 MG PO SCH ×3 (08:58→20:38)
[2018-06-01] MEDS: tiZANidine TAB* 2 MG PO SCH ×3 (08:58→20:32)
[2018-06-01] MEDS: Rivaroxaban TAB(*) 10 MG PO SCH (08:58)
[2018-06-01] MEDS: levETIRAcetam TAB* 500 MG PO SCH ×2 (08:58→20:39)
[2018-06-01] MEDS: MEDICAL MARIJUANA PO SCH ×4 (08:59→20:39)
--- NOTE | 2018-06-01 14:01 | PN ---
Progress Note - Progress Note Date of Service: 06/01/18 SOAP: Subjective: [Reports R hand pain that started suddenly last night. No trauma that she can recall. No changes otherwise.] Objective: [ Laboratory Results - last 24 hr 06/01/18 06/01/18 04:45 04:45 WBC 6.1 RBC 3.10 L Hgb 9.6 L Hct 29 L MCV 95 MCH 31 MCHC 33 RDW 16 H Plt Count 244 MPV 8.0 Neut % (Auto) 72.0 Lymph % (Auto) 13.9 [place] % (Auto) 11.7 Eos % (Auto) 1.6 Baso % (Auto) 0.8 Absolute Neuts (auto) 4.4 Absolute Lymphs (auto) 0.8 L Absolute Monos (auto) 0.7 Absolute Eos (auto) 0.1 Absolute Basos (auto) 0.1 Absolute Nucleated RBC 0 Nucleated RBC % 0 Sodium 139 Potassium 3.7 Chloride 102 Carbon Dioxide 31 Anion Gap 6 BUN 19 Creatinine 0.56 Est GFR ( Amer) 131.1 Est GFR (Non-Af Amer) 108.3 BUN/Creatinine Ratio 33.9 H Glucose 97 Calcium 7.8 L Magnesium 2.1 Acetaminophen (Tylenol Tab*) 650 mg PO Q4H PRN PRN Reason: FEVER/PAIN Last Admin: 05/27/18 18:05 Dose: 650 mg Alprazolam (Xanax Tab*) 0.5 mg PO Q4H PRN PRN Reason: ANXIETY Last Admin: 06/01/18 05:48 Dose: 0.5 mg Dronabinol (Marinol Cap*) 5 mg PO TID [facility] Last Admin: 06/01/18 12:58 Dose: 5 mg Fentanyl (Duragesic Patch 100 Mcg/Hr *) 100 mcg TRANSDERM Q72H [facility] Last Admin: 05/30/18 11:17 Dose: 100 mcg Fentanyl Citrate (Fentanyl*) 100 mcg IV SLOW PU Q3H PRN PRN Reason: SEVERE PAIN Last Admin: 06/01/18 04:31 Dose: 100 mcg Fluoxetine HCl (Prozac Cap*) 60 mg PO DAILY [facility] Last Admin: 06/01/18 08:58 Dose: 60 mg Levetiracetam (Keppra Tab*) 500 mg PO QAM [facility] Last Admin: 06/01/18 08:58 Dose: 500 mg Levetiracetam (Keppra Tab*) 1,000 mg PO BEDTIME [facility] Last Admin: 05/31/18 21:34 Dose: 1,000 mg Lorazepam (Ativan Inj*) 1 mg IV PUSH Q4H PRN PRN Reason: severe anxiety Last Admin: 05/31/18 21:36 Dose: 1 mg Naloxone HCl (Narcan*) 0 mg IV PUSH Q2M PRN PRN Reason: SEDATION Pto - Medical (Marijuana 1 Ml) 1 ml PO QID [facility] Last Admin: 06/01/18 12:58 Dose: 1 ml Pto: Medical (Marijuana Oil) 0.5 admin PO BID PRN PRN Reason: PAIN Last Admin: 06/01/18 04:33 Dose: 0.5 admin Ondansetron HCl (Zofran Inj*) 4 mg IV Q4H PRN PRN Reason: NAUSEA/VOMITING Last Admin: 05/30/18 07:34 Dose: 4 mg Oxycodone HCl (Oxycontin(*)) 120 mg PO TID [facility] Last Admin: 06/01/18 12:58 Dose: 120 mg Oxycodone HCl (Oxycodone Oral.Soln*) 15 mg PO Q2HR PRN PRN Reason: PAIN Last Admin: 06/01/18 05:48 Dose: 15 mg Pantoprazole Sodium (Protonix Tab*) 40 mg PO QAM [facility] Last Admin: 06/01/18 08:58 Dose: 40 mg Pharmacy Profile Note (Fentanyl Patch Check Q Shift) 1 note N/A 0700,1900 [facility] Last Admin: 06/01/18 07:21 Dose: 1 note Polyethylene Glycol/Electrolytes (Miralax*) 17 gm PO Q12HR [facility] Last Admin: 06/01/18 12:58 Dose: Not Given Rivaroxaban (Xarelto(*)) 10 mg PO DAILY [facility] Last Admin: 06/01/18 08:58 Dose: 10 mg Tizanidine HCl (Zanaflex Tab*) 2 mg PO TID [facility] Last Admin: 06/01/18 08:58 Dose: 2 mg Vital Signs: Temp Pulse Resp BP Pulse Ox 98.4 F 77 16 107/51 94 06/01/18 08:48 06/01/18 08:48 06/01/18 12:58 06/01/18 08:48 06/01/18 08:48 Exam: Gen: Chronically ill appearing 67 yo female who appears to be in NAD HEENT: MMM, no thrush CV: RRR, no m/r/g Resp: lungs CTA, no w/c/r Abd: soft, nonTTP Ext: bilateral LE edema - improved, extremities are warm, appropriate capillary refill - LLE in posterior splint Psych: greatly improved affect, smiles occasionally and tells an occasional joke ] Assessment: [67 yo female with metastatic breast CA and chronic pain with significant opiate tolerance who sustained a fall at home resulting in a L tib/fib fracture and R femur fracture now s/p ORIF. Plan: [1. L tib/fib and R femur fractures s/p ORIF - POD #10 - NWB both lower extremities x 6 weeks - pain control remains the major concern - anesthesiology consultation greatly appreciated - Dr Finn suggested that IV fentanyl be replaced by fentanyl lozenges which the pharmacy has ordered and are expected to arrive tomorrow - cont oxycontin 120 mg tid and oxycodone liquid 15 mg q 4h prn - cont IV fentanyl prn until lozenges are available - cont fentanyl patch (100 mcg) - cont scheduled muscle relaxants - cont medical marajuana prn 2. Acute blood loss anemia - transfused 3U PRBCs postoperatively, Hgb now stable - cont to monitor 3. Thrombocytopenia - resolved 4. Metastatic breast CA - no plans for additional treatment 5. Chronic pain - followed by Dr Encarnacion as an outpatient - see discussion above 6. H/o DVT 2016 - cont Xarelto at prior home dose of 10mg daily 7. Code status - DNR 8. HCP - current HCP is listed as her son - she would like to switch this to her , she has repeated this desire outside the presence of her , but would like to wait to sign paperwork until her son is present Dispo: cont ICU management due to high opiate needs, once her IV fentanyl has been replaced by fentanyl lozenge she should be appropriate to be transferred to the floor. Management is working on a procedure to appropriately secure the medical marajuana on the floor. Spoke with case management to start working on referrals to [facility].
--- NOTE | 2018-06-01 14:09 | PN ---
Progress Note - Progress Note Date of Service: 06/01/18 SOAP: Subjective: [] Pt seen at bedside today. Her lower extremity pain is better controlled today. New complaint of right hand pain without known injury. Objective: [] Gen:NAD at rest laying in bed. RLE: Incision CDI. New dressing applied. +f/e at ankle and MTPs, N/V intact distally. LLE: Splint C/D/I. +f/e at MTPs, N/V intact distally. Assessment: sp Right femur/left tibia ORIF Plan: NWB B/L LE x 6 weeks. Okay to sit at bedside as long as upper legs well supported on bedding. Proceed with caution as patient had only had minimal ROM of hip and knees since surgery. mail carrier technician arrives to room while I am present for hand xray Cont Xarelto for DVT ppx
[2018-06-01] MEDS: Ondansetron INJ* 2 MG/ML VIAL IV PRN (17:13)
[2018-06-01] MEDS: Acetaminophen TAB* 325 MG PO PRN (17:54)
[2018-06-02] MEDS: oxyCODONE ORAL.SOLN* 5 MG/5 ML UDC PO PRN ×5 (03:59→22:50)
[2018-06-02] MEDS: Ondansetron INJ* 2 MG/ML VIAL IV PRN ×3 (04:09→18:04)
[2018-06-02] MEDS: fentaNYL Patch Check Q Shift 1 NOTE SCH ×2 (07:03→18:56)
[2018-06-02] MEDS: levETIRAcetam TAB* 500 MG PO SCH ×2 (07:50→21:25)
[2018-06-02] MEDS: FLUoxetine CAP* 20 MG PO SCH (07:50)
[2018-06-02] MEDS: Dronabinol CAP* 2.5 MG PO SCH ×3 (07:50→21:25)
[2018-06-02] MEDS: oxyCODONE SR TAB(*) 40 MG TAB.SR PO SCH ×3 (07:50→21:25)
[2018-06-02] MEDS: Pantoprazole TAB * 40 MG TAB PO SCH (07:50)
[2018-06-02] MEDS: tiZANidine TAB* 2 MG PO SCH ×3 (07:51→21:25)
[2018-06-02] MEDS: MEDICAL MARIJUANA PO SCH ×4 (07:51→21:26)
[2018-06-02] MEDS: Polyethylene Glycol 3350* 17 GM PACKET PO SCH ×2 (07:51→21:26)
[2018-06-02] MEDS: Rivaroxaban TAB(*) 10 MG PO SCH (07:51)
--- NOTE | 2018-06-02 08:44 | PN ---
Progress Note - Progress Note Date of Service: 06/02/18 SOAP: Subjective: 67 y/o female w h/o metastatic breast CA s/p fall resulting in l tibia, R femur fracture s/p ORIF by Dr. Pelayo 05/25/2018. VSS, afebrile overnight. Objective: General- Well appearing, NAD, AO MSK- LE- DF/PF = b/l, PT 2+, negative homans sign Vital Signs Temp 99.0 F 06/02/18 08:01 Pulse 73 06/02/18 08:01 Resp 14 06/02/18 08:00 BP 113/61 06/02/18 08:00 Pulse Ox 95 06/02/18 08:01 Intake & Output 06/01/18 06/02/18 06/02/18 18:59 06:59 18:59 Intake Total 780 320 Output Total 600 650 0 Balance 180 -330 0 Intake: Oral 780 320 Output: Davila 600 650 0 Other: Date of Last Bowel 06/02/2018 06/02/18 Movement # Bowel Movements 1 1 Estimated Stool Amount Small Small # Voids 0 Assessment: Stable L tibia, R femur fracture s/p ORIF by Dr. Pelayo 05/25/2018. Plan: - DVT prophylaxis- Xarelto - Continue PT/ OT - H&H - Stable - post-op IV ABX - completed - NWB x 6 weeks b/o LEs - pain control per Pain management Alprazolam (Xanax Tab*) 0.5 mg PO Q4H PRN PRN Reason: ANXIETY Last Admin: 06/01/18 14:18 Dose: 0.5 mg Dronabinol (Marinol Cap*) 5 mg PO TID [facility] Last Admin: 06/02/18 07:50 Dose: 5 mg Fentanyl (Duragesic Patch 100 Mcg/Hr *) 100 mcg TRANSDERM Q72H [facility] Last Admin: 05/30/18 11:17 Dose: 100 mcg Fentanyl Citrate (Fentanyl*) 100 mcg IV SLOW PU Q3H PRN PRN Reason: SEVERE PAIN Last Admin: 06/01/18 04:31 Dose: 100 mcg Fluoxetine HCl (Prozac Cap*) 60 mg PO DAILY [facility] Last Admin: 06/02/18 07:50 Dose: 60 mg Levetiracetam (Keppra Tab*) 500 mg PO QAM [facility] Last Admin: 06/02/18 07:50 Dose: 500 mg Levetiracetam (Keppra Tab*) 1,000 mg PO BEDTIME [facility] Last Admin: 06/01/18 20:39 Dose: 1,000 mg Lorazepam (Ativan Inj*) 1 mg IV PUSH Q4H PRN PRN Reason: severe anxiety Last Admin: 05/31/18 21:36 Dose: 1 mg Naloxone HCl (Narcan*) 0 mg IV PUSH Q2M PRN PRN Reason: SEDATION Pto - Medical (Marijuana 1 Ml) 1 ml PO QID [facility] Last Admin: 06/02/18 07:51 Dose: 1 ml Pto: Medical (Marijuana Oil) 0.5 admin PO BID PRN PRN Reason: PAIN Last Admin: 06/01/18 04:33 Dose: 0.5 admin Ondansetron HCl (Zofran Inj*) 4 mg IV Q4H PRN PRN Reason: NAUSEA/VOMITING Last Admin: 06/02/18 04:09 Dose: 4 mg Oxycodone HCl (Oxycontin(*)) 120 mg PO TID [facility] Last Admin: 06/02/18 07:50 Dose: 120 mg Oxycodone HCl (Oxycodone Oral.Soln*) 15 mg PO Q2HR PRN PRN Reason: PAIN Last Admin: 06/02/18 06:30 Dose: 15 mg Pantoprazole Sodium (Protonix Tab*) 40 mg PO QAM [facility] Last Admin: 06/02/18 07:50 Dose: 40 mg Pharmacy Profile Note (Fentanyl Patch Check Q Shift) 1 note N/A 0700,1900 [facility] Last Admin: 06/02/18 07:03 Dose: 1 note Polyethylene Glycol/Electrolytes (Miralax*) 17 gm PO Q12HR [facility] Last Admin: 06/02/18 07:51 Dose: 17 gm Rivaroxaban (Xarelto(*)) 10 mg PO DAILY [facility] Last Admin: 06/02/18 07:51 Dose: 10 mg Tizanidine HCl (Zanaflex Tab*) 2 mg PO TID [facility] Last Admin: 06/02/18 07:51 Dose: 2 mg -
[2018-06-02] MEDS: ALPRAZolam TAB* 0.5 MG PO PRN (11:07)
[2018-06-02] MEDS: fentaNYL* 50 MCG/ML 2 ML VIAL (100 MCG VIAL) IV SLOW PU PRN (11:22)
[2018-06-02] MEDS: fentaNYL PATCHs 100 MCG/HR TRANSDERM SCH (11:23)
[2018-06-02] MEDS: LORazepam INJ* 2 MG/ML 1 ML VIAL IV PUSH PRN (12:19)
[2018-06-02] MEDS: FENTANYL PO PRN (14:29)
--- NOTE | 2018-06-02 16:09 | PN ---
Progress Note - Progress Note Date of Service: 06/02/18 SOAP: Subjective: [She has not required any IV fentanyl in the last 24 hour period. XR hand/ wrist negative for fracture. Continuing to work with PT] Objective: [ Alprazolam (Xanax Tab*) 0.5 mg PO Q4H PRN PRN Reason: ANXIETY Last Admin: 06/02/18 11:07 Dose: 0.5 mg Dronabinol (Marinol Cap*) 5 mg PO TID [facility] Last Admin: 06/02/18 14:13 Dose: 5 mg Fentanyl (Duragesic Patch 100 Mcg/Hr *) 100 mcg TRANSDERM Q72H [facility] Last Admin: 06/02/18 11:23 Dose: 100 mcg Fentanyl Citrate (Fentanyl Citrate Oral Lozenge) 200 mcg PO Q6H PRN PRN Reason: SEVERE PAIN Last Admin: 06/02/18 14:29 Dose: 200 mcg Fluoxetine HCl (Prozac Cap*) 60 mg PO DAILY [facility] Last Admin: 06/02/18 07:50 Dose: 60 mg Levetiracetam (Keppra Tab*) 500 mg PO QAM [facility] Last Admin: 06/02/18 07:50 Dose: 500 mg Levetiracetam (Keppra Tab*) 1,000 mg PO BEDTIME [facility] Last Admin: 06/01/18 20:39 Dose: 1,000 mg Lorazepam (Ativan Inj*) 1 mg IV PUSH Q4H PRN PRN Reason: severe anxiety Last Admin: 06/02/18 12:19 Dose: 1 mg Naloxone HCl (Narcan*) 0 mg IV PUSH Q2M PRN PRN Reason: SEDATION Pto - Medical (Marijuana 1 Ml) 1 ml PO QID [facility] Last Admin: 06/02/18 12:08 Dose: 1 ml Pto: Medical (Marijuana Oil) 0.5 admin PO BID PRN PRN Reason: PAIN Last Admin: 06/01/18 04:33 Dose: 0.5 admin Ondansetron HCl (Zofran Inj*) 4 mg IV Q4H PRN PRN Reason: NAUSEA/VOMITING Last Admin: 06/02/18 09:40 Dose: 4 mg Oxycodone HCl (Oxycontin(*)) 120 mg PO TID [facility] Last Admin: 06/02/18 14:12 Dose: 120 mg Oxycodone HCl (Oxycodone Oral.Soln*) 15 mg PO Q2HR PRN PRN Reason: PAIN Last Admin: 06/02/18 11:37 Dose: 15 mg Pantoprazole Sodium (Protonix Tab*) 40 mg PO QAM [facility] Last Admin: 06/02/18 07:50 Dose: 40 mg Pharmacy Profile Note (Fentanyl Patch Check Q Shift) 1 note N/A 0700,1900 [facility] Last Admin: 06/02/18 07:03 Dose: 1 note Polyethylene Glycol/Electrolytes (Miralax*) 17 gm PO Q12HR [facility] Last Admin: 06/02/18 07:51 Dose: 17 gm Rivaroxaban (Xarelto(*)) 10 mg PO DAILY [facility] Last Admin: 06/02/18 07:51 Dose: 10 mg Tizanidine HCl (Zanaflex Tab*) 2 mg PO TID [facility] Last Admin: 06/02/18 12:10 Dose: 2 mg Vital Signs: Temp Pulse Resp BP Pulse Ox 99.5 F 77 16 131/75 99 06/02/18 13:00 06/02/18 13:00 06/02/18 14:12 06/02/18 12:01 06/02/18 13:00 Exam: Gen: Chronically ill appearing 67 yo female who appears to be in NAD HEENT: MMM, no thrush CV: RRR, no m/r/g Resp: lungs CTA, no w/c/r Abd: soft, nonTTP Ext: bilateral LE edema - improved, extremities are warm, appropriate capillary refill - LLE in posterior splint MS: R wrist in an SALLY bandage, but seems to move appropriately Psych: greatly improved affect, smiles occasionally ] Assessment: [67 yo female with metastatic breast CA and chronic pain with significant opiate tolerance who sustained a fall at home resulting in a L tib/fib fracture and R femur fracture now s/p ORIF. Plan: [1. L tib/fib and R femur fractures s/p ORIF - POD #11 - NWB both lower extremities x 6 weeks - pain control remains the major concern - anesthesiology consultation greatly appreciated - Dr Finn suggested that IV fentanyl be replaced by fentanyl lozenges which the pharmacy has ordered and are expected to arrive today - cont oxycontin 120 mg tid and oxycodone liquid 15 mg q 4h prn - cont IV fentanyl prn until lozenges are available - cont fentanyl patch (100 mcg) - cont scheduled muscle relaxants - cont medical marajuana prn 2. Acute blood loss anemia - transfused 3U PRBCs postoperatively, Hgb now stable - cont to monitor 3. Thrombocytopenia - resolved 4. Metastatic breast CA - no plans for additional treatment 5. Chronic pain - followed by Dr Encarnacion as an outpatient - see discussion above 6. H/o DVT 2016 - cont Xarelto at prior home dose of 10mg daily 7. Code status - DNR 8. HCP - current HCP is listed as her son - she would like to switch this to her , she has repeated this desire outside the presence of her , but would like to wait to sign paperwork until her son is present Dispo: she is appropriate to transfer to the medical floor as she has not required IV fentanyl in 24 hours. Management is working on a procedure to appropriately secure the medical marajuana on the floor. Case management team is working on placement for LUIS MANUEL. So far Benjy and Carito are reviewing her information. Maria is extremely anxious about any change in care, but reassurance provided about the transition to medical floor from ICU.
[2018-06-03] MEDS: oxyCODONE ORAL.SOLN* 5 MG/5 ML UDC PO PRN ×4 (04:36→18:54)
[2018-06-03] MEDS: fentaNYL Patch Check Q Shift 1 NOTE SCH ×2 (06:50→18:51)
[2018-06-03] MEDS: MEDICAL MARIJUANA PO SCH ×4 (08:03→21:20)
[2018-06-03] MEDS: Dronabinol CAP* 2.5 MG PO SCH ×3 (08:39→21:15)
[2018-06-03] MEDS: oxyCODONE SR TAB(*) 40 MG TAB.SR PO SCH ×3 (08:39→21:17)
[2018-06-03] MEDS: tiZANidine TAB* 2 MG PO SCH ×3 (08:39→21:16)
[2018-06-03] MEDS: levETIRAcetam TAB* 500 MG PO SCH ×2 (08:39→21:16)
[2018-06-03] MEDS: FLUoxetine CAP* 20 MG PO SCH (08:39)
[2018-06-03] MEDS: Pantoprazole TAB * 40 MG TAB PO SCH (08:40)
[2018-06-03] MEDS: Rivaroxaban TAB(*) 10 MG PO SCH (08:40)
[2018-06-03] MEDS: Polyethylene Glycol 3350* 17 GM PACKET PO SCH ×2 (08:45→21:14)
[2018-06-03] MEDS: FENTANYL PO PRN ×3 (08:59→21:50)
[2018-06-03] MEDS: LORazepam INJ* 2 MG/ML 1 ML VIAL IV PUSH PRN (09:12)
--- NOTE | 2018-06-03 09:23 | PN ---
Progress Note - Progress Note Date of Service: 06/03/18 SOAP: Subjective: pain still poorly controlled, though only used 2 doses of actiq since yesterday. unclear to me if everyone aware that they were available for use. requesting palliative sedation once son comes into town. Objective: Vital Signs Temp Pulse Resp BP Pulse Ox 98.4 F 65 18 102/59 98 06/03/18 04:01 06/03/18 04:01 06/03/18 09:12 06/03/18 04:00 06/03/18 04:01 perr eomi poor dentition dry op CTA ant s1 s2 nl soft nt left wrist in wrap bilateral leg sites clean warm feet moaning Alprazolam (Xanax Tab*) 0.5 mg PO Q4H PRN PRN Reason: ANXIETY Last Admin: 06/02/18 11:07 Dose: 0.5 mg Dronabinol (Marinol Cap*) 5 mg PO TID [facility] Last Admin: 06/03/18 08:39 Dose: 5 mg Fentanyl (Duragesic Patch 100 Mcg/Hr *) 100 mcg TRANSDERM Q72H [facility] Last Admin: 06/02/18 11:23 Dose: 100 mcg Fentanyl Citrate (Fentanyl Citrate Oral Lozenge) 200 mcg PO Q6H PRN PRN Reason: SEVERE PAIN Last Admin: 06/03/18 08:59 Dose: 200 mcg Fluoxetine HCl (Prozac Cap*) 60 mg PO DAILY [facility] Last Admin: 06/03/18 08:39 Dose: 60 mg Levetiracetam (Keppra Tab*) 500 mg PO QAM [facility] Last Admin: 06/03/18 08:39 Dose: 500 mg Levetiracetam (Keppra Tab*) 1,000 mg PO BEDTIME [facility] Last Admin: 06/02/18 21:25 Dose: 1,000 mg Lorazepam (Ativan Inj*) 1 mg IV PUSH Q4H PRN PRN Reason: severe anxiety Last Admin: 06/03/18 09:12 Dose: 1 mg Naloxone HCl (Narcan*) 0 mg IV PUSH Q2M PRN PRN Reason: SEDATION Pto - Medical (Marijuana 1 Ml) 1 ml PO QID [facility] Last Admin: 06/03/18 08:03 Dose: 1 ml Pto: Medical (Marijuana Oil) 0.5 admin PO BID PRN PRN Reason: PAIN Last Admin: 06/01/18 04:33 Dose: 0.5 admin Ondansetron HCl (Zofran Inj*) 4 mg IV Q4H PRN PRN Reason: NAUSEA/VOMITING Last Admin: 06/02/18 18:04 Dose: 4 mg Oxycodone HCl (Oxycontin(*)) 120 mg PO TID [facility] Last Admin: 06/03/18 08:39 Dose: 120 mg Oxycodone HCl (Oxycodone Oral.Soln*) 15 mg PO Q2HR PRN PRN Reason: PAIN Last Admin: 06/03/18 07:56 Dose: 15 mg Pantoprazole Sodium (Protonix Tab*) 40 mg PO QAM [facility] Last Admin: 06/03/18 08:40 Dose: 40 mg Pharmacy Profile Note (Fentanyl Patch Check Q Shift) 1 note N/A 0700,1900 [facility] Last Admin: 06/03/18 06:50 Dose: 1 note Polyethylene Glycol/Electrolytes (Miralax*) 17 gm PO Q12HR [facility] Last Admin: 06/03/18 08:45 Dose: Not Given Rivaroxaban (Xarelto(*)) 10 mg PO DAILY [facility] Last Admin: 06/03/18 08:40 Dose: 10 mg Tizanidine HCl (Zanaflex Tab*) 2 mg PO TID [facility] Last Admin: 06/03/18 08:39 Dose: 2 mg Assessment: 67 yo female with metastatic breast CA and chronic pain with significant opiate tolerance who sustained a fall at home resulting in a L tib/fib fracture and R femur fracture now s/p ORIF. Plan: 1. L tib/fib and R femur fractures s/p ORIF - POD #12 - NWB both lower extremities x 6 weeks - pain control remains the major concern - anesthesiology consultation greatly appreciated - started actluis tamayo d/w Dr. Finn increasing to q3 hrs - cont oxycontin 120 mg tid and oxycodone liquid 15 mg q 4h prn - cont fentanyl patch (100 mcg) - cont scheduled muscle relaxants - cont medical marajuana prn 2. Metastatic breast CA - no plans for additional treatment 3. H/o DVT 2015 - cont Xarelto at prior home dose of 10mg daily 4. Code status - DNR Dispo: she is appropriate to transfer to the medical floor as she has not required IV fentanyl in 24 hours. Management is working on a procedure to appropriately secure the medical marajuana on the floor. Case management team is working on placement for LUIS MANUEL. So far [facility] are reviewing her information. will need to discuss if palliative sedation can occur there
--- NOTE | 2018-06-03 09:55 | PN ---
Progress Note - Progress Note Date of Service: 06/03/18 SOAP: Subjective: Patient reports continued pain in the b/l LE. The medications are somewhat helpful. Denies F/C, CP/SOB or calf pain Objective: PE- 67 y/o WDWN F NAD LLE- splint c/d/i, thigh NT, able to F/E toes, brisk cap refill RLE- dressing changed, inc c/d/i with no drainage, calf soft NT, +DF/PF ankle, NVI Vital Signs Temp Pulse Resp BP Pulse Ox 98.4 F 65 18 102/59 98 06/03/18 04:01 06/03/18 04:01 06/03/18 09:12 06/03/18 04:00 06/03/18 04:01 Assessment: Stable L tibia, R femur fracture s/p ORIF by Dr. Pelayo 05/25/2018. Plan: - DVT prophylaxis- Xarelto - Continue PT/ OT - NWB x 6 weeks bilateral LEs -Keep splint c/d/i - pain control per Pain management
[2018-06-04] MEDS: FENTANYL PO PRN ×2 (04:29→07:21)
[2018-06-04] MEDS: [UNRECOGNIZED DRUG - OTHER] PO PRN (05:06)
[2018-06-04] MEDS: LORazepam INJ* 2 MG/ML 1 ML VIAL IV PUSH PRN (05:26)
[2018-06-04] MEDS: oxyCODONE ORAL.SOLN* 5 MG/5 ML UDC PO PRN ×2 (06:27→20:10)
[2018-06-04] MEDS: ALPRAZolam TAB* 0.5 MG PO PRN (07:21)
[2018-06-04] MEDS: Ondansetron INJ* 2 MG/ML VIAL IV PRN (07:21)
[2018-06-04] MEDS: fentaNYL Patch Check Q Shift 1 NOTE SCH ×2 (07:25→19:25)
--- NOTE | 2018-06-04 08:25 | PN ---
Progress Note - Progress Note Date of Service: 06/04/18 SOAP: Subjective: about the same today. Objective: Vital Signs Temp Pulse Resp BP Pulse Ox 99.3 F 76 17 104/57 94 06/04/18 08:01 06/04/18 08:01 06/04/18 08:00 06/04/18 08:01 06/04/18 08:01 perr eomi poor dentition dry op CTA ant s1 s2 nl soft nt left wrist in wrap bilateral leg sites clean warm feet moaning Assessment: 67 yo female with metastatic breast CA and chronic pain with significant opiate tolerance who sustained a fall at home resulting in a L tib/fib fracture and R femur fracture now s/p ORIF. Plan: 1. L tib/fib and R femur fractures s/p ORIF - POD #12 - NWB both lower extremities x 6 weeks - pain control remains the major concern - anesthesiology consultation greatly appreciated - started actiq losenges on q3 hrs - cont oxycontin 120 mg tid and oxycodone liquid 15 mg q 4h prn - cont fentanyl patch (100 mcg) - cont scheduled muscle relaxants - cont medical marajuana prn 2. Metastatic breast CA - no plans for additional treatment 3. H/o DVT 2016 - cont Xarelto at prior home dose of 10mg daily 4. Code status - DNR Dispo: she is appropriate to transfer to the medical floor as she has not required IV fentanyl in 24 hours. Management is working on a procedure to appropriately secure the medical marajuana on the floor. Case management team is working on placement for LUIS MANUEL. So far [facility] are reviewing her information. will need to discuss if palliative sedation can occur there
[2018-06-04] MEDS: levETIRAcetam TAB* 500 MG PO SCH ×2 (09:10→21:05)
[2018-06-04] MEDS: Dronabinol CAP* 2.5 MG PO SCH ×3 (09:10→21:07)
[2018-06-04] MEDS: Rivaroxaban TAB(*) 10 MG PO SCH (09:10)
[2018-06-04] MEDS: FLUoxetine CAP* 20 MG PO SCH (09:10)
[2018-06-04] MEDS: oxyCODONE SR TAB(*) 40 MG TAB.SR PO SCH ×3 (09:11→21:03)
[2018-06-04] MEDS: tiZANidine TAB* 2 MG PO SCH ×3 (09:11→21:04)
[2018-06-04] MEDS: Pantoprazole TAB * 40 MG TAB PO SCH (09:11)
[2018-06-04] MEDS: MEDICAL MARIJUANA PO SCH ×4 (09:11→21:11)
[2018-06-04] MEDS: Polyethylene Glycol 3350* 17 GM PACKET PO SCH ×2 (09:11→21:06)
--- NOTE | 2018-06-04 09:51 | PN ---
Progress Note - Progress Note Date of Service: 06/04/18 SOAP: Subjective: Pt is doing well. Pain is better controlled today. Denies F/C, CP/SOB or calf pain Objective: PE- 67 y/o WDWN F NAD LLE- splint c/d/i, thight NT, brisk cap refill, SILT distally RLE- dressing c/d/i, calf soft NT, +DF/PF ankle, +2 DP pulse, SILT distally Vital Signs Temp Pulse Resp BP Pulse Ox 99.3 F 76 17 104/57 94 06/04/18 08:01 06/04/18 08:01 06/04/18 09:11 06/04/18 08:01 06/04/18 08:01 Assessment: Stable L tibia, R femur fracture s/p ORIF by Dr. Pelayo 05/25/2018. Plan: - DVT prophylaxis- Xarelto - Continue PT/ OT - NWB x 6 weeks bilateral LEs -Keep splint c/d/i - pain control per Pain management
[2018-06-04 14:04] LABS: ABS Basophils 0.1 10^3/ul (0-0.2); ABS Eosinophils 0 10^3/ul (0-0.6); ABS Lymphocytes 0.5 10^3/ul (1.0-4.8); ABS Monocytes 0.5 10^3/ul (0-0.8); ABS Neutrophils 5.8 10^3/ul (1.5-7.7); ABS Nucleated RBC 0 10^3/ul; Eosinophil % 0.4 %; Hematocrit 29 % (35-47); Hemoglobin 9.5 g/dl (12.0-16.0); Mean Corpuscular HGB Conc 33 g/dl (31-36); Mean Corpuscular Hemoglobin 31 pg (27-31); Mean Corpuscular Volume 94 fL (80-97); Mean Platelet Volume 7.2 fL (7.4-10.4); Nucleated Red Blood Cells % 0; Platelet Count 318 10^3/ul (150-450); Red Blood Count 3.09 10^6/ul (4.00-5.40); Red Cell Distribution Width 16 % (10.5-15); White Blood Count 6.8 10^3/ul (3.5-10.8)
[2018-06-05] MEDS: oxyCODONE ORAL.SOLN* 5 MG/5 ML UDC PO PRN ×3 (01:38→23:18)
[2018-06-05] MEDS: [UNRECOGNIZED DRUG - OTHER] PO PRN ×2 (01:42→15:25)
[2018-06-05] MEDS: FENTANYL PO PRN ×4 (06:34→23:02)
[2018-06-05] MEDS: fentaNYL Patch Check Q Shift 1 NOTE SCH ×2 (06:50→19:08)
[2018-06-05 07:11] LABS: Albumin 2.9 g/dL (3.2-5.2); Albumin/Globulin Ratio 1.1 (1-3); BUN/Creatinine Ratio 29.8 (8-20); Calcium 8.6 mg/dL (8.6-10.3); EGFR African American 160.4 (>60); EGFR Non-African American 132.6 (>60); Globulin 2.6 g/dL (2-4); Potassium 3.9 mmol/L (3.5-5.0); Total Bilirubin 0.6 mg/dL (0.2-1.0); Total Protein 5.5 g/dL (6.4-8.9)
[2018-06-05] MEDS: FLUoxetine CAP* 20 MG PO SCH (09:05)
[2018-06-05] MEDS: levETIRAcetam TAB* 500 MG PO SCH ×2 (09:06→22:28)
[2018-06-05] MEDS: tiZANidine TAB* 2 MG PO SCH ×3 (09:06→22:29)
[2018-06-05] MEDS: Pantoprazole TAB * 40 MG TAB PO SCH (09:06)
[2018-06-05] MEDS: Dronabinol CAP* 2.5 MG PO SCH ×3 (09:06→22:28)
[2018-06-05] MEDS: Rivaroxaban TAB(*) 10 MG PO SCH (09:06)
[2018-06-05] MEDS: Polyethylene Glycol 3350* 17 GM PACKET PO SCH ×2 (09:06→22:31)
[2018-06-05] MEDS: MEDICAL MARIJUANA PO SCH ×4 (09:09→22:31)
[2018-06-05] MEDS: oxyCODONE SR TAB(*) 40 MG TAB.SR PO SCH ×3 (09:14→22:28)
[2018-06-05] MEDS: fentaNYL PATCHs 100 MCG/HR TRANSDERM SCH (12:18)
--- NOTE | 2018-06-05 12:24 | PN ---
Progress Note - Progress Note Date of Service: 06/05/18 SOAP: Subjective: []Feeling OK today, feels pain has been reasonably well controlled Currently 10/02. Feels Fentanyl lozenges help. Open to consideration of hospice residence (per social work unable to get placement at this time). Medications: Alprazolam (Xanax Tab*) 0.5 mg PO Q4H PRN PRN Reason: ANXIETY Last Admin: 06/04/18 07:21 Dose: 0.5 mg Dronabinol (Marinol Cap*) 5 mg PO TID [facility] Last Admin: 06/05/18 09:06 Dose: 5 mg Fentanyl (Duragesic Patch 100 Mcg/Hr *) 100 mcg TRANSDERM Q72H [facility] Last Admin: 06/02/18 11:23 Dose: 100 mcg Fentanyl Citrate (Fentanyl Citrate Oral Lozenge) 200 mcg PO Q3H PRN PRN Reason: SEVERE PAIN Last Admin: 06/05/18 11:45 Dose: 200 mcg Fluoxetine HCl (Prozac Cap*) 60 mg PO DAILY [facility] Last Admin: 06/05/18 09:05 Dose: 60 mg Levetiracetam (Keppra Tab*) 500 mg PO QAM [facility] Last Admin: 06/05/18 09:06 Dose: 500 mg Levetiracetam (Keppra Tab*) 1,000 mg PO BEDTIME [facility] Last Admin: 06/04/18 21:05 Dose: 1,000 mg Lorazepam (Ativan Inj*) 1 mg IV PUSH Q4H PRN PRN Reason: severe anxiety Last Admin: 06/04/18 05:26 Dose: 1 mg Naloxone HCl (Narcan*) 0 mg IV PUSH Q2M PRN PRN Reason: SEDATION Pto - Medical (Marijuana 1 Ml) 1 ml PO QID [facility] Last Admin: 06/05/18 09:09 Dose: 1 ml Pto: Medical (Marijuana Oil) 0.5 admin PO BID PRN PRN Reason: PAIN Last Admin: 06/05/18 01:42 Dose: 0.5 admin Ondansetron HCl (Zofran Inj*) 4 mg IV Q4H PRN PRN Reason: NAUSEA/VOMITING Last Admin: 06/04/18 07:21 Dose: 4 mg Oxycodone HCl (Oxycontin(*)) 120 mg PO TID [facility] Last Admin: 06/05/18 09:14 Dose: 120 mg Oxycodone HCl (Oxycodone Oral.Soln*) 15 mg PO Q2HR PRN PRN Reason: PAIN Last Admin: 06/05/18 05:26 Dose: 15 mg Pantoprazole Sodium (Protonix Tab*) 40 mg PO QAM [facility] Last Admin: 06/05/18 09:06 Dose: 40 mg Pharmacy Profile Note (Fentanyl Patch Check Q Shift) 1 note N/A 0700,1900 [facility] Last Admin: 06/05/18 06:50 Dose: 1 note Polyethylene Glycol/Electrolytes (Miralax*) 17 gm PO Q12HR [facility] Last Admin: 06/05/18 09:06 Dose: Not Given Rivaroxaban (Xarelto(*)) 10 mg PO DAILY [facility] Last Admin: 06/05/18 09:06 Dose: 10 mg Tizanidine HCl (Zanaflex Tab*) 2 mg PO TID [facility] Last Admin: 06/05/18 09:06 Dose: 2 mg Objective: [] Vital Signs Temp Pulse Resp BP Pulse Ox 98.4 F 73 12 126/75 98 06/05/18 10:00 06/05/18 10:00 06/05/18 09:14 06/05/18 08:01 06/05/18 10:00 A&Ox3, neuro grossly non-focal HRR, S1S2, SR on tele LS clear, resp. even and non-labored R femoral dressing CDI L dressing and brace in place Bilat. feet warm with good cap refill Laboratory Results - last 24 hr 06/04/18 06/05/18 13:49 06:45 WBC 6.8 RBC 3.09 L Hgb 9.5 L Hct 29 L MCV 94 MCH 31 MCHC 33 RDW 16 H Plt Count 318 MPV 7.2 L Neut % (Auto) 84.7 Lymph % (Auto) 7.0 [place] % (Auto) 7.1 Eos % (Auto) 0.4 Baso % (Auto) 0.8 Absolute Neuts (auto) 5.8 Absolute Lymphs (auto) 0.5 L Absolute Monos (auto) 0.5 Absolute Eos (auto) 0 Absolute Basos (auto) 0.1 Absolute Nucleated RBC 0 Nucleated RBC % 0 Sodium 142 Potassium 3.9 Chloride 102 Carbon Dioxide 38 H Anion Gap 2 BUN 14 Creatinine 0.47 L Est GFR ( Amer) 160.4 Est GFR (Non-Af Amer) 132.6 BUN/Creatinine Ratio 29.8 H Glucose 105 H Calcium 8.6 Total Bilirubin 0.60 AST 17 ALT 18 Alkaline Phosphatase 105 H Total Protein 5.5 L Albumin 2.9 L Globulin 2.6 Albumin/Globulin Ratio 1.1 Assessment: []67 yo female with metastatic breast CA and chronic pain with significant opiate tolerance who sustained a fall at home resulting in a L tib/fib fracture and R femur fracture now s/p ORIF (POD 11). Plan: []1. Transfer to medical floor, no change in plan of care Dispo: social work looking into safe placement and current hospice residence may be best option DNR
--- NOTE | 2018-06-05 15:25 | PN ---
Progress Note - Progress Note Date of Service: 06/05/18 SOAP: Subjective: []Pt seen and examined at bedside. She is comfortable without complaint today. Objective: []PE- 67 y/o WDWN F NAD LLE- splint c/d/i, thigh soft and NT, brisk cap refill, SILT distally RLE- dressing changed, incision c/d/i, calf soft NT, +DF/PF ankle, +2 DP pulse, SILT distally Assessment: []Stable L tibia, R femur fractures s/p ORIF by Dr. Pelayo 05/25/2018. Plan: []NWB BL LE x 6 weeks bilateral LEs - DVT prophylaxis- Xarelto - Continue PT/ OT -Keep splint c/d/i - pain control per Pain management Tomorrow: Will remove all marshal, repeat xrays BL LE, place a short leg cast in place of the splint. Coordination with nursing for timing around pain meds is necessary Vital Signs Temp 98.6 F 06/05/18 12:01 Pulse 71 06/05/18 12:01 Resp 12 06/05/18 14:30 BP 99/53 06/05/18 12:00 Pulse Ox 99 06/05/18 12:01 Intake & Output 06/04/18 06/05/18 06/05/18 18:59 06:59 18:59 Intake Total 1124 236 Output Total 625 900 500 Balance 499 -900 -264 Intake: Oral 1124 236 Output: Davila 625 900 500 Other: # Bowel Movements 1 Estimated Stool Amount Medium
[2018-06-05] MEDS: LORazepam INJ* 2 MG/ML 1 ML VIAL IV PUSH PRN (23:11)
[2018-06-05] MEDS: ALPRAZolam TAB* 0.5 MG PO PRN (23:47)
[2018-06-06] MEDS: oxyCODONE ORAL.SOLN* 5 MG/5 ML UDC PO PRN ×4 (02:03→17:14)
[2018-06-06] MEDS: Ondansetron INJ* 2 MG/ML VIAL IV PRN (03:15)
[2018-06-06] MEDS: FENTANYL PO PRN ×3 (03:15→15:44)
[2018-06-06] MEDS: LORazepam INJ* 2 MG/ML 1 ML VIAL IV PUSH PRN (03:17)
[2018-06-06] MEDS: [UNRECOGNIZED DRUG - OTHER] PO PRN (03:36)
[2018-06-06] MEDS: fentaNYL Patch Check Q Shift 1 NOTE SCH ×2 (06:59→19:23)
[2018-06-06] MEDS: FLUoxetine CAP* 20 MG PO SCH (10:35)
[2018-06-06] MEDS: levETIRAcetam TAB* 500 MG PO SCH ×2 (10:35→20:17)
[2018-06-06] MEDS: Dronabinol CAP* 2.5 MG PO SCH ×3 (10:36→20:17)
[2018-06-06] MEDS: tiZANidine TAB* 2 MG PO SCH ×3 (10:36→20:17)
[2018-06-06] MEDS: Rivaroxaban TAB(*) 10 MG PO SCH (10:36)
[2018-06-06] MEDS: MEDICAL MARIJUANA PO SCH ×4 (10:37→20:19)
[2018-06-06] MEDS: Polyethylene Glycol 3350* 17 GM PACKET PO SCH ×2 (10:37→20:19)
[2018-06-06] MEDS: oxyCODONE SR TAB(*) 40 MG TAB.SR PO SCH ×3 (10:37→20:17)
[2018-06-06] MEDS: Pantoprazole TAB * 40 MG TAB PO SCH (10:37)
[2018-06-06] MEDS: ALPRAZolam TAB* 0.5 MG PO PRN (11:34)
--- NOTE | 2018-06-06 12:30 | PN ---
Progress Note - Progress Note Date of Service: 06/06/18 SOAP: Subjective: [No changes. Had a difficult time with pain control overnight, better this am. She is anxious about her transition to the Hospice residence and frustrated with her .] Objective: [ Alprazolam (Xanax Tab*) 0.5 mg PO Q4H PRN PRN Reason: ANXIETY Last Admin: 06/06/18 11:34 Dose: 0.5 mg Dronabinol (Marinol Cap*) 5 mg PO TID [facility] Last Admin: 06/06/18 10:36 Dose: 5 mg Fentanyl (Duragesic Patch 100 Mcg/Hr *) 100 mcg TRANSDERM Q72H [facility] Last Admin: 06/05/18 12:18 Dose: 100 mcg Fentanyl Citrate (Fentanyl Citrate Oral Lozenge) 200 mcg PO Q3H PRN PRN Reason: SEVERE PAIN Last Admin: 06/06/18 11:10 Dose: 200 mcg Fluoxetine HCl (Prozac Cap*) 60 mg PO DAILY [facility] Last Admin: 06/06/18 10:35 Dose: 60 mg Levetiracetam (Keppra Tab*) 500 mg PO QAM [facility] Last Admin: 06/06/18 10:35 Dose: 500 mg Levetiracetam (Keppra Tab*) 1,000 mg PO BEDTIME [facility] Last Admin: 06/05/18 22:28 Dose: 1,000 mg Pto - Medical (Marijuana 1 Ml) 1 ml PO QID [facility] Last Admin: 06/06/18 10:37 Dose: 1 ml Pto: Medical (Marijuana Oil) 0.5 admin PO BID PRN PRN Reason: PAIN Last Admin: 06/06/18 03:36 Dose: 0.5 admin Ondansetron HCl (Zofran Inj*) 4 mg IV Q4H PRN PRN Reason: NAUSEA/VOMITING Last Admin: 06/06/18 03:15 Dose: 4 mg Oxycodone HCl (Oxycodone Oral.Soln*) 15 mg PO Q2HR PRN PRN Reason: PAIN Last Admin: 06/06/18 11:34 Dose: 15 mg Pantoprazole Sodium (Protonix Tab*) 40 mg PO QAM [facility] Last Admin: 06/06/18 10:37 Dose: 40 mg Pharmacy Profile Note (Fentanyl Patch Check Q Shift) 1 note N/A 0700,1900 [facility] Last Admin: 06/06/18 06:59 Dose: 1 note Polyethylene Glycol/Electrolytes (Miralax*) 17 gm PO Q12HR [facility] Last Admin: 06/06/18 10:37 Dose: Not Given Rivaroxaban (Xarelto(*)) 10 mg PO DAILY [facility] Last Admin: 06/06/18 10:36 Dose: 10 mg Tizanidine HCl (Zanaflex Tab*) 2 mg PO TID [facility] Last Admin: 06/06/18 10:36 Dose: 2 mg Vital Signs: Temp Pulse Resp BP Pulse Ox 98.6 F 82 18 116/50 99 06/06/18 04:01 06/06/18 03:00 06/06/18 11:34 06/06/18 04:01 06/06/18 03:00 Exam: Gen: Chronically ill appearing 67 yo female who appears to be in NAD HEENT: MMM, no thrush CV: RRR, no m/r/g Resp: lungs CTA, no w/c/r Abd: soft, nonTTP Ext: bilateral LE edema - improved, extremities are warm, appropriate capillary refill - LLE in posterior splint MS: R wrist in an SALLY bandage, but seems to move appropriately Psych: more anxious today Assessment: [67 yo female with metastatic breast CA and chronic pain with significant opiate tolerance who sustained a fall at home resulting in a L tib/fib fracture and R femur fracture now s/p ORIF. Plan: [1. L tib/fib and R femur fractures s/p ORIF - POD #15 - NWB both lower extremities x 6 weeks - pain control remains the major concern - anesthesiology consultation greatly appreciated - Dr Finn suggested use of fentanyl lozenges which seem to have been an effective replacement for the IV fentanyl - cont oxycontin 120 mg tid and oxycodone liquid 15 mg q 4h prn - cont fentanyl patch (100 mcg) - cont scheduled muscle relaxants - cont medical marajuana prn 2. Acute blood loss anemia - transfused 3U PRBCs postoperatively, Hgb now stable - cont to monitor 3. Thrombocytopenia - resolved 4. Metastatic breast CA - no plans for additional treatment 5. Chronic pain - followed by Dr Encarnacion as an outpatient - see discussion above 6. H/o DVT 2016 - cont Xarelto at prior home dose of 10mg daily 7. Code status - DNR 8. HCP - current HCP is listed as her son - she would like to switch this to her , she has repeated this desire outside the presence of her , but would like to wait to sign paperwork until her son is present Dispo: she is appropriate to transfer to the medical floor. Offered a bed at [facility], pending discharge sometime this week. CM involved. []
--- NOTE | 2018-06-06 15:31 | PN ---
Progress Note - Progress Note Date of Service: 06/06/18 SOAP: Subjective: []Pt seen at bedside. She has no complaints today. Objective: []General: NAD LLE- marshal removed, steri strips placed. Incision was CDI without erythema or discharge. Thigh was soft, NV intact distally RLE- Splint removed, marshal removed, steri strips place. Incision was CDI without erythema or discharge. Lower leg cast was placed, tolerated well by patient. NV intact distally and patient reports comfort after cast placed. Assessment: []Stable L tibia, R femur fractures s/p ORIF by Dr. Pelayo 05/21/2018. Plan: []NWB BL LE x 6 weeks bilateral LE's - DVT prophylaxis- Xarelto - Continue PT/ OT - All Marshal removed - Splint changed out for a short leg cast - pain control per Pain management
[2018-06-07] MEDS: oxyCODONE ORAL.SOLN* 5 MG/5 ML UDC PO PRN ×6 (02:34→16:49)
[2018-06-07] MEDS: ALPRAZolam TAB* 0.5 MG PO PRN ×2 (05:14→11:47)
[2018-06-07] MEDS: FENTANYL PO PRN ×4 (05:15→22:46)
[2018-06-07] MEDS: fentaNYL Patch Check Q Shift 1 NOTE SCH ×2 (06:49→19:00)
[2018-06-07] MEDS: FLUoxetine CAP* 20 MG PO SCH (09:00)
[2018-06-07] MEDS: levETIRAcetam TAB* 500 MG PO SCH ×2 (09:00→20:28)
[2018-06-07] MEDS: Dronabinol CAP* 2.5 MG PO SCH ×3 (09:00→20:28)
[2018-06-07] MEDS: Rivaroxaban TAB(*) 10 MG PO SCH (09:00)
[2018-06-07] MEDS: Pantoprazole TAB * 40 MG TAB PO SCH (09:01)
[2018-06-07] MEDS: oxyCODONE SR TAB(*) 40 MG TAB.SR PO SCH ×3 (09:01→20:27)
[2018-06-07] MEDS: tiZANidine TAB* 2 MG PO SCH ×3 (09:01→20:28)
[2018-06-07] MEDS: Polyethylene Glycol 3350* 17 GM PACKET PO SCH ×2 (09:02→22:06)
[2018-06-07] MEDS: MEDICAL MARIJUANA PO SCH ×4 (09:02→20:28)
[2018-06-07] MEDS: [UNRECOGNIZED DRUG - OTHER] PO PRN (11:04)
--- NOTE | 2018-06-07 12:40 | PN ---
Progress Note - Progress Note Date of Service: 06/07/18 SOAP: Subjective: []Pt seen at bedside. She is in good spirits today, she is tolerating her cast well. Denies CP, SOB, dizziness, nausea. Objective: []General: NAD LLE- Left cast CDI, able to wiggle toes, capillary refill brisk distally, sensation intact to light touch distally. RLE- Thigh steri strips CDI. Thigh is soft. NVI distally. Calf supple and nontender Assessment: []Stable L tibia, R femur fractures s/p ORIF by Dr. Pelayo 05/21/2018. Plan: []NWB BL LE x 6 weeks bilateral LE's - DVT prophylaxis- Xarelto - Continue PT/ OT - pain control per Pain management Vital Signs Temp 99.9 F 06/07/18 12:01 Pulse 76 06/07/18 12:01 Resp 20 06/07/18 12:26 BP 93/56 06/07/18 12:01 Pulse Ox 97 06/07/18 12:01 Intake & Output 06/06/18 06/07/18 06/07/18 18:59 06:59 18:59 Intake Total 757 400 Output Total 450 188 Balance 307 -188 400 Intake: Oral 757 400 Output: [place] 450 188 Laboratory Last Values WBC 6.8 10^3/ul (3.5-10.8) 06/04/18 13:49 RBC 3.09 10^6/ul (4.00-5.40) L 06/04/18 13:49 Hgb 9.5 g/dl (12.0-16.0) L 06/04/18 13:49 Hct 29 % (35-47) L 06/04/18 13:49 MCV 94 fL (80-97) 06/04/18 13:49 MCH 31 pg (27-31) 06/04/18 13:49 MCHC 33 g/dl (31-36) 06/04/18 13:49 RDW 16 % (10.5-15) H 06/04/18 13:49 Plt Count 318 10^3/ul (150-450) 06/04/18 13:49 MPV 7.2 fL (7.4-10.4) L 06/04/18 13:49 Neut % (Auto) 84.7 % 06/04/18 13:49 Lymph % (Auto) 7.0 % 06/04/18 13:49 [place] % (Auto) 7.1 % 06/04/18 13:49 Eos % (Auto) 0.4 % 06/04/18 13:49 Baso % (Auto) 0.8 % 06/04/18 13:49 Absolute Neuts (auto) 5.8 10^3/ul (1.5-7.7) 06/04/18 13:49 Absolute Lymphs (auto) 0.5 10^3/ul (1.0-4.8) L 06/04/18 13:49 Absolute Monos (auto) 0.5 10^3/ul (0-0.8) 06/04/18 13:49 Absolute Eos (auto) 0 10^3/ul (0-0.6) 06/04/18 13:49 Absolute Basos (auto) 0.1 10^3/ul (0-0.2) 06/04/18 13:49 Absolute Nucleated RBC 0 10^3/ul 06/04/18 13:49 Nucleated RBC % 0 06/04/18 13:49 Polychromasia 1+ 05/23/18 20:46 Basophilic Stippling 1+ 05/23/18 20:46 Anisocytosis 1+ 05/23/18 20:46 Hem Pathologist Commnt 05/23/18 20:46 INR (Anticoag Therapy) 0.99 (0.77-1.02) 05/20/18 11:54 APTT 22.3 seconds (26.0-36.3) L 05/20/18 11:54 Sodium 142 mmol/L (135-145) 06/05/18 06:45 Potassium 3.9 mmol/L (3.5-5.0) 06/05/18 06:45 Chloride 102 mmol/L (101-111) 06/05/18 06:45 Carbon Dioxide 38 mmol/L (22-32) H 06/05/18 06:45 Anion Gap 2 mmol/L (2-11) 06/05/18 06:45 BUN 14 mg/dL (6-24) 06/05/18 06:45 Creatinine 0.47 mg/dL (0.51-0.95) L 06/05/18 06:45 Est GFR ( Amer) 160.4 (>60) 06/05/18 06:45 Est GFR (Non-Af Amer) 132.6 (>60) 06/05/18 06:45 BUN/Creatinine Ratio 29.8 (8-20) H 06/05/18 06:45 Glucose 105 mg/dL (70-100) H 06/05/18 06:45 Lactic Acid 1.1 mmol/L (0.5-2.0) 05/20/18 11:55 Calcium 8.6 mg/dL (8.6-10.3) 06/05/18 06:45 Magnesium 2.1 mg/dL (1.9-2.7) 06/01/18 04:45 Total Bilirubin 0.60 mg/dL (0.2-1.0) 06/05/18 06:45 AST 17 U/L (13-39) 06/05/18 06:45 ALT 18 U/L (7-52) 06/05/18 06:45 Alkaline Phosphatase 105 U/L (34-104) H 06/05/18 06:45 Troponin I 0.05 ng/mL (<0.04) H* 05/21/18 01:40 Total Protein 5.5 g/dL (6.4-8.9) L 06/05/18 06:45 Albumin 2.9 g/dL (3.2-5.2) L 06/05/18 06:45 Globulin 2.6 g/dL (2-4) 06/05/18 06:45 Albumin/Globulin Ratio 1.1 (1-3) 06/05/18 06:45 Urine Color Yellow 05/20/18 10:50 Urine Appearance Clear 05/20/18 10:50 Urine pH 8.0 (5-9) 05/20/18 10:50 Ur Specific [place] 1.008 (1.010-1.030) L 05/20/18 10:50 Urine Protein Negative (Negative) 05/20/18 10:50 Urine Ketones Negative (Negative) 05/20/18 10:50 Urine Blood Negative (Negative) 05/20/18 10:50 Urine Nitrate Negative (Negative) 05/20/18 10:50 Urine Bilirubin Negative (Negative) 05/20/18 10:50 Urine Urobilinogen Negative (Negative) 05/20/18 10:50 Ur Leukocyte Esterase Trace (Negative) A 05/20/18 10:50 Urine WBC (Auto) Trace(0-5/hpf) (Absent) 05/20/18 10:50 Urine RBC (Auto) 1+(3-5/hpf) (Absent) A 05/20/18 10:50 Urine Bacteria Absent (Absent) 05/20/18 10:50 Urine Glucose Negative (Negative) 05/20/18 10:50 Blood Type A Negative 05/23/18 20:46 Antibody Screen Negative 05/23/18 20:46 Crossmatch See Detail 05/23/18 20:46
--- NOTE | 2018-06-07 12:48 | PN ---
Progress Note - Progress Note Date of Service: 06/07/18 SOAP: Subjective: [Desaturated overnight. Improved with 8L o2 and application of CPAP and now stable this morning off of O2. She is tearful and anxious. ] Objective: [ Vital Signs: Temp Pulse Resp BP Pulse Ox 99.9 F 76 20 93/56 97 06/07/18 12:01 06/07/18 12:01 06/07/18 12:26 06/07/18 12:01 06/07/18 12:01 Alprazolam (Xanax Tab*) 0.5 mg PO Q4H PRN PRN Reason: ANXIETY Last Admin: 06/07/18 11:47 Dose: 0.5 mg Dronabinol (Marinol Cap*) 5 mg PO TID [facility] Last Admin: 06/07/18 09:00 Dose: 5 mg Fentanyl (Duragesic Patch 100 Mcg/Hr *) 100 mcg TRANSDERM Q72H [facility] Last Admin: 06/05/18 12:18 Dose: 100 mcg Fentanyl Citrate (Fentanyl Citrate Oral Lozenge) 200 mcg PO Q3H PRN PRN Reason: SEVERE PAIN Last Admin: 06/07/18 10:54 Dose: 200 mcg Fluoxetine HCl (Prozac Cap*) 60 mg PO DAILY [facility] Last Admin: 06/07/18 09:00 Dose: 60 mg Levetiracetam (Keppra Tab*) 500 mg PO QAM [facility] Last Admin: 06/07/18 09:00 Dose: 500 mg Levetiracetam (Keppra Tab*) 1,000 mg PO BEDTIME [facility] Last Admin: 06/06/18 20:17 Dose: 1,000 mg Pto - Medical (Marijuana 1 Ml) 1 ml PO QID [facility] Last Admin: 06/07/18 09:02 Dose: 1 ml Pto: Medical (Marijuana Oil) 0.5 admin PO BID PRN PRN Reason: PAIN Last Admin: 06/07/18 11:04 Dose: 0.5 admin Ondansetron HCl (Zofran Inj*) 4 mg IV Q4H PRN PRN Reason: NAUSEA/VOMITING Last Admin: 06/06/18 03:15 Dose: 4 mg Oxycodone HCl (Oxycodone Oral.Soln*) 15 mg PO Q2HR PRN PRN Reason: PAIN Last Admin: 06/07/18 12:26 Dose: 15 mg Oxycodone HCl (Oxycontin(*)) 120 mg PO TID [facility] Last Admin: 06/07/18 09:01 Dose: 120 mg Pantoprazole Sodium (Protonix Tab*) 40 mg PO QAM [facility] Last Admin: 06/07/18 09:01 Dose: 40 mg Pharmacy Profile Note (Fentanyl Patch Check Q Shift) 1 note N/A 0700,1900 [facility] Last Admin: 06/07/18 06:49 Dose: 1 note Polyethylene Glycol/Electrolytes (Miralax*) 17 gm PO Q12HR [facility] Last Admin: 06/07/18 09:02 Dose: Not Given Rivaroxaban (Xarelto(*)) 10 mg PO DAILY [facility] Last Admin: 06/07/18 09:00 Dose: 10 mg Tizanidine HCl (Zanaflex Tab*) 2 mg PO TID [facility] Last Admin: 06/07/18 09:01 Dose: 2 mg Exam: Gen: Chronically ill appearing 67 yo female who appears to be in NAD HEENT: MMM, no thrush CV: RRR, no m/r/g Resp: lungs CTA, no w/c/r Abd: soft, nonTTP Ext: bilateral LE edema - improved, extremities are warm, appropriate capillary refill - LLE in short leg cast MS: R wrist in an SALLY bandage, but seems to move appropriately Psych: more anxious today Assessment: [67 yo female with metastatic breast CA and chronic pain with significant opiate tolerance who sustained a fall at home resulting in a L tib/fib fracture and R femur fracture now s/p ORIF. Plan: [1. L tib/fib and R femur fractures s/p ORIF - POD #16 - NWB both lower extremities x 6 weeks - pain control remains the major concern - anesthesiology consultation greatly appreciated - Dr Finn suggested use of fentanyl lozenges which seem to have been an effective replacement for the IV fentanyl - cont oxycontin 120 mg tid and oxycodone liquid 15 mg q 4h prn - cont fentanyl patch (100 mcg) - cont scheduled muscle relaxants - cont medical marajuana prn 2. Acute blood loss anemia - transfused 3U PRBCs postoperatively, Hgb now stable - cont to monitor 3. Thrombocytopenia - resolved 4. Metastatic breast CA - no plans for additional treatment 5. Chronic pain - followed by Dr Encarnacion as an outpatient - see discussion above 6. H/o DVT 2016 - cont Xarelto at prior home dose of 10mg daily 7. Code status - DNR 8. HCP - current HCP is listed as her son - she would like to switch this to her , she has repeated this desire outside the presence of her , but would like to wait to sign paperwork until her son is present. Her son is scheduled to visit later this week Dispo: she has been offered a bed at the [facility] with plans for transfer tomorrow.]
[2018-06-07] MEDS ORDERED: LORazepam INJ* 2 MG/ML 1 ML VIAL IV PUSH ONE (14:47)
[2018-06-07] MEDS ORDERED: fentaNYL* 50 MCG/ML 2 ML VIAL (100 MCG VIAL) IV SLOW PU ONE (15:47)
[2018-06-07] MEDS: Ondansetron INJ* 2 MG/ML VIAL IV PRN (21:25)
[2018-06-08] MEDS: oxyCODONE ORAL.SOLN* 5 MG/5 ML UDC PO PRN ×2 (01:37→04:51)
[2018-06-08] MEDS: FENTANYL PO PRN (01:43)
[2018-06-08] MEDS: fentaNYL Patch Check Q Shift 1 NOTE SCH (06:58)
--- NOTE | 2018-06-08 09:20 | PN ---
Progress Note - Progress Note Date of Service: 06/08/18 SOAP: Subjective: []Still in pain 12/02. Reviewed plan of care. She understands hospice disposition. She is eating, no nausea. Alprazolam (Xanax Tab*) 0.5 mg PO Q4H PRN PRN Reason: ANXIETY Last Admin: 06/07/18 11:47 Dose: 0.5 mg Dronabinol (Marinol Cap*) 5 mg PO TID [facility] Last Admin: 06/07/18 20:28 Dose: 5 mg Fentanyl (Duragesic Patch 100 Mcg/Hr *) 100 mcg TRANSDERM Q72H [facility] Last Admin: 06/05/18 12:18 Dose: 100 mcg Fentanyl Citrate (Fentanyl Citrate Oral Lozenge) 200 mcg PO Q3H PRN PRN Reason: SEVERE PAIN Last Admin: 06/08/18 01:43 Dose: 200 mcg Fluoxetine HCl (Prozac Cap*) 60 mg PO DAILY [facility] Last Admin: 06/07/18 09:00 Dose: 60 mg Levetiracetam (Keppra Tab*) 500 mg PO QAM [facility] Last Admin: 06/07/18 09:00 Dose: 500 mg Levetiracetam (Keppra Tab*) 1,000 mg PO BEDTIME [facility] Last Admin: 06/07/18 20:28 Dose: 1,000 mg Pto - Medical (Marijuana 1 Ml) 1 ml PO QID [facility] Last Admin: 06/07/18 20:28 Dose: 1 ml Pto: Medical (Marijuana Oil) 0.5 admin PO BID PRN PRN Reason: PAIN Last Admin: 06/07/18 11:04 Dose: 0.5 admin Ondansetron HCl (Zofran Inj*) 4 mg IV Q4H PRN PRN Reason: NAUSEA/VOMITING Last Admin: 06/07/18 21:25 Dose: 4 mg Oxycodone HCl (Oxycodone Oral.Soln*) 15 mg PO Q2HR PRN PRN Reason: PAIN Last Admin: 06/08/18 04:51 Dose: 15 mg Oxycodone HCl (Oxycontin(*)) 120 mg PO TID [facility] Last Admin: 06/07/18 20:27 Dose: 120 mg Pantoprazole Sodium (Protonix Tab*) 40 mg PO QAM [facility] Last Admin: 06/07/18 09:01 Dose: 40 mg Pharmacy Profile Note (Fentanyl Patch Check Q Shift) 1 note N/A 0700,1900 [facility] Last Admin: 06/08/18 06:58 Dose: 1 note Polyethylene Glycol/Electrolytes (Miralax*) 17 gm PO Q12HR [facility] Last Admin: 06/07/18 22:06 Dose: Not Given Rivaroxaban (Xarelto(*)) 10 mg PO DAILY [facility] Last Admin: 06/07/18 09:00 Dose: 10 mg Tizanidine HCl (Zanaflex Tab*) 2 mg PO TID [facility] Last Admin: 06/07/18 20:28 Dose: 2 mg Objective: [] Vital Signs Temp Pulse Resp BP Pulse Ox 98.4 F 82 16 133/62 96 06/08/18 05:00 06/08/18 05:00 06/08/18 04:51 06/08/18 04:00 06/08/18 05:00 Exam: Gen: Chronically ill appearing 67 yo female who appears to be in NAD HEENT: MMM, no thrush CV: RRR, no m/r/g Resp: lungs CTA, no w/c/r Abd: soft, nonTTP Ext: bilateral LE edema Psych: tearing, anxious Assessment: [67 yo female with metastatic breast CA and chronic pain with significant opiate tolerance who sustained a fall at home resulting in a L tib/fib fracture and R femur fracture now s/p ORIF. She is not a candidate for additional cancer treatment and has sever, uncontrolled pain. Transition to hospice residence today. Plan: [1. L tib/fib and R femur fractures s/p ORIF - NWB both lower extremities for an additional 4 weeks. - pain control remains the major concern - fentanyl lozenges which seem to have been an effective replacement for the IV fentanyl - cont oxycontin 120 mg tid and oxycodone liquid 15 mg q 4h prn - cont fentanyl patch (100 mcg) - cont scheduled muscle relaxants - cont medical marajuana prn 2. Metastatic breast CA - no plans for additional treatment - patient and family in agreement with hospice. 5. Chronic pain. We have no modulated treatment of axiety, increase xanax 6. H/o DVT 2015 - cont Xarelto at prior home dose of 10mg daily 7. Code status - DNR 8. HCP. Proxy now
[2018-06-08] MEDS: Polyethylene Glycol 3350* 17 GM PACKET PO SCH (09:35)
[2018-06-08] MEDS: FLUoxetine CAP* 20 MG PO SCH (09:50)
[2018-06-08] MEDS: Rivaroxaban TAB(*) 10 MG PO SCH (09:50)
[2018-06-08] MEDS: Pantoprazole TAB * 40 MG TAB PO SCH (09:51)
[2018-06-08] MEDS: levETIRAcetam TAB* 500 MG PO SCH (09:51)
[2018-06-08] MEDS: tiZANidine TAB* 2 MG PO SCH (09:51)
[2018-06-08] MEDS: oxyCODONE SR TAB(*) 40 MG TAB.SR PO SCH (09:51)
[2018-06-08] MEDS: MEDICAL MARIJUANA PO SCH (09:52)
--- NOTE | 2018-06-08 09:55 | DS ---
DISCHARGE SUMMARY: DATE OF ADMISSION: 05/20/18 DATE OF DISCHARGE: 06/08/18 DISCHARGE DIAGNOSES: 1. Metastatic breast cancer. 2. Refractory pain. 3. Depression. 4. Anxiety. 5. Bilateral leg fractures, status post bilateral surgery. HOSPITAL COURSE: Presented after fall with bilateral fractures. She had sequential surgical repair from each side including pinning, fixation, and plates placed. She is nonweightbearing for 6 weeks. She has longstanding refractory pain with high-dose narcotics. During the admission, she has remained on bed rest with uncontrolled pain. We have had escalation of medicine , both IV, oral and with lozenges. Multiple discussions with the family over the past 2 weeks. No longer a candidate for cancer treatment. Given difficulty in symptom management, it was decided to transition to hospice and [facility] The patient, son, and are all in agreement with this plan. MEDICATIONS ON DISCHARGE: 1. Marinol 5 mg p.o. t.i.d. 2. Nexium 40 mg daily. 3. Fentanyl 200 mcg lozenges q.3 hours p.r.n. 4. Fentanyl patch 100 mcg. 5. Prozac 60 mg daily. 6. Keppra 500 in the morning and 1500 at bedtime. 7. Medical marijuana. 8. Oxycodone 40 mg t.i.d. 9. MiraLAX 17 daily. 10. Tizanidine 4 mg q.p.m. 11. Roxanol 5 mg/5 mL, 15 mg q.2 p.r.n. We will continue to follow her as the physician of record in the hospice facility. No clinic followup planned and no pending studies. [id number]/[facility] #: [id number] MTDD
[2018-06-08] MEDS: fentaNYL PATCHs 100 MCG/HR TRANSDERM SCH (11:08)
[2018-06-08] MEDS: Dronabinol CAP* 2.5 MG PO SCH (11:34)
[2018-06-08] MEDS: ALPRAZolam TAB* 0.5 MG PO PRN (11:39)
[2018-06-08] MEDS: [UNRECOGNIZED DRUG - OTHER] PO PRN ×2 (11:40→12:26)
[2018-06-08 12:10] VITALS: BP 132/71
== END 2018-06-08 11:30 | disposition hospice, home (50) | DRG 481 ==
LOC: ED 07:05 → SSU 12:50 → ICU 05-22 21:44
PROVIDERS: ADMIT Internal Medicine; ATTEND Internal Medicine Hematology & Oncology
PROC: 30233N1 Transfusion of Nonautologous Red Blood Cells into Peripheral Vein, Percutaneous Approach (ICD-10-PCS; 2018-05-20)
PROC: 0QSHXZZ Reposition Left Tibia, External Approach (ICD-10-PCS; 2018-05-20)
PROC: 0QSB04Z Reposition Right Lower Femur with Internal Fixation Device, Open Approach (ICD-10-PCS; principal; 2018-05-21)
PROC: 0QSH04Z Reposition Left Tibia with Internal Fixation Device, Open Approach (ICD-10-PCS; 2018-05-21)
PROC: 0QS604Z Reposition Right Upper Femur with Internal Fixation Device, Open Approach (ICD-10-PCS; 2018-05-21)
DX: S82.252A Displaced comminuted fracture of shaft of left tibia, initial encounter for closed fracture (principal); S72.451A Displaced supracondylar fracture without intracondylar extension of lower end of right femur, initial encounter for closed fracture; C79.51 Secondary malignant neoplasm of bone; D62 Acute posthemorrhagic anemia; N39.0 Urinary tract infection, site not specified; M97.01XA Periprosthetic fracture around internal prosthetic right hip joint, initial encounter; G89.3 Neoplasm related pain (acute) (chronic); E04.2 Nontoxic multinodular goiter; J45.909 Unspecified asthma, uncomplicated; K21.9 Gastro-esophageal reflux disease without esophagitis; M41.9 Scoliosis, unspecified; M79.7 Fibromyalgia; H26.9 Unspecified cataract; H40.9 Unspecified glaucoma; G62.9 Polyneuropathy, unspecified; F41.9 Anxiety disorder, unspecified; F32.9 Major depressive disorder, single episode, unspecified; R00.1 Bradycardia, unspecified; B96.20 Unspecified Escherichia coli [E. coli] as the cause of diseases classified elsewhere; M85.80 Other specified disorders of bone density and structure, unspecified site; R47.81 Slurred speech; M79.641 Pain in right hand; E78.5 Hyperlipidemia, unspecified; G47.33 Obstructive sleep apnea (adult) (pediatric); G40.909 Epilepsy, unspecified, not intractable, without status epilepticus; E87.6 Hypokalemia; I95.9 Hypotension, unspecified; D69.6 Thrombocytopenia, unspecified; K44.9 Diaphragmatic hernia without obstruction or gangrene; R60.9 Edema, unspecified; M81.0 Age-related osteoporosis without current pathological fracture; W01.198A Fall on same level from slipping, tripping and stumbling with subsequent striking against other object, initial encounter; Z66 Do not resuscitate; Z88.1 Allergy status to other antibiotic agents; Z91.030 Bee allergy status; Z91.041 Radiographic dye allergy status; Z91.012 Allergy to eggs; Z91.040 Latex allergy status; Z88.0 Allergy status to penicillin; Z88.2 Allergy status to sulfonamides; Z88.8 Allergy status to other drugs, medicaments and biological substances; C50.919 Malignant neoplasm of unspecified site of unspecified female breast; Z91.018 Allergy to other foods; Z91.048 Other nonmedicinal substance allergy status; Z91.09 Other allergy status, other than to drugs and biological substances; Z86.718 Personal history of other venous thrombosis and embolism; Z98.2 Presence of cerebrospinal fluid drainage device; Z92.21 Personal history of antineoplastic chemotherapy; Z96.641 Presence of right artificial hip joint; Z92.3 Personal history of irradiation; Z98.1 Arthrodesis status; Z86.19 Personal history of other infectious and parasitic diseases; Z82.49 Family history of ischemic heart disease and other diseases of the circulatory system; Z80.42 Family history of malignant neoplasm of prostate; Z96.653 Presence of artificial knee joint, bilateral; Z87.310 Personal history of (healed) osteoporosis fracture; Z90.710 Acquired absence of both cervix and uterus; Z90.49 Acquired absence of other specified parts of digestive tract; Z99.3 Dependence on wheelchair; Z90.10 Acquired absence of unspecified breast and nipple; Y93.9 Activity, unspecified; Y92.009 Unspecified place in unspecified non-institutional (private) residence as the place of occurrence of the external cause
CPT/HCPCS: 36415; 71045; 73523; 76000; 80048; 80053; 81003; 81015; 83605; 83735; 84484; 85025; 85027; 85060; 85610; 85730; 86850; 86900; 86901; 86922; 87077; 87086; 87186; 87641; 93005; 94660; 96372; 99211; 99222; 99232; 99233; 99239; 99285; A9270-GY; C1713; C1776; G0463; G8978-GP-CM; G8978-GP-CN; G8979-GP-CL; G8979-GP-CN; G8987-GO-CM; G8988-GO-CK; J0690; J0780; J0897; J2060; J2250; J2270; J2405; J2704; J2795; J3010; J3475; P9040

== ENCOUNTER 2019-01-11 10:01 | Inpatient (IN) | payer MEDICARE, BC ==
[2019-01-11] MEDS ORDERED: NS 0.9% 1000 ML** 1,000 ML IV ONE (10:22)
--- NOTE | 2019-01-11 10:24 | ED ---
Shortness of Breath - HPI Summary HPI Summary: Patient is a 68 year old F w hx metastatic cancer, recent UTI, indwelling saab , DVT, arriving via ambulance to [facility] with a chief complaint of SOB since and worsening 01/11/19 in AM. Patient had been experiencing respiratory distress for the past few days which worsened this AM. This morning patients O2 stats was at 40% and hypoxic patient was then placed on RA on NRB. Patients O2 stats increased to 60% and was placed on CPAP and Duoneb with O2 stats in the 90s. The patient rates the pain 8/10 in severity. Symptoms aggravated by nothing. Symptoms alleviated by O2 and Duoneb. Patient states that patient has a PMHx of DVT, Mastitis around left breast, sleep apnea, MRSA, and cold like symptoms. Patient has recently been treated for a UTI with Keflex. Patient previously on chemo and last chemo treatment was in April of 2018. Patient reports productive cough, cold like symptoms. Patient denies PMHx of heart failure. Further hx not obtained 2/2 respiratory distress on BiPAP. Home Medications Medication Instructions Recorded Confirmed Type levETIRAcetam TAB* [Keppra TAB*] 1,000 mg PO BEDTIME 03/21/12 05/20/18 History levETIRAcetam TAB* [Keppra TAB*] 500 mg PO QAM 03/21/12 05/20/18 History Fluoxetine HCl [Prozac] 60 mg PO DAILY 10/05/13 05/20/18 History Esomeprazole Magnesium [Nexium] 40 mg PO QAM 11/05/13 05/20/18 History Tizanidine HCl 4 mg PO QPM 01/24/15 05/20/18 History Alpha Lipoic Acid 300 mg PO DAILY 12/20/17 05/20/18 History Medical Marijuana 0.5 ml PO TID 12/20/17 05/20/18 History Xarelto 10 mg PO DAILY 05/20/18 05/20/18 History ALPRAZolam [Alprazolam] 0.5 mg PO Q4HR PRN #40 tablet MDD 06/08/18 Rx 6 tabs Oxycodone HCl [Oxycodone HCl ER] 120 mg PO TID #20 tab MDD 360 mg 06/08/18 Rx fentaNYL PATCHs 100 MCG/HR* 100 mcg TRANSDERM Q72H #1 patch 06/08/18 Rx [Duragesic Patch 100 Mcg/Hr *] MDD 1 patch oxyCODONE ORAL.SOLN* [Oxycodone 15 mg PO Q2H #540 ml MDD 180 mg 06/08/18 Rx ORAL.SOLN 5 mg/5 ml *] Allergies Allergy/AdvReac Type Severity Reaction Status Date / Time letrozole [From Femara] Allergy Severe Hives Verified 05/22/18 15:31 iodine Allergy Mild Rash Verified 05/20/18 12:30 acetaminophen Allergy Hives Verified 06/01/18 17:57 Adhesive Tape Allergy Unknown Verified 05/20/18 12:30 Reaction Details ampicillin Allergy Unknown Verified 05/20/18 12:30 Reaction Details azithromycin Allergy Unknown Verified 05/20/18 12:30 Reaction Details bee venom protein (honey bee) Allergy Swelling Verified 05/22/18 15:34 Of Face,Lips,& Throat carbamazepine [From Tegretol] Allergy Unknown Verified 05/20/18 12:30 Reaction Details cefuroxime [From Ceftin] Allergy Unknown Verified 05/20/18 12:30 Reaction Details celecoxib [From Celebrex] Allergy Unknown Verified 05/20/18 12:30 Reaction Details chicken derived Allergy Rash Verified 05/22/18 15:34 cisapride Allergy Headache Verified 05/20/18 12:30 cyclobenzaprine Allergy Shakes Verified 05/20/18 12:30 divalproex sodium Allergy Altered Verified 05/20/18 12:30 [From Depakote] Mental Status egg Allergy Rash Verified 05/20/18 12:30 Egg Derived Allergy Rash Verified 05/20/18 12:30 estrogens, conjugated Allergy Unknown Verified 05/20/18 12:30 [From Premarin] Reaction Details feathers Allergy See Comment Verified 05/22/18 15:41 gabapentin Allergy Altered Verified 05/20/18 12:30 Mental Status Gadolinium-Containing Allergy Hives Verified 05/20/18 12:30 Contrast Medi hydromorphone Allergy Hallucinati Verified 05/20/18 12:30 ons latex Allergy Blisters Verified 05/20/18 12:30 meperidine Allergy Hallucinati Verified 05/20/18 12:30 ons metronidazole Allergy Unknown Verified 05/20/18 12:30 Reaction Details NSAIDS (Non-Steroidal Allergy Rash Verified 05/20/18 12:30 Anti-Inflamma ofloxacin [From Floxin] Allergy Unknown Verified 05/20/18 12:30 Reaction Details propoxyphene Allergy Rash And Verified 05/20/18 12:30 Itching Sulfa (Sulfonamide Allergy Swelling Verified 05/22/18 15:48 Antibiotics) Of Face,Lips,& Throat valproic acid Allergy Altered Verified 05/20/18 12:30 Mental Status warfarin Allergy Unknown Verified 05/20/18 12:30 Reaction Details phenobarbital AdvReac Severe Nausea And Verified 05/22/18 15:31 Vomiting ISOTOPE FOR PET SCAN Allergy Severe LIPS Uncoded 05/20/18 12:31 SWELLED DUST Allergy Difficulty Uncoded 05/20/18 12:31 Breathing/Wheezing - History of Current Complaint Time Seen by Provider: 01/11/19 10:16 Hx Obtained From: Patient, EMS Onset/Duration: Gradual Onset, Lasting Days - since 01/09/19, Worse Since - in AM Timing: Constant Dyspnea At: Rest Alleviating Factors: Oxygen Associated Signs & Symptoms: Cough (Productive) - Allergy/Home Medications Allergies/Adverse Reactions: Allergies Allergy/AdvReac Type Severity Reaction Status Date / Time letrozole [From Femara] Allergy Severe Hives Verified 01/11/19 11:46 iodine Allergy Mild Rash Verified 01/11/19 11:46 acetaminophen Allergy Hives Verified 01/11/19 11:46 Adhesive Tape Allergy Unknown Verified 01/11/19 11:46 Reaction Details ampicillin Allergy Unknown Verified 01/11/19 11:46 Reaction Details azithromycin Allergy Unknown Verified 01/11/19 11:46 Reaction Details bee venom protein (honey bee) Allergy Swelling Verified 01/11/19 11:46 Of Face,Lips,& Throat carbamazepine [From Tegretol] Allergy Unknown Verified 01/11/19 11:46 Reaction Details cefuroxime [From Ceftin] Allergy Unknown Verified 01/11/19 11:46 Reaction Details celecoxib [From Celebrex] Allergy Unknown Verified 01/11/19 11:46 Reaction Details chicken derived Allergy Rash Verified 01/11/19 11:46 cisapride Allergy Headache Verified 01/11/19 11:46 cyclobenzaprine Allergy Shakes Verified 01/11/19 11:46 divalproex sodium Allergy Altered Verified 01/11/19 11:46 [From Depakote] Mental Status egg Allergy Rash Verified 01/11/19 11:46 Egg Derived Allergy Rash Verified 01/11/19 11:46 estrogens, conjugated Allergy Unknown Verified 01/11/19 11:46 [From Premarin] Reaction Details feathers Allergy See Comment Verified 01/11/19 11:46 gabapentin Allergy Altered Verified 01/11/19 11:46 Mental Status Gadolinium-Containing Allergy Hives Verified 01/11/19 11:46 Contrast Medi hydromorphone Allergy Hallucinati Verified 01/11/19 11:46 ons latex Allergy Blisters Verified 01/11/19 11:46 meperidine Allergy Hallucinati Verified 01/11/19 11:46 ons metronidazole Allergy Unknown Verified 01/11/19 11:46 Reaction Details NSAIDS (Non-Steroidal Allergy Rash Verified 01/11/19 11:46 Anti-Inflamma ofloxacin [From Floxin] Allergy Unknown Verified 01/11/19 11:46 Reaction Details propoxyphene Allergy Rash And Verified 01/11/19 11:46 Itching Sulfa (Sulfonamide Allergy Swelling Verified 01/11/19 11:46 Antibiotics) Of Face,Lips,& Throat valproic acid Allergy Altered Verified 01/11/19 11:46 Mental Status warfarin Allergy Unknown Verified 01/11/19 11:46 Reaction Details phenobarbital AdvReac Severe Nausea And Verified 01/11/19 11:46 Vomiting ISOTOPE FOR PET SCAN Allergy Severe LIPS Uncoded 05/20/18 12:31 SWELLED DUST Allergy Difficulty Uncoded 05/20/18 12:31 Breathing/Wheezing PMH/Surg Hx/FS Hx/Imm Hx Endocrine/Hematology History: Reports: Hx Bone Marrow Disease - bone CA, Hx Thyroid Disease - MULTI NODULAR GOITER Denies: Hx Diabetes Cardiovascular History: Reports: Hx Angina, Hx Deep Vein Thrombosis, Hx Peripheral Vascular Disease - leg,blood clot, Hx Syncope, Other Cardiovascular Problems/Disorders Denies: Hx Hypertension, Hx Pacemaker/ICD, Hx Rheumatic Fever, Hx Valvular Heart Disease Respiratory History: Reports: Hx Asthma, Hx Sleep Apnea - NO CPAP, on O2 2L at night Denies: Hx Pulmonary Embolism GI History: Reports: Hx Gastroesophageal Reflux Disease, Hx Hiatal Hernia, Hx Ulcer, Other GI Disorders History: Denies: Hx Renal Disease Musculoskeletal History: Reports: Hx Arthritis, Hx Back Problems - osteoporosis , Hx Bursitis - WRIST HIP SHOULDER, Hx Scoliosis, Other Musculoskeletal History - Breast CA, metastatic to bone; FIBROMYALGIA; LEFT ARM AND LEG LYMPHEDEMA Sensory History: Reports: Hx Cataracts - BILAT, Hx Contacts or Glasses, Hx Glaucoma - LEFT Denies: Hx Hearing Aid, Hx Hearing Problem Opthamlomology History: Reports: Hx Cataracts - BILAT, Hx Contacts or Glasses, Hx Glaucoma - LEFT Neurological History: Reports: Hx Headaches, Hx Nerve Disease - NEUROPATHY, Hx Seizures - many years ago, Other Neuro Impairments/Disorders - vp medical shunt Psychiatric History: Reports: Hx Anxiety, Hx Depression Denies: Hx Panic Disorder - Cancer History Cancer Type, Location and Year: BREAST CA AND SECONDARY MALIGNANT NEOPLASM OF BONE Hx Chemotherapy: Yes Hx Radiation Therapy: Yes - Surgical History Surgery Procedure, Year, and Place: MULTIPLE SHUNTS- PROGRAMMABLE ( DO AT HOSP..HAS TO BE CHECK PRE & POST MRI UNDER [facility] W/ DR ENGEL) , NECK FUSION, LEFT KNEE REPLACEMENT , RIGHT HIP REPLACEMENT. LT LEG- FX REPAIR- W/ PLATE. THUMB - FX - SCREW. POWER PORT Hx Anesthesia Reactions: No Infectious Disease History: Yes Infectious Disease History: Reports: Hx of Known/Suspected MRSA - in port, Hx Shingles Denies: Hx Hepatitis, Hx Known/Suspected VRE - Family History Known Family History: Positive: Cardiac Disease, Other - Father - prostate cancer - Social History Alcohol Use: None Hx Substance Use: Yes Substance Use Type: Reports: Marijuana - medical, Prescribed Substance Use Comment - Amount & Last Used: sees pain management Hx Tobacco Use: No Smoking Status (MU): Never Smoked Tobacco Review of Systems Negative: Fever Positive: Shortness Of Breath, Cough Positive: other - Saab, UTI (currentley being treated with Kelflex) All Other Systems Reviewed And Are Negative: Yes Physical Exam - Summary Physical Exam Summary: Constitutional: Ill appearing, moderate distress Skin: Warm, Dry HENT: Normocephalic; Atraumatic Eyes: Conjunctiva normal Neck: Musculoskeletal ROM normal neck. (-) JVD, (-) Stridor, (-) Nuchal rigidity Cardio: Tachycardic; regular rate, thready radial pulses. (-) Murmur Pulmonary/Chest wall: significantly inc WOB, bilateral rhonchi, dec lung sounds AISLINN Abd: Soft, (-) tenderness, (-) Distension, (-) Guarding, (-) Rebound Musculoskeletal: Status post left mastectomy, right chest port, bilateral feet in heel pressure relief boots, trace edema, 2+ DP pulses Lymph: (-) Cervical adenopathy Neuro: Alert, Oriented x3 Psych: anxious : Chronic Saab Triage Information Reviewed: Yes Vital Signs Reviewed: Yes Procedures - Procedure Summary Procedure Summary: US IV Ultrasound Guided Peripheral IV Procedure Note Indication: Unable to obtain adequate IV access Skin Prep:Chlorhexidine Sterile Prep (allowed to dry for thirty seconds) Sterility: Gloves Insertion: Appropriate time out was taken. Ultrasound guidance was utilized for vein selection, to document selected vessel patency and real time ultrasound visualization of vascular needle entry into venous lumen. Insertion Site: R AC Type of catheter: 20 gauge catheter Blood return:yes Saline lock: yes Post Procedure: Estimated blood loss: minimal Diagnostics - Laboratory Result Diagrams: 01/11/19 10:12 01/11/19 10:12 Lab Statement: Any lab studies that have been ordered have been reviewed, and results considered in the medical decision making process. - Radiology Chest Xray Summary of Radiographic Findings: Chest Xray reveals, per radiologist, IMPRESSION: Extensive infiltrates in the left upper lobe and left lower lobe as well asthe right upper lobe and right lower lobe. Underlying masses are not excluded. Central catheter is in place. ED Physician has reviewed this report. - EKG 1020 Cardiac Rate: Tachycardia - 125 BPM EKG Rhythm: Sinus Tachycardia EKG Comparison: No Significant Change Summary of EKG Findings: An EKG at 1020 reveals Tachycardia sinus rhythm 125 bpm , nml axis, nml intervals. No STEMI. No acute changes. No significant changes compared to prior on 05/20/18. Re-Evaluation - Re-Evaluation First Eval Re-Evaluation Time: 10:46 Change: Improved Comment: Patient's O2 stats are up to 100. Patient is anxious, ordered 4 morphine for patient. I had an extensive discussion with her about respiratory depression given her tenderness status, hypoxia. He states that she needs pain and anxiety control. Patient to be given morphine and reassessment afterwards. Patient is high-risk decompensation and . Second Eval Re-Evaluation Time: 10:46 Change: Improved Comment: Dr. Peralta discussed with Dr. Stark about patient also Dr. Jennings. We went over her medications, and she was given Cipro in November therefore we'll give Levaquin. Dr. Peralta spoke to the hospital pharmacy about patient's allergies at 1103. Course/Dx - Course Course Of Treatment: 68-year-old female with a history of metastatic breast cancer, not currently on active chemotherapy, DVTs, recent UTI indwelling Saab catheter, presents with respiratory distress. Shortness of breath ddx: Most likely PNA. Also consider: COPD exacerbation/asthma - no h/o COPD, no wheezing on exam. Low suspicion. PTX - breath sounds equal, no risk factors for PTX, CXR w/o e/o PTX. ACS - no CP, no EKG changes, initial trop elevated likely in setting of sepsis. CHF - no h/o CHF, no SANTOS or orthopnea, no BLE edema, CXR w infiltrates but no obvious edema. PE hx DVT, on blood thinners, unable to get CT 2/2 respiratory distress. Lactic acid 3.3 given 1 L of fluids given hypoxia respiratory distress and stable blood pressure. Troponin 0.15 suspect secondary to demand ischemia. BNP 166, no reported heart failure. - Diagnoses Provider Diagnoses: Respiratory distress, Sepsis, Pneumonia - Physician Notifications Discussed Care of Patient With: Winston Villalobos MD - [facility], [place] Time Discussed With Above Provider: 11:05 Instructed by Provider To: Other - Dr. Villalobos agrees to admit patient to the ICU at this time. - Critical Care Time Critical Care Time: 30-74 min Discharge ED - Sign-Out/Discharge Documenting (check all that apply): Patient Departure - admitted to ICU Patient Received Moderate/Deep Sedation with Procedure: No - Discharge Plan Condition: Critical Disposition: ADMITTED TO [facility] Referrals: Bhaskar Mathur MD [Family Provider] - - Billing Disposition and Condition Condition: CRITICAL Disposition: Admitted to [facility] - Attestation Statements Document Initiated by Smileyibe: Yes Documenting Scribe: Elli Santoyo Provider For Whom Aleida is Documenting (Include Credential): MD Smiley Alvesibe Attestation: Elli Simms scribed for Dr. Edmund Peralta MD on 01/11/19 at 1206. Scribe Documentation Reviewed: Yes Provider Attestation: The documentation as recorded by the Elli pettit accurately reflects the service I personally performed and the decisions made by me, Dr. Edmund Peralta MD Status of Scribe Document: Viewed
[2019-01-11 10:26] LABS: Hematocrit 36 % (35-47); Hemoglobin 11.7 g/dL (12.0-16.0); Mean Corpuscular HGB Conc 33 g/dL (31-36); Mean Corpuscular Hemoglobin 33 pg (27-31); Mean Corpuscular Volume 100 fL (80-97); Mean Platelet Volume 7.3 fL (7.4-10.4); Platelet Count 266 10^3/uL (150-450); Red Blood Count 3.56 10^6 /uL (3.70-4.87); Red Cell Distribution Width 16 % (10-15); White Blood Count 7.7 10^3/uL (3.5-10.8)
[2019-01-11 10:39] LABS: Activated Partial Thrombo Time 33.3 seconds (26.0-38.0); INR 2.3 (0.82-1.09)
[2019-01-11] MEDS ORDERED: Morphine 4 MG/ML VIAL (1 ml) 4 MG/ML VIAL IV ONE ×4 (10:45→14:14)
[2019-01-11 10:46] LABS: ALT 91 U/L (7-52); AST 47 U/L (13-39); Albumin/Globulin Ratio 0.9 (1-3); Alkaline Phosphatase 221 U/L (34-104); Anion Gap 10 mmol/L (2-11); BUN/Creatinine Ratio 35.3 (8-20); Blood Urea Nitrogen 18 mg/dL (6-24); CO2 Carbon Dioxide 27 mmol/L (22-32); Calcium 8.3 mg/dL (8.6-10.3); Chloride 98 mmol/L (101-111); EGFR African American 145.5 (>60); EGFR Non-African American 120.3 (>60); Globulin 3.3 g/dL (2-4); Glucose 207 mg/dL (70-100); Potassium 3.5 mmol/L (3.5-5.0); Sodium 135 mmol/L (135-145); Total Protein 6.3 g/dL (6.4-8.9)
[2019-01-11 10:51] LABS: Troponin I 0.13 ng/mL (<0.04)
[2019-01-11] MEDS ORDERED: Vancomycin(*) 1,000 MG VIAL IVPB SCH (11:00)
[2019-01-11] MEDS ORDERED: Vancomycin(*) 1,250 MG IV x ONCE IVPB ONE ×2 (11:00)
[2019-01-11] MEDS ORDERED: Levofloxacin 750 MG IVPREMIX(* 750 MG/150 ML BAG IVPB ONE (11:01)
[2019-01-11 11:03] LABS: ABS Eosinophils 0.1 10^3/ul (0-0.6); ABS Lymphocytes 0.8 10^3/ul (1.0-4.8); ABS Monocytes 0.1 10^3/ul (0-0.8); ABS Neutrophils 6.7 10^3/ul (1.5-7.7); Eosinophil % 0.7 %; Lymphocyte % 9.9 %; Nucleated Red Blood Cells % 0.2
[2019-01-11 11:56] LABS: Urine Appearance Turbid; Urine Bacteria 3+ (Absent); Urine Bilirubin Negative (Negative); Urine Blood Negative (Negative); Urine Color Amber; Urine Glucose Negative (Negative); Urine Ketones Trace (Negative); Urine Nitrite Negative (Negative); Urine Protein 2+(100 mg/dL) (Negative); Urine Red Blood Cell Absent (Absent); Urine Specific Gravity 1.018 (1.010-1.030); Urine Urobilinogen Positive (Negative); Urine White Blood Cell Absent (Absent)
[2019-01-11 13:32] LABS: Influenza A Molecular NEGATIVE (Negative); Influenza B Molecular NEGATIVE (Negative)
[2019-01-11] MEDS ORDERED: Ondansetron INJ* 2 MG/ML VIAL IV ONE (13:41)
[2019-01-11] MEDS ORDERED: Ondansetron INJ* 2 MG/ML VIAL ONE (13:42)
--- NOTE | 2019-01-11 15:53 | HP ---
History of Present Illness - History of Present Illness Reason for Visit: SOB History of Present Illness: 68 [place] F with Hx of BRCA with mets, previously on Hospice but discharged from Hospice because "was doing to well" p/w increased SOB. Patient had been having SOB times several days. Sx's persisted despite oxygen therapy so brought to hospital for further evaluation. Patient no longer chemotherapy candidate. Last chemo 04/2018. Patient evaluated in the ED. Required Bi-Pap therapy. CXR significant for extensive opacities B/L. CT scan from April reviewed. No such findings. 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 Heme/Onc: Other - BRCA with mets Psych: Anxiety, Depression Musculoskeletal: Other Review of Systems - Review of Systems Constitutional: Positive: Malaise Respiratory: Positive: Cough, Shortness of Breath, SOB with Excertion Musculoskeletal: Positive: Leg Pain Neurological: Positive: Weakness - Medications/Allergies Allergies/Adverse Reactions: Allergies Allergy/AdvReac Type Severity Reaction Status Date / Time letrozole [From Femara] Allergy Severe Hives Verified 01/11/19 11:46 iodine Allergy Mild Rash Verified 01/11/19 11:46 acetaminophen Allergy Hives Verified 01/11/19 11:46 Adhesive Tape Allergy Unknown Verified 01/11/19 11:46 Reaction Details ampicillin Allergy Unknown Verified 01/11/19 11:46 Reaction Details azithromycin Allergy Unknown Verified 01/11/19 11:46 Reaction Details bee venom protein (honey bee) Allergy Swelling Verified 01/11/19 11:46 Of Face,Lips,& Throat carbamazepine [From Tegretol] Allergy Unknown Verified 01/11/19 11:46 Reaction Details cefuroxime [From Ceftin] Allergy Unknown Verified 01/11/19 11:46 Reaction Details celecoxib [From Celebrex] Allergy Unknown Verified 01/11/19 11:46 Reaction Details chicken derived Allergy Rash Verified 01/11/19 11:46 cisapride Allergy Headache Verified 01/11/19 11:46 cyclobenzaprine Allergy Shakes Verified 01/11/19 11:46 divalproex sodium Allergy Altered Verified 01/11/19 11:46 [From Depakote] Mental Status egg Allergy Rash Verified 01/11/19 11:46 Egg Derived Allergy Rash Verified 01/11/19 11:46 estrogens, conjugated Allergy Unknown Verified 01/11/19 11:46 [From Premarin] Reaction Details feathers Allergy See Comment Verified 01/11/19 11:46 gabapentin Allergy Altered Verified 01/11/19 11:46 Mental Status Gadolinium-Containing Allergy Hives Verified 01/11/19 11:46 Contrast Medi hydromorphone Allergy Hallucinati Verified 01/11/19 11:46 ons latex Allergy Blisters Verified 01/11/19 11:46 meperidine Allergy Hallucinati Verified 01/11/19 11:46 ons metronidazole Allergy Unknown Verified 01/11/19 11:46 Reaction Details NSAIDS (Non-Steroidal Allergy Rash Verified 01/11/19 11:46 Anti-Inflamma ofloxacin [From Floxin] Allergy Unknown Verified 01/11/19 11:46 Reaction Details propoxyphene Allergy Rash And Verified 01/11/19 11:46 Itching Sulfa (Sulfonamide Allergy Swelling Verified 01/11/19 11:46 Antibiotics) Of Face,Lips,& Throat valproic acid Allergy Altered Verified 01/11/19 11:46 Mental Status warfarin Allergy Unknown Verified 01/11/19 11:46 Reaction Details phenobarbital AdvReac Severe Nausea And Verified 01/11/19 11:46 Vomiting ISOTOPE FOR PET SCAN Allergy Severe LIPS Uncoded 05/20/18 12:31 SWELLED DUST Allergy Difficulty Uncoded 05/20/18 12:31 Breathing/Wheezing Exam - Exam Vital Signs: Vital Signs (72 hours) 01/11/19 01/11/19 01/11/19 10:05 10:09 10:17 Temperature 98.9 F Pulse Rate 121 112 108 Respiratory 36 41 45 Rate Blood Pressure 124/57 124/57 (mmHg) O2 Sat by Pulse 81 81 81 Oximetry 01/11/19 01/11/19 01/11/19 10:52 11:00 11:02 Temperature Pulse Rate 135 Respiratory 28 42 Rate Blood Pressure (mmHg) O2 Sat by Pulse 79 89 Oximetry 01/11/19 01/11/19 01/11/19 11:16 12:00 12:46 Temperature Pulse Rate 111 113 106 Respiratory 37 30 40 Rate Blood Pressure 108/72 108/73 (mmHg) O2 Sat by Pulse 99 85 95 Oximetry 01/11/19 01/11/19 01/11/19 12:59 13:00 13:17 Temperature Pulse Rate 106 106 Respiratory 42 35 34 Rate Blood Pressure 100/76 (mmHg) O2 Sat by Pulse 97 99 Oximetry 01/11/19 01/11/19 01/11/19 13:46 14:00 14:17 Temperature Pulse Rate 93 Respiratory 39 35 31 Rate Blood Pressure 101/79 (mmHg) O2 Sat by Pulse 98 Oximetry 01/11/19 14:52 Temperature 98.1 F Pulse Rate 107 Respiratory 29 Rate Blood Pressure 99/67 (mmHg) O2 Sat by Pulse 97 Oximetry General: Alert, Oriented x3, Cooperative, Moderate distress HEENT: Atraumatic, EOMI Lungs: Other Cardiovascular: Regular rate Abdomen: Normal bowel sounds, Soft, No tenderness, No hepatospenomegaly Extremities: Other - in boot b/l. Skin: No breakdown Psych/Mental Status: Mental status NL, Mood NL Assessment/Plan - Assessment/Plan Assessment: BRCA with diffuse mets PNA ? vs metastatic spread to lungs Pain syndrome Depression Anxiety Hx of DVT LE on DOAC Plan: Had long d/w and patient. They would like a trial of ICU for the next 3 days. No vasopressor support or TLC. She is to remain DNR/DNI. No further aggressive measures besides ABX and IVF's. and patient understand she is severely sick and may soon. Patient was offered hospice care but declined. and patient will reassess situation in the next 72 hours. Continue ABX Continue Pain therapy Gentle IVF's Continue DOAC Dr. Fern[facility], will also be following patient and has visited family today. Oncology contacted by ED and patient is not a chemotherapy candidate. CCM time 67 minutes
[2019-01-11] MEDS ORDERED: Acetaminophen TAB* 325 MG PO PRN (16:00)
[2019-01-11] MEDS ORDERED: oxyCODONE ORAL.SOLN* 5 MG/5 ML UDC PO PRN (16:09)
[2019-01-11] MEDS: NS 0.9% 1000 ML** 1,000 ML IV SCH (16:41)
[2019-01-11] MEDS ORDERED: fentaNYL PATCHs 100 MCG/HR TRANSDERM SCH (17:00)
[2019-01-11] MEDS ORDERED: Vancomycin per Pharmacy* NOTE FOLLOW UP PRN (17:14)
[2019-01-11] MEDS: oxyCODONE TAB* 5 MG TAB PO PRN ×2 (17:28→23:16)
[2019-01-11] MEDS ORDERED: Acetaminophen SUPP* 650 MG SUPP PR PRN (17:45)
[2019-01-11] MEDS ORDERED: Magnesium Hydroxide LIQ* 30 ML UDC PO PRN (17:45)
[2019-01-11] MEDS ORDERED: Vancomycin 1500 MG IV - x ONCE IVPB ONE ×2 (18:00)
[2019-01-11] MEDS: LORazepam TAB(*) 0.5 MG PO PRN (20:20)
[2019-01-11] MEDS: Methadone TAB* 10 MG PO SCH (20:21)
[2019-01-11] MEDS: levETIRAcetam TAB* 500 MG PO SCH (20:21)
[2019-01-11] MEDS: Morphine TAB Extended Release (*) 30 MG TAB.ER PO SCH (20:21)
[2019-01-11] MEDS ORDERED: Oxycodone TAB(NF) 10 MG TAB IMMEDIATE RELEASE PO SCH (22:00)
[2019-01-11] MEDS: Morphine ORAL CONCENTRATE* 5 MG/0.25 ML ORAL.SYRIN SL PRN (23:04)
[2019-01-11] MEDS: ALPRAZolam TAB* 0.5 MG PO PRN (23:16)
[2019-01-12] MEDS: oxyCODONE TAB* 5 MG TAB PO PRN ×2 (02:34→05:32)
[2019-01-12] MEDS: Morphine ORAL CONCENTRATE* 5 MG/0.25 ML ORAL.SYRIN SL PRN ×5 (02:34→17:24)
[2019-01-12] MEDS: ALPRAZolam TAB* 0.5 MG PO PRN ×5 (02:34→17:24)
[2019-01-12] MEDS: NS 0.9% 1000 ML** 1,000 ML IV SCH ×2 (05:34→21:46)
[2019-01-12] MEDS: Morphine TAB Extended Release (*) 30 MG TAB.ER PO SCH ×2 (08:07→21:19)
[2019-01-12] MEDS: oxyCODONE SR TAB(*) 20 MG TAB.SR PO PRN ×3 (08:08→16:48)
[2019-01-12] MEDS: Methadone TAB* 10 MG PO SCH ×3 (08:08→21:19)
[2019-01-12] MEDS: levETIRAcetam TAB* 500 MG PO SCH ×2 (08:08→21:19)
[2019-01-12] MEDS: oxyCODONE SR TAB(*) 40 MG TAB.SR PO PRN ×3 (08:08→16:49)
[2019-01-12] MEDS: Cefepime 2 GM in Dextrose(*) 2 GM/50 ML BAG IV SCH ×2 (08:31→21:19)
[2019-01-12] MEDS ORDERED: Polyethylene Glycol 3350* 17 GM PACKET PO SCH (09:00)
[2019-01-12] MEDS: Vancomycin(*) 1,250 MG in NS 0.9% 250 ML* 250 ML IVPB SCH ×2 (09:09→19:49)
[2019-01-12] MEDS: Rivaroxaban TAB(*) 10 MG PO SCH (10:59)
[2019-01-12] MEDS ORDERED: Ondansetron INJ* 2 MG/ML VIAL IV PRN (12:45)
[2019-01-12] MEDS: LORazepam TAB(*) 0.5 MG PO PRN (13:55)
--- NOTE | 2019-01-12 14:17 | CONSULT ---
Palliative / Hospice Consult Ordering Provider: Bel Zaidi - PCP-Michaela Referroman Reason: Goals of care/on PEG/multiple narcotics - Subjective Code Status: DNR Advance Directives Location: In Chart MOLST Part A Completed: Yes - on chart MOLST Part E Completed:: Yes - on chart - History or Present Illness History or Present Illness: 68yo female resident of [facility] with metastatic BRCA presents to ER with increasing SOB not responding to O2. PMH-BRCA with metastasis to bone no further chemo, chronic pain, GERD, hyperlipidemia, DELMIS, osteopenia with multiple fx, depression, DVT 2025, seizure disorder, [employer] shunt as a child and multinodular goiter. PSHx- with 1 son, non smoker, no etoh abuse and no drug use, Tonio is her HCP(on chart). Irheyrc-URX-aixuscuip infiltrate in AISLINN, LLL, RUL and RLL, ekg-sinus tach, H/H 11.7/36, BUN/Cr 18/.51, egfr 120, Ca 8.3, alb 3, ast 47, alt 91, troponin .13 and urine cult gram neg baccilus. Pt is admitted to ICU on BiPAP and antibiotics. After last hospitalization 05/20- pt was at hospice residence and then moved to [facility] with hospice. Hospice signed pt off 6 wks ago saying she was not dying. Since then pt has seen PT and is working towards standing and pivoting. She is DNR/DNI. All history is from [facility] and medical records. Lab Values: Abnormal Lab Results 01/11/19 16:30 Lactic Acid 1.7 Laboratory Last Values WBC 7.7 10^3/uL (3.5-10.8) 01/11/19 10:12 RBC 3.56 10^6 /uL (3.70-4.87) L 01/11/19 10:12 Hgb 11.7 g/dL (12.0-16.0) L 01/11/19 10:12 Hct 36 % (35-47) 01/11/19 10:12 MCV 100 fL (80-97) H 01/11/19 10:12 MCH 33 pg (27-31) H 01/11/19 10:12 MCHC 33 g/dL (31-36) 01/11/19 10:12 RDW 16 % (10-15) H 01/11/19 10:12 Plt Count 266 10^3/uL (150-450) 01/11/19 10:12 MPV 7.3 fL (7.4-10.4) L 01/11/19 10:12 Neut % (Auto) 87.5 % 01/11/19 10:12 Lymph % (Auto) 9.9 % 01/11/19 10:12 [place] % (Auto) 1.3 % 01/11/19 10:12 Eos % (Auto) 0.7 % 01/11/19 10:12 Baso % (Auto) 0.6 % 01/11/19 10:12 Absolute Neuts (auto) 6.7 10^3/ul (1.5-7.7) 01/11/19 10:12 Absolute Lymphs (auto) 0.8 10^3/ul (1.0-4.8) L 01/11/19 10:12 Absolute Monos (auto) 0.1 10^3/ul (0-0.8) 01/11/19 10:12 Absolute Eos (auto) 0.1 10^3/ul (0-0.6) 01/11/19 10:12 Absolute Basos (auto) 0.0 10^3/ul (0-0.2) 01/11/19 10:12 Absolute Nucleated RBC 0.0 10^3/ul 01/11/19 10:12 Immature Gran % 17.0 % (0-9) H 01/11/19 10:12 Neutrophils % 75.0 % 01/11/19 10:12 Band Neutrophils % 15.0 % (0-8) H 01/11/19 10:12 Lymphocytes % 5.0 % 01/11/19 10:12 Monocytes % 1.0 % 01/11/19 10:12 Eosinophils % 2.0 % 01/11/19 10:12 Metamyelocytes % 2.0 % (0-2) 01/11/19 10:12 Nucleated RBC % 0.2 01/11/19 10:12 Normal RBC Morphology Normal (Normal) 01/11/19 10:12 INR (Anticoag Therapy) 2.30 (0.82-1.09) H 01/11/19 10:12 APTT 33.3 seconds (26.0-38.0) 01/11/19 10:12 Sodium 135 mmol/L (135-145) 01/11/19 10:12 Potassium 3.5 mmol/L (3.5-5.0) 01/11/19 10:12 Chloride 98 mmol/L (101-111) L 01/11/19 10:12 Carbon Dioxide 27 mmol/L (22-32) 01/11/19 10:12 Anion Gap 10 mmol/L (2-11) 01/11/19 10:12 BUN 18 mg/dL (6-24) 01/11/19 10:12 Creatinine 0.51 mg/dL (0.51-0.95) 01/11/19 10:12 Est GFR ( Amer) 145.5 (>60) 01/11/19 10:12 Est GFR (Non-Af Amer) 120.3 (>60) 01/11/19 10:12 BUN/Creatinine Ratio 35.3 (8-20) H 01/11/19 10:12 Glucose 207 mg/dL (70-100) H 01/11/19 10:12 Lactic Acid 1.7 mmol/L (0.5-2.0) 01/11/19 16:30 Calcium 8.3 mg/dL (8.6-10.3) L 01/11/19 10:12 Total Bilirubin 0.50 mg/dL (0.2-1.0) 01/11/19 10:12 AST 47 U/L (13-39) H 01/11/19 10:12 ALT 91 U/L (7-52) H 01/11/19 10:12 Alkaline Phosphatase 221 U/L (34-104) H 01/11/19 10:12 Troponin I 0.13 ng/mL (<0.04) H* 01/11/19 10:12 B-Natriuretic Peptide 166 pg/mL (<=100) H 01/11/19 10:12 Total Protein 6.3 g/dL (6.4-8.9) L 01/11/19 10:12 Albumin 3.0 g/dL (3.2-5.2) L 01/11/19 10:12 Globulin 3.3 g/dL (2-4) 01/11/19 10:12 Albumin/Globulin Ratio 0.9 (1-3) L 01/11/19 10:12 Urine Color Fabby 01/11/19 11:22 Urine Appearance Turbid 01/11/19 11:22 Urine pH 7.0 (5-9) 01/11/19 11:22 Ur Specific [place]leton 1.018 (1.010-1.030) 01/11/19 11:22 Urine Protein 2+(100 mg/dl) (Negative) A 01/11/19 11:22 Urine Ketones Trace (Negative) A 01/11/19 11:22 Urine Blood Negative (Negative) 01/11/19 11:22 Urine Nitrate Negative (Negative) 01/11/19 11:22 Urine Bilirubin Negative (Negative) 01/11/19 11:22 Urine Urobilinogen Positive (Negative) A 01/11/19 11:22 Ur Leukocyte Esterase 1+ (Negative) A 01/11/19 11:22 Urine WBC (Auto) Absent (Absent) 01/11/19 11:22 Urine RBC (Auto) Absent (Absent) 01/11/19 11:22 Urine Bacteria 3+ (Absent) A 01/11/19 11:22 Urine Glucose Negative (Negative) 01/11/19 11:22 Urine Ascorbic Acid * (Negative) A 01/11/19 11:22 Influenza A (Rapid) Negative (Negative) 01/11/19 13:07 Influenza B (Rapid) Negative (Negative) 01/11/19 13:07 - Objective Active Medications: Acetaminophen (Tylenol Supp*) 650 mg AR Q6H PRN PRN Reason: PAIN/FEVER >100 Alprazolam (Xanax Tab*) 1 mg PO Q2H PRN PRN Reason: AGITATION Last Admin: 01/12/19 12:40 Dose: 1 mg Cefepime HCl (Maxipime 2 Gm In Dextrose Duplex (*)) 2 gm in 50 mls @ 100 mls/ hr IV Q12H ASHLEY Last Admin: 01/12/19 08:31 Dose: 100 mls/hr Sodium Chloride (Ns 0.9% 1000 Ml) 1,000 mls @ 75 mls/hr IV PER RATE ASHLEY Last Admin: 01/12/19 05:34 Dose: 75 mls/hr Vancomycin HCl 1,250 mg/ (Sodium Chloride) 250 mls @ 166.667 mls/hr IVPB Q12H ASHLEY Last Admin: 01/12/19 09:09 Dose: 166.667 mls/hr Levetiracetam (Keppra Tab*) 1,000 mg PO BEDTIME [facility] Last Admin: 01/11/19 20:21 Dose: 1,000 mg Levetiracetam (Keppra Tab*) 500 mg PO DAILY [facility] Last Admin: 01/12/19 08:08 Dose: 500 mg Lorazepam (Ativan Tab(*)) 0.5 mg PO Q6H PRN PRN Reason: ANXIETY Last Admin: 01/12/19 13:55 Dose: 0.5 mg Magnesium Hydroxide (Milk Of Magnesia Liq*) 30 ml PO DAILY PRN PRN Reason: CONSTIPATION Methadone HCl (Dolophine Tab*) 30 mg PO TID [facility] Last Admin: 01/12/19 12:39 Dose: 30 mg Morphine Sulfate (Ms Contin(*)) 30 mg PO BID [facility] Last Admin: 01/12/19 08:07 Dose: 30 mg Morphine Sulfate (Morphine Oral Concentrate*) 5 mg SL Q3H PRN PRN Reason: PAIN/SOB Last Admin: 01/12/19 12:39 Dose: 5 mg Ondansetron HCl (Zofran Inj*) 4 mg IV Q4H PRN PRN Reason: nausea Last Admin: 01/12/19 12:49 Dose: 4 mg Oxycodone HCl (Oxycontin(*)) 20 mg PO Q4H PRN PRN Reason: PAIN - SEVERE Last Admin: 01/12/19 12:11 Dose: 20 mg Oxycodone HCl (Oxycontin(*)) 40 mg PO Q4H PRN PRN Reason: PAIN - SEVERE Last Admin: 01/12/19 12:11 Dose: 40 mg Pharmacy Consult (Vancomycin Per Pharmacy*) 1 note FOLLOW UP . PRN PRN Reason: PER PROTOCOL Pharmacy Profile Note (Vancomycin Trough Check) 1 note FOLLOW UP .ENTER TIME ONE Stop: 01/13/19 07:31 Polyethylene Glycol/Electrolytes (Miralax*) 17 gm PO DAILY [facility] Last Admin: 01/12/19 09:07 Dose: Not Given Rivaroxaban (Xarelto(*)) 10 mg PO DAILY [facility] Last Admin: 01/12/19 10:59 Dose: 10 mg Vital Signs: Vital Signs: Temp Pulse Resp BP Pulse Ox 99.3 F 87 28 88/67 99 01/12/19 12:00 01/12/19 13:32 01/12/19 13:55 01/12/19 13:32 01/12/19 13:32 Patient Weight: Weight 89.8 kg Intake and Output: Intake & Output 01/10/19 01/11/19 01/12/19 01/13/19 06:59 06:59 06:59 06:59 Intake Total 2598 542 Output Total 725 300 Balance 1873 242 Weight 89.8 kg Intake: IV Fluids 2598 ABX - VANCOMYCIN 295 NS (0.9%) 1053 IVPB 62 ABX - CEFEPIME 62 Oral 0 480 Output: Davila 725 300 Other: Estimated Stool Amount Large ADLs: Meal Record Start: 01/11/19 14: 00 Freq: ,,18 Status: Active Protocol: Created 01/11/19 14:00 System (Rec: 01/11/19 14:00 System [id number]) Document 01/11/19 18:00 [id number] (Rec: 01/11/19 19:32 [id number] ICU-C12) Document 01/12/19 09:00 [id number] (Rec: 01/12/19 13:40 [id number] ICU-M22) Intake and Output Start: 01/11/19 10: 19 Freq: Status: Active Protocol: Created 01/11/19 10:19 System (Rec: 01/11/19 10:19 System [id number]) Intake and Output Start: 01/11/19 14: 00 Freq: Q1HR Status: Active Protocol: Created 01/11/19 14:00 System (Rec: 01/11/19 14:00 System [id number]-C14) Document 01/11/19 16:00 [id number] (Rec: 01/11/19 17:42 [id number] ICU-C12) Document 01/11/19 19:00 [id number] (Rec: 01/11/19 19:31 [id number] ICU-C12) Document 01/11/19 23:16 [id number] (Rec: 01/11/19 23:16 [id number] ICU-C11) Document 01/12/19 02:54 [id number] (Rec: 01/12/19 02:54 [id number] ICU-C06) Document 01/12/19 05:24 [id number] (Rec: 01/12/19 05:40 [id number] ICU-C06) Document 01/12/19 06:00 [id number] (Rec: 01/12/19 07:13 [id number] ICU-C06) Document 01/12/19 07:00 [id number] (Rec: 01/12/19 09:14 [id number] ICU-M23) Document 01/12/19 08:00 [id number] (Rec: 01/12/19 09:14 [id number] ICU-M23) Document 01/12/19 09:00 [id number] (Rec: 01/12/19 09:14 [id number] ICU-M23) Document 01/12/19 10:00 [id number] (Rec: 01/12/19 12:49 [id number] ICU-M23) Document 01/12/19 11:00 [id number] (Rec: 01/12/19 12:49 [id number] ICU-M23) Document 01/12/19 12:00 [id number] (Rec: 01/12/19 12:49 [id number] ICU-M23) Document 01/12/19 12:49 [id number] (Rec: 01/12/19 12:49 [id number] ICU-M23) Head: Normal Ears/Nose/Mouth/Throat: NL Teeth, Lips, Gums, Clear Oropharnyx Neck: NL Appearance and Movements; NL JVP Cardiovascular: NL Sounds; No Murmurs; No JVD Respiratory: Symmetrical Chest Expansion and Respiratory Effort, - - Diffuse crackles Abdominal: NL Sounds; No Tenderness; No Distention Neurological: Alert and Oriented x 3 - Assessment Assessment: 68yo female with metastatic BRCA admitted with bilateral extensive pneumonia - Plan Consult Plan (MU): Hospice Plan: Long discussion with pt and separately about goals of care. Pt has been doing well at [facility] and doesn't want to be intubated. I gave them several options about care, she can be admitted with IV antibiotics, we can inquire about bed at hospice residence or go back to [facility] with hospice since she was on hospice in the past. They chose a trial of antibiotics with the BiPAP and reassess after a few days. They both wanted to try the antibiotics but no other aggressive measures. If she does improve she wants to go back to [facility]. KPS 40 %, PPS 40% - Time On Unit Date of Evaluation: 01/11/19 Hospice Consult Time in: 11:30 Hospice Consult Time Out: 12:30 Hospice Consult Time Total: 60 > 50% of Time Spend In Counseling or Coordinating Care: Yes
--- NOTE | 2019-01-12 16:25 | PN ---
Date of Service: 01/12/19 - [facility] note Critical Care Services: Pt seen and examined at bedside. Pt continues to have labored breathing. Has been requesting pain meds. Has been drowsy, but oriented and responding to commands. Has been refusing BiPAP Active Medications Generic Name Dose Route Start Last Admin Trade Name Freq PRN Reason Stop Dose Admin Acetaminophen 650 mg 01/11/19 17:45 Tylenol Supp* CT Q6H PRN PAIN/FEVER >100 Alprazolam 1 mg 01/11/19 16:04 01/12/19 12:40 Xanax Tab* PO 1 mg Q2H PRN Administration AGITATION Cefepime HCl 2 gm in 50 mls @ 100 mls/hr 01/12/19 09:00 01/12/19 08:31 Maxipime 2 Gm In Dextrose Duplex (*) IV 100 mls/hr Q12H ASHLEY Administration Sodium Chloride 1,000 mls @ 75 mls/hr 01/11/19 16:00 01/12/19 05:34 Ns 0.9% 1000 Ml IV 75 mls/hr PER RATE ASHLEY Administration Vancomycin HCl 1,250 mg/ 250 mls @ 166.667 mls/hr 01/12/19 08:00 01/12/19 09: 09 Sodium Chloride IVPB 166.667 mls/hr Q12H ASHLEY Administration Levetiracetam 1,000 mg 01/11/19 21:00 01/11/19 20:21 Keppra Tab* PO 1,000 mg BEDTIME ASHLEY Administration Levetiracetam 500 mg 01/12/19 09:00 01/12/19 08:08 Keppra Tab* PO 500 mg DAILY ASHLEY Administration Lorazepam 0.5 mg 01/11/19 17:46 01/12/19 13:55 Ativan Tab(*) PO 0.5 mg Q6H PRN Administration ANXIETY Magnesium Hydroxide 30 ml 01/11/19 17:45 Milk Of Magnesia Liq* PO DAILY PRN CONSTIPATION Methadone HCl 30 mg 01/11/19 21:00 01/12/19 12:39 Dolophine Tab* PO 30 mg TID ASHLEY Administration Morphine Sulfate 30 mg 01/11/19 21:00 01/12/19 08:07 Ms Contin(*) PO 30 mg BID ASHLEY Administration Morphine Sulfate 5 mg 01/11/19 17:47 01/12/19 12:39 Morphine Oral Concentrate* SL 5 mg Q3H PRN Administration PAIN/SOB Ondansetron HCl 4 mg 01/12/19 12:45 01/12/19 12:49 Zofran Inj* IV 4 mg Q4H PRN Administration nausea Oxycodone HCl 20 mg 01/12/19 07:00 01/12/19 12:11 Oxycontin(*) PO 20 mg Q4H PRN Administration PAIN - SEVERE Oxycodone HCl 40 mg 01/12/19 07:00 01/12/19 12:11 Oxycontin(*) PO 40 mg Q4H PRN Administration PAIN - SEVERE Pharmacy Consult 1 note 01/11/19 17:14 Vancomycin Per Pharmacy* FOLLOW UP . PRN PER PROTOCOL Pharmacy Profile Note 1 note 01/13/19 07:30 Vancomycin Trough Check FOLLOW UP 01/13/19 07:31 .ENTER TIME ONE Polyethylene Glycol/Electrolytes 17 gm 01/12/19 09:00 01/12/19 09:07 Miralax* PO Not Given DAILY ASHLEY Rivaroxaban 10 mg 01/12/19 09:00 01/12/19 10:59 Xarelto(*) PO 10 mg DAILY ASHLEY Administration Vital Signs: Temp Pulse Resp BP SpO2 FiO2 99.3 F 87 28 101/75 99 100 01/12/19 12:00 01/12/19 15:01 01/12/19 15:01 01/12/19 15:01 01/12/19 15:01 01/12 00:00 Physical Exam: Gen: Pt is dowsy, opens eyes to stimuli HEENT: PERRLA, sluggish, Rt eye droopy Lungs: Crackles+, diminished air entry Cardiac: S1, S2+, regular Abdomen: Soft, BS+, diminished Extremities: Normal ROM Neuro: Drowsy, follows commands Fluid Balance (Past 24 Hours): I= 542 O= 300 Net 242 Intake & Output 01/10/19 01/11/19 01/12/19 01/13/19 06:59 06:59 06:59 06:59 Intake Total 2598 542 Output Total 725 300 Balance 1873 242 Weight 197 lb 15.602 oz Intake: IV Fluids 2598 ABX - VANCOMYCIN 295 NS (0.9%) 1053 IVPB 62 ABX - CEFEPIME 62 Oral 0 480 Output: Davila 725 300 Other: Estimated Stool Amount Large Labs: Laboratory Results - last 24 hr 01/11/19 16:30 Lactic Acid 1.7 Impression: 68 y o f with metastatic breast cancer admitted with worsening SOB, found to have b/l air space opacities. Pt with hypoxic resp failure, increased WOB, not able to tolerate BiPAP Plan: Neuro: Pt with chronic pain on meds with lethargy. Able to protect airway. c/w pain management. Aspiration precautions. Keep HOB >30 Resp: B/l infiltrates on CXR- PNA versus mets to lungs. Pt on cefepime and vanco. Pt with crackles and congestion. Ordered metanebs. Pulm toilet. Pt refusing BiPAP. CVS: Hemodynamically stable. ID: On cefepime and Vanco for possible asp PNA. No leucocytosis. Renal: Monitor UO closely, c/w IV hydration GI: Pt NPO given AMS. Haem/Onco: Pt with metastatic breast ca, no further treatment planned. pt was in hospice, was d/aileen recently. Pt to return to [facility] when stable. Palliative care consult appreciated. Anemia of chronic disease Endo: DM, monitor bl glucose closely, Insulin SS DVT px: Xarelto DNR/DNI Critical Care Time: 25 min
[2019-01-12] MEDS ORDERED: Diltiazem IV push/loading dose 5 MG/ML 5 ML vial (25 mg) ONE (17:42)
[2019-01-12] MEDS ORDERED: Diltiazem IV VIAL* 125 MG in NS 0.9% 100 ML* 100 ML IV ONE (17:51)
[2019-01-12] MEDS ORDERED: Diltiazem IV push/loading dose 5 MG/ML 5 ML vial (25 mg) IV SLOW PU ONE (17:52)
[2019-01-12] MEDS ORDERED: Morphine INJ* 2 MG/ML 1 ML SYRINGE (TWO MG - NEW SYRINGE VERSION) IM ONE (17:54)
[2019-01-12] MEDS ORDERED: Morphine INJ* 2 MG/ML 1 ML SYRINGE (TWO MG - NEW SYRINGE VERSION) IV ONE (18:00)
[2019-01-12 18:10] LABS: Hematocrit 33 % (35-47); Hemoglobin 10.8 g/dL (12.0-16.0); Mean Corpuscular HGB Conc 33 g/dL (31-36); Mean Corpuscular Hemoglobin 33 pg (27-31); Mean Corpuscular Volume 99 fL (80-97); Mean Platelet Volume 6.9 fL (7.4-10.4); Platelet Count 209 10^3/uL (150-450); Red Cell Distribution Width 16 % (10-15); White Blood Count 6.4 10^3/uL (3.5-10.8)
[2019-01-12 18:16] LABS: ABS Lymphocytes 0.2 10^3/ul (1.0-4.8); ABS Monocytes 0.1 10^3/ul (0-0.8); Eosinophil % 0.8 %; Lymphocyte % 3.7 %; Nucleated Red Blood Cells % 0.1
[2019-01-12 18:25] LABS: BUN/Creatinine Ratio 34.1 (8-20); Calcium 7.9 mg/dL (8.6-10.3); EGFR African American 172.6 (>60); EGFR Non-African American 142.6 (>60); Magnesium 1.8 mg/dL (1.9-2.7); Phosphorus 2.6 mg/dL (2.5-5.0); Potassium 3.4 mmol/L (3.5-5.0)
--- NOTE | 2019-01-12 18:33 | PN ---
Progress Note - Progress Note Date of Service: 01/12/19 - ICU progress update Note: Was called to bedside for tachycardia with HR in 140-160s. SVT on monitor. Stat EKG obtained. A.fib with RVR. Pt responding to verbal stimuli appropriately, denied any issues. Cardizem 20mg IV push with response. Pt on high flow, FiO2 increased to 100%, no significant hypoxia prior or during episode Cardizem drip started Labs repeated to check electrolytes Morphine 2mg was given Pt has been refusing BiPAP through out the day and therefore was placed on high flow. Pt`s was updated over phone Pt agreed to BiPAP after further discussion and after Morphine was administered. Pt is DNR/DNI Prognosis guarded Will continue to monitor closely in ICU
[2019-01-12] MEDS ORDERED: Diltiazem 125 mg in 125 mL D5W PREMIX (continuous infusion) IV SCH (19:00)
[2019-01-12] MEDS ORDERED: Magnesium Sulfate 2 GM IV* 2 GM/50 ML BAG IVPB ONE (19:10)
[2019-01-12] MEDS ORDERED: Digoxin IV* 0.5 MG/2 ML AMP (0.25 MG/ML) IV SLOW PU ONE ×2 (19:11→20:00)
[2019-01-12] MEDS ORDERED: Digoxin IV* 0.5 MG/2 ML AMP (0.25 MG/ML) ONE (19:14)
[2019-01-12] MEDS: KCL 20 MEQ/100 ML IVPREMIX* 20 MEQ/100 ML BAG IV SCH ×2 (20:02→22:11)
[2019-01-12] MEDS: Docusate CAP* 100 MG PO SCH ×2 (21:18→22:12)
[2019-01-12] MEDS ORDERED: NS 0.9% 500 ML* 500 ML IV ONE (22:15)
[2019-01-13 05:49] LABS: Hematocrit 29 % (35-47); Hemoglobin 9.4 g/dL (12.0-16.0); Mean Corpuscular HGB Conc 33 g/dL (31-36); Mean Corpuscular Hemoglobin 33 pg (27-31); Mean Corpuscular Volume 100 fL (80-97); Mean Platelet Volume 7.3 fL (7.4-10.4); Platelet Count 172 10^3/uL (150-450); Red Blood Count 2.87 10^6 /uL (3.70-4.87); Red Cell Distribution Width 16 % (10-15); White Blood Count 5.5 10^3/uL (3.5-10.8)
[2019-01-13 05:54] LABS: ABS Eosinophils 0.1 10^3/ul (0-0.6); ABS Lymphocytes 0.3 10^3/ul (1.0-4.8); ABS Monocytes 0.1 10^3/ul (0-0.8); ABS Neutrophils 5.1 10^3/ul (1.5-7.7)
[2019-01-13 06:06] LABS: BUN/Creatinine Ratio 48.5 (8-20); Calcium 7.4 mg/dL (8.6-10.3); EGFR African American 240.5 (>60); EGFR Non-African American 198.8 (>60); Magnesium 2.1 mg/dL (1.9-2.7); Phosphorus 2.4 mg/dL (2.5-5.0); Potassium 3.8 mmol/L (3.5-5.0)
[2019-01-13 06:11] LABS: Vancomycin Trough 13.5 mcg/mL
[2019-01-13 06:19] LABS: Lymphocyte % 5.3 %
[2019-01-13] MEDS ORDERED: Vancomycin Trough Check NOTE FOLLOW UP ONE (07:30)
[2019-01-13] MEDS ORDERED: NS 0.9% 250 ML* 250 ML ONE (08:21)
[2019-01-13] MEDS: Rivaroxaban TAB(*) 10 MG PO SCH (08:53)
[2019-01-13] MEDS: oxyCODONE SR TAB(*) 40 MG TAB.SR PO PRN ×3 (08:53→23:53)
[2019-01-13] MEDS: oxyCODONE SR TAB(*) 20 MG TAB.SR PO PRN ×2 (08:54→17:43)
[2019-01-13] MEDS: levETIRAcetam TAB* 500 MG PO SCH ×2 (08:57→21:48)
[2019-01-13] MEDS: Docusate CAP* 100 MG PO SCH ×3 (08:57→21:47)
[2019-01-13] MEDS: Methadone TAB* 10 MG PO SCH ×3 (08:58→21:47)
[2019-01-13] MEDS: Morphine TAB Extended Release (*) 30 MG TAB.ER PO SCH ×2 (08:58→21:48)
[2019-01-13] MEDS ORDERED: Vancomycin(*) 1,000 MG in NS 0.9% 250 ML* 250 ML IVPB SCH (09:00)
[2019-01-13] MEDS: Cefepime 2 GM in Dextrose(*) 2 GM/50 ML BAG IV SCH ×2 (09:17→22:46)
--- NOTE | 2019-01-13 10:46 | PN ---
Date of Service: 01/13/19 - [facility] note Critical Care Services: Pt seen and examined at bedside. Pt is more drowsy this am, however responds appropriately to verbal stimuli. Had episode of A.fib with RVR yesterday requiring Cardizem and Digoxin, converted to sinus at 8:30 pm. Is off Cardizem drip. Has tolerated BiPAP all night, was transitioned to high flow this am Has poor oral intake Vital Signs: Temp Pulse Resp BP SpO2 FiO2 99.1 F 78 23 99/60 99 80 01/13/19 10:00 01/13/19 10:00 01/13/19 10:00 01/13/19 10:00 01/13/19 10:00 01/13 08:00 Physical Exam: Gen: Pt in NAD, drowsy, falling asleep during conversation HEENT: PERRLA, sluggish but reactive Lungs: Dimnished air entry b/l, crackles + Cardiac: S1, S2+, regular Abdomen: Soft, BS+ Extremities: Normal ROM Neuro: Lethargic, no focal deficits Skin: Had erythema of face while receiving Vancomycin this am. Fluid Balance (Past 24 Hours): I= 3395 O= 772 Net 2623 Intake & Output 01/11/19 01/12/19 01/13/19 01/14/19 06:59 06:59 06:59 06:59 Intake Total 2598 3395.5 Output Total 725 772 165 Balance 1873 2623.5 -165 Weight 197 lb 15.602 oz 199 lb 3.245 oz Intake: IV Fluids 2598 2272 ABX - VANCOMYCIN 295 280 NS (0.9%) 1053 1992 IVPB 608 ABX - CEFEPIME 108 ABX - VANCOMYCIN 250 KCl 200 Mag 50 Medicated IV 35.5 Diltiazem 35.5 Oral 0 480 Output: Urine 55 Davila 725 717 165 Other: Estimated Stool Amount Large Labs: Laboratory Results - last 24 hr 01/12/19 01/12/19 01/13/19 17:55 17:55 05:30 WBC 6.4 RBC 3.30 L Hgb 10.8 L Hct 33 L MCV 99 H MCH 33 H MCHC 33 RDW 16 H Plt Count 209 MPV 6.9 L Neut % (Auto) 93.7 Lymph % (Auto) 3.7 Crook % (Auto) 1.4 Eos % (Auto) 0.8 Baso % (Auto) 0.4 Absolute Neuts (auto) 6.0 Absolute Lymphs (auto) 0.2 L Absolute Monos (auto) 0.1 Absolute Eos (auto) 0.0 Absolute Basos (auto) 0.0 Absolute Nucleated RBC 0.0 Nucleated RBC % 0.1 Sodium 141 Potassium 3.4 L Chloride 108 Carbon Dioxide 28 Anion Gap 5 BUN 15 Creatinine 0.44 L Est GFR ( Amer) 172.6 Est GFR (Non-Af Amer) 142.6 BUN/Creatinine Ratio 34.1 H Glucose 101 H Calcium 7.9 L Phosphorus 2.6 Magnesium 1.8 L Vancomycin Trough 13.5 01/13/19 01/13/19 05:30 05:30 WBC 5.5 RBC 2.87 L Hgb 9.4 L Hct 29 L MCV 100 H MCH 33 H MCHC 33 RDW 16 H Plt Count 172 MPV 7.3 L Neut % (Auto) 91.4 Lymph % (Auto) 5.3 Crook % (Auto) 2.1 Eos % (Auto) 1.0 Baso % (Auto) 0.2 Absolute Neuts (auto) 5.1 Absolute Lymphs (auto) 0.3 L Absolute Monos (auto) 0.1 Absolute Eos (auto) 0.1 Absolute Basos (auto) 0.0 Absolute Nucleated RBC 0.0 Nucleated RBC % 0.0 Sodium 140 Potassium 3.8 Chloride 110 Carbon Dioxide 27 Anion Gap 3 BUN 16 Creatinine 0.33 L Est GFR ( Amer) 240.5 Est GFR (Non-Af Amer) 198.8 BUN/Creatinine Ratio 48.5 H Glucose 86 Calcium 7.4 L Phosphorus 2.4 L Magnesium 2.1 Vancomycin Trough Studies: CXR- pending Nutrition: Oral diet, poor intake today Impression: 68 y o f with metastatic breast cancer admitted with worsening SOB, found to have b/l air space opacities. Pt with hypoxic resp failure, increased WOB, not able to tolerate BiPAP 1. Hypoxic resp failure 2. PNA 3. Metastatic breast cancer 4. AMS 5. New onset A.fib, concerted to sinus 6. Macrocytic anemia 7. Sepsis sec to Klebsiella UTI Plan: Neuro: Pt with chronic pain on meds with lethargy. Able to protect airway. c/w pain management, monitor for over sedation. Aspiration precautions. Keep HOB >30 Resp: B/l infiltrates on CXR- Asp PNA versus mets to lungs. Pt on cefepime and vanco. Pt with crackles and congestion. Ordered metanebs. Pulm toilet. Will switch to BiPAP this afternoon. ABG in 2 hrs. CXR repeated, interval improvement in air space opacities. CVS: Had new onset A.fib with RVR yesterday, converted back to sinus. Will d/c Cardizem and Digoxin. Will introduce beta sylvain when BP stable. ID: On cefepime and Vanco for possible asp PNA and UTI. No leucocytosis. Ucx + Klebsiella, had erythema of face while receiving Vancomycin, infusion stopped. will deescalate abx as per susceptibilities. Will d/c vanco Renal: Monitor UO closely, c/w IV hydration GI: Pt NPO given AMS yesterday, able to sit up and eat breakfast this morning even though not enough intake. Haem/Onco: Pt with metastatic breast ca, no further treatment planned. pt was in hospice, was d/aileen recently. [facility] to [facility] when stable. Palliative care consult appreciated. Anemia of chronic disease. Will check folate and B12 Endo: DM, monitor bl glucose closely, Insulin SS DVT px: Xarelto IV access: Port Plan of care discussed with bedside RN. Will update when available Critical Care Time: 25 min
[2019-01-13 11:34] LABS: Folate 19.51 ng/mL (>3.99)
[2019-01-13] MEDS: NS 0.9% 1000 ML** 1,000 ML IV SCH (12:13)
[2019-01-13] MEDS: Morphine ORAL CONCENTRATE* 5 MG/0.25 ML ORAL.SYRIN SL PRN ×2 (15:07→21:48)
[2019-01-13] MEDS: Nystatin SUSPENSION* 100000 UNITS/ML 5 ML UDC PO SCH ×2 (17:42→21:48)
[2019-01-13] MEDS: LORazepam TAB(*) 0.5 MG PO PRN (23:53)
[2019-01-14] MEDS: ALPRAZolam TAB* 0.5 MG PO PRN (01:42)
[2019-01-14] MEDS: Morphine ORAL CONCENTRATE* 5 MG/0.25 ML ORAL.SYRIN SL PRN (01:42)
[2019-01-14] MEDS ORDERED: Digoxin IV* 0.5 MG/2 ML AMP (0.25 MG/ML) IV SLOW PU ONE (02:38)
[2019-01-14] MEDS: oxyCODONE SR TAB(*) 20 MG TAB.SR PO PRN (03:10)
[2019-01-14] MEDS ORDERED: LORazepam INJ* 2 MG/ML 1 ML VIAL IV PUSH ONE (03:45)
[2019-01-14] MEDS ORDERED: Lorazepam PYXIS KEY ONE (03:50)
[2019-01-14] MEDS ORDERED: Lorazepam PYXIS KEY PRN (03:51)
[2019-01-14] MEDS ORDERED: LORazepam INJ* 2 MG/ML 1 ML VIAL ONE ×2 (03:51→19:27)
[2019-01-14 05:27] LABS: ABS Eosinophils 0.1 10^3/ul (0-0.6); ABS Lymphocytes 0.3 10^3/ul (1.0-4.8); ABS Monocytes 0.1 10^3/ul (0-0.8); ABS Neutrophils 5.2 10^3/ul (1.5-7.7); Eosinophil % 0.9 %; Hematocrit 29 % (35-47); Hemoglobin 9.6 g/dL (12.0-16.0); Lymphocyte % 5.8 %; Mean Corpuscular HGB Conc 33 g/dL (31-36); Mean Corpuscular Hemoglobin 33 pg (27-31); Mean Corpuscular Volume 100 fL (80-97); Mean Platelet Volume 7.2 fL (7.4-10.4); Nucleated Red Blood Cells % 0.1; Platelet Count 184 10^3/uL (150-450); Red Blood Count 2.94 10^6 /uL (3.70-4.87); Red Cell Distribution Width 16 % (10-15); White Blood Count 5.7 10^3/uL (3.5-10.8)
[2019-01-14 05:40] LABS: BUN/Creatinine Ratio 34.4 (8-20); Calcium 7.9 mg/dL (8.6-10.3); EGFR African American 249.2 (>60); Magnesium 1.8 mg/dL (1.9-2.7); Phosphorus 2.9 mg/dL (2.5-5.0); Potassium 3.4 mmol/L (3.5-5.0)
[2019-01-14] MEDS ORDERED: Albuterol/Ipratropium NEB.SOL* Albuterol 2.5 MG/Ipratropium 0.5 MG 3 ML INH PRN (08:51)
[2019-01-14] MEDS: Cefepime 2 GM in Dextrose(*) 2 GM/50 ML BAG IV SCH (11:13)
[2019-01-14] MEDS: levETIRAcetam TAB* 500 MG PO SCH (11:33)
[2019-01-14] MEDS: Morphine TAB Extended Release (*) 30 MG TAB.ER PO SCH (11:34)
[2019-01-14] MEDS: Nystatin SUSPENSION* 100000 UNITS/ML 5 ML UDC PO SCH ×4 (11:34→21:00)
[2019-01-14] MEDS: Methadone TAB* 10 MG PO SCH ×3 (11:34→21:00)
[2019-01-14] MEDS: Rivaroxaban TAB(*) 10 MG PO SCH (11:35)
[2019-01-14] MEDS: Docusate CAP* 100 MG PO SCH ×2 (12:38→21:00)
[2019-01-14] MEDS ORDERED: Magnesium Sulfate 2 GM IV* 2 GM/50 ML BAG IVPB ONE (13:20)
--- NOTE | 2019-01-14 13:30 | PN ---
Date of Service: 01/14/19 - [facility] note Critical Care Services: Pt seen and examined at bedside. Pt more lethargic today. Was able to take her oral meds last night. Appears to be uncomfortable from pain. Had intermittent episodes of tachycardia, not in A.fib. Active Medications Generic Name Dose Route Start Last Admin Trade Name Freq PRN Reason Stop Dose Admin Acetaminophen 650 mg 01/11/19 17:45 Tylenol Supp* AK Q6H PRN PAIN/FEVER >100 Albuterol/Ipratropium 1 neb 01/14/19 08:51 Duoneb (Albuterol 2.5 Mg/Ipratropium 0.5 Mg) INH [id number] AWAKE PRN RESPIRATORY DISTRESS Alprazolam 1 mg 01/11/19 16:04 01/14/19 01:42 Xanax Tab* PO 1 mg Q2H PRN Administration AGITATION Docusate Sodium 100 mg 01/12/19 21:00 01/14/19 12:38 Colace Cap* PO Not Given BID ASHLEY Cefepime HCl 2 gm in 50 mls @ 100 mls/hr 01/12/19 09:00 01/14/19 11:13 Maxipime 2 Gm In Dextrose Duplex (*) IV 100 mls/hr Q12H ASHLEY Administration Sodium Chloride 1,000 mls @ 75 mls/hr 01/11/19 16:00 01/13/19 12:13 Ns 0.9% 1000 Ml IV 75 mls/hr PER RATE ASHLEY Administration Magnesium Sulfate 2 gm in 50 mls @ 50 mls/hr 01/14/19 13:20 Magnesium Sulfate 2 Gm Iv* IVPB 01/14/19 14:19 ONCE ONE Potassium Chloride 20 meq in 100 mls @ 50 mls/hr 01/14/19 14:00 Potassium Chloride 20 Meq/100 Ml Ivpremix* IV 01/14/19 17:59 Q2H ASHLEY Levetiracetam 1,000 mg 01/11/19 21:00 01/13/19 21:48 Keppra Tab* PO 1,000 mg BEDTIME ASHLEY Administration Levetiracetam 500 mg 01/12/19 09:00 01/14/19 11:33 Keppra Tab* PO Not Given DAILY ASHLEY Lorazepam 0.5 mg 01/11/19 17:46 01/13/19 23:53 Ativan Tab(*) PO 0.5 mg Q6H PRN Administration ANXIETY Magnesium Hydroxide 30 ml 01/11/19 17:45 Milk Of Magnesia Liq* PO DAILY PRN CONSTIPATION Methadone HCl 30 mg 01/11/19 21:00 01/14/19 11:34 Dolophine Tab* PO Not Given TID [facility] Miscellaneous 1 ea 01/14/19 03:51 Ativan Pyxis Peoples N/A .PYXIS PEOPLES PRN PER PROTOCOL Morphine Sulfate 30 mg 01/11/19 21:00 01/14/19 11:34 Ms Contin(*) PO Not Given BID [facility] Morphine Sulfate 5 mg 01/11/19 17:47 01/14/19 01:42 Morphine Oral Concentrate* SL 5 mg Q3H PRN Administration PAIN/SOB Nystatin 200,000 units 01/13/19 17:00 01/14/19 11:34 Nystatin Suspension* PO Not Given QID [facility] Ondansetron HCl 4 mg 01/12/19 12:45 01/12/19 12:49 Zofran Inj* IV 4 mg Q4H PRN Administration nausea Oxycodone HCl 20 mg 01/12/19 07:00 01/14/19 03:10 Oxycontin(*) PO 20 mg Q4H PRN Administration PAIN - SEVERE Oxycodone HCl 40 mg 01/12/19 07:00 01/13/19 23:53 Oxycontin(*) PO 40 mg Q4H PRN Administration PAIN - SEVERE Rivaroxaban 10 mg 01/12/19 09:00 01/14/19 11:35 Xarelto(*) PO Not Given DAILY [facility] Vital Signs: Temp Pulse Resp BP SpO2 FiO2 99.0 F 90 21 113/69 100 100 01/14/19 08:00 01/14/19 08:00 01/14/19 08:00 01/14/19 08:00 01/14/19 08:00 01/14 12:00 Physical Exam: Gen: Pt in NAD, opens eyes to painful stimuli, falls back to sleep HEENT: PERRLA, mouth breathing+ Lungs: Diminished air entry +, crackles + Cardiac: S1, S2+, regular Abdomen: Obese, BS+ Extremities: moves spontaneously Neuro: Lethargic, no focal deficits. Fluid Balance (Past 24 Hours): I= 2349 L=6040 Net 797 Intake & Output 01/12/19 01/13/19 01/14/19 01/15/19 06:59 06:59 06:59 06:59 Intake Total 2598 3395.5 2349 Output Total 498 407 6692 150 Balance 1873 2623.5 797 -150 Weight 197 lb 15.602 oz 199 lb 3.245 oz 201 lb 7.005 oz Intake: IV Fluids 2598 2272 2269 ABX - CEFEPIME 68 ABX - VANCOMYCIN 295 280 270 NS (0.9%) 1053 1991 193 IVPB 608 50 ABX - CEFEPIME 108 50 ABX - VANCOMYCIN 250 KCl 200 Mag 50 Medicated IV 35.5 Diltiazem 35.5 Oral 0 480 30 Output: Urine 55 Davila 615 137 8988 150 Other: Date of Last Bowel 01/13/19 Movement # Bowel Movements 1 Estimated Stool Amount Large Medium Labs: Laboratory Results - last 24 hr 01/14/19 01/14/19 05:00 05:00 WBC 5.7 RBC 2.94 L Hgb 9.6 L Hct 29 L MCV 100 H MCH 33 H MCHC 33 RDW 16 H Plt Count 184 MPV 7.2 L Neut % (Auto) 90.5 Lymph % (Auto) 5.8 [place] % (Auto) 2.6 Eos % (Auto) 0.9 Baso % (Auto) 0.2 Absolute Neuts (auto) 5.2 Absolute Lymphs (auto) 0.3 L Absolute Monos (auto) 0.1 Absolute Eos (auto) 0.1 Absolute Basos (auto) 0.0 Absolute Nucleated RBC 0.0 Nucleated RBC % 0.1 Sodium 143 Potassium 3.4 L Chloride 111 Carbon Dioxide 28 Anion Gap 4 BUN 11 Creatinine 0.32 L Est GFR ( Amer) 249.2 Est GFR (Non-Af Amer) 206.0 BUN/Creatinine Ratio 34.4 H Glucose 71 Calcium 7.9 L Phosphorus 2.9 Magnesium 1.8 L Impression: 68 y o f with metastatic breast cancer admitted with worsening SOB, found to have b/l air space opacities. Pt with hypoxic resp failure, increased WOB, not able to tolerate BiPAP 1. Hypoxic resp failure 2. PNA 3. Metastatic breast cancer 4. AMS 5. New onset A.fib, concerted to sinus 6. Macrocytic anemia 7. Sepsis sec to Klebsiella UTI Plan: Neuro: Pt with worsening of lethargy. Suspect metabolic sec to hypercapnia. Able to protect airway. c/w pain management, monitor for over sedation. Aspiration precautions. Keep HOB >30 Resp: B/l infiltrates on CXR- Asp PNA versus mets to lungs. Pt on cefepime and vanco. Pt with crackles and congestion. c/w nebs. Pulm toilet. BiPAP as tolerated alternating with high flow. Will rpt CXR in am CVS: Had new onset A.fib with RVR 01/12, converted back to sinus. Intermittent episodes of tachycardia that self resolve. ID: On cefepime for possible asp PNA and UTI. No leucocytosis. Ucx + Klebsiella , E.Coli that are andrews-sensitive, will deescalate to Rocephin. Renal: UO has been marginal, c/w IV hydration. repleted potassium and magnesium. GI: Poor oral intake. Aspiration precautions. encourage po intake when more alert Haem/Onco: Pt with metastatic breast ca, no further treatment planned. pt was in hospice, was d/aileen recently. Pt to return to [facility] when stable. Palliative care consult appreciated. Anemia of chronic disease. Folate and B12 normal. Endo: DM, monitor bl glucose closely, Insulin SS DVT px: Xarelto IV access: Port Plan of care discussed with bedside RN. Pts and son were updated at bedside Prognosis guarded Pt is DNR/DNI Critical Care Time: 25 min
[2019-01-14] MEDS: KCL 20 MEQ/100 ML IVPREMIX* 20 MEQ/100 ML BAG IV SCH ×2 (13:56→16:46)
[2019-01-14] MEDS ORDERED: Morphine INJ* 2 MG/ML 1 ML SYRINGE (TWO MG - NEW SYRINGE VERSION) IV ONE ×2 (14:06→20:00)
[2019-01-14] MEDS: NS 0.9% 1000 ML** 1,000 ML IV SCH (14:24)
[2019-01-14] MEDS: cefTRIAXone(*) 1 GM in NS 0.9% 50 ML* 50 ML IVPB SCH (15:33)
[2019-01-14] MEDS ORDERED: Morphine INJ* 2 MG/ML 1 ML SYRINGE (TWO MG - NEW SYRINGE VERSION) ONE (15:59)
[2019-01-14] MEDS: Morphine INJ* 2 MG/ML 1 ML SYRINGE (TWO MG - NEW SYRINGE VERSION) IV PRN ×3 (16:02→23:05)
[2019-01-14] MEDS ORDERED: Vancomycin Trough Check NOTE FOLLOW UP ONE (16:30)
[2019-01-14] MEDS: levETIRAcetam 1000MG IVPREMIX* 1,000 MG/100 ML BAG IVPB SCH (16:46)
[2019-01-14] MEDS ORDERED: Morphine INJ* 4 MG/ML 1 ML SYRINGE (NEW SYRINGE VERSION) ONE (19:26)
[2019-01-14] MEDS: LORazepam INJ* 2 MG/ML 1 ML VIAL IV PUSH PRN ×2 (19:31→23:22)
[2019-01-15] MEDS: Morphine INJ* 2 MG/ML 1 ML SYRINGE (TWO MG - NEW SYRINGE VERSION) IV PRN ×8 (04:04→23:15)
[2019-01-15] MEDS: levETIRAcetam 1000MG IVPREMIX* 1,000 MG/100 ML BAG IVPB SCH ×2 (04:04→14:55)
[2019-01-15] MEDS: NS 0.9% 1000 ML** 1,000 ML IV SCH ×2 (04:07→14:57)
[2019-01-15] MEDS: LORazepam INJ* 2 MG/ML 1 ML VIAL IV PUSH PRN ×2 (04:29→17:14)
[2019-01-15 05:24] LABS: Hematocrit 30 % (35-47); Hemoglobin 9.8 g/dL (12.0-16.0); Mean Corpuscular HGB Conc 32 g/dL (31-36); Mean Corpuscular Hemoglobin 32 pg (27-31); Mean Corpuscular Volume 100 fL (80-97); Mean Platelet Volume 7.4 fL (7.4-10.4); Platelet Count 192 10^3/uL (150-450); Red Blood Count 3.03 10^6 /uL (3.70-4.87); Red Cell Distribution Width 16 % (10-15); White Blood Count 7.4 10^3/uL (3.5-10.8)
[2019-01-15 05:41] LABS: Blood Urea Nitrogen 11 mg/dL (6-24); CO2 Carbon Dioxide 26 mmol/L (22-32); EGFR African American 268.5 (>60); EGFR Non-African American 221.9 (>60); Glucose 53 mg/dL (70-100); Magnesium 1.9 mg/dL (1.9-2.7); Phosphorus 3.1 mg/dL (2.5-5.0); Sodium 145 mmol/L (135-145)
[2019-01-15 05:43] LABS: Chloride 113 mmol/L (101-111)
[2019-01-15 05:45] LABS: Anion Gap 6 mmol/L (2-11)
[2019-01-15 06:03] LABS: ABS Eosinophils 0.1 10^3/ul (0-0.6); ABS Lymphocytes 0.7 10^3/ul (1.0-4.8); ABS Monocytes 0.2 10^3/ul (0-0.8); ABS Neutrophils 6.4 10^3/ul (1.5-7.7); Eosinophil % 0.9 %; Lymphocyte % 9.2 %; Nucleated Red Blood Cells % 0.1
[2019-01-15] MEDS: Methadone TAB* 10 MG PO SCH ×3 (07:17→21:23)
[2019-01-15] MEDS: Docusate CAP* 100 MG PO SCH ×2 (07:17→21:23)
[2019-01-15] MEDS: Rivaroxaban TAB(*) 10 MG PO SCH (07:18)
[2019-01-15] MEDS: Nystatin SUSPENSION* 100000 UNITS/ML 5 ML UDC PO SCH ×4 (07:18→21:23)
[2019-01-15] MEDS ORDERED: Dextrose 50% VIAL 50 ml ONE (08:12)
[2019-01-15] MEDS ORDERED: Dextrose 50% VIAL 50 ml IV ONE (09:00)
[2019-01-15] MEDS: cefTRIAXone(*) 1 GM in NS 0.9% 50 ML* 50 ML IVPB SCH (13:08)
--- NOTE | 2019-01-15 17:02 | PN ---
Date of Service: 01/15/19 Critical Care Services: Unfortunate case of end-stage breast CA with chronic severe pain and apparent new pneumonia. Is on vapotherm for oxygenation. Vital Signs: Temp Pulse Resp BP SpO2 FiO2 98.1 F 86 29 110/62 98 70 Physical Exam: Gen:Obtunded HEENT:No facial asymmetry Lungs: coarse rhonchi both lungs Cardiac: Reg rhythm Abdomen:Not distended Extremities:No cyanosis or edema Neuro:No focal findings Fluid Balance (Past 24 Hours): 01/13/19 01/14/19 01/15/19 01/16/19 06:59 06:59 06:59 06:59 Intake Total 3395.5 2349 2183 410 Output Total 772 1552 1220 505 Balance 2623.5 797 963 -95 Weight 199 lb 3.245 oz 201 lb 7.005 oz 202 lb Intake: IV Fluids 2272 2269 1807 410 ABX - CEFEPIME 68 ABX - VANCOMYCIN 280 270 KCl 104 NS (0.9%) 1991 1931 1703 410 IVPB 608 50 376 ABX - CEFEPIME 108 50 125 ABX - VANCOMYCIN 250 KCl 200 212 Mag 50 39 Medicated IV 35.5 Diltiazem 35.5 Oral 480 30 0 Output: Urine 55 450 Davila 717 1552 1220 55 Other: Date of Last Bowel 01/13/19 01/14/2019 01/14/2019 Movement # Bowel Movements 1 1 1 Estimated Stool Amount Medium Large Medium Labs: Laboratory Results - last 24 hr 01/15/19 01/15/19 01/15/19 05:00 05:00 05:50 WBC 7.4 RBC 3.03 L Hgb 9.8 L Hct 30 L MCV 100 H MCH 32 H MCHC 32 RDW 16 H Plt Count 192 MPV 7.4 Neut % (Auto) 86.7 Lymph % (Auto) 9.2 [place] % (Auto) 2.7 Eos % (Auto) 0.9 Baso % (Auto) 0.5 Absolute Neuts (auto) 6.4 Absolute Lymphs (auto) 0.7 L Absolute Monos (auto) 0.2 Absolute Eos (auto) 0.1 Absolute Basos (auto) 0.0 Absolute Nucleated RBC 0.0 Nucleated RBC % 0.1 Sodium 145 Potassium TNP 3.5 Chloride 113 H Carbon Dioxide 26 Anion Gap 6 BUN 11 Creatinine < 0.30 L Est GFR ( Amer) 268.5 Est GFR (Non-Af Amer) 221.9 BUN/Creatinine Ratio 36.0 H Glucose 53 POC Glucose (mg/dL) Calcium 8.0 L Phosphorus 3.1 Magnesium 1.9 NOTE: Patient given 1 amp D50 for the hypoglycemia, and repeat glucose 135 mg/ dL. Studies: None today Impression: End-stage metastatic breast CA with [id number] and respiratory failure. Plan: Out major emphasis is maintaining comfort at this time. Prognosis is very po
[2019-01-15] MEDS ORDERED: Morphine INJ* 4 MG/ML 1 ML SYRINGE (NEW SYRINGE VERSION) ONE (17:24)
[2019-01-15] MEDS ORDERED: fentaNYL* 50 MCG/ML 2 ML VIAL (100 MCG VIAL) IV SLOW PU ONE ×3 (17:55→18:30)
[2019-01-15] MEDS ORDERED: fentaNYL* 50 MCG/ML 2 ML VIAL (100 MCG VIAL) ONE ×2 (18:19→18:34)
[2019-01-15] MEDS: fentaNYL* 50 MCG/ML 2 ML VIAL (100 MCG VIAL) IV SLOW PU PRN (20:07)
[2019-01-16] MEDS: Morphine INJ* 4 MG/ML 1 ML SYRINGE (NEW SYRINGE VERSION) IV PRN ×3 (03:28→10:06)
[2019-01-16] MEDS: levETIRAcetam 1000MG IVPREMIX* 1,000 MG/100 ML BAG IVPB SCH (03:36)
[2019-01-16] MEDS: fentaNYL* 50 MCG/ML 2 ML VIAL (100 MCG VIAL) IV SLOW PU PRN ×3 (03:36→10:06)
[2019-01-16 05:19] LABS: Hematocrit 29 % (35-47); Hemoglobin 9.2 g/dL (12.0-16.0); Mean Corpuscular HGB Conc 32 g/dL (31-36); Mean Corpuscular Hemoglobin 32 pg (27-31); Mean Corpuscular Volume 99 fL (80-97); Mean Platelet Volume 7.5 fL (7.4-10.4); Platelet Count 172 10^3/uL (150-450); Red Blood Count 2.88 10^6 /uL (3.70-4.87); Red Cell Distribution Width 16 % (10-15); White Blood Count 6.9 10^3/uL (3.5-10.8)
[2019-01-16 05:38] LABS: Blood Urea Nitrogen 9 mg/dL (6-24); CO2 Carbon Dioxide 29 mmol/L (22-32); EGFR African American 268.5 (>60); EGFR Non-African American 221.9 (>60); Glucose 68 mg/dL (70-100); Magnesium 1.5 mg/dL (1.9-2.7); Phosphorus 2.8 mg/dL (2.5-5.0); Potassium 3.2 mmol/L (3.5-5.0)
[2019-01-16 05:40] LABS: Anion Gap 8 mmol/L (2-11); Chloride 114 mmol/L (101-111); Sodium 151 mmol/L (135-145)
--- NOTE | 2019-01-16 06:07 | PN ---
Progress Note - Progress Note Date of Service: 01/15/19 SOAP: Subjective: []Non responsive and respiratory distress. Acetaminophen (Tylenol Supp*) [address] Q6H PRN PRN Reason: PAIN/FEVER >100 Albuterol/Ipratropium (Duoneb (Albuterol 2.5 Mg/Ipratropium 0.5 Mg)) 1 neb INH [id number] AWAKE PRN PRN Reason: RESPIRATORY DISTRESS Alprazolam (Xanax Tab*) 1 mg PO Q2H PRN PRN Reason: AGITATION Last Admin: 01/14/19 01:42 Dose: 1 mg Docusate Sodium (Colace Cap*) 100 mg PO BID [facility] Last Admin: 01/15/19 21:23 Dose: Not Given Fentanyl Citrate (Fentanyl*) 100 mcg IV SLOW PU Q1H PRN PRN Reason: PAIN - SEVERE Last Admin: 01/16/19 03:36 Dose: 100 mcg Sodium Chloride (Ns 0.9% 1000 Ml) 1,000 mls @ 75 mls/hr IV PER RATE [facility] Last Admin: 01/15/19 14:57 Dose: 75 mls/hr Ceftriaxone Sodium 1 gm/ (Sodium Chloride) 50 mls @ 100 mls/hr IVPB Q24H [facility] Last Admin: 01/15/19 13:08 Dose: 100 mls/hr Levetiracetam (Keppra Iv Premix*) 1,000 mg in 100 mls @ 400 mls/hr IVPB Q12H [facility] Last Admin: 01/16/19 03:36 Dose: 400 mls/hr Lorazepam (Ativan Tab(*)) 0.5 mg PO Q6H PRN PRN Reason: ANXIETY Last Admin: 01/13/19 23:53 Dose: 0.5 mg Lorazepam (Ativan Inj*) 1 mg IV PUSH Q4H PRN PRN Reason: ANXIETY Last Admin: 01/15/19 17:14 Dose: 1 mg Magnesium Hydroxide (Milk Of Magnesia Liq*) 30 ml PO DAILY PRN PRN Reason: CONSTIPATION Methadone HCl (Dolophine Tab*) 30 mg PO TID [facility] Last Admin: 01/15/19 21:23 Dose: Not Given Miscellaneous (Ativan Pyxis Peoples) 1 ea N/A .PYXIS PEOPLES PRN PRN Reason: PER PROTOCOL Morphine Sulfate (Morphine Inj (Syringe)*) 4 mg IV Q2H PRN PRN Reason: PAIN - SEVERE Last Admin: 01/16/19 03:28 Dose: 4 mg Nystatin (Nystatin Suspension*) 200,000 units PO QID [facility] Last Admin: 01/15/19 21:23 Dose: Not Given Ondansetron HCl (Zofran Inj*) 4 mg IV Q4H PRN PRN Reason: nausea Last Admin: 01/12/19 12:49 Dose: 4 mg Rivaroxaban (Xarelto(*)) 10 mg PO DAILY [facility] Last Admin: 01/15/19 07:18 Dose: Not Given Objective: [] Vital Signs Temp Pulse Resp BP Pulse Ox 97.9 F 83 24 109/61 97 01/16/19 05:01 01/16/19 05:01 01/16/19 05:01 01/16/19 05:01 01/16/19 05:01 In distress at time of my exam HEENT: edema crackles BL and bronchial sounds, vapotherm tachy, rrr +BS distended ext edema Assessment: []Progressive end stage breast cancer now with acute repiratory syndrome. Discussed with that this is a terminal event and recommend prioritizing comfort care. Plan: []1. High dose narcotics at baseline, Morphine equivalent 300 mg/d. Will need to titrate to comfort 2. Family does not want comfort care at this time. Will continue Abx.
[2019-01-16 06:23] LABS: ABS Lymphocytes 0.3 10^3/ul (1.0-4.8); ABS Monocytes 0.3 10^3/ul (0-0.8); ABS Neutrophils 6.3 10^3/ul (1.5-7.7); Eosinophil % 0.2 %; Lymphocyte % 4.3 %; Nucleated Red Blood Cells % 0.1
[2019-01-16] MEDS: Docusate CAP* 100 MG PO SCH (08:05)
[2019-01-16] MEDS: Rivaroxaban TAB(*) 10 MG PO SCH (08:06)
[2019-01-16] MEDS: Nystatin SUSPENSION* 100000 UNITS/ML 5 ML UDC PO SCH (08:06)
[2019-01-16] MEDS: Methadone TAB* 10 MG PO SCH (08:06)
[2019-01-16 08:07] VITALS: BP 158/104
[2019-01-16] MEDS: LORazepam INJ* 2 MG/ML 1 ML VIAL IV PUSH PRN (08:39)
[2019-01-16] MEDS ORDERED: fentaNYL* 50 MCG/ML 2 ML VIAL (100 MCG VIAL) ONE (08:50)
[2019-01-16] MEDS ORDERED: LORazepam INJ* 2 MG/ML 1 ML VIAL IV PUSH PRN (11:00)
[2019-01-16] MEDS ORDERED: Morphine PCA 5 MG/ML * Titrate per Protocol PCA SCH (11:00)
[2019-01-16] MEDS ORDERED: LORazepam INJ* 2 MG/ML 1 ML VIAL IV PUSH ONE (11:10)
--- NOTE | 2019-01-16 22:17 | DS ---
SUMMARY: DATE OF ADMISSION: 01/11/19 DATE OF : 01/16/19 TIME OF : 01:30 p.m. HOSPITAL COURSE: This patient was a 68-year-old white female with a longstanding history of metastatic breast carcinoma who was admitted with increasing shortness of breath and possible pneumonia. Because of the advanced state of the patient's neoplasm the patient was DNR/DNI from admission. She was placed on broad-spectrum antibiotic coverage and, over the course of the hospitalization, her respiratory status did not improve, with increasing hypoxemia that required BiPAP alternating with Vapotherm therapy. The patient also experienced increasing generalized pain that required increasing doses of opioids for pain control. On the morning of 01/16/19, after a discussion with the patient's and son, it was decided to do nothing further therapeutically and institute " comfort measures only" care. She was then started on a morphine drip and all other meds (plus oxygen) were discontinued. Shortly thereafter, the patient developed asystole and was pronounced at 1:30 p.m. The patient's and son were present at the bedside; and autopsy was denied. FINAL DIAGNOSES: 1. Metastatic breast carcinoma. 2. Bilateral pneumonia. 3. Atrial fibrillation. [id number]/[facility] #: [id number] LINH
== END 2019-01-16 13:30 | disposition expired | DRG 871 ==
LOC: ED 10:01 → ICU 13:19
PROVIDERS: ADMIT Internal Medicine; ATTEND Internal Medicine Critical Care Medicine
PROC: 5A09557 Assistance with Respiratory Ventilation, Greater than 96 Consecutive Hours, Continuous Positive Airway Pressure (ICD-10-PCS; principal; 2019-01-11)
DX: A41.9 Sepsis, unspecified organism (principal); J18.9 Pneumonia, unspecified organism; J96.91 Respiratory failure, unspecified with hypoxia; I47.1 Supraventricular tachycardia; N39.0 Urinary tract infection, site not specified; C79.51 Secondary malignant neoplasm of bone; G89.29 Other chronic pain; K21.9 Gastro-esophageal reflux disease without esophagitis; E78.5 Hyperlipidemia, unspecified; G47.33 Obstructive sleep apnea (adult) (pediatric); F32.9 Major depressive disorder, single episode, unspecified; G40.909 Epilepsy, unspecified, not intractable, without status epilepticus; Z66 Do not resuscitate; C50.919 Malignant neoplasm of unspecified site of unspecified female breast; I48.91 Unspecified atrial fibrillation; M85.80 Other specified disorders of bone density and structure, unspecified site; R41.82 Altered mental status, unspecified; D53.9 Nutritional anemia, unspecified; I73.9 Peripheral vascular disease, unspecified; M19.90 Unspecified osteoarthritis, unspecified site; M81.0 Age-related osteoporosis without current pathological fracture; H40.9 Unspecified glaucoma; H26.9 Unspecified cataract; K44.9 Diaphragmatic hernia without obstruction or gangrene; J45.909 Unspecified asthma, uncomplicated; G62.9 Polyneuropathy, unspecified; F41.9 Anxiety disorder, unspecified; Z96.641 Presence of right artificial hip joint; Z96.652 Presence of left artificial knee joint; Z51.5 Encounter for palliative care; B96.1 Klebsiella pneumoniae [K. pneumoniae] as the cause of diseases classified elsewhere; D63.8 Anemia in other chronic diseases classified elsewhere; Z88.0 Allergy status to penicillin; Z86.718 Personal history of other venous thrombosis and embolism; Z91.030 Bee allergy status; Z91.041 Radiographic dye allergy status; Z91.012 Allergy to eggs; Z88.2 Allergy status to sulfonamides; Z88.8 Allergy status to other drugs, medicaments and biological substances; Z91.018 Allergy to other foods; Z91.048 Other nonmedicinal substance allergy status; Z98.1 Arthrodesis status; Z82.49 Family history of ischemic heart disease and other diseases of the circulatory system; Z80.42 Family history of malignant neoplasm of prostate
CPT/HCPCS: 36415; 71045; 80048; 80053; 80202; 81003; 81015; 82607; 82746; 83605; 83735; 83880; 84100; 84484; 85025; 85610; 85730; 87040; 87077; 87086; 87186; 87641; 93005; 94660; 94667; 94668; 99232; 99285; A9270-GY; J0692; J0696; J1160; J1953; J2060; J2270; J2405; J3010; J3370; J3475; J3480; J3490